=== PATIENT | female | born 1950 | race Caucasian/White ===

== ENCOUNTER → 2024-01-01 | Outpatient (CLI) | payer MEDICARE, SELFPAY ==
[2024-01-01 08:58] LABS: Hematocrit 37.4 % (37-47); Hemoglobin 10.9 g/dL (12.0-15.0); Mean Corp Hgb Conc 29.1 g/dL (32-36); Mean Corpuscular Hgb 20.5 pg (27.0-32.0); Mean Corpuscular Volume 70.3 fL (81-99); Mean Platelet Vol. 10.4 fl (6.2-12.0); Platelet Count 299 K/mm3 (150-450); RBC Distribution Width CV 16.8 % (11.6-14.6); RBC Distribution Width SD 40.3 fl (35.1-43.9); Red Blood Count 5.32 M/mm3 (4.2-5.4); White Blood Count 8.3 K/mm3 (4.4-11.0)
[2024-01-01 09:34] LABS: Hemoglobin A1c 6.8 % (3.8-5.6)
[2024-01-01 09:42] LABS: ALB/GLOB Ratio 1.2 RATIO (0.9-2.4); AST(SGOT) 36 U/L (15-37); Alanine Aminotransfer ALT/SGPT 40 U/L (13-56); Albumin, Serum 4.2 g/dL (3.2-5.0); Alkaline Phosphatase 47 U/L (45-117); Anion Gap 6 (5-15); BUN 23 mg/dL (7-18); BUN/Creat Ratio 17.7 RATIO (10-20); Calcium,Total 9.2 mg/dL (8.5-10.1); Chloride 110 mmol/L (98-107); Cholesterol 147 mg/dL (200); EST Glomerular Filtration Rate 42 mL/min (>60); Est Glom Filt Rate - Afr Amer 51 mL/min (>60); Globulin 3.4 g/dL (2.2-4.2); Glucose 168 mg/dL (74-106); High Density Lipoprotein 34 mg/dL; Potassium 4.8 mmol/L (3.5-5.1); Protein, Total 7.6 g/dL (6.4-8.2); Sodium Level 141 mmol/L (136-145); Triglycerides 280 mg/dL; Very Low Density Lipoprotein 56 mg/dL (5-40)
[2024-01-01 10:34] LABS: Microalbumin:Creatinine Ratio 2335.9 mg/g CRE (<30 mg/g CRE)
== END | disposition home or self-care (01) ==
DX: I10 Essential (primary) hypertension (principal); E11.65 Type 2 diabetes mellitus with hyperglycemia; E78.2 Mixed hyperlipidemia
CPT/HCPCS: 36415; 80053; 80061; 82043; 82570; 83036; 85027

== ENCOUNTER 2024-04-10 06:21 | Day surgery (SDC) | payer MEDICARE, SELFPAY ==
[2024-04-10] VITALS (7 sets, daily range): BP systolic 106–141; BP diastolic 62–88; PULSE 63–76; RESP 16–18; TEMP 36.6–37.1; O2SAT 16–99; BMI 30.6
--- NOTE | 2024-04-10 06:37 | PRE.ANES_ITS ---
ASA Classification* ASA Classification ASA Classification: 2 Assessment & Plan Anesthesia* Anesthesia Assessment Anesthesia Assessment: Discussed sedation and/or anesthesia options, risks, benefits, and alternatives with patient/parents/legal guardian/POA. Questions invited. The patient/parents/legal guardian/POA seems to understand and agrees to proceed with anesthesia plan. Reviewed the physical assessment, medical history, allergy history and patient home medications list prior to surgery/procedure/anesthetic and documented any changes. Performed airway and anesthesia risk assessments. Anesthesia Type Anesthesia Type: MAC Anesthesia Focused Assessment* Airway Assessment Mouth opens: >3 cm Mallampati Score: II Focused Labs Anesthesia Preop lab: CBC WBC 8.3 K/mm3 (4.4-11.0) 01/01/24 08:18 RBC 5.32 M/mm3 (4.2-5.4) 01/01/24 08:18 Hgb 10.9 g/dL (12.0-15.0) L 01/01/24 08:18 Hct 37.4 % (37-47) 01/01/24 08:18 Plt Count 299 K/mm3 (150-450) 01/01/24 08:18 CHEMISTRY Potassium 4.8 mmol/L (3.5-5.1) 01/01/24 08:18 Sodium 141 mmol/L (136-145) 01/01/24 08:18 BUN 23 mg/dL (7-18) H 01/01/24 08:18 Creatinine 1.30 mg/dL (0.55-1.02) H 01/01/24 08:18 Glucose 168 mg/dL (74-106) H 01/01/24 08:18 COAG Pre-Assessment Diagnosis/Proposed Procedure Planned Operative Procedure(s): COLONOSCOPY Anesthesia History 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 When Was Last Pacemaker Check QUESTION #4 FULL TEXT: You/Your Family Experience fever (hyperthermia) with Anesthesia Last Oral Intake Last Oral intake: Last Oral Intake NPO since Meds taken in AM with sips of water? 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 Has anyone observed you stop No 04/07/24 13:33 breathing during sleep? STOP Results Positive 04/07/24 13:33 QUESTION #5 FULL TEXT : Do you snore loudly (louder than talking or can be heard through closed doors)? 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 Specify any problems Hx of Preganancy in last 3 No 04/07/24 13:33 Months Nurse Filling Out Transfusion SUMAN 04/07/24 13:33 & Questions: Date: 04/07/24 04/07/24 13:33 Time: 13:37 04/07/24 13:33 Patient unable to answer at this time (ie. 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 Hx Now No 04/07/24 13:33 Gestational Age (in weeks): EDC: Hx Hx Para Hx Section SAB No 04/07/24 13:33 Active Medications Active Medications: Current Medications Generic Name Dose Route Start Last Admin Trade Name Freq PRN Reason Stop Dose Admin Lactated Ringer's 1,000 mls @ 15 mls/hr 04/10/24 06:30 IV .Q48H IOANA PFSH Medical History Wears glasses Loose, teeth Wears partial dentures Panic attack Discoloration of skin Ambulates with cane Arthritis Kidney stones Low iron Anemia Fatty liver Easy bruising Restless legs History of IBS Heartburn Former smoker Hoarseness Chronic cough History of edema History of stress test UTI (urinary tract infection) GERD (gastroesophageal reflux disease) History of kidney stones History of trigger finger Anxiety Type 2 diabetes mellitus Hyperlipidemia HTN (hypertension) Personal history of colonic polyps Home Medications ?Medication ?Instructions ?Recorded ?Last Taken ?Type amitriptyline 25 mg tablet 25 mg PO QHS 04/03/24 Unknown History amlodipine 10 mg tablet 10 mg PO DAILY 04/03/24 Unknown History ascorbic acid (vitamin C) 500 mg 500 mg PO DAILY 04/03/24 Unknown History tablet aspirin 81 mg tablet,delayed 81 mg PO DAILY 04/03/24 Unknown History release (Adult Low Dose Aspirin) calcium citrate 250 mg PO DAILY 04/03/24 Unknown History cranberry extract 500 mg capsule 500 mg PO DAILY 04/03/24 Unknown History cyanocobalamin (vitamin B-12) 500 500 mcg PO DAILY 04/03/24 Unknown History mcg tablet ergocalciferol (vitamin D2) 50 mcg 50 mcg PO DAILY 04/03/24 Unknown History (2,000 unit) capsule estradiol 0.01% (0.1 mg/gram) 1 g vaginal 3XW 04/03/24 Unknown History vaginal cream famotidine 20 mg tablet 20 mg PO BID 04/03/24 Unknown History fenofibrate 160 mg tablet 160 mg PO DAILY 04/03/24 Unknown History ferrous sulfate 325 mg (65 mg 325 mg PO DAILY 04/03/24 Unknown History iron) tablet (Feosol) fluoxetine 20 mg capsule 20 mg PO DAILY 04/03/24 Unknown History gabapentin 300 mg capsule 600 mg PO .QID 04/03/24 Unknown History garlic 500 mg capsule 500 mg PO DAILY 04/03/24 Unknown History hydrochlorothiazide 12.5 mg capsule 25 mg PO DAILY 04/03/24 Unknown History icosapent ethyl 1 gram capsule 2 g PO BID 04/03/24 Unknown History lactobacillus combination no.9 4 4,000 mmu cells PO DAILY 04/03/24 Unknown History billion cell capsule (Adult 50 Plus Probiotic) lorazepam 1 mg tablet 1.5 mg PO TID PRN anxiety 04/03/24 Unknown History losartan 100 mg tablet 100 mg PO DAILY 04/03/24 Unknown History magnesium gluconate 500 mg tablet 500 mg PO DAILY 04/03/24 Unknown History metformin 1,000 mg tablet 1,000 mg PO BID 04/03/24 Unknown History multivitamin 1 tab PO DAILY 04/03/24 Unknown History prednisolone acetate 1 % eye 1 drp ophthalmic (eye) TID 04/03/24 Unknown History drops,suspension rosuvastatin 40 mg tablet 40 mg PO DAILY 04/03/24 Unknown History tamsulosin 0.4 mg capsule 0.4 mg PO DAILY 04/03/24 Unknown History trimethoprim 100 mg tablet 100 mg PO DAILY 04/03/24 Unknown History Allergy/AdvReac Type Severity Reaction Status Date / Time clindamycin Allergy Rash Verified 04/07/24 13:39 codeine Allergy Other Verified 04/07/24 13:39 erythromycin base Allergy Rash Verified 04/07/24 13:39 Iodinated Contrast Media Allergy Nausea/Vom/ Verified 04/07/24 13:39 (IVP dye) Diarrhea latex Allergy Hives Verified 04/07/24 13:39 oxytetracycline (From Allergy Rash Verified 04/07/24 13:39 Terramycin) Penicillins Allergy Rash Verified 04/07/24 13:39 Sulfa (Sulfonamide Allergy Rash Verified 04/07/24 13:39 Antibiotics) Surgical History History of total bilateral knee replacement (TKR) Hx of appendectomy History of tonsillectomy and adenoidectomy Hx of colonoscopy Social History (Updated 04/03/24 @ 10:18 by Joanna Gutierrez) household members: spouse current occupational status: retired Smoking Status: Former smoker alcohol intake: never substance use type: does not use Review of Systems (Anesthesia) ROS Narrative System reviewed and no additional complaints, except as documented.
[2024-04-10] MEDS: Lactated Ringers 1,000 ML 15 ML IV (06:51)
[2024-04-10 07:11] LABS: Bedside Glucose 115 mg/dL (74-106)
--- NOTE | 2024-04-10 07:20 | HP.PCM_ITS ---
[facility] - General General Date of Admission: 04/10/24 Date of Service: 04/10/24 Chief Complaint: Screening colonoscopy HPI Talita TYLER, is a 73 F who presents today for screening colonoscopy. She had a colonoscopy approximately 10 years ago. She has not had any abdominal pain cramping, nausea, vomiting or diarrhea. She does have a past medical history of hypertriglyceridemia, mild depression, mild neuropathy, hypertension, mild anxiety and type 2 diabetes. [facility] Medical History Wears glasses Loose, teeth Wears partial dentures Panic attack Discoloration of skin Ambulates with cane Arthritis Kidney stones Low iron Anemia Fatty liver Easy bruising Restless legs History of IBS Heartburn Former smoker Hoarseness Chronic cough History of edema History of stress test UTI (urinary tract infection) GERD (gastroesophageal reflux disease) History of kidney stones History of trigger finger Anxiety Type 2 diabetes mellitus Hyperlipidemia HTN (hypertension) Personal history of colonic polyps Home Medications ?Medication ?Instructions ?Recorded ?Last Taken ?Type amitriptyline 25 mg tablet 25 mg PO QHS 04/03/24 Unknown History amlodipine 10 mg tablet 10 mg PO DAILY 04/03/24 04/10/24 History ascorbic acid (vitamin C) 500 mg 500 mg PO DAILY 04/03/24 Unknown History tablet aspirin 81 mg tablet,delayed 81 mg PO DAILY 04/03/24 04/04/24 History release (Adult Low Dose Aspirin) calcium citrate 250 mg PO DAILY 04/03/24 Unknown History cranberry extract 500 mg capsule 500 mg PO DAILY 04/03/24 Unknown History cyanocobalamin (vitamin B-12) 500 500 mcg PO DAILY 04/03/24 Unknown History mcg tablet ergocalciferol (vitamin D2) 50 mcg 50 mcg PO DAILY 04/03/24 Unknown History (2,000 unit) capsule estradiol 0.01% (0.1 mg/gram) 1 g vaginal 3XW 04/03/24 Unknown History vaginal cream famotidine 20 mg tablet 20 mg PO BID 04/03/24 04/10/24 History fenofibrate 160 mg tablet 160 mg PO DAILY 04/03/24 04/10/24 History ferrous sulfate 325 mg (65 mg 325 mg PO DAILY 04/03/24 Unknown History iron) tablet (Feosol) fluoxetine 20 mg capsule 20 mg PO DAILY 04/03/24 04/10/24 History gabapentin 300 mg capsule 600 mg PO .QID 04/03/24 04/10/24 History garlic 500 mg capsule 500 mg PO DAILY 04/03/24 Unknown History hydrochlorothiazide 12.5 mg capsule 25 mg PO DAILY 04/03/24 Unknown History icosapent ethyl 1 gram capsule 2 g PO BID 04/03/24 Unknown History lactobacillus combination no.9 4 4,000 mmu cells PO DAILY 04/03/24 Unknown History billion cell capsule (Adult 50 Plus Probiotic) lorazepam 1 mg tablet 1.5 mg PO TID PRN anxiety 04/03/24 04/10/24 History losartan 100 mg tablet 100 mg PO DAILY 04/03/24 04/10/24 History magnesium gluconate 500 mg tablet 500 mg PO DAILY 04/03/24 Unknown History metformin 1,000 mg tablet 1,000 mg PO BID 04/03/24 Unknown History multivitamin 1 tab PO DAILY 04/03/24 Unknown History prednisolone acetate 1 % eye 1 drp ophthalmic (eye) TID 04/03/24 Unknown History drops,suspension rosuvastatin 40 mg tablet 40 mg PO DAILY 04/03/24 Unknown History tamsulosin 0.4 mg capsule 0.4 mg PO DAILY 04/03/24 04/10/24 History trimethoprim 100 mg tablet 100 mg PO DAILY 04/03/24 Unknown History Allergy/AdvReac Type Severity Reaction Status Date / Time clindamycin Allergy Rash Verified 04/10/24 06:41 codeine Allergy Other Verified 04/10/24 06:41 erythromycin base Allergy Rash Verified 04/10/24 06:41 Iodinated Contrast Media Allergy Nausea/Vom/ Verified 04/10/24 06:41 (IVP dye) Diarrhea latex Allergy Hives Verified 04/10/24 06:41 oxytetracycline (From Allergy Rash Verified 04/10/24 06:41 Terramycin) Penicillins Allergy Rash Verified 04/10/24 06:41 Sulfa (Sulfonamide Allergy Rash Verified 04/10/24 06:41 Antibiotics) Surgical History History of total bilateral knee replacement (TKR) Hx of appendectomy History of tonsillectomy and adenoidectomy Hx of colonoscopy Social History (Updated 04/03/24 @ 10:18 by Joanna Gutierrez) household members: spouse current occupational status: retired Smoking Status: Former smoker alcohol intake: never substance use type: does not use ROS Review of Systems ROS Unobtainable: other Constitutional Constitutional: Denies fatigue, fever(s), poor appetite, weight gain or weight loss ENT HEENT: Denies mouth lesions Cardiovascular Cardiovascular: Denies abdominal bloating, abdominal edema or abdominal pain Respiratory/Chest Respiratory/Chest: Denies change in mental status, change in phlegm color, chest congestion or chest tightness Gastrointestinal Gastrointestinal: Denies belching, bloating, change in bowel habits, change in stool character, chewing difficulty, coffee ground emesis, constipation, cramping, diarrhea, dyspepsia, dysphagia, early satiety, excessive flatus, fecal incontinence, heartburn, hematemesis, hematochezia, hemorrhoids, loose stools, melena, nausea, odynophagia, rectal bleeding, tenesmus, vomiting or weight changes Genitourinary Genitourinary: Denies abdominal discomfort, burning urination or itching Musculoskeletal Musculoskeletal: Reports as per HPI; Denies muscle weakness or myalgias Integumentary Integumentary: Denies jaundice Neurologic Neurologic: Denies lack of coordination or weakness Psychiatric Psychiatric: Denies confusion, depression, memory loss, mood swings, paranoia or suicidal ideation Endocrine Endocrinology: Denies systems reviewed and no addt'l complaints, except as documented Hematologic/Lymphatic Hematologic/Lymphatic: Denies anemia, easy bleeding, easy bruising or lymphadenopathy Allergic/Immunologic Allergic/Immunologic: Denies systems reviewed and no addt'l complaints, except as documented Vital Signs Vital Signs Vital Signs: 04/10/24 06:44 04/10/24 06:44 Temperature 98 F Temperature Source Temporal Pulse Rate 76 Respiratory Rate 16 Respiratory Pattern Normal Blood Pressure 141/62 H Blood Pressure Mean 88 Blood Pressure Source Monitor Blood Pressure Position Semi-Fowlers Blood Pressure Location Right Arm Pulse Ox 96 Oxygen Delivery Method Room Air Weight Weight: 178 lb 5.663 oz Body Mass Index (BMI) 30.6 Physical Exam Const alert General Appearance: cooperative Orientation / Consciousness: oriented to person HEENT hearing grossly normal bilaterally Head and Scalp: normal to inspection Face and Sinus: face symmetric Nose: external nose normal Mouth: oral and palatal mucosa normal Eyes conjunctivae normal General Eye: normal appearance of both eyes Neck full ROM General: normal visual inspection Lymph Lymphatic: no lymphadenopathy noted Chest inspection of chest normal and palpation of chest normal Chest: symmetrical chest wall rise Resp normal respiratory effort Effort and Inspection: able to speak in complete sentences Cardio regular rate GI non-distended Percussion: normal to percussion Rectal Exam: deferred Neuro Speech: speech normal Gait (Neuro): normal gait Results Lab / Micro Data Labs: Laboratory Results - last 24 hr 04/10/24 06:48: POC Glucose 115 H Assessment & Plan Assessment/Plan (1) Encounter for screening for malignant neoplasm of colon: PLAN: She was explained alternatives, risk, benefits including not withstanding bleeding, infection, sepsis, perforation, need for emergent urgent . She will have an ASA of 3.
--- NOTE | 2024-04-10 07:49 | OP.COLON_ITS ---
Patient Name: Debbie Hayes Procedure Date: 04/10/2024 7:28 AM Date of : 1950 Age: 73 Procedure: Colonoscopy Indications: Screening for colorectal malignant neoplasm Providers: Isauro Davis DO Referring MD: Isauro Davis DO Medicines: Monitored Anesthesia Care Patient Profile: This is a 73 year old female. Refer to note in patient chart for documentation of history and physical. Last Colonoscopy: more than 10 years ago. Complications: No immediate complications. Procedure: Pre-Anesthesia Assessment: - Prior to the procedure, a History and Physical was performed, and patient medications and allergies were reviewed. The patient is competent. The risks and benefits of the procedure and the sedation options and risks were discussed with the patient. All questions were answered and informed consent was obtained. Patient identification and proposed procedure were verified by the physician in the pre-procedure area. Mental Status Examination: alert and oriented. Airway Examination: normal oropharyngeal airway and neck mobility. Respiratory Examination: clear to auscultation. Prophylactic Antibiotics: The patient does not require prophylactic antibiotics. Prior Anticoagulants: The patient has taken no anticoagulant or antiplatelet agents. After reviewing the risks and benefits, the patient was deemed in satisfactory condition to undergo the procedure. The anesthesia plan was to use monitored anesthesia care (MAC). Immediately prior to administration of medications, the patient was re-assessed for adequacy to receive sedatives. The heart rate, respiratory rate, oxygen saturations, blood pressure, adequacy of pulmonary ventilation, and response to care were monitored throughout the procedure. The physical status of the patient was re-assessed after the procedure. After I obtained informed consent, the scope was passed under direct vision. Throughout the procedure, the patient's blood pressure, pulse, and oxygen saturations were monitored continuously. The Colonoscope was introduced through the anus and advanced to the cecum, identified by appendiceal orifice and ileocecal valve. The colonoscopy was performed without difficulty. The patient tolerated the procedure well. The quality of the bowel preparation was adequate. The terminal ileum, ileocecal valve, appendiceal orifice, and rectum were photographed. Scope In: 7:30:53 AM Scope Withdrawal Time 0 hours 9 minutes 36 seconds Scope Out: 7:44:28 AM Total Procedure Duration Time 0 hours 13 minutes 35 seconds Findings: The perianal and digital rectal examinations were normal. Multiple small and large-mouthed diverticula were found in the entire colon. There was a large lipoma, in the ascending colon. A tattoo was seen in the ascending colon. The tattoo site appeared normal. The exam was otherwise without abnormality on direct and retroflexion views. Impression: - Diverticulosis in the entire examined colon. 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 - A tattoo was seen in the ascending colon. The tattoo site appeared normal. - The examination was otherwise normal on direct and retroflexion views. - No specimens collected. Recommendation: - Discharge patient to home. - Resume previous diet. - Continue present medications. - Repeat colonoscopy in 10 years for screening purposes. Procedure Code(s): --- Professional --- G0121, Colorectal cancer screening; colonoscopy on individual not meeting criteria for high risk CPT copyright 2021 [employer]. All rights reserved. The codes documented in this report are preliminary and upon online marketing analyst review may be revised to meet current compliance requirements. Isauro Davis DO 04/10/2024 7:49:34 AM This report has been signed electronically. Number of Addenda: 0 Note Initiated On: 04/10/2024 7:28 AM
--- NOTE | 2024-04-10 07:50 | OP.CCLET_ITS ---
04/10/2024 No Primary Care Physician Re : Colonoscopy procedure for Debbie Hayes Dear Care Physician This procedure was performed on April. My impressions and recommendations are as follows: Impressions : - Diverticulosis in the entire examined colon. 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 - A tattoo was seen in the ascending colon. The tattoo site appeared normal. - The examination was otherwise normal on direct and retroflexion views. - No specimens collected. Recommendations : - Discharge patient to home. - Resume previous diet. - Continue present medications. - Repeat colonoscopy in 10 years for screening purposes. My findings are described in the full procedure note, which is enclosed. If I can be of further assistance, please feel free to contact me at . Sincerely, Isauro Friend, 04/10/2024 7:49:34 AM This report has been signed electronically.
--- NOTE | 2024-04-10 07:53 | PCM.POST.ANE ---
Anesthesia: Postop Eval I Current Vital Signs Temperature: 98.6 F Pulse Rate: 63 Blood Pressure: 106/65 Respiratory Rate: 16 Pulse Ox: 99 Oxygen Delivery Method: Room Air Assessment Airway patent: Yes Spontaneous unlabored respirations: Yes Mental status: Awake and Calm nausea: No Vomiting: No Anesthesia Complication: No Fluid Hydration Crystalloid volume administer (ml): 600 Total IV fluid infused: 600 Progress Note Anesthesia document: Postop Eval 1 completed: Yes
--- NOTE | 2024-04-10 08:43 | PCM.POSTANE2 ---
Anesthesia Postop Eval I Sum Postop Eval Completion status Anesthesia document: Postop Eval 1 completed: Yes Anesthesia Postop Eval I Summary Anesthesia Postop Eval I Summary: Anesthesia Postop Eval I: Assessment Summary Airway patent Yes 04/10/24 07:54 [email or web address] Spontaneous unlabored Yes 04/10/24 07:54 [email or web address] respirations Mental status Awake,Calm 04/10/24 07:54 [email or web address] nausea No 04/10/24 07:54 [email or web address] Vomiting No 04/10/24 07:54 [email or web address] Anesthesia Postop Eval I: Fluid Summary Crystalloid volume administer 600 04/10/24 07:54 [email or web address] (ml) Colloids volume administered ( ml) Blood Product volume administered (ml) Total IV fluid infused 600 04/10/24 07:54 [email or web address] Anesthesia Postop Eval I: Summary Notes Anesthesia Complication No 04/10/24 07:54 [email or web address] Anesthesia Complication Comment: Post-operative progress note Anesthesia: Postop Eval II Evaluation Mental status: Awake Pain Level: 0 nausea: No Vomiting: No
== END 2024-04-10 08:26 | disposition home or self-care (01) ==
LOC: EN 06:22 → AC 06:23
PROVIDERS: Visit Provider Internal Medicine Gastroenterology
PROC: 0DJD8ZZ Inspection of Lower Intestinal Tract, Via Natural or Artificial Opening Endoscopic (ICD-10-PCS; CPT 45378; principal; 2024-04-10 07:25)
DX: Z12.11 Encounter for screening for malignant neoplasm of colon (principal); E11.9 Type 2 diabetes mellitus without complications; E78.5 Hyperlipidemia, unspecified; I10 Essential (primary) hypertension; D64.9 Anemia, unspecified; D17.79 Benign lipomatous neoplasm of other sites; K57.30 Diverticulosis of large intestine without perforation or abscess without bleeding; Z79.82 Long term (current) use of aspirin; Z79.899 Other long term (current) drug therapy; Z79.84 Long term (current) use of oral hypoglycemic drugs; Z87.891 Personal history of nicotine dependence
CPT/HCPCS: G0121; 82962; J7120; J2405

== ENCOUNTER → 2024-07-03 | Outpatient (CLI) | payer MEDICARE, SELFPAY ==
[2024-07-03 09:23] LABS: Hemoglobin 10.7 g/dL (12.0-15.0); Mean Corp Hgb Conc 29.7 g/dL (32-36); Mean Corpuscular Volume 70.7 fL (81-99); Mean Platelet Vol. 10.6 fl (6.2-12.0); Platelet Count 353 K/mm3 (150-450); RBC Distribution Width CV 16.8 % (11.6-14.6); RBC Distribution Width SD 40.1 fl (35.1-43.9); Red Blood Count 5.09 M/mm3 (4.2-5.4)
[2024-07-03 11:10] LABS: ALB/GLOB Ratio 1.4 RATIO (0.9-2.4); AST(SGOT) 52 U/L (15-37); Alanine Aminotransfer ALT/SGPT 44 U/L (13-56); Albumin, Serum 4.5 g/dL (3.2-5.0); Alkaline Phosphatase 57 U/L (45-117); Anion Gap 7 (5-15); BUN 34 mg/dL (7-18); BUN/Creat Ratio 23.3 RATIO (10-20); Calcium,Total 9.8 mg/dL (8.5-10.1); Chloride 112 mmol/L (98-107); Cholesterol 138 mg/dL (200); Creatinine, Serum 1.46 mg/dL (0.55-1.02); EST Glomerular Filtration Rate 37 mL/min (>60); Est Glom Filt Rate - Afr Amer 45 mL/min (>60); Globulin 3.2 g/dL (2.2-4.2); Glucose 156 mg/dL (74-106); High Density Lipoprotein 34 mg/dL; Potassium 4.8 mmol/L (3.5-5.1); Protein, Total 7.7 g/dL (6.4-8.2); Sodium Level 137 mmol/L (136-145); Triglycerides 246 mg/dL; Very Low Density Lipoprotein 49 mg/dL (5-40)
[2024-07-03 17:05] LABS: Protein, Urine (Random) 236.1 mg/dL (<11.9); Protein:Creat Ratio 1968 mg/g CRE (0-200)
== END | disposition home or self-care (01) ==
DX: E11.65 Type 2 diabetes mellitus with hyperglycemia (principal); E83.42 Hypomagnesemia; I10 Essential (primary) hypertension
CPT/HCPCS: 36415; 80053; 80061; 82570; 83036; 83735; 84156; 85027

== ENCOUNTER → 2024-07-28 | Outpatient (CLI) | payer MEDICARE, SELFPAY ==
--- NOTE | 2024-07-28 10:16 | RAD_ITS ---
STUDY: X-RAY - ABDOMEN/PELVIS REASON FOR EXAM: Female, 74 years old. Calculus of kidney TECHNIQUE: Single AP view of the abdomen / pelvis. COMPARISON: None. FINDINGS: Normal visualized lung bases. There is an unremarkable bowel gas pattern. The visualized liver, spleen and kidneys are grossly normal in size and morphology. Normal soft tissue structures. Normal visualized osseous structures. RAD/Abdomen Single View IMPRESSION: Normal x-ray examination of the abdomen and pelvis. Electronically Signed: Pedro Ervin MD at 10:32 EST ,
== END | disposition home or self-care (01) ==
DX: N20.0 Calculus of kidney (principal)
CPT/HCPCS: 74018

== ENCOUNTER → 2024-08-21 | Outpatient (CLI) | payer MEDICARE, SELFPAY ==
--- NOTE | 2024-08-21 12:45 | CT_ITS ---
STUDY: LOW DOSE CT LUNG CANCER SCREENING REASON FOR EXAM: Female, 74 years old. 20+ pack year history of smoking RADIATION DOSAGE (If Supplied By Facility): CTDIvol = ( 2.39 ) mGy, DLP = ( 69.38 ) mGycm TECHNIQUE: No contrast was administered. Low dose technique was utilized (average mAS-38 and kVp 120). 1.25 mm axial source images with a slice interval of 1.25-mm were reconstructed in lung windows. 2.5 mm axial source images with a slice interval of 2.5-mm were reconstructed in lung windows. 5.0 mm axial source images with a slice interval of 5.0-mm were reconstructed in soft tissue windows. COMPARISON: None. FINDINGS: Lungs are expanded with interstitial edema suggesting pulmonary vascular congestion or diffuse inflammatory change. There is no organized infiltrate or effusion. No suspicious noncalcified mass or nodule. Chronic interstitial changes noted in both lung evangelista with evidence of chronic bronchitis. Limited soft tissue windows show a normal-appearing thyroid gland. No suspicious adenopathy. There are calcified coronary vessels. Small retrocardiac hiatal hernia with evidence of GE reflux. Limited cuts of the upper abdomen show hepatic cyst or hemangioma which is incompletely visualized. Bony structures show degenerative change CT/Low Dose CT Lung Screening IMPRESSION: Lung-RADS category 2 - Continue annual screening with LDCT in 12 months. IMPORTANT NOTES FOR USE: ACR Lung-RADS Version 1.1 Assessment Categories Release Date: 2018 Category: Coded 0-4 bases on nodule(s) with highest degree of suspicion. Negative screen is defined as categories 1 and 2; a positive screen is defined as categories 3 and 4. Category 3 and 4A nodules that are unchanged on interval CT should be coded as category 2, and individuals returned to screening in 12 months. Category 4X: Category 3 or 4 nodules with additional imaging findings that increase the suspicion of lung cancer, such as spiculation, GGN that doubles in size in 1 year, enlarged lymph notes, etc. Category Modifiers: S (significant finding unrelated to lung cancer) Electronically Signed: Tye Kidd MD at 8:17 EST ,
== END | disposition home or self-care (01) ==
DX: Z12.2 Encounter for screening for malignant neoplasm of respiratory organs (principal); F17.218 Nicotine dependence, cigarettes, with other nicotine-induced disorders
CPT/HCPCS: 71271

== ENCOUNTER → 2024-11-14 | Outpatient (CLI) | payer MEDICARE, SELFPAY ==
--- NOTE | 2024-11-14 08:24 | CT_ITS ---
PROCEDURE: CT ABD/PELVIS W/WO CONTRAST REASON FOR EXAM: HEMANGIOMA TECHNIQUE: CT abdomen and pelvis was performed prior to and following the administration of IV contrast. Multiplanar reformats were generated. IV CONTRAST: 99 mL Isovue-300 COMPARISON: None FINDINGS: Mild/moderate motion limitation through the lung bases and upper abdomen. Note the exam is limited by the lack of a true late arterial phase of postcontrast imaging, with opacification of the hepatic veins on initial postcontrast images. This limits evaluation for late arterial phase enhancement. Lung bases: Atelectasis/scarring. Coronary atherosclerosis and/or stents hiatal hernia containing mostly fat. Small amount of fluid within the distal thoracic esophagus suggesting gastroesophageal reflux. Borderline mild cardiomegaly atherosclerosis. Liver: Steatosis. Hepatomegaly. 2.2 x 1.8 cm largely macroscopic fat containing subcapsular lesion in segment VII demonstrates no appreciable enhancement allowing for motion in the region. There is a central nodular component demonstrating soft tissue attenuation measuring 0.6 x 0.9 cm along the anterior aspect, again without definite enhancement allowing for small size and motion. Spleen: Unremarkable. Gallbladder: Unremarkable. Pancreas: Fatty infiltration of the pancreatic head/uncinate process.. Adrenals: Unremarkable. Kidneys: Cysts and additional tiny hypodensities too small to characterize, likely cysts. Bowel: Small periampullary duodenal and more distal duodenal diverticuli. Colonic diverticulosis.. Appendix is reportedly surgically absent. Lymph nodes: Unremarkable. Vasculature: Atherosclerosis.. Peritoneum: Unremarkable. Bladder: Underdistended and suboptimally evaluated, grossly unremarkable. Reproductive Organs: Small calcified uterine presumed fibroid.. Body Wall: Unremarkable. Bones: Demineralization. Multilevel spondylosis. Thoracolumbar dextroscoliosis. CT/CT Abd/Pelvis W/WO Contrast IMPRESSION: 1. 2.2 cm fat containing hepatic lesion remains indeterminate by CT. In the ab sence of a known history of fat producing neoplasm such as liposarcoma elsewhere to suggest metastasis, the differential for fat c ontaining hepatic lesions includes several relatively rare entities such as an angiomyolipoma, lipoma, and perhaps an unus ually prominent pseudolipoma of the Hakeem capsule although this is considered unlikely. Fat containing HCC also remains within the differential although there are no clear enhancing components identified allowing for limitations. For this reaso n, clinical follow-up is warranted, including at a minimum close imaging follow-up to ensure stability. Comparison against any av ailable outside imaging may also be helpful to evaluate stability. 2. Hepatomegaly and diffuse hepatic steatosis. Correlate for clinical and labo ratory evidence of chronic liver disease. 3. Additional description as above. Reading Location: [id number]
[2024-11-14 09:07] LABS: CREATININE FINGERSTICK < 1.0 mg/dL (0.55-1.02)
== END | disposition home or self-care (01) ==
LOC: CT 08:21
PROVIDERS: Referring Provider Urology; Visit Provider Urology
DX: D18.00 Hemangioma unspecified site (principal)
CPT/HCPCS: 74178; Q9967

== ENCOUNTER → 2024-11-24 | Outpatient (CLI) | payer MEDICARE, SELFPAY ==
[2024-11-24 10:14] LABS: Hematocrit 34.7 % (37-47); Hemoglobin 10.2 g/dL (12.0-15.0); Mean Corp Hgb Conc 29.4 g/dL (32-36); Mean Corpuscular Hgb 20.9 pg (27.0-32.0); Mean Corpuscular Volume 71.3 fL (81-99); Mean Platelet Vol. 9.9 fl (6.2-12.0); Platelet Count 295 K/mm3 (150-450); RBC Distribution Width CV 16.7 % (11.6-14.6); RBC Distribution Width SD 40.8 fl (35.1-43.9); Red Blood Count 4.87 M/mm3 (4.2-5.4); White Blood Count 8.3 K/mm3 (4.4-11.0)
[2024-11-24 14:05] LABS: ALB/GLOB Ratio 1.8 RATIO (0.9-2.4); AST(SGOT) 51 U/L (<=31); Alanine Aminotransfer ALT/SGPT 45 U/L (<=34); Albumin, Serum 4.7 g/dL (3.4-4.8); Alkaline Phosphatase 42 U/L (35-104); Anion Gap 14 (5-15); BUN 29 mg/dL (4-19); BUN/Creat Ratio 23.2 RATIO (10-20); Calcium,Total 9.8 mg/dL (7.6-11.0); Carbon Dioxide 19.3 mmol/L (21.0-32.0); Chloride 106 mmol/L (98-108); Cholesterol 181 mg/dL (<=200); Creatinine, Serum 1.26 mg/dL (0.70-1.20); EST Glomerular Filtration Rate 44 (>60); Globulin 2.6 g/dL (2.2-4.2); Glucose 137 mg/dL (70-99); High Density Lipoprotein 37 mg/dL; Low Density Lipoprotein Calc. 73 mg/dL; Potassium 4.9 mmol/L (3.3-5.1); Protein, Total 7.2 g/dL (5.9-8.4); Sodium Level 140 mmol/L (133-145); Total Bilirubin 0.39 mg/dL (0.00-1.30); Triglycerides 352 mg/dL; Very Low Density Lipoprotein 70 mg/dL (5-40); Vitamin D,25 Hydroxy 22.4 ng/mL (30-100); cholesterol:hdl ratio screen 4.87
[2024-11-24 16:32] LABS: Microalbumin:Creatinine Ratio 10501.7 mg/g CRE
== END | disposition home or self-care (01) ==
PROVIDERS: PCP Family Medicine; Referring Provider Nurse Practitioner Family; Visit Provider Nurse Practitioner Family
DX: E78.2 Mixed hyperlipidemia (principal); E11.65 Type 2 diabetes mellitus with hyperglycemia; I10 Essential (primary) hypertension; E55.9 Vitamin D deficiency, unspecified
CPT/HCPCS: 36415; 80053; 80061; 82043; 82306; 82570; 83036; 85027

== ENCOUNTER → 2024-12-08 | Outpatient (CLI) | payer MEDICARE, SELFPAY ==
--- NOTE | 2024-12-08 15:56 | US_ITS ---
PROCEDURE: THYROID (USTHY), 12/08/2024 REASON FOR EXAM: ENLARGED THYROID, NONTOXIC GOITER, UNSPECIFIED TECHNIQUE: Grayscale and color Doppler imaging of the thyroid was performed. COMPARISON: None FINDINGS: Right lobe measures 5.0 x 1.2 x 1.6cm. Essentially homogeneous background echotexture. No abnormal vascularity. Nodules as below: *Upper pole, 5 x 4 x 4 mm, solid very hypoechoic versus cystic with low-level internal echoes, best considered TI-RADS 4. *Additional tiny probable cyst. Left lobe measures 4.1 x 1.4 x 1.2 cm. Essentially homogeneous background echotexture. No abnormal vascularity. Tiny probable cyst. No solid or mostly solid nodules are identified. Isthmus measures 3 mm in thickness. Other: A lymph node lateral to the RIGHT lobe measures 11 x 9 x 5 mm with preserved fatty hilum. US/Thyroid IMPRESSION: 1. Assessment is TI-RADS 4. No nodules currently meet criteria for FNA or follo w-up. 2. Normal size gland with essentially unremarkable background echotexture. No abnormal vascularity. 3. Morphologically normal nonenlarged RIGHT cervical node, nonspecific and pote ntially reactive. Management recommendations for TI-RADS 4 findings: FNA if = 1.5 cm; Follow if = 1 cm at 1, 2, 3, and 5 years. Recommendations per ACR Thyroid Imaging, Reporting and Data System (TI-RADS): Liya galeas Paper of the ACR TI-RADS Committee, 2017 ([email or web address]) Reading Location: [id number]
== END | disposition home or self-care (01) ==
PROVIDERS: PCP Family Medicine; Referring Provider Nurse Practitioner Family; Visit Provider Nurse Practitioner Family
DX: E04.9 Nontoxic goiter, unspecified (principal)
CPT/HCPCS: 76536

== ENCOUNTER → 2024-12-17 | Outpatient (CLI) | payer MEDICARE, SELFPAY ==
[2024-12-17 11:30] LABS: Erythrocyte Sedimentation Rate 13 mm/hr (0-30)
[2024-12-17 11:37] LABS: Prothrombin Time (Protime)PT. 13.6 SECONDS (11.7-14.9)
[2024-12-17 14:42] LABS: ALB/GLOB Ratio 1.7 RATIO (0.9-2.4); AST(SGOT) 57 U/L (<=31); Alanine Aminotransfer ALT/SGPT 64 U/L (<=34); Albumin, Serum 4.8 g/dL (3.4-4.8); Alkaline Phosphatase 55 U/L (35-104); Anion Gap 14 (5-15); BUN 22 mg/dL (4-19); BUN/Creat Ratio 18.3 RATIO (10-20); Calcium,Total 10.1 mg/dL (7.6-11.0); Chloride 105 mmol/L (98-108); Creatinine, Serum 1.21 mg/dL (0.70-1.20); EST Glomerular Filtration Rate 46 (>60); Globulin 2.9 g/dL (2.2-4.2); Glucose 108 mg/dL (70-99); Potassium 5.4 mmol/L (3.3-5.1); Protein, Total 7.7 g/dL (5.9-8.4); Sodium Level 138 mmol/L (133-145); Total Bilirubin 0.46 mg/dL (0.00-1.30)
[2024-12-17 14:46] LABS: CRP < 3.00 mg/L (0.0-3.0)
[2024-12-18 13:08] LABS: Anti-Centromere B Ab <0.2 AI (0.0-0.9); Anti-Chromatin <0.2 AI (0.0-0.9); Anti-Jo <0.2 AI (0.0-0.9); Anti-Mitochondrial AB <20.0 Units (0.0-20.0); Anti-Scleroderma-70 AB <0.2 AI (0.0-0.9); Anti-dsDNA Ab <1 IU/mL (0-9); RNP Ab <0.2 AI (0.0-0.9); SJOGREN'S Anti-SS-A test < 0.2 AI (0.0-0.9); SJOGREN'S Anti-SS-B test < 0.2 AI (0.0-0.9); Smith Ab <0.2 AI (0.0-0.9)
== END | disposition home or self-care (01) ==
LOC: LAB 10:35
PROVIDERS: PCP Family Medicine; Referring Provider Internal Medicine Gastroenterology; Visit Provider Internal Medicine Gastroenterology
DX: K76.0 Fatty (change of) liver, not elsewhere classified (principal); D68.9 Coagulation defect, unspecified; K75.9 Inflammatory liver disease, unspecified
CPT/HCPCS: 36415; 80053; 80074; 82390; 82784; 82785; 83516; 85610; 85652; 86037; 86140; 86225; 86235; 86255

== ENCOUNTER → 2024-12-29 | Outpatient (CLI) | payer MEDICARE, SELFPAY ==
--- NOTE | 2024-12-29 08:00 | US_ITS ---
PROCEDURE: ABD LIMITED W/ ELASTOGRAPHY REASON FOR EXAM: FATTY LIVER COMPARISON: Comparison is made with prior CT scan of the abdomen pelvis dated November 14, 2024. TECHNIQUE: Right upper quadrant abdominal ultrasound. Animail ElastQ Imaging shear wave elastography for non-invasive assessment of liver tissue stiffness. Rodney EPIQ Elite. FINDINGS: LIVER: Size: Enlarged (hepatomegaly) Length: 22.7 cm Echotexture: Diffusely echogenic suggesting fatty infiltration Contour: Normal Lesions: Focal fatty sparing adjacent of the gallbladder lumen. There is a 2.3 cm 2.4 cm x 2.8 cm echogenic nodule in the right lobe of the liver suggestive of hemangioma. Elastography: EQI Med: 9 kPa EQI Med Felipe: 1.72 m/s IQR/Med: 18 %* GALLBLADDER: Normal COMMON BILE DUCT: Normal it measures 6.4 mm.. PANCREAS: Visualized portions are sonographically unremarkable. Visualized portions of the right kidney demonstrate several cysts. The largest cyst measures 4.6 cm 4.7 cm x 3.7 cm. This is in the midportion of the kidney.. No right upper quadrant ascites. US/ABD Limited w/ Elastography IMPRESSION: MODERATE HEPATIC FIBROSIS Findings suggestive of an hemangioma in the right lobe of the liver. Right renal cysts. Reference Values: SRU <1.37 m/s (5.7kPa): No to mild fibrosis 1.37 m/s - 2.2 m/s: Moderate to severe fibrosis >2.2 m/s (15kPa): Significant fibrosis / cirrhosis METAVIR Score F2 or higher: 1.34 m/s (5.7kPa) F3 or higher: 1.55 m/s (7.3kPa) F4: 1.80 m/s (10kPa) * If the IQR/Med is >30%, the variance in the measurements is a large and the a ccuracy of the measurement may be in question. Reading Location: [place] [id number]
--- NOTE | 2024-12-29 08:56 | US_ITS ---
EXAM: Ultrasound neck soft tissues. CLINICAL HISTORY: Lymph node lateral to the right lobe of the thyroid. COMPARISON: Prior study dated December 08, 2024. TECHNIQUE: Imaging of the right cervical region was obtained with ultrasound. FINDINGS: 2 small benign-appearing lymph nodes are seen in the right-side of the neck. These are unchanged. Both submandibular glands were imaged. No abnormality is seen. US/Head/Neck Soft Tissue IMPRESSION: There are 2, small benign-appearing right cervical lymph nodes. The larger lym ph node measures 1.2 cm x 0.9 cm x 0.5 cm. Reading Location: [facility]
== END | disposition home or self-care (01) ==
PROVIDERS: PCP Family Medicine; Referring Provider Internal Medicine Gastroenterology; Visit Provider Internal Medicine Gastroenterology
DX: K76.0 Fatty (change of) liver, not elsewhere classified (principal); R59.9 Enlarged lymph nodes, unspecified
CPT/HCPCS: 76536; 76705; 76981

== ENCOUNTER → 2025-06-08 | Outpatient (CLI) | payer MEDICARE, SELFPAY ==
--- OUTSIDE RECORDS SUMMARY | 2025-05-12 16:21 | XMS RPT_ITS ---
Author Name Auto Generated Organization OHIP Care Team Providers Care Payroll Associate Name Role Phone Kirk Reed Attending Unavailable Kuentz, Keny Primary Care Unavailable Kirk Reed Attending Unavailable Kuentz, Keny Primary Care Unavailable Kirk Reed Attending Unavailable Kuentz, Keny Primary Care Unavailable IVON BALBUENA Attending Unavailable IVON BALBUENA Attending Unavailable IVON BALBUENA Attending Unavailable IVON BALBUENA Attending Unavailable IVON BALBUENA Attending Unavailable SALIMAENTLyndon, KENY C Primary Care Unavailable KUENTLyndon KENY C Primary Care Unavailable CHRISTIANA GARCIA Attending Unavailable KUMASSIEL, KENY C Primary Care Unavailable KUENTLyndon KENY C Primary Care Unavailable EDUARDO BOWER Referring Unavailable KENY MOORE Primary Care Unavailable KENY MOORE Primary Care Unavailable PROBLEMS DATE TYPE CONDITION / CODE ATTENDING STATUS MARY BETH E 05/08/2025 Unknown Calculus of kidn ey / N20.0(ICD-10) Kirk Reed Active [facility] [place] 01/14/2025 Active Urinary frequenc y / R35.0(ICD-10) CHRISTIANA GARCIA Active [facility] 08/18/2024 Unknown Dysuria / R30.0(ICD-10) Kirk Reed Active [facility] [place] 07/17/2024 Active Acute COVID-19 / U07.1(ICD-10) NA Active [facility] 07/17/2024 Active Acute cough / R05.1(ICD-10) NA Active [facility] PROCEDURES No Procedure Records Found RESULTS URINALYSIS Collected: 05/12/2025 1:00 PM Status: F Source: [facility] [place] Order Comment: Urine,Clean Catch TYPE CODE TESTS RESULT OUT OF RANGE REFERENCE UNITS LAB 5778-6(LOINC) Color Ur [facility] 5767-9(LOINC) Appearance Ur [facility] 2756-5(LOINC) pH Ur 8.0 Normal 4.6-8.0 LAB 2965-2(LOINC) Sp Gr Ur 1.013 Normal 1.001-1.035 LAB 61240-9(LOINC) Prot Ur Ql Strip.auto >=500 Abnormal Negative mg/dL LAB 55277-9(LOINC) Glucose Ur Strip.auto-mCnc NEGATIVE Negative mg/dL LAB 31998-1(LOINC) Ketones Ur Ql NEGATIVE Negative m g/dL LAB 50357-8(LOINC) Nitrate Ur Ql NEGATIVE Negative LAB 10383-1(LOINC) Bilirub+Urobilin ogen Ur Ql NEGATIVE Negative LAB 76836-4(LOINC) Urobilinogen Ur Strip-mCnc NEGATIVE Negative mg/dL LAB 35020-0(LOINC) WBC Ur Ql Visual LARGE Abnormal Negativ e LAB 200.0975(LOINC ) Urine Occult Blood NEGATIVE Negative LAB 57006-7(LOINC) Micro UrnS YES LAB 54833-5(LOINC) UA complete W Reflex Culture pnl Ur REFLEXED TO CULTURE Result Comment: A Urine Cult ure has been added to this specimen. Performed By: #### UAS, 1223 5-8 #### [facility] [address] [place], [place] [id number] MICRO URNS Collected: 05/12/2025 1:00 PM Status: F Source: [facility] [place] TYPE CODE TESTS RESULT OUT OF RANGE REFERENCE UNITS LAB 64880-0([facility]) WBC # Ur Auto 51-100 None Seen / HPF LAB 5814-9([facility]) Tri-Phos Cry UrnS Ql Micro FEW None Seen /HPF LAB 16498-9([facility]) Bacteria UrnS Ql Micro TRACE None Seen /HPF LAB 95012-1([facility]) Mucous Threads Ur Ql Auto SMALL None Seen /HPF Performed By: #### UAS, 1223 5-8 #### [facility] [address] [place] [address] URINE CULTURE Observed: 05/12/2025 1:00 PM Status: F Source: [facility] [place] ORGANISM ID: 1.1 - Klebsiell a pneumoniae >100,000 CFU/ml ORGANISM ID: 1.1 ANTIBIOTIC INTERPRETATION BALAJI STATUS Ampicillin Islt BALAJI R* 16 F Ampicillin+Sulbac Islt BALAJI S <8/4 F Cefazolin Islt BALAJI S <2 F Cefepime Islt BALAJI S <2 F Ceftazidime+Avibactam Islt BALAJI S <8 F Ceftazidime Islt BALAJI S <1 F Ceftriaxone Islt BALAJI S <1 F Ertapenem Islt BALAJI S <0.5 F Gentamicin Islt BALAJI S <2 F Levofloxacin Islt BALAJI S <0.5 F Meropenem Islt BALAJI S <1 F Nitrofurantoin Islt BALAJI I 64 F Tobramycin Islt BALAJI S <2 F TMP SMX Islt BALAJI R >2/38 F Pip+Tazo Islt BALAJI S <8 F Performed By: #### CUU #### [facility] [address] [place] [address] XR ABDOMEN 1V Observed: 05/08/2025 2:05 PM Status: F Source: [facility] [facility] [address] [place] [address] XRay Report Signed Patient: RANDY HAYES MR#: [id number] : 1950 Acct:[id number] Age/Sex: 74 / F Admit Date: 05/08/25 Loc: [facility] Attending Dr: Kirk Reed MD Ordering Physician: Kirk Reed MD Date of Service: 05/08/25 Procedure(s): XR abdomen 1V Accession Number(s): [id number] cc: Kirk Reed MD HISTORY: Right flank pain. PHYSICIAN INDICATIONS: N20.0 TECHNIQUE: AP view of abdomen. FINDINGS: There is stool in the colon with no evidence of obstruction. No abnormal calcifications are seen. IMPRESSION: Abdomen, single view: 1. Unremarkable. No renal calculi. Please note, the patient had a mass in the liver on CT from 10/15/2023. If not previously worked up, consider follow-up CT to exclude growth. Dictated By: Rishi Ruth MD DD/ 1405 Signed By: Rishi Ruth MD 05/08/25 1405 Revenue Stamper: TOMAS 05/08/25 140 BACTERIA UR CULT Observed: 01/14/2025 2:56 PM Status: F Source: [facility] ORGANISM ID: 1 >=100,000 CFU/ml Klebsiella pneumoniae ORGANISM ID: 1 (KLEBSIELLA PNEUMONIAE) ----- ----- ANTIBIOTIC INTERPRETATION BALAJI STATUS REFERENCE RANGE ----- ----- Ampicillin R F Cefazolin S <=4 F Susceptible 0-16 , Intermediate <0 or >16 , Resistant >16 For uncomplicated urinary tract infections, cefazolin results can be used to predict susceptibility or resistance to cephalexin. Ceftriaxone S <=1 F Susceptible <=1 , Intermediate >1 , Resistant >=4 Cefepime S <=1 F Susceptible <=2 , Susceptible-Dose Dependent >2 , Resistant >=16 Ertapenem S <=0.5 F Susceptible <=0.5 , Intermediate >.5 , Resistant >1 Meropenem S <=0.25 F Susceptible <=1 , Intermediate >1 , Resistant >2 Ampicillin/Sulbact S <=2 F Susceptible <=8 , Intermediate >8 , Resistant >16 Piperacillin/Tazobac S <=4 F Susceptible <16 , Susceptible-Dose Dependent >=16 , Resistant >=32 Gentamicin S <=1 F Susceptible <=2 , Intermediate >2 , Resistant >=8 Tobramycin S <=1 F Susceptible <4 , Intermediate >=4 , Resistant >=8 Trimeth sulfameth R >=320 F Susceptible <=40 , Resistant >40 Ciprofloxacin S <=0.25 F Susceptible <0.5 , Intermediate >=.5 , Resistant >=1 Nitrofurantoin S 32 F Susceptible <=32 , Intermediate >32 , Resistant >64 Performed By: #### 630-4 ### # [facility] CLIA [id number] [address] [place] [address] OF [facility] PROGRESS Observed: 01/14/2025 2:09 PM Status: COMPLETED Source: [facility] ID: [id number] Author: CHRISTIANA GARCIA PA Service: ? Author Type: Physician Automatic Winder Operator Type: Progress Notes Filed: 01/14/2025 14:24 Note Text: SUSANNE Hayes is a 74 year old female. Patient presents with: Urinary Frequency: Frequency, urgency, low back pain x 1 day HPI 74-year-old female presents for UTI symptoms. Patient has had urinary urgency, frequency, dysuria x 2 days. She states initially her urine was very dark, now it has become more clear since she has been drinking more water. No fevers or vomiting. She has some bladder pain that radiates towards her back. She does have history of kidney stones and UTIs in the past. Her last UTI was back in November, treated with cefdinir which patient states she tolerated well. No past medical history on file. No past surgical history on file. ALLERGIES Iodinated Contrast Media, Aspirin, Cephalexin, Ciprofloxacin, Cleocin [Clindamycin], Codeine, Erythromycin, Latex, Nitrofurantoin, Oxytetracycline, Penicillins, Phenylephrine, and Sulfa (Sulfonamide Antibiotics) MEDICATIONS hydroCHLOROthiazide 25 mg tablet Take 12.5 mg by mouth once daily. metFORMIN (GLUCOPHAGE) 1,000 mg tablet Take 1,000 mg by mouth two times a day with meals. amLODIPine (NORVASC) 10 mg tablet Take 10 mg by mouth once daily. LORazepam (ATIVAN) 1 mg tablet 1 mg. icosapent ethyl (VASCEPA) 1 gram capsule 2 g. hydroCHLOROthiazide 12.5 mg capsule 12.5 mg. gabapentin (NEURONTIN) 300 mg capsule 300 mg. FLUoxetine (PROZAC) 20 mg capsule 20 mg. ferrous sulfate 325 mg (65 mg iron) tablet 325 mg. Fenofibrate (LOFIBRA) 160 mg tablet 160 mg. famotidine (PEPCID) 20 mg tablet 20 mg. estradiol (MINIVELLE, VIVELLE-DOT) 0.1 mg/24 hr patch 1 Patch. ergocalciferol, vitamin D2, 50 mcg (2,000 unit) cap 2,000 Units. Cyanocobalamin 1,000 mcg TbER 500 mcg. aspirin, enteric coated (ASPIRIN, ENTERIC COATED) 81 mg EC tablet Take by mouth. trimethoprim (PROLOPRIM) 100 mg tablet alcohol swabs (BD SINGLE USE SWABS REGULAR) PEG 6890-Fplwtqwojqt-Hqf C (MOVIPREP) 100-7.5-2.691 gram phenazopyridine (PYRIDIUM) 100 mg tablet prednisoLONE acetate (PRED FORTE) 1 % ophthalmic suspension promethazine (PHENERGAN) 25 mg tablet rosuvastatin (CRESTOR) 40 mg tablet valsartan (DIOVAN) 160 mg tablet No family history on file. Social History Tobacco Use Smoking status: Former Types: Cigarettes Passive exposure: Past Smokeless tobacco: Never Review of Systems Constitutional: Negative for chills and fever. Gastrointestinal: Negative for abdominal pain, diarrhea and vomiting. Genitourinary: Positive for dysuria, frequency and urgency. Negative for vaginal discharge. Musculoskeletal: Positive for back pain. Objective BP 118/78 Pulse 67 Temp 37.2 ?C (98.9 ?F) (Tympanic) Resp 18 Wt 83.7 kg (184 lb 8.4 oz) SpO2 97% Physical Exam Vitals reviewed. Constitutional: General: She is not in acute distress. Appearance: Normal appearance. She is not toxic-appearing. HENT: Mouth/Throat: Mouth: Mucous membranes are moist. Cardiovascular: Rate and Rhythm: Normal rate and regular rhythm. Pulmonary: Effort: Pulmonary effort is normal. Breath sounds: Normal breath sounds. Abdominal: General: Abdomen is flat. Palpations: Abdomen is soft. Tenderness: There is no abdominal tenderness. There is no right CVA tenderness, left CVA tenderness, guarding or rebound. Skin: General: Skin is warm and dry. Neurological: Mental Status: She is alert. {ASSESSMENT/PLAN: 1. Urinary frequency - ICD9: 788.41, ICD10: R35.0 acute - UA positive for quinn esterase, hematuria, and proteinuria - Send urine for culture -Creatinine clearance calculated at 37. -Patient has multiple allergies. She has tolerated cefdinir in the past with Zyrtec. She was treated for this back in November and states all symptoms resolved. Urine culture was susceptible to cephalosporins. - Begin treatment with cefdinir for 5 days - Patient education for prevention given - UA DIP, URINE (POC) - BACTERIAL CULTURE, URINE Diagnosis and treatment plan were discussed and questions were answered to the patient's satisfaction. Pt acknowledged understanding of concepts and follow up plan. Specific signs and symptoms that would indicate the need for higher level of care were discussed in detail warranting prompt ER evaluation. MARI Richardson History and Record Review External record(s) reviewed: prior outpatient record and prior labs/imaging. Findings from review of prior labs/imaging: Previous Renal Function Panel Reviewed 07/17/2024: BUN 44 (H); Creatinine 1.72 (H); Estimated Glomerular Filtration Rate 31 (L) Differential Diagnoses - UTI is more likely for the following reason(s): suggested by HANDP - Pyelonephritis is less likely for the following reason(s): HANDP not suggestive - Acute surgical abdomen is less likely for the following reason(s): HANDP not suggestive Disposition The patient was discharged. Procedures CNOV Observed: 01/14/2025 2:00 PM Status: COMPLETED Source: [facility] Office Visit ([facility]) RANDY HAYES ([id number]) 1950 F Date Time Provider Department 01/14/25 2:00 PM CHRISTIANA GARCIA WSTR During your visit today, we recorded the following information about you: Temperature Pulse Respiration Blood pressure 98.9 degrees 67/minute 18/minute 118/78 Weight 83.7 kg Christiana Garcia PA 01/14/2025 2:24 PM Signed [facility] Subjective Randy Hayes is a 74 year old female. Patient presents with: Urinary Frequency: Frequency, urgency, low back pain x 1 day HPI 74-year-old female presents for UTI symptoms. Patient has had urinary urgency, frequency, dysuria x 2 days. She states initially her urine was very dark, now it has become more clear since she has been drinking more water. No fevers or vomiting. She has some bladder pain that radiates towards her back. She does have history of kidney stones and UTIs in the past. Her last UTI was back in November, treated with cefdinir which patient states she tolerated well. No past medical history on file. No past surgical history on file. ALLERGIES Iodinated Contrast Media, Aspirin, Cephalexin, Ciprofloxacin, Cleocin [Clindamycin], Codeine, Erythromycin, Latex, Nitrofurantoin, Oxytetracycline, Penicillins, Phenylephrine, and Sulfa (Sulfonamide Antibiotics) MEDICATIONS hydroCHLOROthiazide 25 mg tablet Take 12.5 mg by mouth once daily. metFORMIN (GLUCOPHAGE) 1,000 mg tablet Take 1,000 mg by mouth two times a day with meals. amLODIPine (NORVASC) 10 mg tablet Take 10 mg by mouth once daily. LORazepam (ATIVAN) 1 mg tablet 1 mg. icosapent ethyl (VASCEPA) 1 gram capsule 2 g. hydroCHLOROthiazide 12.5 mg capsule 12.5 mg. gabapentin (NEURONTIN) 300 mg capsule 300 mg. FLUoxetine (PROZAC) 20 mg capsule 20 mg. ferrous sulfate 325 mg (65 mg iron) tablet 325 mg. Fenofibrate (LOFIBRA) 160 mg tablet 160 mg. famotidine (PEPCID) 20 mg tablet 20 mg. estradiol (MINIVELLE, VIVELLE-DOT) 0.1 mg/24 hr patch 1 Patch. ergocalciferol, vitamin D2, 50 mcg (2,000 unit) cap 2,000 Units. Cyanocobalamin 1,000 mcg TbER 500 mcg. aspirin, enteric coated (ASPIRIN, ENTERIC COATED) 81 mg EC tablet Take by mouth. trimethoprim (PROLOPRIM) 100 mg tablet alcohol swabs (BD SINGLE USE SWABS REGULAR) PEG 5855-Loxmxlbhrnn-Hzl C (MOVIPREP) 100-7.5-2.691 gram phenazopyridine (PYRIDIUM) 100 mg tablet prednisoLONE acetate (PRED FORTE) 1 % ophthalmic suspension promethazine (PHENERGAN) 25 mg tablet rosuvastatin (CRESTOR) 40 mg tablet valsartan (DIOVAN) 160 mg tablet No family history on file. Social History Tobacco Use Smoking status: Former Types: Cigarettes Passive exposure: Past Smokeless tobacco: Never Review of Systems Constitutional: Negative for chills and fever. Gastrointestinal: Negative for abdominal pain, diarrhea and vomiting. Genitourinary: Positive for dysuria, frequency and urgency. Negative for vaginal discharge. Musculoskeletal: Positive for back pain. Objective BP 118/78 Pulse 67 Temp 37.2 ?C (98.9 ?F) (Tympanic) Resp 18 Wt 83.7 kg (184 lb 8.4 oz) SpO2 97% Physical Exam Vitals reviewed. Constitutional: General: She is not in acute distress. Appearance: Normal appearance. She is not toxic-appearing. HENT: Mouth/Throat: Mouth: Mucous membranes are moist. Cardiovascular: Rate and Rhythm: Normal rate and regular rhythm. Pulmonary: Effort: Pulmonary effort is normal. Breath sounds: Normal breath sounds. Abdominal: General: Abdomen is flat. Palpations: Abdomen is soft. Tenderness: There is no abdominal tenderness. There is no right CVA tenderness, left CVA tenderness, guarding or rebound. Skin: General: Skin is warm and dry. Neurological: Mental Status: She is alert. {ASSESSMENT/PLAN: 1. Urinary frequency - ICD9: 788.41, ICD10: R35.0 acute - UA positive for quinn esterase, hematuria, and proteinuria - Send urine for culture -Creatinine clearance calculated at 37. -Patient has multiple allergies. She has tolerated cefdinir in the past with Zyrtec. She was treated for this back in November and states all symptoms resolved. Urine culture was susceptible to cephalosporins. - Begin treatment with cefdinir for 5 days - Patient education for prevention given - UA DIP, URINE (POC) - BACTERIAL CULTURE, URINE Diagnosis and treatment plan were discussed and questions were answered to the patient's satisfaction. Pt acknowledged understanding of concepts and follow up plan. Specific signs and symptoms that would indicate the need for higher level of care were discussed in detail warranting prompt ER evaluation. MARI Richardson History and Record Review External record(s) reviewed: prior outpatient record and prior labs/imaging. Findings from review of prior labs/imaging: Previous Renal Function Panel Reviewed 07/17/2024: BUN 44 (H); Creatinine 1.72 (H); Estimated Glomerular Filtration Rate 31 (L) Differential Diagnoses - UTI is more likely for the following reason(s): suggested by HANDP - Pyelonephritis is less likely for the following reason(s): HANDP not suggestive - Acute surgical abdomen is less likely for the following reason(s): HANDP not suggestive Disposition The patient was discharged. Procedures Allergies As of Date: 01/14/2025 Noted Allergy Reaction IODINATED CONTRAST MEDIA 02/14/2023 14 - Other: See Comments 16 - Unknown ASPIRIN 02/14/2023 16 - Unknown CEPHALEXIN 02/14/2023 16 - Unknown CIPROFLOXACIN 02/14/2023 16 - Unknown CLEOCIN (CLINDAMYCIN) 02/09/2024 3 - Cough CODEINE 02/09/2024 3 - Cough ERYTHROMYCIN 02/09/2024 4 - Hives LATEX 02/09/2024 9 - Itching NITROFURANTOIN 02/14/2023 16 - Unknown OXYTETRACYCLINE 07/16/2024 4 - Hives PENICILLINS 02/09/2024 9 - Itching PHENYLEPHRINE 02/14/2023 16 - Unknown SULFA (SULFONAMIDE ANTIBIOTICS) 02/09/2024 9 - Itching Date Reviewed: 01/14/2025 Reviewed by: Angelica Ray LPN - Fully Assessed Reason for Visit: Urinary Frequency [1086] Cmt: Frequency, urgency, low back pain x 1 day Primary Visit Diagnosis:Urinary frequency [R35.0] Order(s):UA DIP, URINE (POC) [2963997] Order #: [id number]. #:[id number] BACTERIAL CULTURE, URINE [SQURCUL] Order #: [id number]. #:[id number] cefdinir (OMNICEF) 300 mg capsuleTake 1 capsule by mouth once daily for 5 days.Disp: 5 capsuleRfl: 0 cetirizine (ZYRTEC) 10 mg tabletTake 1 tablet by mouth once daily.Disp: 7 tabletRfl: 0 Prescriptions as of 01/14/2025 - cefdinir (OMNICEF) 300 mg capsule Take 1 capsule by mouth once daily for 5 days. - cetirizine (ZYRTEC) 10 mg tablet Take 1 tablet by mouth once daily. - hydroCHLOROthiazide 25 mg tablet Take 12.5 mg by mouth once daily. - metFORMIN (GLUCOPHAGE) 1,000 mg tablet Take 1,000 mg by mouth two times a day with meals. - amLODIPine (NORVASC) 10 mg tablet Take 10 mg by mouth once daily. - LORazepam (ATIVAN) 1 mg tablet 1 mg. - icosapent ethyl (VASCEPA) 1 gram capsule 2 g. - hydroCHLOROthiazide 12.5 mg capsule 12.5 mg. - gabapentin (NEURONTIN) 300 mg capsule 300 mg. - FLUoxetine (PROZAC) 20 mg capsule 20 mg. - ferrous sulfate 325 mg (65 mg iron) tablet 325 mg. - Fenofibrate (LOFIBRA) 160 mg tablet 160 mg. - famotidine (PEPCID) 20 mg tablet 20 mg. - estradiol (MINIVELLE, VIVELLE-DOT) 0.1 mg/24 hr patch 1 Patch. - ergocalciferol, vitamin D2, 50 mcg (2,000 unit) cap 2,000 Units. - Cyanocobalamin 1,000 mcg TbER 500 mcg. - aspirin, enteric coated (ASPIRIN, ENTERIC COATED) 81 mg EC tablet Take by mouth. - trimethoprim (PROLOPRIM) 100 mg tablet - alcohol swabs (BD SINGLE USE SWABS REGULAR) - PEG 1335-Ryxgprfspxc-Xst C (MOVIPREP) 100-7.5-2.691 gram - phenazopyridine (PYRIDIUM) 100 mg tablet - prednisoLONE acetate (PRED FORTE) 1 % ophthalmic suspension - promethazine (PHENERGAN) 25 mg tablet - rosuvastatin (CRESTOR) 40 mg tablet - valsartan (DIOVAN) 160 mg tablet Problem List As Of Date: 01/14/2025 (None) Prescriptions ordered this encounter Disp Refills Start End CEFDINIR 300 MG CAPSULE 5 ca* 0 01/14/2025 01/19/2025 Route: ORAL Sig: Take 1 capsule by mouth once daily for 5 days. CETIRIZINE 10 MG TABLET 7 ta* 0 01/14/2025 Route: ORAL Sig: Take 1 tablet by mouth once daily. Encounter Status:Closed by CHRISTIANA GARCIA on 01/14/25 BACTERIA UR CULT Observed: 11/08/2024 2:01 PM Status: F Source: [facility] ORGANISM ID: 1 >=100,000 CFU/ml Klebsiella pneumoniae ORGANISM ID: 1 (KLEBSIELLA PNEUMONIAE) ----- ----- ANTIBIOTIC INTERPRETATION BALAJI STATUS REFERENCE RANGE ----- ----- Ampicillin R F Cefazolin S <=4 F Susceptible 0-16 , Intermediate <0 or >16 , Resistant >16 For uncomplicated urinary tract infections, cefazolin results can be used to predict susceptibility or resistance to cephalexin. Ceftriaxone S <=1 F Susceptible <=1 , Intermediate >1 , Resistant >=4 Cefepime S <=1 F Susceptible <=2 , Susceptible-Dose Dependent >2 , Resistant >=16 Ertapenem S <=0.5 F Susceptible <=0.5 , Intermediate >.5 , Resistant >1 Meropenem S <=0.25 F Susceptible <=1 , Intermediate >1 , Resistant >2 Ampicillin/Sulbact S <=2 F Susceptible <=8 , Intermediate >8 , Resistant >16 Piperacillin/Tazobac S <=4 F Susceptible <16 , Susceptible-Dose Dependent >=16 , Resistant >=32 Gentamicin S <=1 F Susceptible <=2 , Intermediate >2 , Resistant >=8 Tobramycin S <=1 F Susceptible <4 , Intermediate >=4 , Resistant >=8 Trimeth sulfameth R >=320 F Susceptible <=40 , Resistant >40 Ciprofloxacin S <=0.25 F Susceptible <0.5 , Intermediate >=.5 , Resistant >=1 Nitrofurantoin I 64 F Susceptible <=32 , Intermediate >32 , Resistant >64 Performed By: #### [id number] ### # [facility] CLIA [id number] [address] [place] [address] [place] PROGRESS Observed: 11/08/2024 1:57 PM Status: COMPLETED Source: [facility] HNO ID: [id number] Author: ILDEFONSO WADSWORTH APRN.SILK WEAVER Service: ? Author Type: Nurse Practitioner Type: Progress Notes Filed: 11/08/2024 14:08 Note Text: Subjective HPI Nontoxic-appearing female presents urgent care accompanied by . Chief complaint burning frequency urgency. Duration of symptoms 1 day. Presents today to ensure he does not have a UTI. History of UTIs. History of kidney stones. Currently is asymptomatic. Denies any OTC medication use. Denies any fever body aches chills productive cough chest pain shortness of breath pleuritic pain hemoptysis nausea vomiting abdominal pain or rashes.. Past medical history prescription medication use and allergies reviewe .Patient presents with: UTI: No past medical history on file. No past surgical history on file. ALLERGIES Iodinated Contrast Media, Aspirin, Cephalexin, Ciprofloxacin, Cleocin [Clindamycin], Codeine, Erythromycin, Latex, Nitrofurantoin, Oxytetracycline, Penicillins, Phenylephrine, and Sulfa (Sulfonamide Antibiotics) MEDICATIONS amLODIPine (NORVASC) 10 mg tablet Take 10 mg by mouth once daily. LORazepam (ATIVAN) 1 mg tablet 1 mg. icosapent ethyl (VASCEPA) 1 gram capsule 2 g. gabapentin (NEURONTIN) 300 mg capsule 300 mg. FLUoxetine (PROZAC) 20 mg capsule 20 mg. ferrous sulfate 325 mg (65 mg iron) tablet 325 mg. Fenofibrate (LOFIBRA) 160 mg tablet 160 mg. famotidine (PEPCID) 20 mg tablet 20 mg. estradiol (MINIVELLE, VIVELLE-DOT) 0.1 mg/24 hr patch 1 Patch. ergocalciferol, vitamin D2, 50 mcg (2,000 unit) cap 2,000 Units. Cyanocobalamin 1,000 mcg TbER 500 mcg. aspirin, enteric coated (ASPIRIN, ENTERIC COATED) 81 mg EC tablet Take by mouth. trimethoprim (PROLOPRIM) 100 mg tablet PEG 2507-Ilncpzeodpf-Qto C (MOVIPREP) 100-7.5-2.691 gram promethazine (PHENERGAN) 25 mg tablet rosuvastatin (CRESTOR) 40 mg tablet hydroCHLOROthiazide 25 mg tablet Take 12.5 mg by mouth once daily. metFORMIN (GLUCOPHAGE) 1,000 mg tablet Take 1,000 mg by mouth two times a day with meals. hydroCHLOROthiazide 12.5 mg capsule 12.5 mg. alcohol swabs (BD SINGLE USE SWABS REGULAR) phenazopyridine (PYRIDIUM) 100 mg tablet prednisoLONE acetate (PRED FORTE) 1 % ophthalmic suspension valsartan (DIOVAN) 160 mg tablet No family history on file. Social History Tobacco Use Smoking status: Former Types: Cigarettes Passive exposure: Past Smokeless tobacco: Never BP 145/78 Pulse 89 Temp 37.3 ?C (99.1 ?F) Resp 16 Wt 82.8 kg (182 lb 8.7 oz) SpO2 92% Review of Systems Constitutional: Negative for chills, fever and malaise/fatigue. Cardiovascular: Negative for chest pain. Gastrointestinal: Negative for abdominal pain, constipation, diarrhea, nausea and vomiting. Genitourinary: Positive for dysuria and frequency. Negative for flank pain, hematuria and urgency. Musculoskeletal: Negative for myalgias. Objective Physical Exam Vitals and nursing note reviewed. Constitutional: General: She is not in acute distress. Appearance: She is not diaphoretic. HENT: Head: Jaw: No trismus. Right Ear: Hearing normal. No decreased hearing noted. No drainage, swelling or tenderness. Tympanic membrane is not perforated, erythematous or bulging. Left Ear: Hearing normal. No decreased hearing noted. No drainage, swelling or tenderness. Tympanic membrane is not perforated, erythematous or bulging. Mouth/Throat: Pharynx: Uvula midline. No uvula swelling. Tonsils: No tonsillar abscesses. Cardiovascular: Rate and Rhythm: Normal rate and regular rhythm. Pulses: Normal pulses. Pulmonary: Effort: Pulmonary effort is normal. No respiratory distress. Breath sounds: Normal breath sounds. Chest: Chest wall: No tenderness. Abdominal: General: Bowel sounds are normal. There is no distension. Palpations: Abdomen is soft. Abdomen is not rigid. Tenderness: There is no abdominal tenderness. There is no right CVA tenderness, left CVA tenderness, guarding or rebound. Negative signs include Thurston's sign and McBurney's sign. Musculoskeletal: General: No tenderness. Lymphadenopathy: Head: Right side of head: No submental, submandibular, tonsillar, preauricular, posterior auricular or occipital adenopathy. Left side of head: No submental, submandibular, tonsillar, preauricular, posterior auricular or occipital adenopathy. Cervical: Right cervical: No superficial or posterior cervical adenopathy. Left cervical: No superficial or posterior cervical adenopathy. Skin: General: Skin is warm and dry. Findings: No rash. Neurological: Mental Status: She is alert and oriented to person, place, and time. ASSESSMENT/PLAN: 1. Screening for genitourinary condition - ICD9: V81.6, ICD10: Z13.89 - UA DIP, URINE (POC) - BACTERIAL CULTURE, URINE Protein leukocytes noted on urine dip. Renal calculi versus acute cystitis. Treat with cefdinir at today's visit. Has tolerated this in the past with the use of second-generation antihistamine. Patient was educated on supportive therapies. Patient will follow up with primary care provider as needed. Patient was instructed to immediately proceed to emergency room for any new, worsening, or symptoms lasting longer than anticipated. The patient's clinical presentation is otherwise unremarkable at this time. Based on exam and clinical finding, the patient is stable for discharge. Plan of care was discussed with patient. Patient verbalizes understanding and agrees to plan of care. This note was generated using Flinto software. It may contain errors in wording, punctuation, or spelling. Ildefonso Wadsworth APRN.CNP CNOV Observed: 11/08/2024 1:30 PM Status: COMPLETED Source: [facility] Office Visit (WSTR) RANDY HAYES ([id number]) 1950 F Date Time Provider Department 11/08/24 1:30 PM ILDEFONSO WADSWORTH [facility] During your visit today, we recorded the following information about you: Temperature Pulse Respiration Blood pressure 99.1 degrees 89/minute 16/minute 145/78 Weight 82.8 kg Ildefonso Wadsworth APRN.CNP 11/08/2024 2:08 PM Signed Subjective HPI Nontoxic-appearing female presents urgent care accompanied by . Chief complaint burning frequency urgency. Duration of symptoms 1 day. Presents today to ensure he does not have a UTI. History of UTIs. History of kidney stones. Currently is asymptomatic. Denies any OTC medication use. Denies any fever body aches chills productive cough chest pain shortness of breath pleuritic pain hemoptysis nausea vomiting abdominal pain or rashes.. Past medical history prescription medication use and allergies reviewe .Patient presents with: UTI: No past medical history on file. No past surgical history on file. ALLERGIES Iodinated Contrast Media, Aspirin, Cephalexin, Ciprofloxacin, Cleocin [Clindamycin], Codeine, Erythromycin, Latex, Nitrofurantoin, Oxytetracycline, Penicillins, Phenylephrine, and Sulfa (Sulfonamide Antibiotics) MEDICATIONS amLODIPine (NORVASC) 10 mg tablet Take 10 mg by mouth once daily. LORazepam (ATIVAN) 1 mg tablet 1 mg. icosapent ethyl (VASCEPA) 1 gram capsule 2 g. gabapentin (NEURONTIN) 300 mg capsule 300 mg. FLUoxetine (PROZAC) 20 mg capsule 20 mg. ferrous sulfate 325 mg (65 mg iron) tablet 325 mg. Fenofibrate (LOFIBRA) 160 mg tablet 160 mg. famotidine (PEPCID) 20 mg tablet 20 mg. estradiol (MINIVELLE, VIVELLE-DOT) 0.1 mg/24 hr patch 1 Patch. ergocalciferol, vitamin D2, 50 mcg (2,000 unit) cap 2,000 Units. Cyanocobalamin 1,000 mcg TbER 500 mcg. aspirin, enteric coated (ASPIRIN, ENTERIC COATED) 81 mg EC tablet Take by mouth. trimethoprim (PROLOPRIM) 100 mg tablet PEG 4938-Wyeeqkejeak-Lju C (MOVIPREP) 100-7.5-2.691 gram promethazine (PHENERGAN) 25 mg tablet rosuvastatin (CRESTOR) 40 mg tablet hydroCHLOROthiazide 25 mg tablet Take 12.5 mg by mouth once daily. metFORMIN (GLUCOPHAGE) 1,000 mg tablet Take 1,000 mg by mouth two times a day with meals. hydroCHLOROthiazide 12.5 mg capsule 12.5 mg. alcohol swabs (BD SINGLE USE SWABS REGULAR) phenazopyridine (PYRIDIUM) 100 mg tablet prednisoLONE acetate (PRED FORTE) 1 % ophthalmic suspension valsartan (DIOVAN) 160 mg tablet No family history on file. Social History Tobacco Use Smoking status: Former Types: Cigarettes Passive exposure: Past Smokeless tobacco: Never BP 145/78 Pulse 89 Temp 37.3 ?C (99.1 ?F) Resp 16 Wt 82.8 kg (182 lb 8.7 oz) SpO2 92% Review of Systems Constitutional: Negative for chills, fever and malaise/fatigue. Cardiovascular: Negative for chest pain. Gastrointestinal: Negative for abdominal pain, constipation, diarrhea, nausea and vomiting. Genitourinary: Positive for dysuria and frequency. Negative for flank pain, hematuria and urgency. Musculoskeletal: Negative for myalgias. Objective Physical Exam Vitals and nursing note reviewed. Constitutional: General: She is not in acute distress. Appearance: She is not diaphoretic. HENT: Head: Jaw: No trismus. Right Ear: Hearing normal. No decreased hearing noted. No drainage, swelling or tenderness. Tympanic membrane is not perforated, erythematous or bulging. Left Ear: Hearing normal. No decreased hearing noted. No drainage, swelling or tenderness. Tympanic membrane is not perforated, erythematous or bulging. Mouth/Throat: Pharynx: Uvula midline. No uvula swelling. Tonsils: No tonsillar abscesses. Cardiovascular: Rate and Rhythm: Normal rate and regular rhythm. Pulses: Normal pulses. Pulmonary: Effort: Pulmonary effort is normal. No respiratory distress. Breath sounds: Normal breath sounds. Chest: Chest wall: No tenderness. Abdominal: General: Bowel sounds are normal. There is no distension. Palpations: Abdomen is soft. Abdomen is not rigid. Tenderness: There is no abdominal tenderness. There is no right CVA tenderness, left CVA tenderness, guarding or rebound. Negative signs include Thurston's sign and McBurney's sign. Musculoskeletal: General: No tenderness. Lymphadenopathy: Head: Right side of head: No submental, submandibular, tonsillar, preauricular, posterior auricular or occipital adenopathy. Left side of head: No submental, submandibular, tonsillar, preauricular, posterior auricular or occipital adenopathy. Cervical: Right cervical: No superficial or posterior cervical adenopathy. Left cervical: No superficial or posterior cervical adenopathy. Skin: General: Skin is warm and dry. Findings: No rash. Neurological: Mental Status: She is alert and oriented to person, place, and time. ASSESSMENT/PLAN: 1. Screening for genitourinary condition - ICD9: V81.6, ICD10: Z13.89 - UA DIP, URINE (POC) - BACTERIAL CULTURE, URINE Protein leukocytes noted on urine dip. Renal calculi versus acute cystitis. Treat with cefdinir at today's visit. Has tolerated this in the past with the use of second-generation antihistamine. Patient was educated on supportive therapies. Patient will follow up with primary care provider as needed. Patient was instructed to immediately proceed to emergency room for any new, worsening, or symptoms lasting longer than anticipated. The patient's clinical presentation is otherwise unremarkable at this time. Based on exam and clinical finding, the patient is stable for discharge. Plan of care was discussed with patient. Patient verbalizes understanding and agrees to plan of care. This note was generated using Flinto software. It may contain errors in wording, punctuation, or spelling. Ildefonso Wadsworth APRN.SILK WEAVER Allergies As of Date: 11/08/2024 Noted Allergy Reaction IODINATED CONTRAST MEDIA 02/14/2023 14 - Other: See Comments 16 - Unknown ASPIRIN 02/14/2023 16 - Unknown CEPHALEXIN 02/14/2023 16 - Unknown CIPROFLOXACIN 02/14/2023 16 - Unknown CLEOCIN (CLINDAMYCIN) 02/09/2024 3 - Cough CODEINE 02/09/2024 3 - Cough ERYTHROMYCIN 02/09/2024 4 - Hives LATEX 02/09/2024 9 - Itching NITROFURANTOIN 02/14/2023 16 - Unknown OXYTETRACYCLINE 07/16/2024 4 - Hives PENICILLINS 02/09/2024 9 - Itching PHENYLEPHRINE 02/14/2023 16 - Unknown SULFA (SULFONAMIDE ANTIBIOTICS) 02/09/2024 9 - Itching Date Reviewed: 11/08/2024 Reviewed by: Ildefonso Wadsworth APRN.SILK WEAVER - Fully Assessed Reason for Visit: UTI [116] Cmt: Primary Visit Diagnosis:Screening for genitourinary condition [Z13.89] Order(s):UA DIP, URINE (POC) [5583688] Order #: [id number]. #:[id number] BACTERIAL CULTURE, URINE [SQURCUL] Order #: [id number]. #:[id number] cetirizine (ZYRTEC) 10 mg tabletTake 1 tablet by mouth once daily for 5 days.Disp: 5 tabletRfl: 0 cefdinir (OMNICEF) 300 mg capsuleTake 1 capsule by mouth once daily for 5 days.Disp: 5 capsuleRfl: 0 Prescriptions as of 11/08/2024 - hydroCHLOROthiazide 25 mg tablet Take 12.5 mg by mouth once daily. - cetirizine (ZYRTEC) 10 mg tablet Take 1 tablet by mouth once daily for 5 days. - cefdinir (OMNICEF) 300 mg capsule Take 1 capsule by mouth once daily for 5 days. - metFORMIN (GLUCOPHAGE) 1,000 mg tablet Take 1,000 mg by mouth two times a day with meals. - amLODIPine (NORVASC) 10 mg tablet Take 10 mg by mouth once daily. - LORazepam (ATIVAN) 1 mg tablet 1 mg. - icosapent ethyl (VASCEPA) 1 gram capsule 2 g. - hydroCHLOROthiazide 12.5 mg capsule 12.5 mg. - gabapentin (NEURONTIN) 300 mg capsule 300 mg. - FLUoxetine (PROZAC) 20 mg capsule 20 mg. - ferrous sulfate 325 mg (65 mg iron) tablet 325 mg. - Fenofibrate (LOFIBRA) 160 mg tablet 160 mg. - famotidine (PEPCID) 20 mg tablet 20 mg. - estradiol (MINIVELLE, VIVELLE-DOT) 0.1 mg/24 hr patch 1 Patch. - ergocalciferol, vitamin D2, 50 mcg (2,000 unit) cap 2,000 Units. - Cyanocobalamin 1,000 mcg TbER 500 mcg. - aspirin, enteric coated (ASPIRIN, ENTERIC COATED) 81 mg EC tablet Take by mouth. - trimethoprim (PROLOPRIM) 100 mg tablet - alcohol swabs (BD SINGLE USE SWABS REGULAR) - PEG 7842-Puwbqrexuhq-Bvw C (MOVIPREP) 100-7.5-2.691 gram - phenazopyridine (PYRIDIUM) 100 mg tablet - prednisoLONE acetate (PRED FORTE) 1 % ophthalmic suspension - promethazine (PHENERGAN) 25 mg tablet - rosuvastatin (CRESTOR) 40 mg tablet - valsartan (DIOVAN) 160 mg tablet Problem List As Of Date: 11/08/2024 (None) Prescriptions ordered this encounter Disp Refills Start End CEFDINIR 300 MG CAPSULE 10 c* 0 11/08/2024 11/08/2024 Route: ORAL Sig: Take 1 capsule by mouth two times a day for 5 days. CETIRIZINE 10 MG TABLET 5 ta* 0 11/08/2024 11/13/2024 Route: ORAL Sig: Take 1 tablet by mouth once daily for 5 days. CEFDINIR 300 MG CAPSULE 5 ca* 0 11/08/2024 11/13/2024 Route: ORAL Sig: Take 1 capsule by mouth once daily for 5 days. Medications Discontinued During This Encounter Prescriptions - cefdinir (OMNICEF) 300 mg capsule (Discontinued) Take 1 capsule by mouth two times a day for 5 days. Level of Service: OFFICE/OUTPATIENT ESTABLISHED MOD MDM 30 MIN [69198] Encounter Status:Closed by ILDEFONSO WADSWORTH on 11/08/24 URINALYSIS Collected: 08/18/2024 1:00 PM Status: F Source: [facility] Order Comment: Urine,Clean Catch TYPE CODE TESTS RESULT OUT OF RANGE REFERENCE UNITS LAB 5778-6(LOINC) Color Ur YELLOW LAB 5767-9(LOINC) Appearance Ur HAZY LAB 2756-5(LOINC) pH Ur 6.0 Normal 4.6-8.0 LAB 2965-2(LOINC) Sp Gr Ur 1.014 Normal 1.001-1.035 LAB 59070-0(LOINC) Prot Ur Ql Strip.auto >=500 Abnormal Negative mg/dL LAB 98341-2(LOINC) Glucose Ur Strip.auto-mCnc NEGATIVE Negative mg/dL LAB 09558-6(LOINC) Ketones Ur Ql NEGATIVE Negative m g/dL LAB 36343-1(LOINC) Nitrate Ur Ql NEGATIVE Negative LAB 99404-4(LOINC) Bilirub+Urobilin ogen Ur Ql NEGATIVE Negative LAB 27987-1(LOINC) Urobilinogen Ur Strip-mCnc NEGATIVE Negative mg/dL LAB 45386-4(LOINC) WBC Ur Ql Visual MODERATE Abnormal Negati ve LAB 33083-9(LOINC) RBC Ur Ql NEGATIVE Negative LAB 68820-6(LOINC) Micro UrnS YES LAB 13818-2(LOINC) UA complete W Reflex Culture pnl Ur REFLEXED TO CULTURE Result Comment: A Urine Cult ure has been added to this specimen. Performed By: #### UAS, 1223 5-8 #### [facility] [address] [place], [place] [id number] MICRO URNS Collected: 08/18/2024 1:00 PM Status: F Source: [facility] Order Comment: Urine,Clean Catch TYPE CODE TESTS RESULT OUT OF RANGE REFERENCE UNITS LAB 97647-8([facility]) RBC UrnS Ql Micro 0-5 None Seen [facility] WBC # Ur Auto 51-100 None Seen / HPF LAB 46610-2([facility]) WBC clumps #/area UrnS Auto FEW None Seen /HPF LAB 8249-5([facility]) Trans Cells UrnS Ql Micro MODERATE None Seen /HPF LAB 18023-0([facility]) Bacteria UrnS Ql Micro 4+ None Seen /HPF Performed By: #### UAS, 1223 5-8 #### [facility] [address] [place] [address] URINE CULTURE Observed: 08/18/2024 1:00 PM Status: F Source: [facility] ORGANISM ID: 1.1 - Enterobac ter cloacae [place] Count >100,000 CFU/ml ORGANISM ID: 1.2 - Klebsiella pneumoniae [place] Count 50,000-100,000 CFU/ml ORGANISM ID: 1.1 ANTIBIOTIC INTERPRETATION BALAJI STATUS Ampicillin Islt BALAJI R >16 F Ampicillin+Sulbac Islt BALAJI R* 16/8 F Cefazolin Islt BALAJI R* 16 F Cefepime Islt BALAJI S <2 F Ceftazidime+Avibactam Islt BALAJI S <8 F Ceftazidime Islt BALAJI S <1 F Ceftriaxone Islt BALAJI S <1 F Ertapenem Islt BALAJI S <0.5 F Gentamicin Islt BALAJI S <2 F Levofloxacin Islt BALAJI S <0.5 F Meropenem Islt BALAJI S <1 F Nitrofurantoin Islt BALAJI I 64 F Tobramycin Islt BALAJI S <2 F TMP SMX Islt BALAJI S <2/38 F Pip+Tazo Islt BALAJI S <8 FORGANISM ID: 1.2 ANTIBIOTIC INTERPRETATION BALAJI STATUS Ampicillin Islt BALAJI R >16 F Ampicillin+Sulbac Islt BALAJI S <8/4 F Cefazolin Islt BALAJI S <2 F Cefepime Islt BALAJI S <2 F Ceftazidime+Avibactam Islt BALAJI S <8 F Ceftazidime Islt BALAJI S <1 F Ceftriaxone Islt BALAJI S <1 F Ertapenem Islt BALAJI S <0.5 F Gentamicin Islt BALAJI S <2 F Levofloxacin Islt BALAJI I 1 F Meropenem Islt BALAJI S <1 F Nitrofurantoin Islt BALAJI R >64 F Tobramycin Islt BALAJI S <2 F TMP SMX Islt BALAJI S <2/38 F Pip+Tazo Islt BALAJI S <8 F Performed By: #### 630-4 ### # [facility] [address] [place], [place] [id number] BAS METAB 2000 PNL SERPL Collected: 03/2024 11:27 AM Status: F Source: [facility] Comment: Specimen Type : BLOOD SPECIMEN Ordering Facility: [facility] Address: [address] [place], [place] [address] TYPE CODE TESTS RESULT OUT OF RANGE REFERENCE UNITS LAB 2345-7(LOINC) Glucose SerPl-mCnc 151 High 74-99 mg/dL Result Comment: The [place] [employer] (ADA) provides guidance for cutoff values for fasting glucose and random glucose. The ADA defines fasting as no caloric intake for at least 8 hours. Fasting plasma glucose results between 100 to 125 mg/dL indicate increased risk for diabetes (prediabetes). Fasting plasma glucose results greater than or equal to 126 mg/dL meet the criteria for diagnosis of diabetes. In the absence of unequivocal hyperglycemia, results should be confirmed by repeat testing. In a patient with classic symptoms of hyperglycemia or hyperglycemic crisis, random plasma glucose results greater than or equal to 200 mg/dL meet the criteria for diagnosis of diabetes. Reference: Standards of Medical Care in Diabetes 2016, [place] [employer] Association. Diabetes Care. 2016.39(Suppl 1). LAB 3094-0(LOINC) BUN SerPl-mCnc 44 High 7-21 mg/ dL LAB 2160-0(LOINC) Creat SerPl-mCnc 1.72 High 0.58-0.96 mg/dL LAB 2951-2(LOINC) Sodium SerPl-sCnc 132 Low 136-144 mmol/L LAB 2823-3(LOINC) Potassium SerPl-sCnc 4.9 3.7-5.1 mmol/L LAB 2075-0(LOINC) Chloride SerPl-sCnc 101 98-107 mmol/L LAB 2028-9(LOINC) CO2 SerPl-sCnc 18 Low 22-30 mmo l/L LAB 50588-4(LOINC) Anion Gap SerPl-sCnc 13 8-15 mmol/L LAB 80570-0(LOINC) Calcium SerPl-mCnc 9.6 8.5-10.2 mg/dL LAB 76825-2(LOINC) Creatinine + eGFR Pnl SerPlBld 31 Low >=60 mL/min/1 .73m??? Result Comment: Estimated Gl omerular Filtration Rate (eGFR) is calculated using the 2020 CKD-EPI creatinine equation. This equation utilizes serum creatinine, sex, and age as parameters. The creatinine assay has traceable calibration to isotope dilution-mass spectrometry. Refer to KDIGO guidelines for clinical interpretation. In patients with unstable renal function, e.g. those with acute kidney injury, the eGFR may not accurately reflect actual GFR. Performed By: #### 99109-8 # ### [facility] CLIA [id number] [address] [id number] [place] XR CHEST 2V FRONTAL/LAT Observed: 2023 11:27 AM Status: F Source: [facility] * * *Final Report* * * DATE OF EXAM: Jul 17 2024 11:27AM WOX [id number] - XR CHEST 2V FRONTAL/LAT / PROCEDURE REASON: multiple diagnoses * * * * Physician Interpretation * * * * EXAMINATION: CHEST RADIOGRAPH (2 VIEW FRONTAL and LATERAL) CLINICAL HISTORY: Acute COVID-19 Acute cough MQ: [id number]_6 EXAM DATE/TIME: 07/17/2024 11:27 AM COMPARISON: No relevant prior studies available. RESULT: Lines, tubes, and devices: None. Lungs and pleura: No consolidation. No lung mass. No pleural effusion. No pneumothorax. Cardiomediastinal silhouette: Normal cardiomediastinal silhouette. Bones and soft tissues: Degenerative disease of the thoracic spine. IMPRESSION: No acute radiographic abnormality. Revenue Stamper: PSCB Transcribe Date/Time: Jul 17 2024 11:38A Dictated by : ANDREW MAYS MD This examination was interpreted and the report reviewed and electronically signed by: ANDREW MAYS MD on Jul 17 2024 11:40AM EST [id number] Observed: 07/17/2024 11:20 AM Status: COMPLETED Source: [facility] HNO ID: [id number] Author: KAILEE DELVALLE RT(R) Service: Radiology Author Type: Technologist Type: Progress Notes Filed: 07/17/2024 11:28 Note Text: Radiology Service Progress Note PATIENT NAME: Randy Hayes DATE OF SERVICE: July 17, 2024 TIME: 11:20 AM PATIENT IDENTITY VERIFICATION COMPLETED USING TWO (2) IDENTIFIERS: Name and Date of confirmed by patient verbally. FALL SCREENING: Has the patient had 2 falls in the last year or 1 fall with injury or currently using an Ambulatory Assistive Device (Walker, Cane, Wheelchair, Crutches, etc.)? Yes, Patient High Risk for Falls What interventions were put in place to prevent falls during this visit? Offered Assistance with Transfers/Clothing and Instructed Patient to Remain Seated (Not on Exam Table) Until Exam PATIENT GENDER DATA: Female. status: : No status: NO. PATIENT RELEVANT IMPLANT DATA REVIEWED: Not Applicable PATIENT PRESENTS WITH AN IMPLANTABLE OR ATTACHED TREASURY AGENT: No RADIOLOGY DEPARTMENT: General X-ray: Exam(s) Completed: Chest X-Ray PERIPHERAL IV DATA: Not applicable SIGNED BY: Kailee Delvalle RT(R) July 17, 2024 11:20 AM PROGRESS Observed: 07/17/2024 11:00 AM Status: COMPLETED Source: [facility] HNO ID: [id number] Author: EDUARDO BOWER MD Service: ? Author Type: Physician Type: Progress Notes Filed: 07/17/2024 12:24 Note Text: Patient presents with: Cough: Positive, wanting medicine HPI: Feeling sick starting 2 days ago. She was seen yesterday and tested positive for COVID. She returns today for antiviral consult. Positive symptoms: Cough, some Sore throat, Fever, Body Aches, Malaise, Fatigue, Headache, Negative symptoms: Shortness of breath, Chest pain, Nausea, Vomiting, Diarrhea, Nasal Congestion, Rhinorrhea, OTC: Tylenol Admitted to the hospital for 4 days with COVID at the beginning of the pandemic. She did have a COVID booster this year. MEDICATIONS: Current Outpatient Medications Medication Sig metFORMIN (GLUCOPHAGE) 1,000 mg tablet Take 1,000 mg by mouth two times a day with meals. amLODIPine (NORVASC) 10 mg tablet Take 10 mg by mouth once daily. LORazepam (ATIVAN) 1 mg tablet 1 mg. icosapent ethyl (VASCEPA) 1 gram capsule 2 g. hydroCHLOROthiazide 12.5 mg capsule 12.5 mg. gabapentin (NEURONTIN) 300 mg capsule 300 mg. FLUoxetine (PROZAC) 20 mg capsule 20 mg. ferrous sulfate 325 mg (65 mg iron) tablet 325 mg. Fenofibrate (LOFIBRA) 160 mg tablet 160 mg. famotidine (PEPCID) 20 mg tablet 20 mg. estradiol (MINIVELLE, VIVELLE-DOT) 0.1 mg/24 hr patch 1 Patch. ergocalciferol, vitamin D2, 50 mcg (2,000 unit) cap 2,000 Units. Cyanocobalamin 1,000 mcg TbER 500 mcg. aspirin, enteric coated (ASPIRIN, ENTERIC COATED) 81 mg EC tablet Take by mouth. trimethoprim (PROLOPRIM) 100 mg tablet alcohol swabs (BD SINGLE USE SWABS REGULAR) PEG 7208-Wybcylrcmda-Lge C (MOVIPREP) 100-7.5-2.691 gram phenazopyridine (PYRIDIUM) 100 mg tablet prednisoLONE acetate (PRED FORTE) 1 % ophthalmic suspension promethazine (PHENERGAN) 25 mg tablet rosuvastatin (CRESTOR) 40 mg tablet valsartan (DIOVAN) 160 mg tablet No current facility-administered medications for this visit. ALLERGIES: ALLERGIES Allergen Reactions Iodinated Contrast * Other: See Comments, Unknown Aspirin Unknown Cephalexin Unknown Ciprofloxacin Unknown Cleocin [Clindamyci* Cough Codeine Cough Erythromycin Hives Latex Itching Nitrofurantoin Unknown Oxytetracycline Hives Penicillins Itching Phenylephrine Unknown Sulfa (Sulfonamide * Itching VITALS: BP 116/56 Pulse 90 Temp 37.9 ?C (100.2 ?F) Resp 19 Wt 81 kg (178 lb 9.2 oz) SpO2 92% PHYSICAL EXAM: GEN: mildly ill appearing HEENT: PERRL, EOMI, conjunctiva clear Sinuses: non-tender frontal sinus, non-tender maxillary sinuses Neck: supple, no thyromegaly, no lymphadenopathy HEART: regular rate and rhythm, no murmurs LUNGS: bilateral crackles, no increased WOB Latest Ref Rng 07/17/2024 eGFR >=60 mL/min/1.73m? 31 (L) ASSESSMENT/PLAN: 1. Acute COVID-19 - ICD9: 079.89, ICD10: U07.1 (primary diagnosis) 2. Acute cough - ICD9: 786.2, ICD10: R05.1 Medication list updated for interaction check. She will hold Crestor while taking Paxlovid and 2 days after. - XR CHEST 2V FRONTAL/LAT - negative - BASIC METABOLIC PANEL - GFR at the lower limit for low dose paxlovid - NIRMATRELVIR 150 MG-RITONAVIR 100 MG TABLETS IN A DOSE PACK - BENZONATATE 100 MG CAPSULE Follow up in the ER with worsening shortness of breath, increasing chest pain, or worsening lethargy. Eduardo Bower MD CNOV Observed: 07/17/2024 10:45 AM Status: COMPLETED Source: [facility] Office Visit (WSTR) RANDY HAYES ([id number]) 1950 F Date Time Provider Department 07/17/24 10:45 AM EDUARDO BOWER [facility] During your visit today, we recorded the following information about you: Temperature Pulse Respiration Blood pressure 100.2 degrees 90/minute 19/minute 116/56 Weight 81 kg Eduardo Bower MD 07/17/2024 12:24 PM Signed Patient presents with: Cough: Positive, wanting medicine HPI: Feeling sick starting 2 days ago. She was seen yesterday and tested positive for COVID. She returns today for antiviral consult. Positive symptoms: Cough, some Sore throat, Fever, Body Aches, Malaise, Fatigue, Headache, Negative symptoms: Shortness of breath, Chest pain, Nausea, Vomiting, Diarrhea, Nasal Congestion, Rhinorrhea, OTC: Tylenol Admitted to the hospital for 4 days with COVID at the beginning of the pandemic. She did have a COVID booster this year. MEDICATIONS: Current Outpatient Medications Medication Sig metFORMIN (GLUCOPHAGE) 1,000 mg tablet Take 1,000 mg by mouth two times a day with meals. amLODIPine (NORVASC) 10 mg tablet Take 10 mg by mouth once daily. LORazepam (ATIVAN) 1 mg tablet 1 mg. icosapent ethyl (VASCEPA) 1 gram capsule 2 g. hydroCHLOROthiazide 12.5 mg capsule 12.5 mg. gabapentin (NEURONTIN) 300 mg capsule 300 mg. FLUoxetine (PROZAC) 20 mg capsule 20 mg. ferrous sulfate 325 mg (65 mg iron) tablet 325 mg. Fenofibrate (LOFIBRA) 160 mg tablet 160 mg. famotidine (PEPCID) 20 mg tablet 20 mg. estradiol (MINIVELLE, VIVELLE-DOT) 0.1 mg/24 hr patch 1 Patch. ergocalciferol, vitamin D2, 50 mcg (2,000 unit) cap 2,000 Units. Cyanocobalamin 1,000 mcg TbER 500 mcg. aspirin, enteric coated (ASPIRIN, ENTERIC COATED) 81 mg EC tablet Take by mouth. trimethoprim (PROLOPRIM) 100 mg tablet alcohol swabs (BD SINGLE USE SWABS REGULAR) PEG 1338-Hgczjnvdmnl-Sgb C (MOVIPREP) 100-7.5-2.691 gram phenazopyridine (PYRIDIUM) 100 mg tablet prednisoLONE acetate (PRED FORTE) 1 % ophthalmic suspension promethazine (PHENERGAN) 25 mg tablet rosuvastatin (CRESTOR) 40 mg tablet valsartan (DIOVAN) 160 mg tablet No current facility-administered medications for this visit. ALLERGIES: ALLERGIES Allergen Reactions Iodinated Contrast * Other: See Comments, Unknown Aspirin Unknown Cephalexin Unknown Ciprofloxacin Unknown Cleocin [Clindamyci* Cough Codeine Cough Erythromycin Hives Latex Itching Nitrofurantoin Unknown Oxytetracycline Hives Penicillins Itching Phenylephrine Unknown Sulfa (Sulfonamide * Itching VITALS: BP 116/56 Pulse 90 Temp 37.9 ?C (100.2 ?F) Resp 19 Wt 81 kg (178 lb 9.2 oz) SpO2 92% PHYSICAL EXAM: GEN: mildly ill appearing HEENT: PERRL, EOMI, conjunctiva clear Sinuses: non-tender frontal sinus, non-tender maxillary sinuses Neck: supple, no thyromegaly, no lymphadenopathy HEART: regular rate and rhythm, no murmurs LUNGS: bilateral crackles, no increased WOB Latest Ref Rn 07/17/2024 eGFR >=60 mL/min/1.73m? 31 (L) ASSESSMENT/PLAN: 1. Acute COVID-19 - ICD9: 079.89, ICD10: U07.1 (primary diagnosis) 2. Acute cough - ICD9: 786.2, ICD10: R05.1 Medication list updated for interaction check. She will hold Crestor while taking Paxlovid and 2 days after. - XR CHEST 2V FRONTAL/LAT - negative - BASIC METABOLIC PANEL - GFR at the lower limit for low dose paxlovid - NIRMATRELVIR 150 MG-RITONAVIR 100 MG TABLETS IN A DOSE PACK - BENZONATATE 100 MG CAPSULE Follow up in the ER with worsening shortness of breath, increasing chest pain, or worsening lethargy. Eduardo Bower MD Allergies As of Date: 07/17/2024 Noted Allergy Reaction IODINATED CONTRAST MEDIA 02/14/2023 14 - Other: See Comments 16 - Unknown ASPIRIN 02/14/2023 16 - Unknown CEPHALEXIN 02/14/2023 16 - Unknown CIPROFLOXACIN 02/14/2023 16 - Unknown CLEOCIN (CLINDAMYCIN) 02/09/2024 3 - Cough CODEINE 02/09/2024 3 - Cough ERYTHROMYCIN 02/09/2024 4 - Hives LATEX 02/09/2024 9 - Itching NITROFURANTOIN 02/14/2023 16 - Unknown OXYTETRACYCLINE 07/16/2024 4 - Hives PENICILLINS 02/09/2024 9 - Itching PHENYLEPHRINE 02/14/2023 16 - Unknown SULFA (SULFONAMIDE ANTIBIOTICS) 02/09/2024 9 - Itching Date Reviewed: 07/17/2024 Reviewed by: Hayley Griffin MA - Fully Assessed Reason for Visit: Cough [28] Cmt: Positive, wanting medicine Primary Visit Diagnosis:Acute COVID-19 [U07.1] Other Visit Diagnosis:Acute cough [R05.1] Order(s):BASIC METABOLIC PANEL [SQBMP] Order #: [id number] FUTURE XR CHEST 2V FRONTAL/LAT [[id number]] Order #: [id number] FUTURE nirmatrelvir tablet 150 mg and ritonavir tablet 100 mg in a dose pack (PAXLOVID)Administer ONE pink nirmatrelvir 150 mg tablet and ONE white ritonavir 100 mg tablet for a total of two tablets twice daily.Disp: 20 tabletRfl: 0 benzonatate (TESSALON PERLE) 100 mg capsuleTake 1 capsule by mouth every 8 hours as needed for cough for up to 15 days.Disp: 30 capsuleRfl: 0 Prescriptions as of 07/17/2024 - metFORMIN (GLUCOPHAGE) 1,000 mg tablet Take 1,000 mg by mouth two times a day with meals. - amLODIPine (NORVASC) 10 mg tablet Take 10 mg by mouth once daily. - nirmatrelvir tablet 150 mg and ritonavir tablet 100 mg in a dose pack (PAXLOVID) Administer ONE pink nirmatrelvir 150 mg tablet and ONE white ritonavir 100 mg tablet for a total of two tablets twice daily. - benzonatate (TESSALON PERLE) 100 mg capsule Take 1 capsule by mouth every 8 hours as needed for cough for up to 15 days. - LORazepam (ATIVAN) 1 mg tablet 1 mg. - icosapent ethyl (VASCEPA) 1 gram capsule 2 g. - hydroCHLOROthiazide 12.5 mg capsule 12.5 mg. - gabapentin (NEURONTIN) 300 mg capsule 300 mg. - FLUoxetine (PROZAC) 20 mg capsule 20 mg. - ferrous sulfate 325 mg (65 mg iron) tablet 325 mg. - Fenofibrate (LOFIBRA) 160 mg tablet 160 mg. - famotidine (PEPCID) 20 mg tablet 20 mg. - estradiol (MINIVELLE, VIVELLE-DOT) 0.1 mg/24 hr patch 1 Patch. - ergocalciferol, vitamin D2, 50 mcg (2,000 unit) cap 2,000 Units. - Cyanocobalamin 1,000 mcg TbER 500 mcg. - aspirin, enteric coated (ASPIRIN, ENTERIC COATED) 81 mg EC tablet Take by mouth. - trimethoprim (PROLOPRIM) 100 mg tablet - alcohol swabs (BD SINGLE USE SWABS REGULAR) - PEG 2412-Ankboyswtqx-Oao C (MOVIPREP) 100-7.5-2.691 gram - phenazopyridine (PYRIDIUM) 100 mg tablet - prednisoLONE acetate (PRED FORTE) 1 % ophthalmic suspension - promethazine (PHENERGAN) 25 mg tablet - rosuvastatin (CRESTOR) 40 mg tablet - valsartan (DIOVAN) 160 mg tablet Problem List As Of Date: 07/17/2024 (None) Prescriptions ordered this encounter Disp Refills Start End NIRMATRELVIR 150 MG-RITONAVIR 100 MG* 20 t* 0 07/17/2024 07/22/2024 Sig: Administer ONE pink nirmatrelvir 150 mg tablet and ONE white ritonavir 100 mg tablet for a total of two tablets twice daily. BENZONATATE 100 MG CAPSULE 30 c* 0 07/17/2024 08/01/2024 Route: ORAL Sig: Take 1 capsule by mouth every 8 hours as needed for cough for up to 15 days. Medications Discontinued During This Encounter Prescriptions - predniSONE (DELTASONE) 20 mg tablet (Discontinued) - predniSONE (DELTASONE) 50 mg (Discontinued) - rOPINIRole (REQUIP) 1 mg tablet (Discontinued) - simvastatin (ZOCOR) 40 mg tablet (Discontinued) - tamsulosin (FLOMAX) 0.4 mg (Discontinued) Take 0.4 mg by mouth once daily. - zolpidem (AMBIEN) 10 mg (Discontinued) - metFORMIN (GLUCOPHAGE) 500 mg tablet (Discontinued) 500 mg. Level of Service: OFFICE/OUTPATIENT ESTABLISHED MOD [facility] 30 MIN [50482] Encounter Status:Closed by EDUARDO BOWER on 07/17/24 CELIA Observed: 07/17/2024 12:00 AM Status: COMPLETED Source: [facility] RANDY [facility]AY[facility] ([id number]) 1950 F Date Time Provider Department 07/17/24 EDUARDO BOWER [facility] During your visit today, we recorded the following information about you: Eduardo Bower MD 07/17/2024 7:19 AM Signed COVID test was positive. Stay home until symptoms are improving and fever free for 24 hours without taking fever reducing medication. You can reduce spread of COVID by wearing a mask around others for 5 additional days. Treat with supportive care such as cough medicine, cold medicine, and pain relievers. Follow up with worsening symptoms; in the ER if severe. If she would like to take the Paxlovid antiviral COVID treatment she may contact her PCP, schedule a virtual appointment, or return to an express care. An accurate medication list and recent kidney function test are needed to determine the dose and if medication interactions exist. Angel Puentes MA 07/17/2024 7:47 AM Signed Patient notified of information and instructions as listed below. Patient states she will represent to Express Care for further Covid-19 management at some point today. Angel Puentes MA Allergies As of Date: 07/17/2024 Noted Allergy Reaction CLEOCIN (CLINDAMYCIN) 02/09/2024 3 - Cough CODEINE 02/09/2024 3 - Cough ERYTHROMYCIN 02/09/2024 4 - Hives LATEX 02/09/2024 9 - Itching OXYTETRACYCLINE 07/16/2024 4 - Hives PENICILLINS 02/09/2024 9 - Itching SULFA (SULFONAMIDE ANTIBIOTICS) 02/09/2024 9 - Itching Date Reviewed: 07/16/2024 Reviewed by: Norman Chester APRN.SILK WEAVER - Fully Assessed Reason for Visit: Results [95] Cmt: COVID+ Prescriptions as of 07/17/2024 - metFORMIN (GLUCOPHAGE) 500 mg tablet 500 mg. - LORazepam (ATIVAN) 1 mg tablet 1 mg. - icosapent ethyl (VASCEPA) 1 gram capsule 2 g. - hydroCHLOROthiazide 12.5 mg capsule 12.5 mg. - gabapentin (NEURONTIN) 300 mg capsule 300 mg. - FLUoxetine (PROZAC) 20 mg capsule 20 mg. - ferrous sulfate 325 mg (65 mg iron) tablet 325 mg. - Fenofibrate (LOFIBRA) 160 mg tablet 160 mg. - famotidine (PEPCID) 20 mg tablet 20 mg. - estradiol (MINIVELLE, VIVELLE-DOT) 0.1 mg/24 hr patch 1 Patch. - ergocalciferol, vitamin D2, 50 mcg (2,000 unit) cap 2,000 Units. - Cyanocobalamin 1,000 mcg TbER 500 mcg. - aspirin, enteric coated (ASPIRIN, ENTERIC COATED) 81 mg EC tablet Take by mouth. - tamsulosin (FLOMAX) 0.4 mg Take 0.4 mg by mouth once daily. - trimethoprim (PROLOPRIM) 100 mg tablet - alcohol swabs (BD SINGLE USE SWABS REGULAR) - PEG 3352-Earhzecvbcc-Ffi C (MOVIPREP) 100-7.5-2.691 gram - phenazopyridine (PYRIDIUM) 100 mg tablet - prednisoLONE acetate (PRED FORTE) 1 % ophthalmic suspension - predniSONE (DELTASONE) 20 mg tablet - predniSONE (DELTASONE) 50 mg - promethazine (PHENERGAN) 25 mg tablet TK 1/2 T PO Q 4 H PRN N - rOPINIRole (REQUIP) 1 mg tablet - rosuvastatin (CRESTOR) 40 mg tablet - simvastatin (ZOCOR) 40 mg tablet - valsartan (DIOVAN) 160 mg tablet - zolpidem (AMBIEN) 10 mg Problem List As Of Date: 07/17/2024 (None) Encounter Status:Closed by ANGEL PUENTES on 07/17/24 COVID AND INFLUENZA A/B AND RSV PCR, ROUTINE Observed: 07/16/2024 12:50 PM Status: F Source: [facility] SARS-COV-2 (AGENT OF COVID-1 9) RNA: Detected INFLUENZA A RNA: Not detectedINFLUENZA B RNA: Not detectedRESPIRATORY SYNCYTIAL VIRUS (RSV) RNA: Not detected Performed By: #### CVFLRS ## ## [facility] CLIA [id number] [address] [place] [address] PROGRESS Observed: 07/16/2024 12:05 PM Status: COMPLETED Source: [facility] HNO ID: [id number] Author: NORMAN CHESTER APRN.SILK WEAVER Service: ? Author Type: Nurse Practitioner Type: Progress Notes Filed: 07/16/2024 13:10 Note Text: This note was created using [employer]. Subjective Randy Hayes is a 74 year old female. HPI Pt awoke yesterday with a sore throat, right ear pain, and a low grade fever. Pt took Tylenol about 0800 today. Review of Systems Constitutional: Positive for fever. Respiratory: Positive for cough. Gastrointestinal: Negative for nausea and vomiting. Objective BP 134/80 Pulse 96 Temp (!) 38.1 ?C (100.6 ?F) Resp 16 Wt 81.5 kg (179 lb 10.8 oz) SpO2 94% Physical Exam Vitals and nursing note reviewed. Constitutional: General: She is not in acute distress. Appearance: Normal appearance. She is not ill-appearing. HENT: Head: Normocephalic. Mouth/Throat: Mouth: Mucous membranes are moist. Eyes: Conjunctiva/sclera: Conjunctivae normal. Neck: Comments: Mild left proximal cervical lymphadenopathy Cardiovascular: Rate and Rhythm: Normal rate and regular rhythm. Pulmonary: Effort: Pulmonary effort is normal. Breath sounds: Normal breath sounds. Musculoskeletal: General: Normal range of motion. Cervical back: Normal range of motion. Lymphadenopathy: Cervical: Cervical adenopathy present. Skin: General: Skin is warm and dry. Neurological: General: No focal deficit present. Mental Status: She is alert. Psychiatric: Mood and Affect: Mood normal. Behavior: Behavior normal. Assessment and Plan ASSESSMENT/PLAN: 1. Sore throat - ICD9: 462, ICD10: J02.9 - suspect viral - Rapid Strep negative in the office today - Discussed supportive care treatment with fluids, rest and analgesia. - The patient may also use OTC cough and cold meds as needed and warm salt water gargles, throat lozenges and/or OTC throat spray as needed. - Contagious dz precautions discussed- including considered contagious until on antibiotics for 24 hours -Patient was tested for influenza and COVID and would prefer to take Paxlovid if she test positive as symptoms are only 1 day old at this point -Discussed with her the importance of monitoring closely for any worsening shortness of breath, fever, any other new or worsening concerns and report to the ER at that time for further evaluation. - The patient should follow up in one week if symptoms persist or worsen - STREP A MOLECULAR (POC) - COVID AND INFLUENZA A/B AND RSV PCR, ROUTINE DARLENE Baldwin Observed: 07/16/2024 11:45 AM Status: COMPLETED Source: [facility] Office Visit ([facility]) RANDY HAYES ([id number]) 1950 F Date Time Provider Department 07/16/24 11:45 AM NORMAN CHESTER During your visit today, we recorded the following information about you: Temperature Pulse Respiration Blood pressure 100.6 degrees 96/minute 16/minute 134/80 Weight 81.5 kg Norman Chester APRN.CNP 07/16/2024 1:10 PM Signed This note was created using Note[employer]. Subjective Randy Hayes is a 74 year old female. HPI Pt awoke yesterday with a sore throat, right ear pain, and a low grade fever. Pt took Tylenol about 0800 today. Review of Systems Constitutional: Positive for fever. Respiratory: Positive for cough. Gastrointestinal: Negative for nausea and vomiting. Objective BP 134/80 Pulse 96 Temp (!) 38.1 ?C (100.6 ?F) Resp 16 Wt 81.5 kg (179 lb 10.8 oz) SpO2 94% Physical Exam Vitals and nursing note reviewed. Constitutional: General: She is not in acute distress. Appearance: Normal appearance. She is not ill-appearing. HENT: Head: Normocephalic. Mouth/Throat: Mouth: Mucous membranes are moist. Eyes: Conjunctiva/sclera: Conjunctivae normal. Neck: Comments: Mild left proximal cervical lymphadenopathy Cardiovascular: Rate and Rhythm: Normal rate and regular rhythm. Pulmonary: Effort: Pulmonary effort is normal. Breath sounds: Normal breath sounds. Musculoskeletal: General: Normal range of motion. Cervical back: Normal range of motion. Lymphadenopathy: Cervical: Cervical adenopathy present. Skin: General: Skin is warm and dry. Neurological: General: No focal deficit present. Mental Status: She is alert. Psychiatric: Mood and Affect: Mood normal. Behavior: Behavior normal. Assessment and Plan ASSESSMENT/PLAN: 1. Sore throat - ICD9: 462, ICD10: J02.9 - suspect viral - Rapid Strep negative in the office today - Discussed supportive care treatment with fluids, rest and analgesia. - The patient may also use OTC cough and cold meds as needed and warm salt water gargles, throat lozenges and/or OTC throat spray as needed. - Contagious dz precautions discussed- including considered contagious until on antibiotics for 24 hours -Patient was tested for influenza and COVID and would prefer to take Paxlovid if she test positive as symptoms are only 1 day old at this point -Discussed with her the importance of monitoring closely for any worsening shortness of breath, fever, any other new or worsening concerns and report to the ER at that time for further evaluation. - The patient should follow up in one week if symptoms persist or worsen - STREP A MOLECULAR (POC) - COVID AND INFLUENZA A/B AND RSV PCR, ROUTINE Norman Moomaw, PRINCIPAL GIFTS OFFICER.SILK WEAVER Moomaw, Norman, PRINCIPAL GIFTS OFFICER.SILK WEAVER 07/16/2024 12:15 PM Signed Your strep test was negative today. You have been tested for COVID and that will be resulted tomorrow, July 17, and you will be notified of results. I otherwise recommend that you continue to get plenty of rest and fluids and use ibuprofen or Tylenol as needed for pain and fever. If your symptoms worsen with worsening fever, cough, shortness of breath I would recommend going to the ER for further evaluation. Allergies As of Date: 07/16/2024 Noted Allergy Reaction CLEOCIN (CLINDAMYCIN) 02/09/2024 3 - Cough CODEINE 02/09/2024 3 - Cough ERYTHROMYCIN 02/09/2024 4 - Hives LATEX 02/09/2024 9 - Itching OXYTETRACYCLINE 07/16/2024 4 - Hives PENICILLINS 02/09/2024 9 - Itching SULFA (SULFONAMIDE ANTIBIOTICS) 02/09/2024 9 - Itching Date Reviewed: 07/16/2024 Reviewed by: Norman Chester APRN.SILK WEAVER - Fully Assessed Reason for Visit: Sore Throat [200] Cmt: left ear pain and fever x 1 day Primary Visit Diagnosis:Sore throat [J02.9] Order(s):STREP A MOLECULAR (POC) [[id number]] Order #: [id number]. #:[id number] COVID AND INFLUENZA A/B AND RSV PCR, ROUTINE [SQCVFLRS] Order #: [id number]. #:[id number] Prescriptions as of 07/16/2024 - metFORMIN (GLUCOPHAGE) 500 mg tablet 500 mg. - LORazepam (ATIVAN) 1 mg tablet 1 mg. - icosapent ethyl (VASCEPA) 1 gram capsule 2 g. - hydroCHLOROthiazide 12.5 mg capsule 12.5 mg. - gabapentin (NEURONTIN) 300 mg capsule 300 mg. - FLUoxetine (PROZAC) 20 mg capsule 20 mg. - ferrous sulfate 325 mg (65 mg iron) tablet 325 mg. - Fenofibrate (LOFIBRA) 160 mg tablet 160 mg. - famotidine (PEPCID) 20 mg tablet 20 mg. - estradiol (MINIVELLE, VIVELLE-DOT) 0.1 mg/24 hr patch 1 Patch. - ergocalciferol, vitamin D2, 50 mcg (2,000 unit) cap 2,000 Units. - Cyanocobalamin 1,000 mcg TbER 500 mcg. - aspirin, enteric coated (ASPIRIN, ENTERIC COATED) 81 mg EC tablet Take by mouth. - tamsulosin (FLOMAX) 0.4 mg Take 0.4 mg by mouth once daily. - trimethoprim (PROLOPRIM) 100 mg tablet - alcohol swabs (BD SINGLE USE SWABS REGULAR) - PEG 9958-Wgxflgfglyr-Ivy C (MOVIPREP) 100-7.5-2.691 gram - phenazopyridine (PYRIDIUM) 100 mg tablet - prednisoLONE acetate (PRED FORTE) 1 % ophthalmic suspension - predniSONE (DELTASONE) 20 mg tablet - predniSONE (DELTASONE) 50 mg - promethazine (PHENERGAN) 25 mg tablet TK 1/2 T PO Q 4 H PRN N - rOPINIRole (REQUIP) 1 mg tablet - rosuvastatin (CRESTOR) 40 mg tablet - simvastatin (ZOCOR) 40 mg tablet - valsartan (DIOVAN) 160 mg tablet - zolpidem (AMBIEN) 10 mg Problem List As Of Date: 07/16/2024 (None) Other instructions from your clinician: Your strep test was negative today. You have been tested for COVID and that will be resulted tomorrow, July 17, and you will be notified of results. I otherwise recommend that you continue to get plenty of rest and fluids and use ibuprofen or Tylenol as needed for pain and fever. If your symptoms worsen with worsening fever, cough, shortness of breath I would recommend going to the ER for further evaluation. Medications Discontinued During This Encounter Prescriptions - sulfamethoxazole-trimethoprim (BACTRIM DS) 800-160 mg per tablet (Discontinued) Reported on 07/16/2024 - traMADol (ULTRAM) 50 mg tablet (Discontinued) Reported on 07/16/2024 Encounter Status:Closed by NORMAN CHESTER on 07/16/24 ALLERGIES DATE TYPE / CODE NAME / CODE REACTION SEVERITY SOURCE 07/16/2024 DRUG INGREDI/4195 08615(SNOMED CT) OXYTETRACYCLINE HIVES [facility] 02/09/2024 DRUG INGREDI/4195 18649(SNOMED CT) CLINDAMYCIN COUGH [facility] 02/09/2024 DRUG INGREDI/4195 41500(SNOMED CT) CODEINE COUGH [facility] 02/09/2024 DRUG/0626625 03(SNOMED CT) ERYTHROMYCIN HIVES [facility] 02/09/2024 DRUG INGREDI/4195 65505(SNOMED CT) LATEX ITCHING [facility] 02/09/2024 Drug Class/831432 003(SNOMED CT) PENICILLINS ITCHING [facility] 02/09/2024 Drug Class/718474 003(SNOMED CT) SULFA (SULFONAMIDE ANTIBIOTICS) ITCHING [facility] 08/30/2023 Drug Allergy/4160 12740(SNOMED CT) Unable to Assess/G690051024(RXNOR M) Unknown [facility] [place] 02/14/2023 Drug Class/771493 003(SNOMED CT) IODINATED CONTRAST MEDIA OTHER: SEE C Med [facility] 02/14/2023 DRUG INGREDI/4195 06708(SNOMED CT) ASPIRIN UNKNOWN [facility] 02/14/2023 DRUG INGREDI/4195 06411(SNOMED CT) CEPHALEXIN UNKNOWN [facility] 02/14/2023 DRUG INGREDI/4195 08870(SNOMED CT) CIPROFLOXACIN UNKNOWN [facility] 02/14/2023 DRUG INGREDI/4195 41088(SNOMED CT) NITROFURANTOIN UNKNOWN [facility] 02/14/2023 DRUG INGREDI/4195 67817(SNOMED CT) PHENYLEPHRINE UNKNOWN [facility] ENCOUNTERS ADMIT/DISCHARGE ACCOUNT NUMBER ADMITTING ENCOUNTER CLASS LOCATION SOURCE 05/12/2025/ 5 [id number] [facility] [place] 05/08/2025/ 5 [id number] [facility] [place] 04/27/2025/ 5 [id number] Ambulatory Building:[facility] 02/16/2025/ 5 [id number] Ambulatory Building:[facility] 01/14/2025/ 5 [id number] Ambulatory [facility] ing:[facility] 12/10/2024/ 5 [id number] Ambulatory Building:[facility] EPIC 11/08/2024/ 5 [id number] Ambulatory [facility] 10/08/2024/ 5 [id number] Ambulatory Building:[facility] EPIC 08/18/2024/ 4 [id number] [facility] [place] 08/06/2024/ 4 [id number] Ambulatory Building:[facility] 07/17/2024/ 4 [id number] Ambulatory [facility] HospitalBuild ing:W[facility] 07/17/2024/ 4 [id number] Ambulatory [facility] ing:WORG [facility] 07/17/2024/ 4 [id number] [facility]/ 4 [id number] [facility] PAYERS ENCOUNTER GUARANTOR PAYER SUBSCRIBER SOURCE 05/12/2025 [facility] [place] [address]Wkg: (HP) Primary Insurance:1-4 All MEDICARE HMO/ATLANTAPolicy Number: [id number] Date:[id number] Name:PARVEEN JONES [id number], [place] [address]PI: RANDY HAYESB: [id number] [place], [place] [address]Evx: (HP) [facility] [place] 05/12/2025 Secondary Insurance:Self PayPolicy Number: Effective Date:2025-05-12 NOT GIVENUNK [facility] [place] 05/08/2025 RANDY HAYES[address] [place], [place] [address]Ecx: (HP) Primary Insurance:ANTHEM MEDICARE HMO/ATLANTAPolicy Number: [id number] Date:9980-27-81Grtq Name:PARVEEN JONES [id number], [place] [address]ND: RANDY SANDERSB: [id number] [place], [place] [address]Ykk: (HP) [facility] [place] 05/08/2025 Secondary Insurance:Self PayPolicy Number: Effective Date:2025-05-08 NOT GIVENUNK [facility] [place] 04/27/2025 RANDY SANDERSB: [address] [place], [place] [address]Kri: (HP) Primary Insurance:ANTHEM MEDICARE ADVANTAGEPolicy Number: [id number] Date:2023-10-11 RANDY SANDERSB: [id number] [place] [address] [facility] EPIC 02/16/2025 RANDY SANDERSB: [address] [place], [place] [address]Cqg: (HP) Primary Insurance:ANTHEM MEDICARE ADVANTAGEPolicy Number: [id number] Date:2023-10-11 RANDY SANDERSB: [id number] [place] [address] [facility] EPIC 01/14/2025 Primary Insurance:ANTHEM MEDICARE ADVANTAGE HMOPolicy Number: [id number] Date:3404-31-12Gdwp Name:Jero SANDERSB: [id number] [place] [address] [place] [address]/02/2025 RANDY SANDERSB: [address] [place], [place] [address]Bbp: (HP) Primary Insurance:ANTHEM MEDICARE ADVANTAGEPolicy Number: [id number] Date:2023-10-11 RANDY SANDERSB: [id number] [place] [address] [facility] PS[facility] 11/08/2024 Primary Insurance:ANTHEM MEDICARE ADVANTAGE HMOPolicy Number: [id number] Date:1757-67-01Lkhz Name:Jero ALCANTARA: [id number] [place] [address] [facility] 10/08/2024 RANDY SANDERSB: [address] [place], [place] [address]Hnh: (HP) Primary Insurance:ANTHEM MEDICARE ADVANTAGEPolicy Number: [id number] Date:2023-10-11 RANDY SANDERSB: [id number] [place] [address] [facility] 08/18/2024 RANDY HAYES[address] [place], [place] [address]Spr: (HP) Primary Insurance:ANTHEM MEDICARE HMO/[place]Policy Number: [id number] Date:2024-08-18P [facility] [place], [place] [address]KP: RANDY HAYESDOB: [id number] [address] [place], [place] [address]Cle: (HP) [facility] [place] 08/18/2024 Secondary Insurance:Self PayPolicy Number: Effective Date:2024-08-18 NOT GIVENUNK [facility] [place] 08/06/2024 RANDY SANDERSB: [address] [place], [place] [address]Kru: () Primary Insurance:ANTHEM MEDICARE ADVANTAGEPolicy Number: [id number] Date:2023-10-11 RANDY SANDERSB: [id number] [address] [place], [place] [id number] [place] [address] 07/17/2024 Primary Insurance:ANTHEM [facility] [id number] Date:[id number] Name:Jero SANDERSB: [id number] [place], [place] [id number] [place] [address] 07/17/2024 Primary Insurance:[facility] [id number] Date:[id number] Name:Jero SANDERSB: [id number] [place], [place] [id number] [place] [address] 07/17/2024 Primary Insurance:[facility]: [id number] Date:[id number] Name:Jero ALCANTARA: [id number] [place] [address] [facility] 07/16/2024 Primary Insurance:[employer] MEDICARE [facility]: [id number] Date:[id number] Name:Jero ALCANTARA: [id number] [place] [address] [facility]
[2025-06-08 12:01] LABS: AST(SGOT) 51 U/L (<=31); Alanine Aminotransfer ALT/SGPT 90 U/L (<=34); Albumin, Serum 4.6 g/dL (3.4-4.8); Alkaline Phosphatase 64 U/L (35-104); Bilirubin, Direct 0.30 mg/dL (0.00-0.30); Cholesterol 180 mg/dL (<=200); Globulin 2.9 g/dL (2.2-4.2); Low Density Lipoprotein Calc. 87 mg/dL; Triglycerides 266 mg/dL; Very Low Density Lipoprotein 53 mg/dL (5-40); cholesterol:hdl ratio screen 4.49
== END | disposition home or self-care (01) ==
LOC: LAB 09:47
PROVIDERS: PCP Family Medicine
DX: K76.0 Fatty (change of) liver, not elsewhere classified (principal); E78.5 Hyperlipidemia, unspecified
CPT/HCPCS: 36415; 80061; 80076

== ENCOUNTER → 2025-06-15 | Outpatient (CLI) | payer MEDICARE, SELFPAY ==
--- NOTE | 2025-06-15 07:33 | US_ITS ---
PROCEDURE: ABD LIMITED W/ ELASTOGRAPHY REASON FOR EXAM: REPEAT EVAL OF FATTY LIVER COMPARISON: Prior study dated December 29, 2024. TECHNIQUE: Procedure Code: [id number] Modality: US Procedure: ABD LIMITED W/ ELASTOGRAPHY Right upper quadrant abdominal ultrasound. [facility]ney ElastQ Imaging shear wave elastography for non-invasive assessment of liver tissue stiffness. Rodney EPIQ Elite. FINDINGS: LIVER: Size: Enlarged (hepatomegaly) Length: 21.5 cm Echotexture: Diffusely echogenic suggesting fatty infiltration Contour: Normal Lesions: Stable 2.1 cm x 2 cm 2.6 cm echogenic nodule in the right lobe of the liver suggestive of a small hemangioma. Elastography: EQI Med: 5.9 kPa EQI Med Felipe: 1.4 m/s IQR/Med: 5.9 %* GALLBLADDER: No stones sludge wall thickening or tenderness. COMMON BILE DUCT: Normal measuring 5 mm . PANCREAS: Visualized portions are sonographically unremarkable. Visualized portions of the right kidney are unremarkable. No right upper quadrant ascites. US/ABD Limited w/ Elastography IMPRESSION: NO TO MILD HEPATIC FIBROSIS Fatty infiltration of the liver. Stable echogenic nodule in the right lobe of the liver suggestive of hemangioma . Reference Values: SRU <1.37 m/s (5.7kPa): No to mild fibrosis 1.37 m/s - 2.2 m/s: Moderate to severe fibrosis >2.2 m/s (15kPa): Significant fibrosis / cirrhosis METAVIR Score F2 or higher: 1.34 m/s (5.7kPa) F3 or higher: 1.55 m/s (7.3kPa) F4: 1.80 m/s (10kPa) * If the IQR/Med is >30%, the variance in the measurements is a large and the a ccuracy of the measurement may be in question. Reading Location: [facility]
== END | disposition home or self-care (01) ==
PROVIDERS: PCP Family Medicine
DX: K76.0 Fatty (change of) liver, not elsewhere classified (principal); E78.5 Hyperlipidemia, unspecified
CPT/HCPCS: 76705; 76981

== ENCOUNTER → 2025-08-27 | Outpatient (CLI) | payer MEDICARE, SELFPAY ==
--- OUTSIDE RECORDS SUMMARY | 2025-08-27 07:36 | XMS RPT_ITS | CCD ---
Author Organization [facility] Care Team Providers Care Administration Intern Name Role Phone Keny Fernandes Primary Care Provider Keny Fernandes Primary Care Provider Troy Khan Admitting Provider Troy Khan Attending Provider HOSPITALIST PROGRAM, [facility] Emergency Provider Unav ailable DOM SO, DR KENY Nance Attending Unavailkatina FERNANDES MD, DR KENY Nance Primary Care UnavailKeny Jordan Primary Care Provider MD Alexis Virgen Attending Provider Keny Fernandes Attending Unavailable Keny Fenrandes Primary Care Unavailable Keny Fernandes Attending Unavailable Keny Fernandes Primary Care Unavailable Guzman Kellogg Consulting Unavailable Alexis Virgen Attending Unavailable Keny Fernandes Primary Care Unavailable Keny Fernandes Attending Unavailable Keny Fernandes Primary Care Unavailable Alexis Virgen Consulting Unavailable Juliet Juarez Attending Unavailable Keny Fernandes Primary Care Unavailable Alexis Virgen Consulting Unavailable Juliet Juarez Attending Unavailable Angie Salomon Attending Unavailable Keny Fernandes Primary Care Unavailable Troy Estrada V. Consulting Unavailable Juliet Juarez Attending Unavailable Keny Fernandes Primary Care Unavailable Alexis Virgen Consulting Unavailable Guzman Kellogg Attending Unavailable Keny Fernandes Primary Care Unavailable Jason Armendariz Attending Unavailable Keny Fernandes Primary Care Unavailable Troy Estrada V. Attending Unavailable Keny Fernandes Primary Care Unavailable Keny Fernandes Attending Unavailable Keny Fernandes Primary Care Unavailable Angie aSlomon Attending Unavailable Keny Fernandes CStefanie Primary Care Unavailable Troy Estrada V. Attending Unavailable Keny Fernandes Primary Care Unavailable Guzman Kellogg Attending Unavailable Keny Fernandes CStefanie Primary Care Unavailable Troy Estrada V. Attending Unavailable Keny Fernandes C. Primary Care Unavailable Troy Estrada V. Admitting Unavailable HOSPITALIST PROGRAM, [facility] Consulting Unavail able Keny Fernandes MD Primary Care Provider Keny Fernandes MD Primary Care Provider [phone] Keny Fernandes Primary Care Provider Alexis Virgen MD Attending Provider JULIET JUAREZ Attending Provider JULIET JUAREZ Referring Provider KENY WISE Primary Care Provider Unavailabl e Care Physician, No Primary Referring Provider Un available Doreen Jones Attending Provider Dr. Alexis Virgen MD Attending Provider [phone] Dr. Alexis Virgen MD Referring Provider KENY FERNANDES Primary Care Provider KENY FERNANDES Primary Care Provider Unavailabl e KENY FERNANDES Referring Provider Unavailable Dr. Keny Fernandes MD Primary Care Provider [phone] Doreen Jones Referring Provider Dr. Keny Fernandes MD Referring Provider KENY WISE Primary Care Provider Unavailabl e Dr. Isauro Davis DO Attending Provider Dr. Isauro Davis DO Referring Provider Doreen Jones Attending Provider Dixie Gomez Attending Provider Kuentz, Keny Primary Care Physician Derek SO, Alexis Attending Physician Dom Keny Primary Care Unavailable Alexis Virgen Attending Unavailable Alexis Virgen Attending Unavailable Kuentlyndon, Keny Primary Care Unavailable Alexis Virgen Attending Unavailable Kuentz, Keny Primary Care Unavailable Morro HEALTHCARE MARKETER-C, Doreen Attending Provider KENY FERNANDES Referring Provider Unavailable Dom SO, Dr. Keny Nance Primary Care Provider [phone] Dom SO, Dr. Keny Nance Referring Provider Morro HEALTHCARE MARKETER-C, Doreen Attending Physician Dom SO, Dr. Keny Nance Primary Care Physician Chance HEALTHCARE MARKETER-C, Dixie Attending Physician Chance HEALTHCARE MARKETER-C, Dixie Referring Provider [phone] Dom SO, Keny Primary Care Provider [phone] IVON JOHNSON Attending Unavailable IVON JOHNSON Attending Unavailable IVON JOHNSON Attending Unavailable IVON JOHNSON Attending Unavailable IVON JOHNSON Attending Unavailable IVON JOHNSON Attending Unavailable Dom SO, Dr. Keny Nance Primary Care Physician [phone] Morro GARCIA-CDoreen Attending Physician Elisa Worthington Attending Physician Doreen Hooker Referring Unavailable Doreen Hooker Attending Unavailable Eloyentz, Keny C Primary Care Unavailable Doreen Hooker Referring Unavailable Kuentz, Keny C Primary Care Unavailable Doreen Hooker Attending Unavailable Care Physician, No Primary Primary Care Unava ilable PELEG, RADHA Attending Unavailable PELALCON, RADHA Referring Unavailable Doreen Hooker Attending Unavailable Kuentz, Keny C Primary Care Unavailable PELEG, RADHA Referring Unavailable Isauro Davis Attending Unavailable Kuentz, Keny C Primary Care Unavailable Kuentz, Keny C Referring Unavailable Kuentz, Keny C Primary Care Unavailable Kuentz, Keny C Referring Unavailable Elisa Walsh Attending Unavailable Doreen Hooker Attending Unavailable Kuentz, Keny C Primary Care Unavailable Kuentz, Keny C Referring Unavailable Kuentz, Keny C Primary Care Unavailable Dixie Fletcher Attending Unavailable Kuentz, Keny C Referring Unavailable Friend, Isauro Referring Unavailable Friend, Isauro Attending Unavailable Kuentz, Keny C Primary Care Unavailable Doreen Hooker Referring Unavailable Kuentz, Keny C Primary Care Unavailable Doreen Hooker Attending Unavailable Kuentz, Keny C Primary Care Unavailable Fletcher, Dixie Referring Unavailable FletcherDixie Attending Unavailable Kuentz, Keny C Primary Care Unavailable Fletcher, Dixie Referring Unavailable Fletcher, Dixie Attending Unavailable Friend, Isauro Referring Unavailable Friend, Isauro Attending Unavailable Kuentz, Keny C Primary Care Unavailable Doreen Hooker Attending Unavailable Care Physician, No Primary Referring Unava ilable PELEG, RADHA Primary Care Unavailable Doreen Hooker Attending Unavailable Kuentz, Keny C Primary Care Unavailable Kuentz, Keny C Referring Unavailable Doreen Hooker Attending Unavailable PELEG, RADHA Referring Unavailable PELEG, RADHA Primary Care Unavailable Alexis Virgen Referring Unavailable Alexis Virgen Attending Unavailable PELEG, RADHA Primary Care Unavailable PELEG, RADHA Attending Unavailable PELEG, RADHA Primary Care Unavailable PELEG, RADHA Referring Unavailable KUENTZ, KENY C Primary Care Unavailable DELFINO MORAN Attending Unavailable KUENTZ, KENY C Primary Care Unavailable ZORAIDA CRANE Attending Unavailable KUENTZ, KENY C Primary Care Unavailable EDUARDO GRIMES Referring Unavailable KUENTZ, KENY C Primary Care Unavailable KUENTZ, KENY C Primary Care Unavailable KUENTZ, KENY C Primary Care Unavailable Allergies Allergy Classification Reported Allergen(s) Allergy Type Date of Onset Reaction(s) Facility (8 sources) Aspirin; Translations: [ASPIRIN] Drug Allergy 09-29-19 Unknown [facility] (20 sources) Ciprofloxacin; Translations: [CIPROFLOXACIN] Drug Allergy 09-29-19 Unknown [facility] (20 sources) Clindamycin; Translations: [CLINDAMYCIN] Drug Allergy 09-29-19 Cough, Unknown [facility] (20 sources) Codeine; Translations: [CODEINE] Drug Allergy 09-29-19 Cough, Unknown [facility] Comment on above: Makes heart race (20 sources) Erythromycin; Translations: [ERYTHROMYCIN] Drug Allergy 09-29-19 [facility], [facility] [place] (20 sources) Latex; Translations: [LATEX] Allergy to Substance 09-29-19 Itching [facility] Comment on above: Blisters (1 source) Lisinopril Drug Allergy 09-29-19 Other [facility] (19 sources) Oxytetracycline; Translations: [OXYTETRACYCLINE] Drug Allergy 09-29-19 [facility] (12 sources) Penicillins; Translations: [PENICILLINS] Allergy to Substance [facility]-29-[facility] Polymyxin B Drug Allergy 09-29-19 [facility] (1 source) Povidone-Iodine Drug Allergy 09-29-19 [facility] (20 sources) Sulfonamides (Antibiotic); Translations: [Sulfa Antibiotics] Allergy to Substance 09-29-19 Unknown [facility] Repository (2 sources) Iodinated Diagnostic Agents; Translations: [Iodinated Diagnostic Agents] Propensity to adverse reactions 09-29-19 Nausea [facility] (1 source) Aspirin Drug Allergy 09-29-19 [facility] (1 source) Ciprofloxacin Drug Allergy 09-29-19 [facility] (1 source) Clindamycin Drug Allergy 09-29-19 [facility] (1 source) Codeine Drug Allergy 09-29-19 [facility] (1 source) Erythromycin Drug Allergy 09-29-19 [facility] (1 source) Latex Drug allergy (disorder) 09-29-19 [facility] (1 source) Lisinopril Drug Allergy 09-29-19 [facility] (1 source) Oxytetracycline Drug Allergy 09-29-19 [facility] (1 source) Penicillins Drug allergy (disorder) 09-29-19 [facility] (1 source) Povidone-Iodine Drug Allergy 09-29-19 [facility] (1 source) Polymyxin B Drug allergy (disorder) 09-29-19 [facility] Repository (7 sources) Penicillins Drug Allergy 02-09-20 Itching [facility] (12 sources) Sulfonamides (Antibiotic); Translations: [SULFA (SULFONAMIDE ANTIBIOTICS)] Drug Allergy 02-09-20 Itching [facility] (20 sources) Cephalexin; Translations: [CEPHALEXIN] Drug Allergy 02-15-20 Unknown [facility] (20 sources) Nitrofurantoin; Translations: [NITROFURANTOIN] Drug Allergy 02-15-20 Unknown [facility] (20 sources) Phenylephrine; Translations: [PHENYLEPHRINE] Drug Allergy 02-15-20 Unknown [facility] (20 sources) Iodinated Contrast Media; Translations: [IODINATED CONTRAST MEDIA] Drug Allergy 02-15-20 Other: See Comments, Unknown [facility] (20 sources) Aluminum aspirin Drug Allergy 02-15-20 [facility] (20 sources) Latex Allergy to substance 02-15-20 Rash, Unknown [facility] (20 sources) Nitrofurantoin Drug Allergy 02-15-20 Unknown [facility] (20 sources) Penicillins Drug Allergy 02-15-20 Unknown [facility] (20 sources) Tetracycline Drug Allergy 02-15-20 [facility] (20 sources) Erythromycin Base; Translations: [erythromycin base] Drug Allergy 02-15-20 [facility] Healthcare (9 sources) Sulfonamides (Antibiotic) Allergy to substance 11-20-19 Rash [facility] (9 sources) Triiodobenzoic Acids Allergy to substance 11-20-19 Nausea/Vom/Yissel rrhea [facility] Comment on above: Feel like I'm on fi re (3 sources) Penicillins Drug Allergy 02-09-20 Itching [facility] (1 source) Unable to Assess Drug allergy (disorder) 08-30-20 [facility] Rep[facility] (1 source) Clindamycin Drug Allergy 06-19-20 [facility] Repository (1 source) Codeine Drug Allergy 06-19-20 [facility] (1 source) Latex Drug allergy (disorder) 06-19-20 [facility] (1 source) Oxytetracycline Drug Allergy 06-19-20 [facility] (1 source) Penicillins Drug allergy (disorder) 06-19-20 [facility] (1 source) Sulfonamides (Antibiotic) Drug allergy (disorder) 06-19-20 [facility] (1 source) Iodinated Contrast Media Drug allergy (disorder) 06-19-20 [facility] Repository Medications Current Medications Medication Drug Class(es) Dates Sig (Normalized) Sig (Original) acetaminophen 325 mg / HYDROcodone bitartrate 5 mg oral tablet (20 sources) Opioid Agonist Start: 01-23-2023 HYDROcodone-acetam inophen ([place]) 5-325 MG tablet 01/23/2023 Active Start: 01-23-2023 take 1 tablet by edison th every four to six hours as needed for pain Hydrocodone/Apap 5mg/325mg [Hydrocodone/Apap 5 Mg/325 Mg] 1 - 2 TAB PO EVERY 4 TO 6 HOURS NEEDED PRN For pain 40 January 23, 2023 Active Start: 01-15-2018 End: 09-04-2018 take 1 tablet by mouth every four to six hours as needed for pain Hydrocodone/Apap 5mg/325mg [Hydrocodone/Apap 5 Mg/325 Mg] 1 - 2 TAB PO EVERY 4 TO 6 HOURS NEEDED PRN For pain 60 January 15, 2018 September 04, 2018 Discontinued acyclovir 400 mg oral tablet (20 sources) Herpesvirus Nucleoside Analog DNA Polymerase Inhibitor, Herpes Simplex Virus Nucleoside Analog DNA Polymerase Inhibitor, Herpes Zoster Virus Nucleoside Analog DNA Polymerase Inhibitor acyclovir (Zovirax) 400 MG tablet Active amitriptyline hydrochloride 25 mg oral tablet (20 sources) Tricyclic Antidepressant Start: 04-03-20 take 1 tablet by mouth at bedtime Amitriptyline 25 mg tablet Active 25 mg PO AT BEDTIME April 03, 2024 12:00am Complies with drug therapy Start: 12-29-2016 End: 09-29-2022 take 25 mg by mouth at bedtime Amitriptyline Hcl 25 MG PO AT BEDTIME December 11, 2017 Discontinued amLODIPine 10 mg oral tablet (20 sources) Dihydropyridine Calcium Channel Ben Start: 12-02-2020 take 1 tablet by mouth once daily Amlodipine 10 mg tablet Active 10 mg PO DAILY April 03, 2024 12:00am Complies with drug therapy Start: 12-29-2016 take 10 mg by mouth once daily Amlodipine Besylate [Norvasc] 10 MG PO DAILY@2000 December 29, 2016 Active ascorbic acid 500 mg oral tablet (11 sources) Vitamin C Start: 04-03-2024 take 1 tablet by mouth once daily Ascorbic Acid (Vitamin C) 500 mg tablet Active 500 mg PO DAILY April 03, 2024 12:00am Complies with drug therapy Start: 09-29-2022 take 500 mg by mouth twice mary ly Ascorbic Acid [Vitamin C *] 500 MG PO TWICE A DAY September 29, 2022 Active ascorbic acid 4700 mg / polyethylene glycol 3350 827479 mg / potassium chloride 1015 mg / sodium ascorbate 5900 mg / sodium chloride 2690 mg / sodium sulfate 7500 mg powder for oral solution (11 sources) Osmotic Laxative, Vitamin C PEG 3350-Electrolyte -Vit C (MOVIPREP) 100-7.5-2.691 gram Active aspirin 81 mg delayed release oral tablet (20 sources) Platelet Aggregation Inhibitor, Nonsteroidal Anti-inflammatory Drug Start: 04-03-2024 Start: 01-23-2023 take 325 mg by mouth twice mary ly Aspirin 325 MG PO TWICE A DAY January 23, 2023 Active Start: 09-29-2022 take 81 mg by mouth once daily Aspirin [Aspirin 81] 81 MG PO DAILY September 29, 2022 Active benzonatate 100 mg oral capsule (12 sources) Non-narcotic Antitussive Start: 07-17-2024 End: 08-01-2024 take 1 capsule by mouth every eight hours as needed for cough benzonatate (TESSALON PERLE) 100 mg capsule Indications: Acute COVID-19 , Acute cough Take 1 capsule by mouth every 8 hours as needed for cough for up to 15 days. 30 capsule 07/17/2024 08/01/2024 Active calcium citrate 1040 mg oral tablet (11 sources) Start: 04-03-2024 take 1 tablet by mouth once daily Calcium Citrate 250 mg calcium tablet Active 250 mg PO DAILY April 03, 2024 12:00am Complies with drug therapy Start: 12-11-2017 End: 06-11-2019 take 2 capsules by mouth twice daily .Calcium Citrate 2 CAP PO TWICE A DAY December 11, 2017 June 11, 2019 Discontinued Start: 12-11-2017 End: 06-11-2019 take 2 capsules by mouth twice daily .Calcium Citrate 2 CAP PO TWICE A DAY December 11, 2017 Discontinued carbidopa 25 mg / levodopa 100 mg oral tablet (11 sources) Aromatic Amino Acid Decarboxylation Inhibitor, Aromatic Amino Acid carbidopa-levodopa (Sinemet) 25-100 MG tablet Active cefdinir 300 mg oral capsule (15 sources) Cephalosporin Antibacterial Start: End: take 1 capsule by mouth once daily cefdinir (OMNICEF) 300 mg capsule Take 1 capsule by mouth once daily for 5 days. 5 capsule 01/14/2025 01/19/2025 Active Start: 11-08-2024 End: 11-13-2024 take 1 capsule by mouth once daily cefdinir (OMNICEF) 300 mg capsule Take 1 capsule by mouth once daily for 5 days. 5 capsule 11/08/2024 11/13/2024 Active Start: 11-08-2024 End: 11-08-2024 take 1 capsule by mouth twice daily cefdinir (OMNICEF) 300 mg capsule Take 1 capsule by mouth two times a day for 5 days. 10 capsule 11/08/2024 11/08/2024 Discontinued cetirizine hydrochloride 10 mg oral tablet (3 sources) Histamine-1 Receptor Antagonist Start: 01-14-2025 take 1 tablet by mouth once daily cetirizine (ZYRTEC) 10 mg tablet Take 1 tablet by mouth once daily. 7 tablet 01/14/2025 Active Start: 11-08-2024 End: 11-13-2024 take 1 tablet by mouth once daily cetirizine (ZYRTEC) 10 mg tablet Take 1 tablet by mouth once daily for 5 days. 5 tablet 11/08/2024 11/13/2024 Active cholecalciferol 0.025 mg oral capsule (9 sources) Vitamin D Start: 02-18-2025 take 1 capsule by mouth once daily Cholecalciferol (Vitamin D3) 25 mcg (1,000 unit) capsule Active 50 ug PO daily February 18, 2025 12:00am Complies with drug therapy Start: 09-29-2022 take 1000 [IU] by mo [facility] once daily Cholecalciferol [Vitamin D3] 1000 UNIT PO DAILY September 29, 2022 Active Start: 12-29-2016 End: 12-11-2017 take 2000 [IU] by mouth once daily Cholecalciferol [Vitamin D3] 2000 UNIT PO DAILY December 29, 2016 December 11, 2017 Discontinued cranberry preparation 500 mg oral capsule (9 sources) Non-Standardized Food Allergenic Extract, Non-Standardized Plant Allergenic Extract Start: 04-03-2024 take 1 capsule by mouth once daily at mealtime Cranberry Extract 500 mg capsule Active 500 mg PO DAILY April 03, 2024 12:00am administer with meals Complies with drug therapy Start: 04-03-2024 take 1 capsule by mo ut once daily at mealtime Start: 04-03-2024 take 1 capsule by mo uth once daily at mealtime Cranberry Extract 500 mg capsule Active 500 mg PO DAILY April 03, 2024 12:00am administer with meals diclofenac sodium 75 mg delayed release oral tablet (20 sources) Nonsteroidal Anti-inflammatory Drug diclofenac (Laura maximo) 75 MG EC tablet Active dicyclomine hydrochloride 10 mg oral capsule (20 sources) Anticholinergic dicyclomine (Broderick tyl) 10 MG capsule Active estradiol 0.1 mg/ml vaginal cream (20 sources) Estrogen Start: 05-22-2024 estradiol (Estrace) 0.1 MG/GM vaginal cream 05/22/2024 Active Start: 04-03-2024 Estradiol 0.01 % (0.1 mg/gram) cream Active 1 g VAGINAL 3 TIMES A WEEK April 03, 2024 12:00am Complies with drug therapy Start: 09-29-2022 Estradiol Vagi nal [Estradiol] 0.1 MG VA Sunday/Sunday/Thursday September 29, 2022 Active estradiol (Vivel le-DOT) 0.1 MG/24HR Active estradiol (Vivel le-DOT) 0.1 MG/24HR 1 patch to skin Transdermal Two times a Week Active estradiol (MINIV CHANTEL, VIVELLE-DOT) 0.1 mg/24 hr patch 1 Patch. Active ezetimibe 10 mg oral tablet (20 sources) Dietary Cholesterol Absorption Inhibitor ezetimibe (Zetia) 1 0 MG tablet Active famotidine 20 mg oral tablet (20 sources) Histamine-2 Receptor Antagonist Start: 3 take 1 tablet by mouth twice daily Famotidine 20 mg tablet Active 20 mg PO TWICE A DAY April 03, 2024 12:00am Complies with drug therapy fenofibrate 160 mg oral tablet (20 sources) Peroxisome Proliferator Receptor alpha Agonist Start: take 1 tablet by mouth once daily Fenofibrate 160 mg tablet Active 160 mg PO DAILY April 03, 2024 12:00am Complies with drug therapy Start: 12-11-2017 End: 09-29-2022 Fenofibrate (LOFIBRA) 160 mg tablet 160 mg. 12/02/2020 Active Start: 12-29-2016 End: 12-11-2017 take 150 mg by mouth once daily Fenofibrate [Lipofen] 150 MG PO DAILY December 29, 2016 December 11, 2017 Discontinued ferrous sulfate 325 mg oral tablet (20 sources) Start: 09-29-2022 take 1 tablet by mouth once daily Ferrous Sulfate (Feosol) 325 mg (65 mg iron) tablet Active 325 mg PO DAILY April 03, 2024 12:00am Complies with drug therapy FLUoxetine 20 mg oral capsule (20 sources) Serotonin Reuptake Inhibitor Start: 03-19-2025 take 2 capsules by mouth once daily, then take 1 capsule by mouth once daily Fluoxetine 20 mg capsule Active 20 mg PO DAILY March 19, 2025 10:40am even days she takes 2, odd days she takes 1 Complies with drug therapy Start: 04-03-2024 End: 03-19-2025 take 1 capsule by mouth once daily Fluoxetine 20 mg capsule Discontinued 20 mg PO DAILY April 03, 2024 12:00am March 19, 2025 10:42am Start: 01-24-2016 End: 09-29-2022 FLUoxetine (PROZAC) 20 mg ca psule 20 mg. 12/02/2020 Active gabapentin 300 mg oral capsule (20 sources) Anti-epileptic Agent Start: 04-03-2024 take 2 capsules by mouth four times daily Gabapentin 300 mg capsule Active 600 mg PO .QID April 03, 2024 12:00am Complies with drug therapy Start: 09-29-2022 take 600 mg by mouth four times daily Gabapentin 600 MG PO FOUR TIMES A DAY September 29, 2022 Active Start: 12-02-2020 gabapentin (NE URONTIN) 300 mg capsule 300 mg. 12/02/2020 Active Start: 12-11-2017 End: 09-29-2022 take 2 capsules by mouth three times daily Gabapentin 2 CAP PO THREE TIMES A DAY December 11, 2017 September 29, 2022 Discontinued Start: 01-24-2016 End: 12-11-2017 take 1 capsule by mouth four times daily Gabapentin 1 CAP PO FOUR TIMES A DAY January 24, 2016 December 11, 2017 Discontinued Garlic (9 sources) Non-Standardized Food Allergenic Extract Start: 04-03-2024 take 1 capsule by mouth once daily Garlic 500 mg capsule Active 500 mg PO DAILY April 03, 2024 12:00am Complies with drug therapy Start: 04-03-2024 take 1 capsule by mouth once d aily Start: 04-03-2024 take 1 capsule by mouth once d aily Garlic 500 mg capsule Active 500 mg PO DAILY April 03, 2024 12:00am glimepiride 4 mg oral tablet (20 sources) Sulfonylurea glimepiride ([place] ryl) 4 MG tablet Active hydroCHLOROthiazide 12.5 mg oral capsule (20 sources) Thiazide Diuretic Start : 04-03 take 2 capsules by mouth once daily Hydrochlorothiazide 12.5 mg capsule Active 25 mg PO DAILY April 03, 2024 12:00am Complies with drug therapy Start: 09-29-2022 take 12.5 mg by mout h every other day, then take 25 mg by mouth every other day Hydrochlorothiazide 25 MG PO EVERY OTHER DAY September 29, 2022 Active Switches between 12.5mg and 25mg every other day Start: 09-29-2022 take 12.5 mg by mout h every other day, then take 25 mg by mouth every other day Hydrochlorothiazide 12.5 MG PO EVERY OTHER DAY September 29, 2022 Active Switches between 12.5mg and 25mg every other day Start: 12-02-2020 hydroCHLOROthi azide 12.5 mg capsule 12.5 mg. 12/02/2020 Active Start: 12-29-2016 End: 09-29-2022 Hydrochlorothiazide 12.5 MG PO DAILY December 29, 2016 September 29, 2022 Discontinued takes one on even days and 2 on odd days hydroCHLOROthiaz emmanuel 25 mg tablet Take 12.5 mg by mouth once daily. Active icosapent ethyl 1000 mg oral capsule (20 sources) Start: 04-03-2024 take 2 capsules by mouth twice daily Icosapent Ethyl 1 gram capsule Active 2 g PO TWICE A DAY April 03, 2024 12:00am Complies with drug therapy Start: 06-11-2019 take 2 g by mouth twice daily Icosapent Ethyl [Vascepa] 2 GM PO TWICE A DAY June 11, 2019 Active Icosapent Ethyl (Vascepa) 1 g capsule Active isopropyl alcohol 0.7 ml/ml medicated pad (11 sources) alcohol swabs (B D SINGLE USE SWABS REGULAR) Active Lactobacillus Combination No.9 (Adult 50 Plus Probiotic) 4 billion cell capsule (9 sources) Start: 04-03-2024 take 4 capsules by mouth once daily Lactobacillus Combination No.9 (Adult 50 Plus Probiotic) 4 billion cell capsule Active 4000 NMA PO DAILY April 03, 2024 12:00am administer with a meal Complies with drug therapy Start: 04-03-2024 take 4 capsules by m outh once daily Start: 04-03-2024 take 4 capsules by m outh once daily Lactobacillus Combination No.9 (Adult 50 Plus Probiotic) 4 billion cell capsule Active 4000 NMA PO DAILY April 03, 2024 12:00am administer with a meal levoFLOXacin 500 mg oral tablet (20 sources) Quinolone Antimicrobial levoFLOXacin (Levaquin) 500 MG tablet Active loratadine 10 mg oral tablet (20 sources) loratadine (Claritin) 10 MG tablet Active LORazepam 1 mg oral tablet (20 sources) Benzodiazepine Start: 04-03-20 take 1.5 mg by mouth three times daily as needed for anxiety Lorazepam 1 mg tablet Active 1.5 mg PO THREE TIMES A DAY as needed for anxiety April 03, 2024 12:00am Complies with drug therapy Start: 01-23-2023 take 2.5 mg by mouth three times daily as needed for anxiety Lorazepam [Ativan] 2.5 MG PO THREE TIMES A DAY PRN For Anxiety January 23, 2023 Active Start: 09-29-2022 End: 01-23-2023 take 1.5 mg by mouth three times daily Lorazepam [Ativan] 1.5 MG PO THREE TIMES A DAY September 29, 2022 January 23, 2023 Discontinued Start: 12-02-2020 LORazepam (ATI VAN) 1 mg tablet 1 mg. 12/02/2020 Active Start: 07-12-2019 End: 09-29-2022 take 0.5 mg by mouth at bedtime Lorazepam [Ativan] 0.5 MG PO AT BEDTIME July 12, 2019 September 29, 2022 Discontinued Start: 12-29-2016 End: 07-12-2019 take 1 mg by mouth once daily as needed Lorazepam [Ativan] 1 MG PO DAILY PRN December 29, 2016 July 12, 2019 Discontinued losartan potassium 100 mg oral tablet (20 sources) Angiotensin 2 Receptor Ben Start: 04-03-2024 take 1 tablet by mouth once daily Losartan 100 mg tablet Active 100 mg PO DAILY April 03, 2024 12:00am Complies with drug therapy Start: 12-29-2016 End: 09-29-2022 take 100 mg by mouth once daily Losartan Potassium 100 MG PO DAILY@2000 September 29, 2022 Active Start: 01-24-2016 End: 12-29-2016 take 1 tablet by mouth once daily Losartan Potassium [Cozaar] 1 TAB PO DAILY January 24, 2016 December 29, 2016 Discontinued magnesium gluconate 500 mg oral tablet (9 sources) Start: 04-03-2024 take 1 tablet by mouth once daily Magnesium Gluconate 500 mg tablet Active 500 mg PO DAILY April 03, 2024 12:00am Complies with drug therapy meloxicam 7.5 mg oral tablet (20 sources) Nonsteroidal Anti-inflammatory Drug Start: 01-23-2023 meloxicam (Mobic) 7.5 MG tablet 01/23/2023 Active Start: 01-15-2018 End: 09-04-2018 take 7.5 mg by mouth once daily Meloxicam 7.5 MG PO DAILY January 15, 2018 September 04, 2018 Discontinued Multiple Vitamin (Multi Kaylin min) tablet (20 sources) Multiple Vitamin (Multi Vitamin) tablet 1 (one) time each day at the same time Active Multiple Vitamin (Multi Vitamin) tablet 1 (one) time each day at the same time. Active Multivitamin tablet (9 sources) Start: 04-03-2024 Multivitamin t ablet Active 1 {tbl} PO DAILY April 03, 2024 12:00am Complies with drug therapy Start: 04-03-2024 Start: 04-03-2024 Multivitamin t ablet Active 1 {tbl} PO DAILY April 03, 2024 12:00am nirmatrelvir tablet 150 mg and ritonavir tablet 100 mg in a dose pack (PAXLOVID) (1 source) Start: 07-17-2024 End: 07-22-2024 nirmatrelvir tablet 150 mg and ritonavir tablet 100 mg in a dose pack (PAXLOVID) Indications: Acute COVID-19 Administer ONE pink nirmatrelvir 150 mg tablet and ONE white ritonavir 100 mg tablet for a total of two tablets twice daily. 20 tablet 07/17/2024 07/22/2024 Active nitrofurantoin, macrocrystals 25 mg / nitrofurantoin, monohydrate 75 mg oral capsule (20 sources) Nitrofuran Antibacterial nitrofurantoin, macrocrystal-monohydr ate, (Macrobid) 100 MG capsule Active pantoprazole 40 mg delayed release oral tablet (3 sources) Proton Pump Inhibitor Start: 06-19-2025 pantopra zole (ProtoNix) 40 MG EC tablet 06/19/2025 Active Paxlovid, 150/100, 10 x 150 MG & 10 x 100MG tablet therapy pack (11 sources) Start: 07-17-2024 Paxlovid, 150/ 100, 10 x 150 MG & 10 x 100MG tablet therapy pack 07/17/2024 Active Start: 07-17-2024 take 1 tablet by edison th twice daily Paxlovid, 150/100, 10 x 150 MG & 10 x 100MG tablet therapy pack take 1 NIRMATRELVIR tablet with 1 RITONAVIR tablet by mouth twice a day for 5 days 07/17/2024 Active phenazopyridine hydrochloride 100 mg oral tablet (11 sources) phenazopyridine (PYRIDIUM) 100 mg tablet Active prednisoLONE acetate 10 mg/ml ophthalmic suspension (20 sources) Corticosteroid Start: 04-03-2024 Prednisolone Acetate 1 % drops,suspension Active 1 NMA OPHTHALMIC THREE TIMES A DAY April 03, 2024 12:00am Complies with drug therapy Start: 01-22-2024 prednisoLONE a cetate (PRED FORTE) 1 % ophthalmic suspension 01/22/2024 Active promethazine hydrochloride 2 5 mg oral tablet (11 sources) Phenothiazine promethazine (PH ENERGAN) 25 mg tablet Active take 0.5 tablet by m outh every four hours as needed promethazine (PHENERGAN) 25 mg tablet TK 1/2 T PO Q 4 H PRN N Active Resmetirom (4 sources) Start: 06-09-2025 take 1 tablet by edison th once daily Resmetirom (Rezdiffra) 80 mg tablet Active 80 mg PO daily 90 3 June 09, 2025 9:20am Complies with drug therapy Start: 06-09-2025 take 1 tablet by edison th once daily Start: 03-27-2025 End: 06-09-2025 take 1 tablet by mouth once daily Resmetirom (Rezdiffra) 80 mg tablet Discontinued 80 mg PO daily 30 March 27, 2025 12:00am June 09, 2025 9:22am Resmetirom (Rezdiffra) 80 mg tablet (1 source) Start: 03-27-2025 take 1 tablet by mouth once daily Resmetirom (Rezdiffra) 80 mg tablet Active 80 mg PO daily 30 March 27, 2025 12:00am Rezdiffra 80 MG tablet (5 sources) Start: 04-21-2025 Rezdiffra 80 M G tablet 04/21/2025 Active rOPINIRole 1 mg oral tablet (20 sources) Nonergot Dopamine Agonist End: 07-17-2024 rOPINIRole (Requip) 1 MG tablet Active rosuvastatin calcium 20 mg oral tablet (20 sources) HMG-CoA Reductase Inhibitor Start: 05-25-2025 take 2 tablets by mouth at bedtime Rosuvastatin 20 mg tablet Active 40 mg PO AT BEDTIME May 25, 2025 1:16pm Complies with drug therapy Start: 04-20-2025 End: 05-25-2025 take 1 tablet by mouth at bedtime Rosuvastatin 20 mg tablet Discontinued 20 mg PO AT BEDTIME 30 April 20, 2025 12:00am May 25, 2025 1:18pm Start: 04-03-2024 End: 04-20-2025 take 1 tablet by mouth once daily Rosuvastatin 40 mg tablet Discontinued 40 mg PO DAILY April 03, 2024 12:00am April 20, 2025 2:15pm Start: 09-29-2022 take 40 mg by mouth once daily Rosuvastatin Calcium [Crestor] 40 MG PO DAILY September 29, 2022 Active 0.25 mg, 0.5 mg dose 1.5 ml semaglutide 1.34 mg/ml pen injector (4 sources) Start: 03-19-2025 Semaglutide (Ozempic) 0.25 mg or 0.5 mg(2 mg/1.5 mL) pen injector Active 0.25 mg SC EVERY WEEK March 19, 2025 12:00am for 4 weeks Complies with drug therapy sucralfate 1000 mg oral tablet (20 sources) Aluminum Complex sucralfate (Carafate) 1 g tablet Active tamsulosin hydrochloride 0.4 mg oral capsule (12 sources) alpha-Adrenergic Ben Start: 04-03-2024 End: 07-17-2024 take 1 capsule by mouth once daily Tamsulosin 0.4 mg capsule Active 0.4 mg PO DAILY April 03, 2024 12:00am Complies with drug therapy traMADol hydrochloride 50 mg oral tablet (20 sources) Opioid Agonist End: 07-16-2024 traMADol (Ultram) 50 MG tablet Active triamcinolone acetonide 1 mg/ml topical cream (11 sources) Corticosteroid Start: 10-02-2024 triamcinolone (Kenalog) 0.1 % cream 10/02/2024 Active Start: 10-02-2024 triamcinolone (Kenalog) 0.1 % cream APPLY A THIN LAYER TO THE AFFECTED AREA(S) BY TOPICAL ROUTE 1-2 TIMES PER DAY 10/02/2024 Active trimethoprim 100 mg oral tablet (20 sources) Dihydrofolate Reductase Inhibitor Antibacterial Start: 07-12-2019 take 1 tablet by mouth once daily Trimethoprim 100 mg tablet Active 100 mg PO DAILY April 03, 2024 12:00am Complies with drug therapy valsartan 80 mg oral tablet (20 sources) Angiotensin 2 Receptor Ben valsartan (Diovan) 80 MG tablet Active valsartan (DIOVA N) 160 mg tablet Active vitamin b12 0.5 mg oral tablet (20 sources) Vitamin B12 Start: 04-03-2024 take 1 tablet by mouth once daily Cyanocobalamin (Vitamin B-12) 500 mcg tablet Active 500 ug PO DAILY April 03, 2024 12:00am Complies with drug therapy Start: 04-03-2024 take 1 tablet by edison th once daily Cyanocobalamin (Vitamin B-12) 500 mcg tablet Active 500 ug PO DAILY April 03, 2024 12:00am Start: 09-29-2022 take 1000 ug by mout h once daily Cyanocobalamin [Energy B12] 1000 MCG PO DAILY September 29, 2022 Active Start: 09-29-2022 take 1000 ug by mout h once daily Cyanocobalamin 1000 MCG PO DAILY September 29, 2022 Active Cyanocobalamin ( Vitamin B12) 1000 MCG tablet controlled-release 1 (one) time each day at the same time Active Cyanocobalamin 1 ,000 mcg TbER 500 mcg. Active Completed/Discontinued Medications Medication Drug Class(es) Dates Sig (Normalized) Sig (Original) 8 hr acetaminophen 650 mg extended release oral tablet (6 sources) Start: 09-29-2022 End: 01-24-2023 Acetaminophen [Tylenol 8 Hour Arthritis] 650 MG PO NEEDED PRN January 24, 2023 Active Do Not take while on Hydrocodone Start: 06-11-2019 End: 07-03-2019 take 2 tablets by mouth once daily as needed Acetaminophen [Tylenol] 2 TAB PO DAILY PRN June 11, 2019 July 03, 2019 Discontinued [id number] actuat albuterol 0.09 mg/actuat metered dose inhaler (20 sources) beta2-Adrenergic Agonist Start: 12-29-2016 End: 09-04-2018 take 1 puff(s) by inhalation every four hours as needed Albuterol Sulfate [Ventolin Hfa] 2 PUFFS INH EVERY 4 HOURS PRN December 29, 2016 September 04, 2018 Discontinued albuterol HFA 90 mcg/act inhaler Active apixaban 2.5 mg oral tablet (2 sources) Factor Xa Inhibitor Start: 01-15-2018 End: 06-11-2019 take 2.5 mg by mouth twice daily Apixaban [Eliquis] 2.5 MG PO TWICE A DAY January 15, 2018 June 11, 2019 Discontinued Calcium-Magnesium W/ Vitamin D (1 source) Start: 01-02-2023 take 2 tablets by mouth twice daily Calcium-Magnesium W/ Vitamin D 2 TAB PO TWICE A DAY January 02, 2023 Active Calcium-Magnesium W/ Vitamin D [Citracal Calcium+D S... 600-40-500 Mg-Mg-Unit] (1 source) Start: 01-02-2023 take 2 tablets by mouth twice daily Calcium-Magnesium W/ Vitamin D [Citracal Calcium+D S... 600-40-500 Mg-Mg-Unit] 2 TAB PO TWICE A DAY January 02, 2023 Active Cranberry (Vaccinium Macrocarp (1 source) Start: 09-29-2022 take 2 capsules by mouth twice daily Cranberry (Vaccinium Macrocarp 2 CAP PO TWICE A DAY September 29, 2022 Active Cranberry (Vaccinium Macrocarp [Cranberry] (1 source) Start: 09-29-2022 take 2 capsules by mouth twice daily Cranberry (Vaccinium Macrocarp [Cranberry] 2 CAP PO TWICE A DAY September 29, 2022 Active 24 hr cyclobenzaprine hydrochloride 15 mg extended release oral capsule (2 sources) Muscle Relaxant Start: 01-11-2017 End: 12-11-2017 take 15 mg by mouth once daily as needed Cyclobenzaprine Hcl [Amrix] 15 MG PO DAILY PRN January 11, 2017 December 11, 2017 Discontinued dexamethasone 6 mg oral tablet (2 sources) Corticosteroid Start: 01-23-2023 take 6 mg by mouth once daily Dexamethasone 6 MG PO DAILY January 23, 2023 Active 0.5 ml dulaglutide 1.5 mg/ml auto-injector (20 sources) GLP-1 Receptor Agonist Start: 12-02-2024 Trulicity 0.75 MG/0.5ML solution auto-injector 12/02/2024 Active Start: 09-11-2024 End: 03-19-2025 Dulaglutide (Trulicity) 0.75 mg/0.5 mL pen injector Discontinued 0.75 mg SC EVERY WEEK 6 February 19, 2025 2:13pm March 19, 2025 10:41am Type 2 diabetes mellitus Type 2 diabetes mellitus without complications ergocalciferol 0.05 mg oral capsule (20 sources) Provitamin D2 Compound Start: 12-02-2020 End: 02-18-2025 Ergocalciferol (Vitamin D2) 50 mcg (2,000 unit) capsule Discontinued 50 ug PO DAILY April 03, 2024 12:00am February 18, 2025 11:41am Start: 12-11-2017 End: 10-02-2022 take 1 capsule by mouth every week Ergocalciferol [Vitamin D 50,000 Units *] 1 CAP PO MO December 11, 2017 October 02, 2022 Discontinued once a week on Sunday Start: 12-11-2017 End: 10-02-2022 take 1 capsule by mouth every week Ergocalciferol 1 CAP PO MO December 11, 2017 Discontinued once a week on Sunday ergocalciferol ( Vitamin D-2) 1.25 MG (39724 UT) capsule Active ergocalciferol ( Vitamin D-2) 1.25 MG (73889 UT) capsule ergocalciferol (vitamin D2) 1,250 mcg (50,000 unit) capsule Active 14 actuat fluticasone furoate 0.2 mg/actuat dry powder inhaler (2 sources) Corticosteroid Start: 01-11-2017 End: 09-04-2018 take 200 ug by inhalation once daily as needed Fluticasone Furoate (Inhalatio [Arnuity Ellipta] 200 MCG IN DAILY PRN January 11, 2017 September 04, 2018 Discontinued hyoscyamine sulfate 0.125 mg sublingual tablet (20 sources) Start: 06-11-2019 End: 07-11-2019 take 1 tablet by mouth every four hours Hyoscyamine [Levsin] 1 TAB PO EVERY 4 HOURS June 11, 2019 July 11, 2019 Discontinued hyoscyamine (Lev sin) 0.125 MG SL tablet Active ibuprofen 200 mg oral tablet (20 sources) Nonsteroidal Anti-inflammatory Drug Start: 09-29-2022 End: 01-02-2023 take 2 tablets by mouth three times daily Ibuprofen [Ibuprofen 200] 2 TAB PO THREE TIMES A DAY September 29, 2022 January 02, 2023 Discontinued Start: 07-03-2019 End: 10-02-2022 Ibuprofen [Advil] 1 CAP N EEDED PRN July 03, 2019 October 02, 2022 Discontinued Start: 09-04-2018 End: 06-11-2019 Ibuprofen September 04, 2018 June 11, 2019 Discontinued krill oil 1000 mg oral capsule (2 sources) Start: 12-11-2017 End: 06-11-2019 take 2 capsules by mouth twice daily Krill Oil [Krill Oil 1000 Mg] 2 CAP PO TWICE A DAY December 11, 2017 June 11, 2019 Discontinued lactobacillus acidophilus [id number] unt oral capsule (2 sources) Start: 09-29-2022 take 2 capsules by mouth once daily Lactobacillus [Probiotic] 2 CAP PO DAILY September 29, 2022 Active Magnesium (2 sources) Start: 12-11-2017 End: 09-29-2022 take 500 mg by mouth once daily Magnesium 500 MG PO DAILY December 11, 2017 September 29, 2022 Discontinued Start: 12-11-2017 End: 09-29-2022 take 500 mg by mouth once daily Magnesium 500 MG PO DAILY December 11, 2017 Discontinued magnesium oxide 400 mg oral tablet (2 sources) Start: 09-29-2022 take 400 mg by mouth once daily Magnesium Oxide [Mag-0x *] 400 MG PO DAILY September 29, 2022 Active metFORMIN hydrochloride 1000 mg oral tablet (20 sources) Biguanide Start: 09-11-2024 End: 03-19-2025 Metformin 1,000 mg tablet Discontinued 500 mg PO TWICE A DAY September 11, 2024 1:50pm March 19, 2025 10:41am Start: 04-03-2024 End: 09-11-2024 take 1 tablet by mouth twice daily Metformin 1,000 mg tablet Discontinued 1000 mg PO TWICE A DAY April 03, 2024 12:00am September 11, 2024 1:52pm Start: 06-11-2019 End: 12-10-2024 take 500 mg by mouth twice daily at mealtime Metformin [Glucophage] 500 MG PO TWICE A DAY WITH MEALS June 11, 2019 Active Start: 01-24-2016 End: 06-11-2019 take 1 tablet by mouth twice daily at mealtime Metformin [Glucophage] 1 TAB PO TWICE A DAY WITH MEALS January 24, 2016 June 11, 2019 Discontinued Multiple Vitamin (1 source) Start: 12-29-2016 End: 09-29-2022 take 1 tablet by mouth once daily Multiple Vitamin 1 TAB PO DAILY December 29, 2016 Discontinued Multiple Vitamin [Multi Vitamin] (1 source) Start: 12-29-2016 End: 09-29-2022 take 1 tablet by mouth once daily Multiple Vitamin [Multi Vitamin] 1 TAB PO DAILY December 29, 2016 September 29, 2022 Discontinued Multivitamin preparation (2 sources) Start: 09-29-2022 take 1 capsule by mouth once daily Multivitamin [Multivitamin *] 1 CAP PO DAILY September 29, 2022 Active Start: 09-29-2022 take 1 capsule by mo [facility] once daily Multivitamin 1 CAP PO DAILY September 29, 2022 Active omeprazole 40 mg delayed release oral capsule (20 sources) Proton Pump Inhibitor Start: 12-29-2016 End: 06-11-2019 Omeprazole [Prilosec] 40 MG OR DAILY December 29, 2016 June 11, 2019 Discontinued omeprazole (PriL OSEC) [address] capsule Active ondansetron 4 mg disintegrating oral tablet (2 sources) Serotonin-3 Receptor Antagonist Start: 09-04-2018 End: 06-11-2019 Ondansetron [Zofran Odt] 4 MG PO EVERY SIX [id number] September 04, 2018 June 11, 2019 Discontinued predniSONE 20 mg oral tablet (12 sources) End: 07-17-2024 predniSONE (DELTASONE) 50 mg 07/17/2024 Discontinued End: 07-17-2024 predniSONE (DELTASONE) 20 mg tablet 07/17/2024 Discontinued simvastatin 40 mg oral tablet (20 sources) HMG-CoA Reductase Inhibitor Start: 12-29-2016 End: 07-17-2024 take 40 mg by mouth at bedtime Simvastatin 40 MG PO AT BEDTIME December 29, 2016 September 29, 2022 Discontinued sulfamethoxazole 800 mg / trimethoprim 160 mg oral tablet (4 sources) Dihydrofolate Reductase Inhibitor Antibacterial, Sulfonamide Antimicrobial End: 07-16-2024 sulfamethoxazole- trimethoprim (BACTRIM DS) 800-160 mg per tablet 07/16/2024 Discontinued (Discontinued by Patient) zolpidem tartrate 10 mg oral tablet (6 sources) gamma-Aminobutyric Acid-ergic Agonist End: 07-17-2024 zolpidem (AMBIEN) 10 mg 07/17/2024 Discontinued Problems Active Problems Problem Classification Problem Date Documented Da te Episodic/Chronic Abdominal pain (3 sources) Abdominal pain; Translations: [Flank pain] Episodic Chronic kidney disease (20 sources) Chronic kidney disease stage 3; Translations: [Stage 3 chronic kidney disease] 09-11-2024 Chronic Chronic kidney disease (1 source) Chronic kidney disease; Translations: [Chronic kidney disease, stage 3b] Onset: 05-25-2025 Chronic ulcer of skin (20 sources) Non-pressure chronic ulcer of other part of right foot limited to breakdown of skin; Translations: [Ulcer of other part of foot] Onset: 05-11-2023 05-11-2023 Chronic Complications of surgical procedures or medical care (1 source) Drug therapy finding; Translations: [Unspecified adverse effect of drug or medicament, initial encounter] Episodic Diabetes mellitus with complications (20 sources) Type 2 diabetes mellitus with hyperglycemia; Translations: [Polyneuropathy due to type 2 diabetes mellitus] Onset: 05-11-2023 Resolved: 05-11-2023 06-04-2024 Chronic Diabetes mellitus without complication (20 sources) Type 2 diabetes mellitus; Translations: [Type 2 diabetes mellitus without complications] Onset: 09-11-2024 09-11-2024 Chronic Disorders of lipid metabolism (20 sources) Mixed hyperlipidemia; Translations: [Hyperlipidemia] Onset: 11-21-2022 09-11-2024 Chronic Essential hypertension (20 sources) Hypertensive disorder; Translations: [Essential (primary) hypertension] Onset: 02-18-2025 09-11-2024 Chronic Mycoses (20 sources) Onychomycosis; Translations: [Tinea unguium] Onset: 02-14-2023 02-14-2023 Episodic Nausea and vomiting (1 source) Nausea; Translations: [Nausea] Episodic Nonspecific chest pain (1 source) Chest pain; Translations: [Chest pain, unspecified] Episodic Nutritional deficiencies (1 source) Vitamin D deficiency, unspecified; Translations: [Vitamin D deficiency, unspecified] Onset: 11-21-2022 Chronic Osteoarthritis (2 sources) Osteoarthritis of right knee joint; Translations: [Unilateral primary osteoarthritis, right knee] Onset: 04-13-2023 Chronic Other connective tissue disease (1 source) Pain in upper limb Episodic Other connective tissue disease (20 sources) Pain of toe of left foot; Translations: [Pain in left toe(s)] Onset: 02-14-2023 02-14-2023 Episodic Other connective tissue disease (20 sources) Pain of toe of right foot; Translations: [Pain in right toe(s)] Onset: 02-14-2023 02-14-2023 Episodic Other gastrointestinal disorders (2 sources) History of irritable bowel syndrome; Translations: [Personal history of other diseases of the digestive system] 06-19-2025 Episodic Other gastrointestinal disorders (2 sources) Heartburn; Translations: [Heartburn] 06-19-2025 Episodic Other liver diseases (20 sources) Fatty (change of) liver, not elsewhere classified; Translations: [Nonalcoholic fatty liver disease] Onset: 07-06-2025 12-17-2024 Chronic Other lower respiratory disease (2 sources) Cough; Translations: [Acute cough] 07-17-2024 Episodic Other nutritional; endocrine; and metabolic disorders (20 sources) Obesity; Translations: [Obesity, unspecified] 09-11-2024 Chronic Other nutritional; endocrine; and metabolic disorders (1 source) Other obesity due to excess calories; Translations: [Other obesity due to excess calories] Onset: 02-18-2025 Chronic Other nutritional; endocrine; and metabolic disorders (1 source) Body mass index (BMI) 30.0-30.9, adult; Translations: [Body mass index [BMI] 30.0-30.9, adult] Onset: 02-18-2025 Chronic Other upper respiratory infections (1 source) Sore throat symptom; Translations: [Acute pharyngitis, unspecified] 07-16-2024 Episodic Superficial injury; contusion (1 source) Contusion of rib; Translations: [Contusion of unspecified front wall of thorax, initial encounter] Episodic Thyroid disorders (12 sources) Goiter; Translations: [Nontoxic goiter, unspecified] Onset: 12-10-2024 12-04-2024 Chronic Unclassified (1 source) Obesity, class 1; Translations: [Obesity, class 1] Onset: 02-18-2025 Unclassified (1 source) Acute cough; Translations: [Acute cough] Onset: 07-17-2024 Urinary tract infections (8 sources) Urinary tract infections Viral infection (2 sources) COVID-19; Translations: [Other specified viral infection] 07-17-2024 Episodic Viral infection (1 source) COVID-19; Translations: [Acute COVID-19] Onset: 07-17-2024 Past or Other Problems Problem Classification Problem Date Documented Da te Episodic/Chronic Calculus of urinary tract (4 sources) Calculus of kidney; Translations: [Personal history of urinary calculi] Onset: 3 Episodic Deficiency and other anemia (1 source) Anemia, unspecified; Translations: [Anemia, unspecified] Onset: 3 Episodic Genitourinary symptoms and ill-defined conditions (20 sources) Frequency of micturition; Translations: [Urgency of urination] Onset: 3 Resolved: 3 02-09-2024 Episodic Lymphadenitis (18 sources) Lymphadenopathy; Translations: [Generalized enlarged lymph nodes] Onset: 5 12-04-2024 Episodic Other and unspecified benign neoplasm (20 sources) Hemangioma of skin and subcutaneous tissue; Translations: [Hemangioma of skin and subcutaneous tissue] Onset: 3 Resolved: 3 05-11-2023 Episodic Other and unspecified benign neoplasm (1 source) Hemangioma unspecified site; Translations: [Hemangioma unspecified site] Onset: 5 Episodic Other connective tissue disease (1 source) Other specified soft tissue disorders; Translations: [Other specified soft tissue disorders] Onset: 3 Episodic Other inflammatory condition of skin (20 sources) Pruritus of skin; Translations: [Pruritus, unspecified] Onset: 3 Resolved: 3 05-11-2023 Episodic Other screening for suspected conditions (not mental disorders or infectious disease) (11 sources) Patient encounter status; Translations: [Encounter for screening for other disorder] Onset: 5 11-08-2024 Episodic Phlebitis; thrombophlebitis and thromboembolism (1 source) Phlebitis and thrombophlebitis of lower extremities, unspecified; Translations: [Phlebitis and thrombophlebitis of lower extremities, unspecified] Onset: 3 Episodic Residual codes; unclassified (1 source) Localized edema; Translations: [Localized edema] Onset: 3 Episodic Urinary tract infections (20 sources) Recurrent urinary tract infection; Translations: [Urinary tract infection, site not specified] Onset: 5 09-11-2024 Episodic Results Test Name Value Interpretation Reference Range Facility Bacteria Ur Culton 5 Bacteria identified Cx Nom (U) ORGANISM ID: [id number] 50,000-<100,000 CFU/ml Normal urogenital rey Normal [facility] Comment on above: Performed By: #### 2 [id number] #### [facility] [id number] [address] [place] [address] [place] CNOVon 07-13-2025 CNOV Office Visit ([facility]) DEBBIE HAYES ([id number]) 1950 F Date Time Provider Department 07/13/25 11:15 AM ZORAIDA CRANE PAUL During your visit today, we recorded the following information about you: Temperature Pulse Respiration Blood pressure 98.1 degrees 83/minute 20/minute 142/76 Weight 82.4 kg Zoraida Crane APRN.CNP 07/13/2025 1:07 PM Signed [facility] Hayes is a 75 year old female presenting with urinary frequency and urgency. Patient reports history of frequent UTI's and a history of kidney stones. Patient reports her symptoms feel more like a UTI. Pertinent negatives include no fever, chills, fatigue, no abdominal pain or distention, no dysuria, enuresis, difficulty urinating or flank pain. Patient reports she has a upcoming appointment with a Kidney specialist. Review of Systems Constitutional: Negative for chills and fever. Gastrointestinal: Negative for abdominal distention, abdominal pain, constipation and diarrhea. Genitourinary: Positive for frequency and urgency. Negative for decreased urine volume, difficulty urinating, dysuria, enuresis, flank pain (x1 episode resolved), hematuria, pelvic pain, vaginal bleeding and vaginal discharge. Neurological: Negative for dizziness, light-headedness and headaches. Objective BP 142/76 Pulse 83 Temp 36.7 ?C (98.1 ?F) Resp 20 Wt 82.4 kg (181 lb 10.5 oz) SpO2 94% Physical Exam Constitutional: General: She is awake. Cardiovascular: Rate and Rhythm: Normal rate and regular rhythm. Heart sounds: Normal heart sounds, S1 normal and S2 normal. Pulmonary: Breath sounds: Normal breath sounds. No decreased breath sounds or wheezing. Abdominal: General: Abdomen is flat. Bowel sounds are normal. Palpations: Abdomen is soft. Tenderness: There is no abdominal tenderness. There is no right CVA tenderness, left CVA tenderness, guarding or rebound. Skin: General: Skin is warm. Capillary Refill: Capillary refill takes less than 2 seconds. Neurological: Mental Status: She is alert and oriented to person, place, and time. Psychiatric: Mood and Affect: Mood normal. Speech: Speech normal. {ASSESSMENT/PLAN: 1. Urinary frequency - ICD9: 788.41, ICD10: R35.0 recurrent - UA positive - Send urine for culture - Begin treatment with Cefdinir for 7 days - Patient education for prevention given - Supportive care with plenty of fluids, rest, and analgesia prn. - Follow up in 3-5 days if symptoms persist or worsen. - Educated to complete full course of antibiotics - Educated to follow up with PCP for further management of care Patient usually takes cefdinir prescribed by urology for her UTI as this works well for her she tolerates well. - UA DIP, URINE (POC) URINE POC GLUCOSE UA (POCT) Negative 07/13/2025 BILIRUBIN UA (POCT) Negative 07/13/2025 KETONE UA (POCT) Negative 07/13/2025 SPECIFIC GRAVITY UA (POCT) 1.015 07/13/2025 HEMOGLOBIN/BLOOD UA (POCT) Negative 07/13/2025 PH UA (POCT) 6.5 07/13/2025 PROTEIN UA (POCT) >=300 07/13/2025 UROBILINOGEN UA (POCT) 0.2 07/13/2025 NITRITE UA (POCT) Negative 07/13/2025 LEUKOCYTES UA (POCT) Trace 07/13/2025 COLOR UA (POCT) Yellow 07/13/2025 CLARITY UA (POCT) Clear 07/13/2025 - BACTERIAL CULTURE, URINE - CEFDINIR 300 MG CAPSULE Disposition The patient was discharged. OTC Medications were advised: Ibuprofen or Acetaminophen Discussed medication dosage, usage, goals of therapy, and side effects. Return to [facility], call primary care provider, or go to the emergency department for problems, worsening, increased or new symptoms, etc. Red flag symptoms discussed with the patient and when to go to ER. Patient verbalized understanding to plan of care. Berry Gupta HEALTHCARE MARKETER student TEACHING PROVIDER (Physician/PA/BOAT JOINER HELPER) NOTE OF PERSONAL INVOLVEMENT IN CARE: I have personally seen and examined the patient and performed the medical decision-making components. I have reviewed the Advanced Practice Registered Nurse (BOAT JOINER HELPER) Student's documentation and verified the findings in the note as written. Any additions or changes are noted in bold/italics. Signature: Zoraida Crane Date: 07/13/2025 Time: 1:07 PM Allergies As of Date: 07/13/2025 Noted Allergy Reaction IODINATED CONTRAST MEDIA 02/14/2023 [...] ANTIBIOTICS) 02/09/2024 9 - Itching Date Reviewed: 07/13/2025 Reviewed by: Hayley Griffin MA (more content not included)... Normal [facility] Gastroenterology Visit Repor ton 06-19-2025 Gastroenterology Visit Report [facility] [address] 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 Accompanied by: Is patient in pain?: No Allergies clindamycin Allergy (Verified 06/19/25 10:04) Rash codeine Allergy (Verified 06/19/25 10:04) Other erythromycin base Allergy (Verified 06/19/25 10:04) Rash Iodinated Contrast Media (IVP dye) Allergy (Verified 06/19/25 10:04) Nausea/Vom/Diarrhea latex Allergy (Verified 06/19/25 10:04) Hives oxytetracycline (From Terramycin) Allergy (Verified 06/19/25 10:04) Rash Penicillins Allergy (Verified 06/19/25 10:04) Rash Sulfa (Sulfonamide Antibiotics) Allergy (Verified 06/19/25 10:04) Rash Medications ???Medication ???Instructions ???Recorded ???Confirmed ???Type amitriptyline 25 mg tablet 25 mg PO QHS 04/03/24 06/19/25 His tory amlodipine 10 mg tablet 10 mg PO DAILY 04/03/24 06/19/25 H istory ascorbic acid (vitamin C) 500 mg 500 mg PO DAILY 04/03/24 06/19/25 History tablet aspirin 81 mg tablet,delayed 81 mg PO DAILY 04/03/24 06/19/25 H istory release (Adult Low Dose Aspirin) calcium citrate 250 mg PO DAILY 04/03/24 06/19/25 History cranberry extract 500 mg capsule 500 mg PO DAILY 04/03/24 06/19/25 History cyanocobalamin (vitamin B-12) 500 500 mcg PO DAILY 04/03/24 5 History mcg tablet estradiol 0.01% (0.1 mg/gram) 1 g vaginal 3XW 04/03/24 06/19/25 History vaginal cream famotidine 20 mg tablet 20 mg PO BID 04/03/24 06/19/25 His tory fenofibrate 160 mg tablet 160 mg PO DAILY 04/03/24 06/19/25 History ferrous sulfate 325 mg (65 mg 325 mg PO DAILY 04/03/24 06/19/25 History iron) tablet (Feosol) gabapentin 300 mg capsule 600 mg PO .QID 04/03/24 06/19/25 H istory garlic 500 mg capsule 500 mg PO DAILY 04/03/24 06/19/25 History hydrochlorothiazide 12.5 mg capsule 25 mg PO DAILY 04/03/24 5 History icosapent ethyl 1 gram capsule 2 g PO BID 04/03/24 06/19/25 Histo ry lactobacillus combination no.9 4 4,000 mmu cells PO DAILY 04/03/24 06/19/25 History billion cell capsule (Adult 50 Plus Probiotic) lorazepam 1 mg tablet 1.5 mg PO TID PRN anxiety 04/03/24 06/19/25 History losartan 100 mg tablet 100 mg PO DAILY 04/03/24 06/19/25 History magnesium gluconate 500 mg tablet 500 mg PO DAILY 04/03/24 06/19/25 History multivitamin 1 tab PO DAILY 04/03/24 06/19/25 H istory prednisolone acetate 1 % eye 1 drp ophthalmic (eye) TID 4 06/19/25 History drops,suspension tamsulosin 0.4 mg capsule 0.4 mg PO DAILY 04/03/24 06/19/25 History trimethoprim 100 mg tablet 100 mg PO DAILY 04/03/24 06/19/25 History blood sugar diagnostic (Accu-Chek #100 ea 09/15/24 06/19/25 Rx Lucrecia Plus test strips) lancets 09/15/24 06/19/25 History lancets (Accu-Chek Softclix #100 ea 09/17/24 06/19/25 Rx Lancets) cholecalciferol (vitamin D3) 25 50 mcg PO QDAY 02/18/25 06/19/25 H istory mcg (1,000 unit) capsule fluoxetine 20 mg capsule 20 mg PO DAILY 03/19/25 06/19/25 H istory semaglutide 0.25 mg or 0.5 mg (2 0.25 mg subcut QWEEK 03/19/2506/10 History mg/1.5 mL) subcutaneous pen injector (Ozempic) rosuvastatin 20 mg tablet 40 mg PO QHS 05/25/25 06/19/25 His tory resmetirom 80 mg tablet (Rezdiffra) 80 mg PO QDAY #90 tabs 06/09/25 06/19/25 Rx pantoprazole 40 mg tablet,delayed 40 mg PO QDAY #30 tabs 06/19/25 1 Rx release Have you fallen in the past year?: No Nurse's Note: Elastography results faxed to Dr. Fernandes's office. [facility] Medical History (Updated 06/19/25 @ 10:28 by MARI Menendez) Wears glasses Loose, teeth Wears partial dentures Panic attack Discoloration of skin Ambulates with cane Arthritis Kidney stones Low iron Anemia Fatty liver Easy bruising Restless legs History of IBS Heartburn Former smoker Hoarseness Chronic cough History of edema History of stress test UTI (urinary tract infection) GERD (gastroesophageal reflux disease) History of kidney stones History of trigger finger Anxiety Type 2 diabetes mellitus Hyperlipidemia HTN (hypertension) Personal history of colonic polyps Surgical History History of total bilateral knee replacement (TKR) Hx of appendectomy History of tonsillectomy and adenoidectomy Hx of colonoscopy Social History (more content not included)... Normal [facility] ABD Limited w/ Elastographyo n 06-15-2025 ABD Limited w/ Elastography [facility] Imaging Services [address] [place] [address] ABD Limited w/ Elastography MR#: [id number] Acct: [id number] Name: DEBBIE HAYES Rep #: [id number] : 1950 F 75 From: Delvis hdez MD PCP: Keny Fernandes MD Status: REG CLI Study: ABD Limited w/ Elastography Date of Exam: 03/04 Exam# [id number] Ordering Dr: Dixie Fletcher PROCEDURE: ABD LIMITED W/ ELASTOGRAPHY REASON FOR EXAM: REPEAT EVAL OF FATTY LIVER COMPARISON: Prior study dated December 29, 2024. TECHNIQUE: Procedure Code: USABDLELPARO Modality: US Procedure: ABD LIMITED W/ ELASTOGRAPHY Right upper quadrant abdominal ultrasound. [facility]ney ElastQ Imaging shear wave elastography for non- invasive assessment of liver tissue stiffness. Maps [employer] EPIQ Elite. FINDINGS: LIVER: Size: Enlarged (hepatomegaly) Length: 21.5 cm Echotexture: Diffusely echogenic suggesting fatty infiltration Contour: Normal Lesions: Stable 2.1 cm x 2 cm 2.6 cm echogenic nodule in the right lobe of the liver suggestive of a small hemangioma. Elastography: EQI Med: 5.9 kPa EQI Med Felipe: 1.4 m/s IQR/Med: 5.9 %* GALLBLADDER: No stones sludge wall thickening or tenderness. COMMON BILE DUCT: Normal measuring 5 mm . PANCREAS: Visualized portions are sonographically unremarkable. Visualized portions of the right kidney are unremarkable. No right upper quadrant ascites. US/ABD Limited w/ Elastography IMPRESSION: NO TO MILD HEPATIC FIBROSIS Fatty infiltration of the liver. Stable echogenic nodule in the right lobe of the liver suggestive of hemangioma. Reference Values: SRU <1.37 m/s (5.7kPa): No to mild fibrosis 1.37 m/s - 2.2 m/s: Moderate to severe fibrosis >2.2 m/s (15kPa): Significant fibrosis / cirrhosis METAVIR Score F2 or higher: 1.34 m/s (5.7kPa) F3 or higher: 1.55 m/s (7.3kPa) F4: 1.80 m/s (10kPa) * If the IQR/Med is >30%, the variance in the measurements is a large and the accuracy of the measurement may be in question. Reading Location: [id number] CC: KELLEE Fletcher; Keny Fernandes MD Managing Consultant Clinical Professor: Signed Normal [facility] Bilirubin directOrdered By: Dixie Fletcher on 06-08-2025 Bilirubin.direct [Mass/Vol] 0.30 mg/dL 0.00-0.3 0 [facility] Bilirubin, totalOrdered By: Dixie Fletcher on 06-08-2025 Bilirubin [Mass/Vol] 0.51 mg/dL 0.00-1.30 [facility] Calculated very low density lipoprotein (VLDL) cholesterol measurementOrdered By: Dixie Fletcher on 06-08-2025 Calculated very low density lipoprotein (VLDL) cholesterol measurement 53 mg/dL High 5-40 [facility] LDL calc ser/plasOrdered By: Dixie Fletcher on 06-08-2025 Cholesterol in LDL [Mass/Vol] 87 mg/dL [facility] Comment on above: Pvkuzwhkdz=098-982 m g/dL & Higher Hjmf=215 mg/dL or greaterFriedwald Equation for LDL-C Laboratory - Chemistry and C hemistry - challengeOrdered By: Dixie Fletcher on 06-08-2025 AST [Catalytic activity/Vol] 51 U/L High <32 [facility] Lipid Profileon 06-08-2025 CHOL:HDL 4.49 Normal [facility] Comment on above: Performed By: #### L 500.6988, L500.2260 ####[facility] [address] [place], [place], [address] Cholesterol [Mass/Vol] 180 mg/dL Normal <=200 [facility] Comment on above: Result Comment: Chol esterol level, Desirable <200 mg/dL Borderline high cholesterol 200-239 mg/dL High cholesterol >=240 mg/dL Recommendations of the NCEP Adult Treatment Panel for the following risk-cutoff thresholds for the [place] population. Performed By: #### L 500.3400, L500.4100 ####[facility] [address] [place], [address] Cholesterol in HDL [Mass/Vol] 40 mg/dL Normal [facility] Comment on above: Result Comment: Karin onal Cholesterol Education Program (NCEP) guidelines: <40 mg/dL: Low HDL-cholesterol (major risk factor for CHD) >= 60 mg/dL: High HDL-cholesterol (negative risk factor for CHD) HDL-cholesterol is affected by a number of factors, e.g. smoking, exercise, hormones, sex and age. Performed By: #### L 500.3400, L500.4100 ####[facility] [address] [place], [address] Cholesterol in LDL [Mass/Vol] 87 mg/dL Normal [facility] Comment on above: Result Comment: Bord josasc=857-220 mg/dL Higher Mtxy=264 mg/dL or greater Friedwald Equation for LDL-C Performed By: #### L 500.3400, L500.4100 ####[facility] [address] [place], [address] Cholesterol in VLDL [Mass/Vol] 53 mg/dL High 5-40 [facility] Comment on above: Performed By: #### L 500.3400, L500.4100 ####[facility] [address] [place], [address] Triglyceride [Mass/Vol] 266 mg/dL High [facility] Comment on above: Result Comment: The drugs N-Acetylcysteine and Metamizole may falsely depress this assay. Normal range: <150 mg/dL Borderline High: 150-199 mg/dL High: 200-499 mg/dL Very High: >500 mg/dL Performed By: #### L 500.3400, L500.4100 ####[facility] [address] [place], [address] Liver Profileon 06-08-2025 Albumin [Mass/Vol] 4.6 g/dL Normal 3.4-4.8 [facility] Comment on above: Performed By: #### L 500.3400, L500.4100 ####[facility] [address] [place], [address] ALK PHOS 64 U/L Normal 35-104 [facility] Comment on above: Performed By: #### L 500.3400, L500.4100 ####[facility] [address] [place], [address] ALT [Catalytic activity/Vol] 90 U/L High <=34 [facility] Comment on above: Performed By: #### L 500.3400, L500.4100 ####[facility] [address] [place], [address] AST [Catalytic activity/Vol] 51 U/L High <=31 [facility] Comment on above: Performed By: #### L 500.3400, L500.4100 ####[facility] [address] [place], [address] Bilirubin [Mass/Vol] 0.51 mg/dL Normal 0.00-1.30 [facility] Comment on above: Performed By: #### L 500.3400, L500.4100 ####[facility] [address] [place], [address] Bilirubin.direct [Mass/Vol] 0.30 mg/dL Normal 0.00-0.3 0 [facility] Comment on above: Performed By: #### L 500.3400, L500.4100 ####[facility] [address] [place], [address] Globulin (S) [Mass/Vol] 2.9 g/dL Normal 2.2-4.2 [facility] Comment on above: Performed By: #### L 500.3400, L500.4100 ####[facility] [address] [place], [place], [id number] T PROT 7.5 g/dL Normal 5.9-8.4 [facility] Comment on above: Performed By: #### L 500.3400, L500.4100 ####[facility] [address] [place], [address] Screening total cholesterol/ high density lipoprotein (HDL) cholesterol ratioOrdered By: Dixie Fletcher on 06-08-2025 Cholesterol.total/Cholester ol in HDL [Mass ratio] 4.49 {ratio} [facility] Serum globulin measurementOr dered By: Dixie Fletcher on 06-08-2025 Globulin (S) [Mass/Vol] 2.9 g/dL 2.2-4.2 [facility] Serum or plasma alanine cottrell otransferase (ALT) measurementOrdered By: Dixie Fletcher on 06-08-2025 ALT [Catalytic activity/Vol] 90 U/L High <35 [facility] Serum or plasma albumin radha urement (mass/volume)Ordered By: Dixie Fletcher on 06-08-2025 Albumin [Mass/Vol] 4.6 g/dL 3.4-4.8 [facility] Serum or plasma alkaline bessy sphatase measurementOrdered By: Dixie Fletcher on 06-08-2025 ALP [Catalytic activity/Vol] 64 U/L 35-104 [facility] Serum or plasma cholesterol in HDL measurement (mass/volume)Ordered By: Dixie Fletcher on 06-08-2025 Cholesterol in HDL [Mass/Vol] 40 mg/dL >40 [facility] Comment on above: National Cholesterol Education Program (NCEP) guidelines:<40 mg/dL: Low HDL-cholesterol (major risk factor for CHD)>= 60 mg/dL: High HDL-cholesterol (negative risk factor for CHD)HDL-cholesterol is affected by a number of factors, e.g. smoking, exercise, hormones, sex and age. Serum or plasma cholesterol measurement (mass/volume)Ordered By: Dixie Flecther on 06-08-2025 Cholesterol [Mass/Vol] 180 mg/dL <201 [facility] Comment on above: Cholesterol level, D esirable <200 mg/dLBorderline high cholesterol 200-239 mg/dLHigh cholesterol >=240 mg/dLRecommendations of the NCEP Adult Treatment Panel for the following risk-cutoff thresholds for the [place] population. Total proteinOrdered By: Monse Fletcher on 06-08-2025 Protein [Mass/Vol] 7.5 g/dL 5.9-8.4 [facility] Triglycerides measurementOrd ered By: Dixie Fletcher on 06-08-2025 Triglyceride [Mass/Vol] 266 mg/dL High <199 [facility] Comment on above: The drugs N-Acetylcy steine and Metamizole may falsely depress this assay. Normal range: <150 mg/dLBorderline High: 150-199 mg/dLHigh: 200-499 mg/dLVery High: >500 mg/dL Endocrinology Visit Reporton 05-25-2025 Endocrinology Visit Report [facility] [address] [place] [address] OFFICE VISIT Date of Service: 05/25/25 MR#: [id number] Acct: [id number] Name: DEBBIE HAYES Rep #: [id number] : 1950 Provider: KELLEE mccann Age/Sex: 74/F Location: [facility] [place] Status: Signed Intake Vital Signs 02/18/25 11:32 05/25/25 13:12 Height 5 ft 4 in 5 ft 4 in Weight: 186 lb 184 lb 2 oz BMI 31.9 31.6 BP 125/71 H 144/75 H Blood Pressure Location Lt brachial Rt brachial Position Sitting Sitting Pulse 83 76 Pulse Source Monitor Monitor Pulse Oximetry (%) 93 90 Oxygen Delivery Method room air room air Intake Visit Reasons: 3 M FU Chief Complaint: f/u diabetes Is patient in pain?: No Allergies clindamycin Allergy (Verified 05/25/25 13:16) Rash codeine Allergy (Verified 05/25/25 13:16) Other erythromycin base Allergy (Verified 05/25/25 13:16) Rash Iodinated Contrast Media (IVP dye) Allergy (Verified 05/25/25 13:16) Nausea/Vom/Diarrhea latex Allergy (Verified 05/25/25 13:16) Hives oxytetracycline (From Terramycin) Allergy (Verified 05/25/25 13:16) Rash Penicillins Allergy (Verified 05/25/25 13:16) Rash Sulfa (Sulfonamide Antibiotics) Allergy (Verified 05/25/25 13:16) Rash Medications ???Medication ???Instructions ???Recorded ???Confirmed ???Type amitriptyline 25 mg tablet 25 mg PO QHS 04/03/24 05/25/25 His tory amlodipine 10 mg tablet 10 mg PO DAILY 04/03/24 05/25/25 H istory ascorbic acid (vitamin C) 500 mg 500 mg PO DAILY 04/03/24 05/25/25 History tablet aspirin 81 mg tablet,delayed 81 mg PO DAILY 04/03/24 05/25/25 H istory release (Adult Low Dose Aspirin) calcium citrate 250 mg PO DAILY 04/03/24 05/25/25 History cranberry extract 500 mg capsule 500 mg PO DAILY 04/03/24 05/25/25 History cyanocobalamin (vitamin B-12) 500 500 mcg PO DAILY 04/03/24 5 History mcg tablet estradiol 0.01% (0.1 mg/gram) 1 g vaginal 3XW 04/03/24 05/25/25 History vaginal cream famotidine 20 mg tablet 20 mg PO BID 04/03/24 05/25/25 His tory fenofibrate 160 mg tablet 160 mg PO DAILY 04/03/24 05/25/25 History ferrous sulfate 325 mg (65 mg 325 mg PO DAILY 04/03/24 05/25/25 History iron) tablet (Feosol) gabapentin 300 mg capsule 600 mg PO .QID 04/03/24 05/25/25 H istory garlic 500 mg capsule 500 mg PO DAILY 04/03/24 05/25/25 History hydrochlorothiazide 12.5 mg capsule 25 mg PO DAILY 04/03/24 5 History icosapent ethyl 1 gram capsule 2 g PO BID 04/03/24 05/25/25 Histo ry lactobacillus combination no.9 4 4,000 mmu cells PO DAILY 04/03/24 05/25/25 History billion cell capsule (Adult 50 Plus Probiotic) lorazepam 1 mg tablet 1.5 mg PO TID PRN anxiety 04/03/24 05/25/25 History losartan 100 mg tablet 100 mg PO DAILY 04/03/24 05/25/25 History magnesium gluconate 500 mg tablet 500 mg PO DAILY 04/03/24 05/25/25 History multivitamin 1 tab PO DAILY 04/03/24 05/25/25 H istory prednisolone acetate 1 % eye 1 drp ophthalmic (eye) TID 04/03/2 4 05/25/25 History drops,suspension tamsulosin 0.4 mg capsule 0.4 mg PO DAILY 04/03/24 05/25/25 History trimethoprim 100 mg tablet 100 mg PO DAILY 04/03/24 05/25/25 History blood sugar diagnostic (Accu-Chek #100 ea 09/15/24 05/25/25 Rx Lucrecia Plus test strips) lancets 09/15/24 05/25/25 History lancets (Accu-Chek Softclix #100 ea 09/17/24 05/25/25 Rx Lancets) cholecalciferol (vitamin D3) 25 50 mcg PO QDAY 02/18/25 05/25/25 H istory mcg (1,000 unit) capsule fluoxetine 20 mg capsule 20 mg PO DAILY 03/19/25 05/25/25 H istory semaglutide 0.25 mg or 0.5 mg (2 0.25 mg subcut QWEEK 03/19/2505/11 History mg/1.5 mL) subcutaneous pen injector (Ozempic) resmetirom 80 mg tablet (Rezdiffra) 80 mg PO QDAY #30 tabs 03/27/25 05/25/25 Rx rosuvastatin 20 mg tablet 40 mg PO QHS 05/25/25 05/25/25 His tory Have you fallen in the past year?: No [facility] Medical History Wears glasses Loose, teeth Wears partial dentures Panic attack Discoloration of skin Ambulates with cane Arthritis Kidney stones Low iron Anemia Fatty liver Easy bruising Restless legs History of IBS Heartburn Former smoker Hoarseness Chronic cough History of edema History of stress test UTI (urinary tract infection) GERD (gastroesophageal reflux disease) History of kidney stones History of trigger finger Anxiety Type 2 diabetes mellitus Hyperlipidemia HTN (hypertension) Personal history of colonic polyps Surgical History History of total bilateral knee replacement (TKR) Hx of appendectomy History of tonsillectomy and adenoidectomy Hx of (more content not included)... Normal [facility] Laboratory - Hematology and Cell countsOrdered By: Doreen Hooker on 05-25-2025 HbA1c (Bld) [Mass fraction] 7.1 % High 4.2-6.3 [facility] Urine Cultureon 05-14-2025 Bacteria identified Cx Nom (U) ORGANISM ID: [id number] - Klebsiella pneumoniae >100,000 CFU/ml ORGANISM ID: [id number] ANTIBIOTIC [...] F Pip+Tazo Islt BALAJI S <8 F Normal [facility] ([place]) Comment on above: Performed By: #### C UU #### [facility] [address] [place] [address] Appearance urOrdered By: Balaji Virgen on 05-12-2025 Appearance (U) Cloudy Normal [facility] Comment on above: Order Comment: Urine,Clean Catch Performed By: #### U , 96579-8 #### [facility] [address] [place] [address] Automated urine white blood cell countOrdered By: Alexis Virgen on 05-12-2025 WBC Auto (U) [#/Vol] 51-100 /HPF None Seen [facility] Bacteria detection in urine sediment by light microscopyOrdered By: Alexis Virgen on 05-12-2025 Bacteria LM Ql (Urine sed) Trace /HPF None Seen [facility] Complete urinalysis with ref lita to cultureOrdered By: Alexis Virgen on 05-12-2025 Urinalysis complete W Reflex Culture panel (U) Reflexed to culture Normal [facility] Comment on above: A Urine Culture has been added to this specimen. Order Comment: Urine,Clean Catch Result Comment: A Ur ine Culture has been added to this specimen. Performed By: #### U , 07902-3 #### [facility] [address] [place] [address] Detection in urine of either or both bilirubin and urobilinogenOrdered By: Alexis Virgen on 05-12-2025 Bilirubin+Urobilinogen Ql (U) Negative Normal Negative [facility] Comment on above: Order Comment: Urine,Clean Catch Performed By: #### U , 85529-1 #### [facility] [address] [place] [address] Microscopic examination of u rineOrdered By: Alexis Virgen on 05-12-2025 Microscopic observation LM Nom (Urine sed) Yes Normal [facility] Comment on above: Order Comment: Urine,Clean Catch Performed By: #### U , 34599-6 #### [address] [address] Microscopic observation LM N om (Urine sed)on 05-12-2025 Bacteria LM Ql (Urine sed) TRACE Normal None Seen [facility] ([place]) Comment on above: Performed By: #### U , 96680-3 #### [address] [address] Mucus Auto Ql (U) SMALL Normal None Seen [facility] ([place]) Comment on above: Performed By: #### U , 83742-0 #### [address] [address] Triple phosphate crystals LM Ql (Urine sed) FEW Normal None Seen [facility] [place] Comment on above: Performed By: #### U , 71694-6 #### [address] [address] WBC Auto (U) [#/Vol] 51-100 Normal None Seen [facility] ([place]) Comment on above: Performed By: #### U , 05201-9 #### [address] [address] Mucus [Presence] in Urine by AutomatedOrdered By: Alexis Virgen on 05-12-2025 Mucus Auto Ql (U) Small /HPF None Seen [facility] Transitional cells detection in urine sediment by light microscopyOrdered By: Alexis Virgen on 05-12-2025 Transitional cells LM Ql (Urine sed) Not Reportable [facility] Triple phosphate crystals de tection in urine sediment by light microscopyOrdered By: Alexis Virgen on 05-12-2025 Triple phosphate crystals LM Ql (Urine sed) Few /HPF None Seen [facility] Urinalysison 05-12-2025 Protein Auto test strip Ql (U) >=500 Abnormal Negative [facility] ([place] Comment on above: Order Comment: Urine,Clean Catch Performed By: #### U , 77924-2 #### [address] [place] [address] Urine Occult Blood Negative Normal Negative [facility] ([place]) Comment on above: Order Comment: Urine,Clean Catch Performed By: #### U , 07049-8 #### [facility] [address] [place] [address] Urine colorOrdered By: Tobin Virgen on 05-12-2025 Color (U) Mena Normal [facility] Comment on above: Order Comment: Urine,Clean Catch Performed By: #### U , 59111-6 #### [facility] [address] [place] [address] Urine cultureOrdered By: Balaji Virgen on 05-12-2025 Bacteria identified Cx Nom (U) Klebsiella pneumoniae Abnormal [facility] Urine glucose measurement by automated test strip (mass/volume)Ordered By: Alexis Virgen on 05-12-2025 Glucose Auto test strip (U) [Mass/Vol] Negative Normal Negative [facility] Comment on above: Order Comment: Urine,Clean Catch Performed By: #### U , 25257-2 #### [facility] [address] [place] [address] Urine ketones detectionOrder ed By: Alexis Virgen on 05-12-2025 Ketones Ql (U) Negative Normal Negative [facility] Comment on above: Order Comment: Urine,Clean Catch Performed By: #### U , 39769-6 #### [facility] [address] [place] [address] Urine leukocytes detection b y microscopyOrdered By: Alexis Virgen on 05-12-2025 WBC Visual Ql (U) Large Abnormal Negative [facility] Comment on above: Order Comment: Urine,Clean Catch Performed By: #### U , 49389-0 #### [facility] [address] [place] [address] Urine nitrate detectionOrder ed By: Alexis Virgen on 05-12-2025 Nitrate Ql (U) Negative Normal Negative [facility] Comment on above: Order Comment: Urine,Clean Catch Performed By: #### U , 44299-6 #### [facility] [address] [place], [place] [address] Urine pHOrdered By: Alexis Virgen on 05-12-2025 pH (U) 8.0 [pH] Normal 4.6-8.0 [facility] Comment on above: Order Comment: Urine,Clean Catch Performed By: #### U , 19171-0 #### [facility] [address] [place], [place] [address] Urine protein detection by a utomated test stripOrdered By: Alexis Virgen on 05-12-2025 Protein Auto test strip Ql (U) >=500 mg/dL Abnormal Negative [facility] Urine specific gravity measu rementOrdered By: Alexis Virgen on 05-12-2025 Specific gravity (U) [Rel density] 1.013 Normal 1.001-1.03 5 [facility] Comment on above: Order Comment: Urine,Clean Catch Performed By: #### U , 79954-1 #### [facility] [address] [place], [place] [address] Urobilinogen [Mass/volume] i n Urine by Test stripOrdered By: Alexis Virgen on 05-12-2025 Urobilinogen (U) [Mass/Vol] Negative Normal Negative [facility] Comment on above: Order Comment: Urine,Clean Catch Performed By: #### U , 65387-6 #### [facility] [address] [place], [place] [address] X-ray reportOrdered By: Devaughn Ruth on 05-08-2025 Study report [facility] [address] [place] [address] XRay Report Signed Patient: DEBBIE HAYES MR#: [id number] : 1950 Acct:[id number] Age/Sex: 74 / F Admit Date: 05/08 Loc: [facility] Attending Dr: Alexis Virgen MD Ordering Physician: Alexis Virgen MD Date of Service: 05/08/25 Procedure(s): XR abdomen 1V Accession Number(s): [id number] cc: Alexis Virgen MD HISTORY: Right flank pain. PHYSICIAN INDICATIONS: [...] to exclude growth. Dictated By: Rishi Ruth MDDD/ 04 Signed By: Rishi Ruth MD 05/08/251404 Managing Consultant Clinical Professor: TOMAS 05/08/[address] [place] [address] Work Phone: XR abdomen 1Von 05-08-2025 XR abdomen 1V [address] [address] XRay Report Signed Patient: DEBBIE HAYES MR#: [id number] : 1950 Acct:[id number] Age/Sex: 74 / F Admit Date: 05/08/25 Loc: [facility] Attending Dr: Alexis Virgen MD Ordering Physician: Alexis Virgen MD Date of Service: 05/08/25 Procedure(s): XR abdomen 1V Accession Number(s): [id number] cc: Alexis Virgen MD HISTORY: Right flank pain. PHYSICIAN INDICATIONS: [...] growth. Dictated By: Rishi Ruth MD DD/ 04 Signed By: Rishi Ruth MD 05/08/251404 Managing Consultant Clinical Professor: TOMAS 05/08/25 140 Normal [facility] ([place]) Microalb:Creat Ratio,Random URon 04-06-2025 MALB:CREAT 1050.2 mg/g CRE High <30 mg/g CRE [facility] Comment on above: Result Comment: AMENDED REPORT 04/06/252139 MALB:CREAT previously reported as: 24277.7 mg/g CRE Performed By: #### L 502.0250 #### [facility] [address] [place], [address] Gastroenterology Visit Repor ton 03-19-2025 Gastroenterology Visit Report [facility] [address] [place] [address] OFFICE VISIT Date of Service: 03/19/25 MR#: [id number] Acct: [id number] Name: DEBBIE HAYES Rep #: [id number] : 1950 Provider: KELLEE milligan Age/Sex: 74/F Location: [facility] Status: Signed Intake Vital Signs 12/04/24 10:27 02/18/25 11:32 Height 5 ft 4 in 5 ft 4 in Weight: 186 lb BMI 31.9 BP 125/71 H Blood Pressure Location Lt brachial Position Sitting Pulse 83 Pulse Source Monitor Pulse Oximetry (%) 93 Oxygen Delivery Method room air Intake Visit Reasons: 3 M FU Chief Complaint: f/u diabetes Allergies clindamycin Allergy (Verified 02/18/25 11:39) Rash codeine Allergy (Verified 02/18/25 11:39) Other erythromycin base Allergy (Verified 02/18/25 11:39) Rash Iodinated Contrast Media (IVP dye) Allergy (Verified 02/18/25 11:39) Nausea/Vom/Diarrhea latex Allergy (Verified 02/18/25 11:39) Hives oxytetracycline (From Terramycin) Allergy (Verified 02/18/25 11:39) Rash Penicillins Allergy (Verified 02/18/25 11:39) Rash Sulfa (Sulfonamide Antibiotics) Allergy (Verified 02/18/25 11:39) Rash Medications ???Medication ???Instructions ???Recorded ???Confirmed ???Type amitriptyline 25 mg tablet 25 mg PO QHS 04/03/24 03/19/25 His tory amlodipine 10 mg tablet 10 mg PO DAILY 04/03/24 03/19/25 H istory ascorbic acid (vitamin C) 500 mg 500 mg PO DAILY 04/03/24 03/19/25 History tablet aspirin 81 mg tablet,delayed 81 mg PO DAILY 04/03/24 03/19/25 H istory release (Adult Low Dose Aspirin) calcium citrate 250 mg PO DAILY 04/03/24 03/19/25 History cranberry extract 500 mg capsule 500 mg PO DAILY 04/03/24 03/19/25 History cyanocobalamin (vitamin B-12) 500 500 mcg PO DAILY 04/03/24 5 History mcg tablet estradiol 0.01% (0.1 mg/gram) 1 g vaginal 3XW 04/03/24 03/19/25 History vaginal cream famotidine 20 mg tablet 20 mg PO BID 04/03/24 03/19/25 His tory fenofibrate 160 mg tablet 160 mg PO DAILY 04/03/24 03/19/25 History ferrous sulfate 325 mg (65 mg 325 mg PO DAILY 04/03/24 03/19/25 History iron) tablet (Feosol) gabapentin 300 mg capsule 600 mg PO .QID 04/03/24 03/19/25 H istory garlic 500 mg capsule 500 mg PO DAILY 04/03/24 03/19/25 History hydrochlorothiazide 12.5 mg capsule 25 mg PO DAILY 04/03/24 5 History icosapent ethyl 1 gram capsule 2 g PO BID 04/03/24 03/19/25 Histo ry lactobacillus combination no.9 4 4,000 mmu cells PO DAILY 04/03/24 03/19/25 History billion cell capsule (Adult 50 Plus Probiotic) lorazepam 1 mg tablet 1.5 mg PO TID PRN anxiety 04/03/24 03/19/25 History losartan 100 mg tablet 100 mg PO DAILY 04/03/24 03/19/25 History magnesium gluconate 500 mg tablet 500 mg PO DAILY 04/03/24 03/19/25 History multivitamin 1 tab PO DAILY 04/03/24 03/19/25 H istory prednisolone acetate 1 % eye 1 drp ophthalmic (eye) TID 4 03/19/25 History drops,suspension rosuvastatin 40 mg tablet 40 mg PO DAILY 04/03/24 03/19/25 H istory tamsulosin 0.4 mg capsule 0.4 mg PO DAILY 04/03/24 03/19/25 History trimethoprim 100 mg tablet 100 mg PO DAILY 04/03/24 03/19/25 History blood sugar diagnostic (Accu-Chek #100 ea 09/15/24 03/19/25 Rx Lucrecia Plus test strips) lancets 09/15/24 03/19/25 History lancets (Accu-Chek Softclix #100 ea 09/17/24 03/19/25 Rx Lancets) cholecalciferol (vitamin D3) 25 50 mcg PO QDAY 02/18/25 03/19/25 H istory mcg (1,000 unit) capsule fluoxetine 20 mg capsule 20 mg PO DAILY 03/19/25 03/19/25 H istory semaglutide 0.25 mg or 0.5 mg (2 0.25 mg subcut QWEEK 03/19/2503/10 History mg/1.5 mL) subcutaneous pen injector (O-CODES) Have you fallen in the past year?: Yes [facility] Medical History Wears glasses Loose, teeth Wears partial dentures Panic attack Discoloration of skin Ambulates with cane Arthritis Kidney stones Low iron Anemia Fatty liver Easy bruising Restless legs History of IBS Heartburn Former smoker Hoarseness Chronic cough History of edema History of stress test UTI (urinary tract infection) GERD (gastroesophageal reflux disease) History of kidney stones History of trigger finger Anxiety Type 2 diabetes mellitus Hyperlipidemia HTN (hypertension) Personal history of colonic polyps Surgical History History of total bilateral knee replacement (TKR) Hx of appendectomy History of tonsillectomy and adenoidectomy Hx of colonoscopy Social History household members: spouse current occupational status: retired Smoking Status: Former smoker alcohol intake: never s (more content not included)... Normal [facility] Endocrinology Visit Reporton 02-18-2025 Endocrinology Visit Report [facility] [address] [place] [address] OFFICE VISIT Date of Service: 02/18/25 MR#: [id number] Acct: [id number] Name: DEBBIE HAYES Rep #: [id number] : 1950 Provider: KELLEE mccann Age/Sex: 74/F Location: [facility] Status: Signed Intake Vital Signs 11/19/24 11:36 12/04/24 10:27 02/18/25 11:32 Height 5 ft 4 in 5 ft 4 in 5 ft 4 in Weight: 186 lb BMI 31.9 BP 125/71 H Blood Pressure Location Lt brachial Position Sitting Pulse 83 Pulse Source Monitor Pulse Oximetry (%) 93 Oxygen Delivery Method room air Intake Visit Reasons: 3 M FU Chief Complaint: f/u diabetes [employer] Required: No Accompanied by: Is patient in pain?: Yes (Low Back/Flank) Pain scale (1-10): 3 Allergies clindamycin Allergy (Verified 02/18/25 11:39) Rash codeine Allergy (Verified 02/18/25 11:39) Other erythromycin base Allergy (Verified 02/18/25 11:39) Rash Iodinated Contrast Media (IVP dye) Allergy (Verified 02/18/25 11:39) Nausea/Vom/Diarrhea latex Allergy (Verified 02/18/25 11:39) Hives oxytetracycline (From Terramycin) Allergy (Verified 02/18/25 11:39) Rash Penicillins Allergy (Verified 02/18/25 11:39) Rash Sulfa (Sulfonamide Antibiotics) Allergy (Verified 02/18/25 11:39) Rash Medications ???Medication ???Instructions ???Recorded ???Confirmed ???Type amitriptyline 25 mg tablet 25 mg PO QHS 04/03/24 02/18/25 His tory amlodipine 10 mg tablet 10 mg PO DAILY 04/03/24 02/18/25 H istory ascorbic acid (vitamin C) 500 mg 500 mg PO DAILY 04/03/24 02/18/25 History tablet aspirin 81 mg tablet,delayed 81 mg PO DAILY 04/03/24 02/18/25 H istory release (Adult Low Dose Aspirin) calcium citrate 250 mg PO DAILY 04/03/24 02/18/25 History cranberry extract 500 mg capsule 500 mg PO DAILY 04/03/24 02/18/25 History cyanocobalamin (vitamin B-12) 500 500 mcg PO DAILY 04/03/24 5 History mcg tablet estradiol 0.01% (0.1 mg/gram) 1 g vaginal 3XW 04/03/24 02/18/25 History vaginal cream famotidine 20 mg tablet 20 mg PO BID 04/03/24 02/18/25 His tory fenofibrate 160 mg tablet 160 mg PO DAILY 04/03/24 02/18/25 History ferrous sulfate 325 mg (65 mg 325 mg PO DAILY 04/03/24 02/18/25 History iron) tablet (Feosol) fluoxetine 20 mg capsule 20 mg PO DAILY 04/03/24 02/18/25 H istory gabapentin 300 mg capsule 600 mg PO .QID 04/03/24 02/18/25 H istory garlic 500 mg capsule 500 mg PO DAILY 04/03/24 02/18/25 History hydrochlorothiazide 12.5 mg capsule 25 mg PO DAILY 04/03/24 5 History icosapent ethyl 1 gram capsule 2 g PO BID 04/03/24 02/18/25 Histo ry lactobacillus combination no.9 4 4,000 mmu cells PO DAILY 04/03/24 02/18/25 History billion cell capsule (Adult 50 Plus Probiotic) lorazepam 1 mg tablet 1.5 mg PO TID PRN anxiety 04/03/24 02/18/25 History losartan 100 mg tablet 100 mg PO DAILY 04/03/24 02/18/25 History magnesium gluconate 500 mg tablet 500 mg PO DAILY 04/03/24 02/18/25 History multivitamin 1 tab PO DAILY 04/03/24 02/18/25 H istory prednisolone acetate 1 % eye 1 drp ophthalmic (eye) TID 4 02/18/25 History drops,suspension rosuvastatin 40 mg tablet 40 mg PO DAILY 04/03/24 02/18/25 H istory tamsulosin 0.4 mg capsule 0.4 mg PO DAILY 04/03/24 02/18/25 History trimethoprim 100 mg tablet 100 mg PO DAILY 04/03/24 02/18/25 History metformin 1,000 mg tablet 500 mg PO BID 09/11/24 02/18/25 Hi story blood sugar diagnostic (Accu-Chek #100 ea 09/15/24 02/18/25 Rx Lucrecia Plus test strips) lancets 09/15/24 02/18/25 History lancets (Accu-Chek Softclix #100 ea 09/17/24 02/18/25 Rx Lancets) dulaglutide 0.75 mg/0.5 mL 0.75 mg (0.5 mL) subcut QWEEK #2 m L 01/02/25 02/18/25 Rx subcutaneous pen injector (Trulicity) cholecalciferol (vitamin D3) 25 50 mcg PO QDAY 02/18/25 02/18/25 H istory mcg (1,000 unit) capsule Have you fallen in the past year?: No [facility] Medical History Wears glasses Loose, teeth Wears partial dentures Panic attack Discoloration of skin Ambulates with cane Arthritis Kidney stones Low iron Anemia Fatty liver Easy bruising Restless legs History of IBS Heartburn Former smoker Hoarseness Chronic cough History of edema History of stress test UTI (urinary tract infection) GERD (gastroesophageal reflux disease) History of kidney stones History of trigger finger Anxiety Type 2 diabetes mellitus Hyperlipidemia HTN (hypertension) Personal history of colonic polyps Surgical History History of total bilateral knee replacement (TKR) Hx of appendectomy History of tonsil (more content not included)... Normal [facility] - Hematology and Cell countsOrdered By: Doreen Hooker on 02-18-2025 HbA1c (Bld) [Mass fraction] 6.8 % High 4.2-6.3 [facility] Bacteria Ur Culton Bacteria identified Cx Nom (U) ORGANISM ID: 1 >=100,000 CFU/ml Klebsiella pneumoniae ORGANISM ID: 1 (KLEBSIELLA PNEUMONIAE) -- ANTIBIOTIC INTERPRETATION BALAJI STATUS REFERENCE RANGE -- Ampicillin R F Cefazolin S <=4 F [...] <=32 , Intermediate >32 , Resistant >64 Abnormal [facility] Comment on above: Performed By: #### 2 4321-2 #### [facility] NIGEL [id number] [address] [place], [place] [id number] [place] [address] [place] CNOVon 01-14-2025 CNOV Office Visit (UCWSTR ) DEBBIE HAYES ([id number]) 1950 F Date Time Provider Department 01/14/25 2:00 PM DELFINO MORAN [facility] During your visit today, we recorded the following information about you: Temperature Pulse Respiration Blood pressure 98.9 degrees 67/minute 18/minute 118/78 Weight 83.7 kg Delfino Moran PA 01/14/2025 2:24 PM Signed [facility] Subjective Debbie Hayes is a 74 year old female. [...] swabs (BD SINGLE USE SWABS REGULAR) PEG 9433-Fzzqhejvxxe-Uio C (MOVIPREP) 100-7.5-2.691 gram phenazopyridine (PYRIDIUM) 100 [...] 07/17/2024: BUN 44 (H); Creatinine 1.72 (H); Estimate (more content not included)... Normal [facility] UA DIP, URINE (POC)on 2024 BILIRUBIN UA (POCT) Negative Negative [facility] CLARITY UA (POCT) Clear [facility] COLOR UA (POCT) Yellow [facility] GLUCOSE UA (POCT) Negative Negative mg/dL [facility] Hemoglobin Ql (U) Trace-intact Abnormal Negative [facility] Interpretation and review of laboratory results Abnormal [facility] KETONE UA (POCT) Negative Negative mg/dL [facility] LEUKOCYTES UA (POCT) Small Abnormal Negative [facility] NITRITE UA (POCT) Negative Negative [facility] PH UA (POCT) 6 4.5 - 8.0 [facility] Protein Ql (U) >=300 Abnormal Negative mg/dL [facility] SPECIFIC GRAVITY UA (POCT) 1.02 1 .005 - 1.030 [facility] UROBILINOGEN UA (POCT) 0.2 Maya l E.U./dL [facility] Location:[facility], [address] [place] [address], [place], [address] [facility] POINT OF CARE [facility] ABD Limited w/ Elastographyo n 12-29-2024 ABD Limited w/ Elastography [facility] Imaging Services [address] [place] [address] ABD Limited w/ Elastography MR#: [id number] Acct: [id number] Name: DEBBIE HAYES Rep #: [id number] : 1950 F 74 From: Delvis hdez MD PCP: Keny Fernandes MD Status: REG CLI Study: ABD Limited w/ Elastography Date of Exam: 12/10 10/04 Exam# [id number] Ordering Dr: Isauro Davis DO PROCEDURE: ABD LIMITED W/ ELASTOGRAPHY REASON FOR EXAM: FATTY LIVER COMPARISON: Comparison is made with prior CT scan of the abdomen pelvis dated November 14, 2024. TECHNIQUE: Right upper quadrant abdominal ultrasound. [employer] ElastQ Imaging shear wave elastography for non- invasive assessment of liver tissue stiffness. [employer] EPIQ Elite. FINDINGS: LIVER: Size: Enlarged (hepatomegaly) Length: 22.7 cm Echotexture: Diffusely echogenic suggesting fatty infiltration Contour: Normal Lesions: Focal fatty sparing adjacent of the gallbladder lumen. There is a 2.3 cm 2.4 cm x 2.8 cm echogenic nodule in the right lobe of the liver suggestive of hemangioma. Elastography: EQI Med: 9 kPa EQI Med Felipe: 1.72 m/s IQR/Med: 18 %* GALLBLADDER: Normal COMMON BILE DUCT: Normal it measures 6.4 mm.. PANCREAS: Visualized portions are sonographically unremarkable. Visualized portions of the right kidney demonstrate several cysts. The largest cyst measures 4.6 cm 4.7 cm x 3.7 cm. This is in the midportion of the kidney.. No right upper quadrant ascites. US/ABD Limited w/ Elastography IMPRESSION: MODERATE HEPATIC FIBROSIS Findings suggestive of an hemangioma in the right lobe of the liver. Right renal cysts. Reference Values: SRU <1.37 m/s (5.7kPa): No to mild fibrosis 1.37 m/s - 2.2 m/s: Moderate to severe fibrosis >2.2 m/s (15kPa): Significant fibrosis / cirrhosis METAVIR Score F2 or higher: 1.34 m/s (5.7kPa) F3 or higher: 1.55 m/s (7.3kPa) F4: 1.80 m/s (10kPa) * If the IQR/Med is >30%, the variance in the measurements is a large and the accuracy of the measurement may be in question. Reading Location: [facility] CC: Keny Fernandes MD; Isauro Davis DO Managing Consultant Clinical Professor: Signed Normal [facility] Head/Neck Soft Tissueon 12-10 Head/Neck Soft Tissue [facility] Imaging Services [address] [place], [place] [address] Head/Neck Soft Tissue MR#: [id number] Acct: [id number] Name: DEBBIE HAYES Rep #: [id number] : 1950 F 74 From: Delvis hdez MD PCP: Keny Fernandes MD Status: REG CLI Study: Head/Neck Soft Tissue Date of Exam: 12/29/24 Exam# [id number] Ordering Dr: Doreen Hooker EXAM: Ultrasound neck soft tissues. CLINICAL HISTORY: Lymph node lateral to the right lobe of the thyroid. COMPARISON: Prior study dated December 08, 2024. TECHNIQUE: Imaging of the right cervical region was obtained with ultrasound. FINDINGS: 2 small benign-appearing lymph nodes are seen in the right-side of the neck. These are unchanged. Both submandibular glands were imaged. No abnormality is seen. US/Head/Neck Soft Tissue IMPRESSION: There are 2, small benign-appearing right cervical lymph nodes. The larger lymph node measures 1.2 cm x 0.9 cm x 0.5 cm. Reading Location: [facility] CC: KELLEE Hooker; Keny Fernandes MD Managing Consultant Clinical Professor: Signed Normal [facility] ANCAon 12-27-2024 Atypical pANCA <1:20 Normal Neg:<1:20 [facility] Comment on above: Result Comment: The atypical pANCA pattern has been observed in a significant percentage of patients with ulcerative colitis, primary sclerosing cholangitis and autoimmune hepatitis. Performed By: #### L 500.4050, L300.3900, L3200.1100, L3100.5440, L3410.2350, L101.9900, L3400.0700, L800.1280, L3300.1200, L501.6710, L3000.0375, L803.2200 ####[facility] [address] [place], [address] Cytoplasmic Ab <1:20 Normal Neg:<1:20 [facility] Comment on above: Performed By: #### L 500.4050, L300.3900, L3200.1100, L3100.5440, L3410.2350, L101.9900, L3400.0700, L800.1280, L3300.1200, L501.6710, L3000.0375, L803.2200 ####[facility] [address] [place], [address] Perinuclear Ab. <1:20 Normal Neg:<1:20 [facility] Comment on above: Result Comment: The presence of positive fluorescence exhibiting P-ANCA or C-ANCA patterns alone is not specific for the diagnosis of Noemi's Granulomatosis (WG) or microscopic polyangiitis. Decisions about treatment should not be based solely on ANCA IFA results. The International ANCA Group Consensus recommends follow up testing of positive sera with both UT- 3 and MPO-ANCA enzyme immunoassays. As many as 5% serum samples are positive only by EIA. Ref. AM J Clin Pathol 1999;111:507-513. Performed By: #### L 500.4050, L300.3900, L3200.1100, L3100.5440, L3410.2350, L101.9900, L3400.0700, L800.1280, L3300.1200, L501.6710, L3000.0375, L803.2200 ####[facility] [address] [place], [address] Anti-Smooth Muscle ABSon ANTISMOOTH MUSC 5 Units Normal 0-19 [facility] Comment on above: Result Comment: Nega tive 0 - 19 Weak positive 20 - 30 Moderate to strong positive >30 Actin Antibodies are found in 52-85% of patients with autoimmune hepatitis or chronic active hepatitis and in 22% of patients with primary biliary cirrhosis. Performed By: #### L 500.4050, L300.3900, L3200.1100, L3100.5440, L3410.2350, L101.9900, L3400.0700, L800.1280, L3300.1200, L501.6710, L3000.0375, L803.2200 ####[facility] [address] [place], [address] Celiac AB,[facility] ANTIGLIADIN IGA 4 units Normal 0-19 [facility] Comment on above: Result Comment: Nega tive 0 - 19 Weak Positive 20 - 30 Moderate to Strong Positive >30 Performed By: #### L 500.4050, L300.3900, L3200.1100, L3100.5440, L3410.2350, L101.9900, L3400.0700, L800.1280, L3300.1200, L501.6710, L3000.0375, L803.2200 ####[facility] [address] [place], [address] ANTIGLIADIN IGG 1 units Normal 0-19 [facility] Comment on above: Result Comment: Nega tive 0 - 19 Weak Positive 20 - 30 Moderate to Strong Positive >30 Performed By: #### L 500.4050, L300.3900, L3200.1100, L3100.5440, L3410.2350, L101.9900, L3400.0700, L800.1280, L3300.1200, L501.6710, L3000.0375, L803.2200 ####[facility] [address] [place], [address] ENDOMYSIAL IGA Negative Normal Negative [facility] Comment on above: Performed By: #### L 500.4050, L300.3900, L3200.1100, L3100.5440, L3410.2350, L101.9900, L3400.0700, L800.1280, L3300.1200, L501.6710, L3000.0375, L803.2200 ####[facility] [address] [place], [address] tTG IGA <2 Normal 0-3 [facility] Comment on above: Result Comment: Nega tive 0 - 3 Weak Positive 4 - 10 Positive >10 Tissue Transglutaminase (tTG) has been identified as the endomysial antigen. Studies have demonstr- ated that endomysial IgA antibodies have over 99% specificity for gluten sensitive enteropathy. Performed By: #### L 500.4050, L300.3900, L3200.1100, L3100.5440, L3410.2350, L101.9900, L3400.0700, L800.1280, L3300.1200, L501.6710, L3000.0375, L803.2200 ####[facility] [address] [place], [address] tTG IGG <2 Normal 0-5 [facility] Comment on above: Result Comment: Nega tive 0 - 5 Weak Positive 6 - 9 Positive >9 Performed By: #### L 500.4050, L300.3900, L3200.1100, L3100.5440, L3410.2350, L101.9900, L3400.0700, L800.1280, L3300.1200, L501.6710, L3000.0375, L803.2200 ####[facility] [address] [place], [address] Ceruloplasminon 12-27-2024 CERULOPLASMIN 23.7 mg/dL Normal 19.0-39.0 [facility] Comment on above: Result Comment: Perf ormed at: [address] [id number] Cloth Printing Inspector: Davide Damon PhD, Phone: [phone] Performed at: [facility] [address] [id number] Cloth Printing Inspector: Annelise Segura MD, Phone: [phone] Performed By: #### L 500.4050, L300.3900, L3200.1100, L3100.5440, L3410.2350, L101.9900, L3400.0700, L800.1280, L3300.1200, L501.6710, L3000.0375, L803.2200 ####[facility] [address] [place], [place], [address] Hepatitis Panel Acuteon - COMMENT Comment Normal . [facility] Comment on above: Result Comment: Not infected with HCV unless early or acute infection is suspected (which may be delayed in an immunocompromised individual), or other evidence exists to indicate HCV infection. Performed By: #### L 500.4050, L300.3900, L3200.1100, L3100.5440, L3410.2350, L101.9900, L3400.0700, L800.1280, L3300.1200, L501.6710, L3000.0375, L803.2200 ####[facility] [address] [place], [place], [phone] HEP B CORE,IgM Negative Normal Negative [facility] Comment on above: Performed By: #### L 500.4050, L300.3900, L3200.1100, L3100.5440, L3410.2350, L101.9900, L3400.0700, L800.1280, L3300.1200, L501.6710, L3000.0375, L803.2200 ####[facility] [address] [place], [place], [phone] HEP B SURF AG Negative Normal Negative [facility] Comment on above: Performed By: #### L 500.4050, L300.3900, L3200.1100, L3100.5440, L3410.2350, L101.9900, L3400.0700, L800.1280, L3300.1200, L501.6710, L3000.0375, L803.2200 ####[facility] [address] [place], [address] HEP C VIRUS AB Non-Reactive Normal Non Reactive [facility] Comment on above: Performed By: #### L 500.4050, L300.3900, L3200.1100, L3100.5440, L3410.2350, L101.9900, L3400.0700, L800.1280, L3300.1200, L501.6710, L3000.0375, L803.2200 ####[facility] [address] [place], [place], [phone] HEPATITIS A-IgM Negative Normal Negative [facility] Comment on above: Result Comment: A ne gative anti-HAV IgM result suggests no recent or current HAV infection. Performed By: #### L 500.4050, L300.3900, L3200.1100, L3100.5440, L3410.2350, L101.9900, L3400.0700, L800.1280, L3300.1200, L501.6710, L3000.0375, L803.2200 ####[facility] [address] [place], [place], [phone] Immunoglobulins G/A/M/Miquel IMMUNOGLOB A QN 151 mg/dL Normal 64-422 [facility] Comment on above: Order Comment: N Performed By: #### L 500.4050, L300.3900, L3200.1100, L3100.5440, L3410.2350, L101.9900, L3400.0700, L800.1280, L3300.1200, L501.6710, L3000.0375, L803.2200 ####[facility] [address] [place], [place], [phone] IMMUNOGLOB E QN 58 IU/mL Normal 6-495 [facility] Comment on above: Order Comment: N Performed By: #### L 500.4050, L300.3900, L3200.1100, L3100.5440, L3410.2350, L101.9900, L3400.0700, L800.1280, L3300.1200, L501.6710, L3000.0375, L803.2200 ####[facility] [address] [place], [address] IMMUNOGLOB G QN 818 mg/dL Normal 586-1602 [facility] Comment on above: Order Comment: N Performed By: #### L 500.4050, L300.3900, L3200.1100, L3100.5440, L3410.2350, L101.9900, L3400.0700, L800.1280, L3300.1200, L501.6710, L3000.0375, L803.2200 ####[facility] [address] [place], [place], [address] IMMUNOGLOB M QN 52 mg/dL Normal 26-217 [facility] Comment on above: Order Comment: N Performed By: #### L 500.4050, L300.3900, L3200.1100, L3100.5440, L3410.2350, L101.9900, L3400.0700, L800.1280, L3300.1200, L501.6710, L3000.0375, L803.2200 ####[facility] [address] [place], [place], [phone] DEMETRIA Comprehensive Panelon DEMETRIA TABLE Comment Normal . [facility] Comment on above: Result Comment: Auto antibody Disease Association -- Condition Frequency --------- Antinuclear Antibody, SLE, mixed connective Direct (DEMETRIA-D) tissue diseases --------- dsDNA SLE 40 - 60% --------- Chromatin Drug induced SLE 90% SLE 48 - 97% --------- SSA (Ro) SLE 25 - 35% Sjogren's Syndrome 40 - 70% Lupus 100% --------- SSB (La) SLE 10% Sjogren's Syndrome 30% --------- Sm (anti-Lopez) SLE 15 - 30% --------- SOFTWARE DESIGN ANALYST Mixed Connective Tissue Disease 95% (U1 nRNP, SLE 30 - 50% anti-ribonucleoprotein) Polymyositis and/or Dermatomyositis 20% --------- Scl-70 (antiDNA Scleroderma (diffuse) 20 - 35% topoisomerase) Crest 13% --------- Klaudia-1 Polymyositis and/or Dermatomyositis 20 - 40% --------- Centromere B Scleroderma - Crest variant 80% AMENDED REPORT 12/18/241307 COMMENT previously reported as: Test not performed Performed By: #### L 500.4050, L300.3900, L3200.1100, L3100.5440, L3410.2350, L101.9900, L3400.0700, L800.1280, L3300.1200, L501.6710, L3000.0375, L803.2200 ####[facility] [address] [facility] [place], [place], [phone] ANTI-CENT B AB <0.2 Normal 0.0-0.9 [facility] Comment on above: Result Comment: AMENDED REPORT 12/18/241307 ANTI-CENT B previously reported as: Test not performed Performed By: #### L 500.4050, L300.3900, L3200.1100, L3100.5440, L3410.2350, L101.9900, L3400.0700, L800.1280, L3300.1200, L501.6710, L3000.0375, L803.2200 ####[facility] [address] [facility] [place], [place], [phone] ANTI-DNA (DS)AB <1 Normal 0-9 [facility] Comment on above: Result Comment: Nega tive <5 Equivocal 5 - 9 Positive >9 AMENDED REPORT 12/18/241307 dsDNA AB previously reported as: Test not performed Performed By: #### L 500.4050, L300.3900, L3200.1100, L3100.5440, L3410.2350, L101.9900, L3400.0700, L800.1280, L3300.1200, L501.6710, L3000.0375, L803.2200 ####[facility] [address] [place], [place], [phone] ANTI-KLAUDIA-1 <0.2 Normal 0.0-0.9 [facility] Comment on above: Result Comment: AMENDED REPORT 12/18/241307 ANTI-KLAUDIA previously reported as: Test not performed Performed By: #### L 500.4050, L300.3900, L3200.1100, L3100.5440, L3410.2350, L101.9900, L3400.0700, L800.1280, L3300.1200, L501.6710, L3000.0375, L803.2200 ####[facility] [address] [place], [place], [phone] ANTI-SS-A < 0.2 Normal 0.0-0.9 [facility] Comment on above: Result Comment: AMENDED REPORT 12/18/241307 Anti-SS-A previously reported as: Test not performed Performed By: #### L 500.4050, L300.3900, L3200.1100, L3100.5440, L3410.2350, L101.9900, L3400.0700, L800.1280, L3300.1200, L501.6710, L3000.0375, L803.2200 ####[facility] [address] [place], [address] ANTI-SS-B < 0.2 Normal 0.0-0.9 [facility] Comment on above: Result Comment: AMENDED REPORT 12/18/241307 Anti-SS-B previously reported as: Test not performed Performed By: #### L 500.4050, L300.3900, L3200.1100, L3100.5440, L3410.2350, L101.9900, L3400.0700, L800.1280, L3300.1200, L501.6710, L3000.0375, L803.2200 ####[facility] [address] [place], [place], [phone] ANTICHROMATIN <0.2 Normal 0.0-0.9 [facility] Comment on above: Result Comment: AMENDED REPORT 12/18/241307 ANTICHROMATIN previously reported as: Test not performed Performed By: #### L 500.4050, L300.3900, L3200.1100, L3100.5440, L3410.2350, L101.9900, L3400.0700, L800.1280, L3300.1200, L501.6710, L3000.0375, L803.2200 ####[facility] [address] [place], [place], [phone] ANTISCLERODERM <0.2 Normal 0.0-0.9 [facility] Comment on above: Result Comment: AMENDED REPORT 12/18/241307 ANTISCLER previously reported as: Test not performed Performed By: #### L 500.4050, L300.3900, L3200.1100, L3100.5440, L3410.2350, L101.9900, L3400.0700, L800.1280, L3300.1200, L501.6710, L3000.0375, L803.2200 ####[facility] [address] [place], [place], [phone] SOFTWARE DESIGN ANALYST Ab <0.2 Normal 0.0-0.9 [facility] Comment on above: Result Comment: AMENDED REPORT 12/18/241307 SOFTWARE DESIGN ANALYST Ab previously reported as: Test not performed Performed By: #### L 500.4050, L300.3900, L3200.1100, L3100.5440, L3410.2350, L101.9900, L3400.0700, L800.1280, L3300.1200, L501.6710, L3000.0375, L803.2200 ####[facility] [address] [place], [place], [phone] LOPEZ Ab <0.2 Normal 0.0-0.9 [facility] Comment on above: Result Comment: AMENDED REPORT 12/18/24 1308 LOPEZ Ab previously reported as: Test not performed Performed By: #### L 500.4050, L300.3900, L3200.1100, L3100.5440, L3410.2350, L101.9900, L3400.0700, L800.1280, L3300.1200, L501.6710, L3000.0375, L803.2200 ####[facility] [address] [facility] [place], [address] Anti-Mitochondrial ABon - ANTIMITOCHON AB <20.0 Normal 0.0-20.0 [facility] Comment on above: Result Comment: Nega tive 0.0 - 20.0 Equivocal 20.1 - 24.9 Positive >24.9 Mitochondrial (M2) Antibodies are found in 90-96% of patients with primary biliary cirrhosis. Performed at: [address] [id number] Cloth Printing Inspector: Davide Damon PhD, Phone: [phone] Performed By: #### L 500.4050, L300.3900, L3200.1100, L3100.5440, L3410.2350, L101.9900, L3400.0700, L800.1280, L3300.1200, L501.6710, L3000.0375, L803.2200 ####[facility] [address] [facility] [place], [place], [phone] Anion gap in Serum or Plasma Ordered By: Isauro Davis on 12-17-2024 Anion gap [Moles/Vol] 14 mmol/L 5-15 [facility] BUN/creatinine ratioOrdered By: Isauro Davis on 12-17-2024 Urea nitrogen/Creatinine [Mass ratio] 18.3 mg/mg 10-20 [facility] Bilirubin, totalOrdered By: Isauro Davis on 12-17-2024 Bilirubin [Mass/Vol] 0.46 mg/dL 0.00-1.30 [facility] CRPon 12-17-2024 C-REACTIVE PROT < 3.00 Normal 0.0-3.0 [facility] Comment on above: Performed By: #### L 500.4050, L300.3900, L3200.1100, L3100.5440, L3410.2350, L101.9900, L3400.0700, L800.1280, L3300.1200, L501.6710, L3000.0375, L803.2200 ####[facility] [address] [place], [place], [phone] CRP [Mass/Vol]Ordered By: Ra alonzo Davis on 12-17-2024 C-Reactive Protein Extended Range < 3.00 mg/L 0.0-3.0 [facility] Carbon dioxide, total [Moles /volume] in Central venous bloodOrdered By: Isauro Davis on 12-17-2024 CO2 [Moles/Vol] 19.0 mmol/L Low 21.0-32.0 [facility] Centromere B antibody assayO rdered By: Isauro Davis on 12-17-2024 Centromere B Antibody <0.2 AI 0.0-0.9 [facility] Comment on above: Previous reported re sult: TNP AIEdited by: MADI on 12/18/24:1308 AMENDED REPORT 12/18/24 1308 ANTI-CENT B previously reported as: Test not performed Chloride assayOrdered By: Ra alonzo Davis on 12-17-2024 Chloride [Moles/Vol] 105 mmol/L 98-108 [facility] Chromatin antibody assayOrde red By: Isauro Davis on 12-17-2024 Antichromatin Antibodies <0.2 AI 0.0-0.9 [facility] Comment on above: Previous reported re sult: TNP AIEdited by: MADI on 12/18/24:1308 AMENDED REPORT 12/18/24 1308 ANTICHROMATIN previously reported as: Test not performed Comprehensive Metabolic Prof ilon 12-17-2024 Albumin [Mass/Vol] 4.8 g/dL Normal 3.4-4.8 [facility] Comment on above: Performed By: #### L 500.4050, L300.3900, L3200.1100, L3100.5440, L3410.2350, L101.9900, L3400.0700, L800.1280, L3300.1200, L501.6710, L3000.0375, L803.2200 ####[facility] [address] [place], [address] Albumin/Globulin [Mass ratio] 1.7 {ratio} Normal 0.9-2.4 [facility] Comment on above: Performed By: #### L 500.4050, L300.3900, L3200.1100, L3100.5440, L3410.2350, L101.9900, L3400.0700, L800.1280, L3300.1200, L501.6710, L3000.0375, L803.2200 ####[facility] [address] [place], [address] ALK PHOS 55 U/L Normal 35-104 [facility] Comment on above: Performed By: #### L 500.4050, L300.3900, L3200.1100, L3100.5440, L3410.2350, L101.9900, L3400.0700, L800.1280, L3300.1200, L501.6710, L3000.0375, L803.2200 ####[facility] [address] [place], [address] ALT [Catalytic activity/Vol] 64 U/L High <=34 [facility] Comment on above: Performed By: #### L 500.4050, L300.3900, L3200.1100, L3100.5440, L3410.2350, L101.9900, L3400.0700, L800.1280, L3300.1200, L501.6710, L3000.0375, L803.2200 ####[facility] [address] [place], [address] AST [Catalytic activity/Vol] 57 U/L High <=31 [facility] Comment on above: Performed By: #### L 500.4050, L300.3900, L3200.1100, L3100.5440, L3410.2350, L101.9900, L3400.0700, L800.1280, L3300.1200, L501.6710, L3000.0375, L803.2200 ####[facility] [address] [place], [address] Bilirubin [Mass/Vol] 0.46 mg/dL Normal 0.00-1.30 [facility] Comment on above: Performed By: #### L 500.4050, L300.3900, L3200.1100, L3100.5440, L3410.2350, L101.9900, L3400.0700, L800.1280, L3300.1200, L501.6710, L3000.0375, L803.2200 ####[facility] [address] [place], [address] BUN/CRE 18.3 RATIO Normal 10-20 [facility] Comment on above: Performed By: #### L 500.4050, L300.3900, L3200.1100, L3100.5440, L3410.2350, L101.9900, L3400.0700, L800.1280, L3300.1200, L501.6710, L3000.0375, L803.2200 ####[facility] [address] [place], [address] Calcium [Mass/Vol] 10.1 mg/dL Normal 7.6-11.0 [facility] Comment on above: Performed By: #### L 500.4050, L300.3900, L3200.1100, L3100.5440, L3410.2350, L101.9900, L3400.0700, L800.1280, L3300.1200, L501.6710, L3000.0375, L803.2200 ####[facility] [address] [place], [address] Chloride [Moles/Vol] 105 mmol/L Normal 98-108 [facility] Comment on above: Performed By: #### L 500.4050, L300.3900, L3200.1100, L3100.5440, L3410.2350, L101.9900, L3400.0700, L800.1280, L3300.1200, L501.6710, L3000.0375, L803.2200 ####[facility] [address] [place], [place], [phone]([phone] CO2 [Moles/Vol] 19.0 mmol/L Low 21.0-32.0 [facility] Comment on above: Performed By: #### L 500.4050, L300.3900, L3200.1100, L3100.5440, L3410.2350, L101.9900, L3400.0700, L800.1280, L3300.1200, L501.6710, L3000.0375, L803.2200 ####[facility] [address] [place], [address] Creatinine [Mass/Vol] 1.21 mg/dL High 0.70-1.20 [facility] Comment on above: Performed By: #### L 500.4050, L300.3900, L3200.1100, L3100.5440, L3410.2350, L101.9900, L3400.0700, L800.1280, L3300.1200, L501.6710, L3000.0375, L803.2200 ####[facility] [address] [place], [place], [phone] GAP 14 Normal 5-15 [facility] Comment on above: Performed By: #### L 500.4050, L300.3900, L3200.1100, L3100.5440, L3410.2350, L101.9900, L3400.0700, L800.1280, L3300.1200, L501.6710, L3000.0375, L803.2200 ####[facility] [address] [place], [place], [phone] GFR/1.73 sq M.predicted among non-blacks MDRD (S/P/Bld) [Vol rate/Area] 46 mL/min/{1.73_m2} Low >60 [facility] Comment on above: Result Comment: mL/m in/1.73m2 CKD-EPI Creatinine Equation (2020) Performed By: #### L 500.4050, L300.3900, L3200.1100, L3100.5440, L3410.2350, L101.9900, L3400.0700, L800.1280, L3300.1200, L501.6710, L3000.0375, L803.2200 ####[facility] [address] [place], [place], [phone] Globulin (S) [Mass/Vol] 2.9 g/dL Normal 2.2-4.2 [facility] Comment on above: Performed By: #### L 500.4050, L300.3900, L3200.1100, L3100.5440, L3410.2350, L101.9900, L3400.0700, L800.1280, L3300.1200, L501.6710, L3000.0375, L803.2200 ####[facility] [address] [place], [address] Glucose [Mass/Vol] 108 mg/dL High 70-99 [facility] Comment on above: Performed By: #### L 500.4050, L300.3900, L3200.1100, L3100.5440, L3410.2350, L101.9900, L3400.0700, L800.1280, L3300.1200, L501.6710, L3000.0375, L803.2200 ####[facility] [address] [place], [address] Potassium [Moles/Vol] 5.4 mmol/L High 3.3-5.1 [facility] Comment on above: Performed By: #### L 500.4050, L300.3900, L3200.1100, L3100.5440, L3410.2350, L101.9900, L3400.0700, L800.1280, L3300.1200, L501.6710, L3000.0375, L803.2200 ####[facility] [address] [place], [address] Sodium [Moles/Vol] 138 mmol/L Normal 133-145 [facility] Comment on above: Performed By: #### L 500.4050, L300.3900, L3200.1100, L3100.5440, L3410.2350, L101.9900, L3400.0700, L800.1280, L3300.1200, L501.6710, L3000.0375, L803.2200 ####[facility] [address] [place], [address] T PROT 7.7 g/dL Normal 5.9-8.4 [facility] Comment on above: Performed By: #### L 500.4050, L300.3900, L3200.1100, L3100.5440, L3410.2350, L101.9900, L3400.0700, L800.1280, L3300.1200, L501.6710, L3000.0375, L803.2200 ####[facility] [address] [place], [address] Urea nitrogen [Mass/Vol] 22 mg/dL High 4-19 [facility] Comment on above: Performed By: #### L 500.4050, L300.3900, L3200.1100, L3100.5440, L3410.2350, L101.9900, L3400.0700, L800.1280, L3300.1200, L501.6710, L3000.0375, L803.2200 ####[facility] [address] [place], [address] DNA double strand Ab Qn (S)O rdered By: Isauro Davis on 12-17-2024 Anti-Double Strand DNA Antibody <1 IU/mL 0-9 [facility] Comment on above: Negative <5 Equivoca l 5 - 9 Positive >9Previous reported result: TNP IU/mLEdited by: MADI on 12/18/24:1308 AMENDED REPORT 12/18/24 1308 dsDNA AB previously reported as: Test not performed Erythrocyte Sed Rateon 12-17 SED RATE 13 mm/hr Normal 0-30 [facility] Comment on above: Performed By: #### L 500.4050, L300.3900, L3200.1100, L3100.5440, L3410.2350, L101.9900, L3400.0700, L800.1280, L3300.1200, L501.6710, L3000.0375, L803.2200 ####[facility] [address] [place], [address] Erythrocyte sedimentation ra teOrdered By: Isauro Davis on 12-17-2024 ESR (Bld) [Velocity] 13 mm/h 0-30 [facility] GFR/1.73 sq M.predicted chinedu g non-blacks MDRD (S/P/Bld) [Vol rate/Area]Ordered By: Isauro Davis on 12-17-2024 Estimated GFR (MDRD) Non-Af Amer 46 Low >60 [facility] Comment on above: mL/min/1.73m2 CKD-EP I Creatinine Equation (2020) Gastroenterology Visit Repor ton 12-17-2024 Gastroenterology Visit Report [facility] [address] [place] [address] OFFICE VISIT Date of Service: 12/17/24 MR#: [id number] Acct: [id number] Name: DEBBIE HAYES Rep #: [id number] : 1950 Provider: Isauro Davis DO Age/Sex: 74/F Location: [facility] Status: Signed Intake Vital Signs 11/19/24 11:36 12/04/24 10:27 Height 5 ft 4 in 5 ft 4 in Intake Visit Reasons: New patient Allergies clindamycin Allergy (Verified 11/19/24 11:36) Rash codeine Allergy (Verified 11/19/24 11:36) Other erythromycin base Allergy (Verified 11/19/24 11:36) Rash Iodinated Contrast Media (IVP dye) Allergy (Verified 11/19/24 11:36) Nausea/Vom/Diarrhea latex Allergy (Verified 11/19/24 11:36) Hives oxytetracycline (From Terramycin) Allergy (Verified 11/19/24 11:36) Rash Penicillins Allergy (Verified 11/19/24 11:36) Rash Sulfa (Sulfonamide Antibiotics) Allergy (Verified 11/19/24 11:36) Rash Medications ???Medication ???Instructions ???Recorded ???Confirmed ???Type amitriptyline 25 mg tablet 25 mg PO QHS 04/03/24 12/17/24 His tory amlodipine 10 mg tablet 10 mg PO DAILY 04/03/24 12/17/24 H istory ascorbic acid (vitamin C) 500 mg 500 mg PO DAILY 04/03/24 12/17/24 History tablet aspirin 81 mg tablet,delayed 81 mg PO DAILY 04/03/24 12/17/24 H istory release (Adult Low Dose Aspirin) calcium citrate 250 mg PO DAILY 04/03/24 12/17/24 History cranberry extract 500 mg capsule 500 mg PO DAILY 04/03/24 12/17/24 History cyanocobalamin (vitamin B-12) 500 500 mcg PO DAILY 04/03/24 5 History mcg tablet ergocalciferol (vitamin D2) 50 mcg 50 mcg PO DAILY 04/03/24 5 History (2,000 unit) capsule estradiol 0.01% (0.1 mg/gram) 1 g vaginal 3XW 04/03/24 12/17/24 History vaginal cream famotidine 20 mg tablet 20 mg PO BID 04/03/24 12/17/24 His tory fenofibrate 160 mg tablet 160 mg PO DAILY 04/03/24 12/17/24 History ferrous sulfate 325 mg (65 mg 325 mg PO DAILY 04/03/24 12/17/24 History iron) tablet (Feosol) fluoxetine 20 mg capsule 20 mg PO DAILY 04/03/24 12/17/24 H istory gabapentin 300 mg capsule 600 mg PO .QID 04/03/24 12/17/24 H istory garlic 500 mg capsule 500 mg PO DAILY 04/03/24 12/17/24 History hydrochlorothiazide 12.5 mg capsule 25 mg PO DAILY 04/03/24 5 History icosapent ethyl 1 gram capsule 2 g PO BID 04/03/24 12/17/24 Histo ry lactobacillus combination no.9 4 4,000 mmu cells PO DAILY 04/03/24 12/17/24 History billion cell capsule (Adult 50 Plus Probiotic) lorazepam 1 mg tablet 1.5 mg PO TID PRN anxiety 04/03/24 12/17/24 History losartan 100 mg tablet 100 mg PO DAILY 04/03/24 12/17/24 History magnesium gluconate 500 mg tablet 500 mg PO DAILY 04/03/24 12/17/24 History multivitamin 1 tab PO DAILY 04/03/24 12/17/24 H istory prednisolone acetate 1 % eye 1 drp ophthalmic (eye) TID 4 12/17/24 History drops,suspension rosuvastatin 40 mg tablet 40 mg PO DAILY 04/03/24 12/17/24 H istory tamsulosin 0.4 mg capsule 0.4 mg PO DAILY 04/03/24 12/17/24 History trimethoprim 100 mg tablet 100 mg PO DAILY 04/03/24 12/17/24 History dulaglutide 0.75 mg/0.5 mL 0.75 mg (0.5 mL) subcut QWEEK #2 m L 09/11/24 12/17/24 Rx subcutaneous pen injector (Trulicity) metformin 1,000 mg tablet 500 mg PO BID 09/11/24 12/17/24 Hi story blood sugar diagnostic (Accu-Chek #100 ea 09/15/24 12/17/24 Rx Lucrecia Plus test strips) lancets 09/15/24 12/17/24 History lancets (Accu-Chek Softclix #100 ea 09/17/24 12/17/24 Rx Lancets) Have you fallen in the past year?: No PFSH Medical History Wears glasses Loose, teeth Wears partial dentures Panic attack Discoloration of skin Ambulates with cane Arthritis Kidney stones Low iron Anemia Fatty liver Easy bruising Restless legs History of IBS Heartburn Former smoker Hoarseness Chronic cough History of edema History of stress test UTI (urinary tract infection) GERD (gastroesophageal reflux disease) History of kidney stones History of trigger finger Anxiety Type 2 diabetes mellitus Hyperlipidemia HTN (hypertension) Personal history of colonic polyps Surgical History History of total bilateral knee replacement (TKR) Hx of appendectomy History of tonsillectomy and adenoidectomy Hx of colonoscopy Social History household members: spouse current occupational status: retired Smoking Status: Former smoker alcohol intake: never substance use type: does not use HPI HPI Details: DEBBIE HAYES, is a 74 F who presents to the office today for initial consult. Colonoscopy 8.1.24 Div (more content not included)... Normal [facility] Glomerular filtration rate ( GFR) estimation/1.73 sq m using serum, plasma, or whole bOrdered By: Isauro Davis on 12-17-2024 GFR/1.73 sq M.predicted among non-blacks MDRD (S/P/Bld) [Vol rate/Area] 46 mL/min/{1.73_m2} Low >60 [facility] Comment on above: mL/min/1.73m2 CKD-EP I Creatinine Equation (2020) IgEOrdered By: Isauro robbins on 12-17-2024 IgE 58 IU/mL 6-495 [facility] [employer] normalized rat io (INR) calculationOrdered By: Isauro Davis on 12-17-2024 INR Coag (Bld) [Relative time] 1.0 {INR} [facility] Klaudia-1 antibody assayOrdered B y: Isauro Davis on 12-17-2024 KLAUDIA-1 Antibody <0.2 AI 0.0-0.9 [facility] Comment on above: Previous reported re sult: TNP AIEdited by: MADI on 12/18/24:1308 AMENDED REPORT 12/18/24 1308 ANTI-KLAUDIA previously reported as: Test not performed Laboratory - Chemistry and C hemistry - challengeOrdered By: Isauro Davis on 12-17-2024 AST [Catalytic activity/Vol] 57 U/L High <32 [facility] Mitochondria Ab Ql (S)Ordere d By: Isauro Davis on 12-17-2024 Anti-Mitochondrial Antibody <20.0 Units 0.0-20. 0 [facility] Comment on above: Negative 0.0 - 20.0 Equivocal 20.1 - 24.9 Positive >24.9Mitochondrial (M2) Antibodies are found in 90-96% ofpatients with primary biliary cirrhosis.Performed at: [place] [id number] Director: Davide Damon PhD, Phone: [phone] No Panel InformationOrdered By: Isauro Davis on 12-17-2024 Hepatitis C Antibody Comment Comment . [facility] Comment on above: Not infected with HC V unless early or acute infection issuspected (which may be delayed in an immunocompromisedindividual), or other evidence exists to indicate HCVinfection. Tissue Transglutaminase IgG Ab <2 U/mL 0-5 [facility] Comment on above: Negative 0 - 5 Weak Positive 6 - 9 Positive >9 Potassium (Unsp spec) [Mass/ Vol]Ordered By: Isauro Davis on 12-17-2024 Potassium [Moles/Vol] 5.4 mmol/L High 3.3-5.1 [facility] Potassium measurement (mass/ volume)Ordered By: Isauro Davis on 12-17-2024 Potassium (Unsp spec) [Mass/Vol] 5.4 mmol/L High 3.3-5.1 [facility] Prothrombin Time w/INRon INR Coag (PPP) [Relative time] 1.0 {INR} Normal [facility] Comment on above: Performed By: #### L 500.4050, L300.3900, L3200.1100, L3100.5440, L3410.2350, L101.9900, L3400.0700, L800.1280, L3300.1200, L501.6710, L3000.0375, L803.2200 ####[facility] [address] [place], [address] PT Coag (PPP) [Time] 13.6 s Normal 11.7-14.9 [facility] Comment on above: Performed By: #### L 500.4050, L300.3900, L3200.1100, L3100.5440, L3410.2350, L101.9900, L3400.0700, L800.1280, L3300.1200, L501.6710, L3000.0375, L803.2200 ####[facility] [address] [place], [place], [id number] Prothrombin timeOrdered By: Isauro Davis on 12-17-2024 PT Coag (PPP) [Time] 13.6 s 11.7-14.9 [facility] SOFTWARE DESIGN ANALYST abOrdered By: Isauro Licea iend on 12-17-2024 SOFTWARE DESIGN ANALYST Antibody <0.2 AI 0.0-0.9 [facility] Comment on above: Previous reported re sult: TNP AIEdited by: MADI on 12/18/24:1308 AMENDED REPORT 12/18/24 1308 SOFTWARE DESIGN ANALYST Ab previously reported as: Test not performed SCL-70 extractable nuclear A b Qn (S)Ordered By: Isauro Davis on 12-17-2024 Scl-70 (Scleroderma) Antibody <0.2 AI 0.0-0.9 [facility] Comment on above: Previous reported re sult: TNP AIEdited by: MADI on 12/18/24:1308 AMENDED REPORT 12/18/24 130 ANTISCLER previously reported as: Test not performed SS-A IgG antibody assayOrder ed By: Isauro Davis on 12-17-2024 SS-A/Ro IgG Antibody < 0.2 AI 0.0-0.9 [facility] Comment on above: Previous reported re sult: TNP AIEdited by: MADI on 12/18/24:1308 AMENDED REPORT 12/18/24 130 Anti-SS-A previously reported as: Test not performed SS-B IgG antibody assayOrder ed By: Isauro Davis on 12-17-2024 SS-B/La IgG Antibody < 0.2 AI 0.0-0.9 [facility] Comment on above: Previous reported re sult: TNP AIEdited by: MADI on 12/18/24:1308 AMENDED REPORT 12/18/24 130 Anti-SS-B previously reported as: Test not performed Serum DNA double strand anti body assay (units/volume)Ordered By: Isauro Davis on 12-17-2024 DNA double strand Ab Qn (S) [IU]/mL 0-9 [facility] Comment on above: Negative <5 Equivoca l 5 - 9 Positive >9Previous reported result: TNP IU/mLEdited by: MADI on 12/18/24:1308 AMENDED REPORT 12/18/24 130 dsDNA AB previously reported as: Test not performed Serum Scl-70 antibody assay (units/volume)Ordered By: Isauro Davis on 12-17-2024 SCL-70 extractable nuclear Ab Qn (S) <0.2 AI 0.0-0.9 [facility] Comment on above: Previous reported re sult: TNP AIEdited by: MADI on 12/18/24:1308 AMENDED REPORT 12/18/24 1308 ANTISCLER previously reported as: Test not performed Serum classic neutrophil cyt oplasmic antibody assay (units/volume)Ordered By: Isauro Davis on 12-17-2024 Neutrophil cytoplasmic Ab.classic Qn (S) <1:20 titer Neg:<1:20 [facility] Serum creatinine measurement (mass/volume)Ordered By: Isauro Davis on 12-17-2024 Creatinine [Mass/Vol] 1.21 mg/dL High 0.70-1.20 [facility] Serum globulin measurementOr dered By: Isauro Davis on 12-17-2024 Globulin (S) [Mass/Vol] 2.9 g/dL 2.2-4.2 [facility] Serum glucose measurement (m ass/volume)Ordered By: Isauro Davis on 12-17-2024 Glucose [Mass/Vol] 108 mg/dL High 70-99 [facility] Serum mitochondria antibody detectionOrdered By: Isauro Davis on 12-17-2024 Mitochondria Ab Ql (S) <20.0 Units 0.0-20.0 [facility] Comment on above: Negative 0.0 - 20.0 Equivocal 20.1 - 24.9 Positive >24.9Mitochondrial (M2) Antibodies are found in 90-96% ofpatients with primary biliary cirrhosis.Performed at: [facility] [address] [id number] Director: Davide Damon PhD, Phone: [phone] Serum or plasma C reactive p rotein measurement (mass/volume)Ordered By: Isauro Davis on 12-17-2024 CRP [Mass/Vol] mg/L 0.0-3.0 [facility] Serum or plasma IgA measurem ent (mass/volume)Ordered By: Isauro Davis on 12-17-2024 IgA [Mass/Vol] 151 mg/dL 64-422 [facility] Serum or plasma IgG measurem ent (mass/volume)Ordered By: Isauro Davis on 12-17-2024 IgG [Mass/Vol] 818 mg/dL 586-1602 [facility] Serum or plasma actin IgG an tibody assay (units/volume)Ordered By: Isauro Davis on 12-17-2024 Actin IgG Qn 5 Units 0-19 [facility] Comment on above: Negative 0 - 19 Weak positive 20 - 30 Moderate to strong positive >30 Actin Antibodies are found in 52-85% of patients with autoimmune hepatitis or chronic active hepatitis and in 22% of patients with primary biliary cirrhosis. Serum or plasma alanine cottrell otransferase (ALT) measurementOrdered By: Isauro Davis on 12-17-2024 ALT [Catalytic activity/Vol] 64 U/L High <35 [facility] Serum or plasma albumin radha urement (mass/volume)Ordered By: Isauro Davis on 12-17-2024 Albumin [Mass/Vol] 4.8 g/dL 3.4-4.8 [facility] Serum or plasma albumin/glob ulin mass ratioOrdered By: Isaurogeorge Davis on 12-17-2024 Albumin/Globulin [Mass ratio] 1.7 {ratio} 0.9-2.4 [facility] Serum or plasma alkaline bessy sphatase measurementOrdered By: Isauro Davis on 12-17-2024 ALP [Catalytic activity/Vol] 55 U/L 35-104 [facility] Serum or plasma calcium radha urement (mass/volume)Ordered By: Isauro Davis on 12-17-2024 Calcium [Mass/Vol] 10.1 mg/dL 7.6-11.0 [facility] Serum or plasma hepatitis B virus surface antigen detection by immunoassayOrdered By: Isauro Davis on 12-17-2024 HBV surface Ag IA Ql Negative Negative [facility] Serum or plasma urea nitroge n measurement (mass/volume)Ordered By: Isauro Davis on 12-17-2024 Urea nitrogen [Mass/Vol] 22 mg/dL High 4-19 [facility] Serum perinuclear neutrophil cytoplasmic antibody titer by immunofluorescenceOrdered By: Isauro Davis on 12-17-2024 Neutrophil cytoplasmic Ab.perinuclear IF (S) [Titer] <1:20 titer Neg:<1:20 [facility] Comment on above: The presence of posi tive fluorescence exhibiting P-ANCA orC-ANCA patterns alone is not specific for the diagnosis ofWegener's Granulomatosis (WG) or microscopic polyangiitis.Decisions about treatment should not be based solely onANCA IFA results. The International ANCA Group Consensusrecommends follow up testing of positive sera with both UT-3 and MPO-ANCA enzyme immunoassays. As many as 5% serumsamples are positive only by EIA. Ref. AM J Clin Pfxxxk9993;111:507-513. Serum tissue transglutaminas e (tTG) IgA antibody assay (units/volume)Ordered By: Isauro Davis on 12-17-2024 tTG IgA Qn (S) <2 U/mL 0-3 [facility] Comment on above: Negative 0 - 3 Weak Positive 4 - 10 Positive >10 Tissue Transglutaminase (tTG) has been identified as the endomysial antigen. Studies have demonstr- ated that endomysial IgA antibodies have over 99% specificity for gluten sensitive enteropathy. Lopez antibody assayOrdered By: Isauro Davis on 12-17-2024 SM Antibody <0.2 AI 0.0-0.9 [facility] Comment on above: Previous reported re sult: TNP AIEdited by: INFCE on 12/18/24:1308 AMENDED REPORT 12/18/24 1308 BLANCA Ab previously reported as: Test not performed Sodium levelOrdered By: Geoffrey Solis on 12-17-2024 Sodium [Moles/Vol] 138 mmol/L 133-145 [facility] Total proteinOrdered By: Kieran Davis on 12-17-2024 Protein [Mass/Vol] 7.7 g/dL 5.9-8.4 [facility] Thyroidon 12-08-2024 Thyroid [facility] [address] [place], [place] [address] Thyroid MR#: [id number] Acct: [id number] Name: DEBBIE HAYES Rep #: [id number] : 1950 F 74 From: Saeed Byrnes MD PCP: Keny Fernandes MD Status: REG CLI Study: Thyroid Date of Exam: 12/08/24 Exam# [id number] Ordering Dr: Doreen Hooker [employer]ETER-C PROCEDURE: THYROID (USTHY), 12/08/2024 REASON FOR EXAM: ENLARGED THYROID, NONTOXIC GOITER, UNSPECIFIED TECHNIQUE: Grayscale and color Doppler imaging of the thyroid was performed. COMPARISON: None FINDINGS: Right lobe measures 5.0 x 1.2 x 1.6cm. Essentially homogeneous background echotexture. No abnormal vascularity. Nodules as below: *Upper pole, 5 x 4 x 4 mm, solid very hypoechoic versus cystic with low-level internal echoes, best considered TI-RADS 4. *Additional tiny probable cyst. Left lobe measures 4.1 x 1.4 x 1.2 cm. Essentially homogeneous background echotexture. No abnormal vascularity. Tiny probable cyst. No solid or mostly solid nodules are identified. Isthmus measures 3 mm in thickness. Other: A lymph node lateral to the RIGHT lobe measures 11 x 9 x 5 mm with preserved fatty hilum. US/Thyroid IMPRESSION: 1. Assessment is TI-RADS 4. No nodules currently meet criteria for FNA or follow-up. 2. Normal size gland with essentially unremarkable background echotexture. No abnormal vascularity. 3. Morphologically normal nonenlarged RIGHT cervical node, nonspecific and potentially reactive. Management recommendations for TI-RADS 4 findings: FNA if = 1.5 cm; Follow if = 1 cm at 1, 2, 3, and 5 years. Recommendations per ACR Thyroid Imaging, Reporting and Data System (TI-RADS): White Paper of the ACR TI-RADS Committee, 2017 (https://linkinghub.Grows Up/retrieve/pi i/W4143713337889214) Reading Location: [facility] CC: KELLEE Hooker; Keny Fernandes MD Managing Consultant Clinical Professor: Signed Normal [facility] Endocrinology Visit Reporton 12-04-2024 Endocrinology Visit Report [facility] [address] [place] [address] OFFICE VISIT Date of Service: 12/04/24 MR#: [id number] Acct: [id number] Name: DEBBIE HAYES Rep #: [id number] : 1950 Provider: KELLEE mccann Age/Sex: 74/F Location: [facility] Status: Signed Intake Vital Signs 11/19/24 11:36 12/04/24 10:27 Height 5 ft 4 in 5 ft 4 in Weight: 180 lb 183 lb 8 oz BMI 30.9 31.4 BP 116/66 Blood Pressure Location Lt brachial Position Sitting Pulse 82 Pulse Source Monitor Pulse Oximetry (%) 92 Oxygen Delivery Method room air Intake Visit Reasons: Neck Assessment Chief Complaint: lump to neck Allergies clindamycin Allergy (Verified 11/19/24 11:36) Rash codeine Allergy (Verified 11/19/24 11:36) Other erythromycin base Allergy (Verified 11/19/24 11:36) Rash Iodinated Contrast Media (IVP dye) Allergy (Verified 11/19/24 11:36) Nausea/Vom/Diarrhea latex Allergy (Verified 11/19/24 11:36) Hives oxytetracycline (From Terramycin) Allergy (Verified 11/19/24 11:36) Rash Penicillins Allergy (Verified 11/19/24 11:36) Rash Sulfa (Sulfonamide Antibiotics) Allergy (Verified 11/19/24 11:36) Rash Have you fallen in the past year?: No PFSH Medical History Wears glasses Loose, teeth Wears partial dentures Panic attack Discoloration of skin Ambulates with cane Arthritis Kidney stones Low iron Anemia Fatty liver Easy bruising Restless legs History of IBS Heartburn Former smoker Hoarseness Chronic cough History of edema History of stress test UTI (urinary tract infection) GERD (gastroesophageal reflux disease) History of kidney stones History of trigger finger Anxiety Type 2 diabetes mellitus Hyperlipidemia HTN (hypertension) Personal history of colonic polyps Surgical History History of total bilateral knee replacement (TKR) Hx of appendectomy History of tonsillectomy and adenoidectomy Hx of colonoscopy Social History household members: spouse current occupational status: retired Smoking Status: Former smoker alcohol intake: never substance use type: does not use HPI HPI Chief Complaint: lump to neck Details: DEBBIE HAYES, is a 74 F who presents to the office today for evaluation of lumps to her neck. Patient recently started on GLP1 at this office for treatment of her diabetes. She reports that two days ago she felt lumps to bilateral neck. She read medication insert on GLP1 and states concern for thyroid CA. She denies any personal or family hx of medullary thyroid cancer, this was reviewed at the appt that GLP1 was initiated. She denies any recent illness, fevers, increased fatigue, or unexpected weight loss. She denies any pain/tenderness/warmth to area. ROS Const Constitutional: No fatigue Eyes Eyes: Positive for other (lumps to neck) Endo Endocrine: No fatigue Exam Neck Neck: full ROM, trachea midline and lymphadenopathy bilateral anterior cervical rubbery, mobile and other (deep and superficial anterior cervical chain); not warm and nontender Thyroid: thyroid normal Clinical Quality Measures Falls Risk Screening/Assistive Devices Have you fallen in the past year?: No Assessment and Plan Assessment and Plan (1) Lymphadenopathy: Status: Acute (2) Enlarged thyroid: Status: Acute Orders: Orders Thyroid Today E04.9 - Nontoxic goiter, unspecified Head/Neck Soft Tissue Today E04.9 - Nontoxic goiter, unspecified Plan Acute per her reports. I discussed with Dr. Gutierrez and discussed with patient in detail that the risk of thyroid cancer associated with GLP1 use is extremely unlikely as there have been no publications of incidents. She will continue use at this time. Obtain thyroid and soft tissue neck ultrasound. If lymphadenopathy- defer to PCP for further evaluation and management. If thyroid enlarged or concerning nodules, will check TSH, T3, T4, and TPO. FNA nodules if indicated by TRAD scoring. I have spent [25] minutes today reviewing labs, records and history. Time includes coordinating care, interpretation of tests, discussion with patient's other health care providers via telephone. This also includes time I spent with the patient for exam, treatment plan and education as well as documenting clinical information. Coding Level of Care Code Off vis,est,level 3 Extra Time Spent Extra Time Spent Extra Time Spent: G2211 Diagnoses Lymphadenopathy R59.1 Enlarged thyroid E04.9 Additional Codes Extra Time Spent - Extra Time Spent: G2211 (G2211) 12/04/24 1840 Date (more content not included)... Normal [facility] Albumin DL <= 20 mg/L (U) [M ass/Vol]Ordered By: Doreen Hooker on 11-24-2024 Urine Random Microalbumin 607.0 mg/L NO RANGE EST. [facility] Anion gap in Serum or Plasma Ordered By: Doreen Hooker on 11-24-2024 Anion gap [Moles/Vol] 14 mmol/L 5-15 [facility] BUN/creatinine ratioOrdered By: Doreen Hooker on 11-24-2024 Urea nitrogen/Creatinine [Mass ratio] 23.2 mg/mg High 10-20 [facility] Bilirubin, totalOrdered By: Doreen Hooker on 11-24-2024 Bilirubin [Mass/Vol] 0.39 mg/dL 0.00-1.30 [facility] CBC-Complete Blood Cnt No Di ffon 11-24-2024 Erythrocyte distribution width (RBC) [Ratio] 16.7 % High 11.6-14.6 [facility] Comment on above: Performed By: #### L 502.0250, L100.0500, L501.9985, L500.4050, L500.4100, L506.1001 #### [facility] [address] [place], [address] Hematocrit (Bld) [Volume fraction] 34.7 % Low 37-47 [facility] Comment on above: Performed By: #### L 502.0250, L100.0500, L501.9985, L500.4050, L500.4100, L506.1001 #### [facility] [address] [place], [address] Hemoglobin (Bld) [Mass/Vol] 10.2 g/dL Low 12.0-15. 0 [facility] Comment on above: Performed By: #### L 502.0250, L100.0500, L501.9985, L500.4050, L500.4100, L506.1001 #### [facility] [address] [place], [address] MCH (RBC) [Entitic mass] 20.9 pg Low 27.0-32.0 [facility] Comment on above: Performed By: #### L 502.0250, L100.0500, L501.9985, L500.4050, L500.4100, L506.1001 #### [facility] [address] [place], [address] MCHC (RBC) [Mass/Vol] 29.4 g/dL Low 32-36 [facility] Comment on above: Performed By: #### L 502.0250, L100.0500, L501.9985, L500.4050, L500.4100, L506.1001 #### [facility] [address] [place], [address] MCV (RBC) [Entitic vol] 71.3 fL Low 81-99 [facility] Comment on above: Performed By: #### L 502.0250, L100.0500, L501.9985, L500.4050, L500.4100, L506.1001 #### [facility] [address] [place], [address] Platelet mean volume (Bld) [Entitic vol] 9.9 fL Normal 6.2-12.0 [facility] Comment on above: Performed By: #### L 502.0250, L100.0500, L501.9985, L500.4050, L500.4100, L506.1001 #### [facility] [address] [place], [address] Platelets (Bld) [#/Vol] 295 10*3/uL Normal 150-450 [facility] Comment on above: Performed By: #### L 502.0250, L100.0500, L501.9985, L500.4050, L500.4100, L506.1001 #### [facility] [address] [place], [address] RBC (Bld) [#/Vol] 4.87 10*6/uL Normal 4.2-5.[address] [facility] Comment on above: Performed By: #### L 502.0250, L100.0500, L501.9985, L500.4050, L500.4100, L506.1001 #### [facility] [address] [place], [place], [address] RDW SD 40.8 fl Normal 35.1-43.9 [facility] Comment on above: Performed By: #### L 502.0250, L100.0500, L501.9985, L500.4050, L500.4100, L506.1001 #### [facility] [address] [place], [place], [address] WBC (Bld) [#/Vol] 8.3 10*3/uL Normal 4.4-11.0 [facility] Comment on above: Performed By: #### L 502.0250, L100.0500, L501.9985, L500.4050, L500.4100, L506.1001 #### [facility] [address] [place], [place], [address] Calculated very low density lipoprotein (VLDL) cholesterol measurementOrdered By: Doreen Hooker on 11-24-2024 Calculated very low density lipoprotein (VLDL) cholesterol measurement 70 mg/dL High 5-40 [facility] VLDL Cholesterol 70 mg/dL High 5-40 [facility] Carbon dioxide, total [Moles /volume] in Central venous bloodOrdered By: Doreen Hooker on 11-24-2024 CO2 [Moles/Vol] 19.3 mmol/L Low 21.0-32.0 [facility] Chloride assayOrdered By: Me kevin Hooker on 11-24-2024 Chloride [Moles/Vol] 106 mmol/L 98-108 [facility] Comprehensive Metabolic Prof ilon 11-24-2024 Albumin [Mass/Vol] 4.7 g/dL Normal 3.4-4.8 [facility] Comment on above: Performed By: #### L 502.0250, L100.0500, L501.9985, L500.4050, L500.4100, L506.1001 ####[facility] [address] [place], [address] Albumin/Globulin [Mass ratio] 1.8 {ratio} Normal 0.9-2.4 [facility] Comment on above: Performed By: #### L 502.0250, L100.0500, L501.9985, L500.4050, L500.4100, L506.1001 ####[facility] [address] [place], [address] ALK PHOS 42 U/L Normal 35-104 [facility] Comment on above: Performed By: #### L 502.0250, L100.0500, L501.9985, L500.4050, L500.4100, L506.1001 ####[facility] [address] [place], [address] ALT [Catalytic activity/Vol] 45 U/L High <=34 [facility] Comment on above: Performed By: #### L 502.0250, L100.0500, L501.9985, L500.4050, L500.4100, L506.1001 ####[facility] [address] [place], [address] AST [Catalytic activity/Vol] 51 U/L High <=31 [facility] Comment on above: Performed By: #### L 502.0250, L100.0500, L501.9985, L500.4050, L500.4100, L506.1001 ####[facility] [address] [place], [address] Bilirubin [Mass/Vol] 0.39 mg/dL Normal 0.00-1.30 [facility] Comment on above: Performed By: #### L 502.0250, L100.0500, L501.9985, L500.4050, L500.4100, L506.1001 ####[facility] [address] [place], [address] BUN/CRE 23.2 RATIO High 10-20 [facility] Comment on above: Performed By: #### L 502.0250, L100.0500, L501.9985, L500.4050, L500.4100, L506.1001 ####[facility] [address] [place], [address] Calcium [Mass/Vol] 9.8 mg/dL Normal 7.6-11.0 [facility] Comment on above: Performed By: #### L 502.0250, L100.0500, L501.9985, L500.4050, L500.4100, L506.1001 ####[facility] [address] [place], [address] Chloride [Moles/Vol] 106 mmol/L Normal 98-108 [facility] Comment on above: Performed By: #### L 502.0250, L100.0500, L501.9985, L500.4050, L500.4100, L506.1001 ####[facility] [address] [place], [address] CO2 [Moles/Vol] 19.3 mmol/L Low 21.0-32.0 [facility] Comment on above: Performed By: #### L 502.0250, L100.0500, L501.9985, L500.4050, L500.4100, L506.1001 ####[facility] [address] [place], [address] Creatinine [Mass/Vol] 1.26 mg/dL High 0.70-1.20 [facility] Comment on above: Performed By: #### L 502.0250, L100.0500, L501.9985, L500.4050, L500.4100, L506.1001 ####[facility] [address] [place], [address] GAP 14 Normal 5-15 [facility] Comment on above: Performed By: #### L 502.0250, L100.0500, L501.9985, L500.4050, L500.4100, L506.1001 ####[facility] [address] [place], [address] GFR/1.73 sq M.predicted among non-blacks MDRD (S/P/Bld) [Vol rate/Area] 44 mL/min/{1.73_m2} Low >60 [facility] Comment on above: Result Comment: mL/m in/1.73m2 CKD-EPI Creatinine Equation (2020) Performed By: #### L 502.0250, L100.0500, L501.9985, L500.4050, L500.4100, L506.1001 ####[facility] [address] [place], [address] Globulin (S) [Mass/Vol] 2.6 g/dL Normal 2.2-4.2 [facility] Comment on above: Performed By: #### L 502.0250, L100.0500, L501.9985, L500.4050, L500.4100, L506.1001 ####[facility] [address] [place], [address] Glucose [Mass/Vol] 137 mg/dL High 70-99 [facility] Comment on above: Performed By: #### L 502.0250, L100.0500, L501.9985, L500.4050, L500.4100, L506.1001 ####[facility] [address] [place], [address] Potassium [Moles/Vol] 4.9 mmol/L Normal 3.3-5.1 [facility] Comment on above: Performed By: #### L 502.0250, L100.0500, L501.9985, L500.4050, L500.4100, L506.1001 ####[facility] [address] [place], [address] Sodium [Moles/Vol] 140 mmol/L Normal 133-145 [facility] Comment on above: Performed By: #### L 502.0250, L100.0500, L501.9985, L500.4050, L500.4100, L506.1001 ####[facility] [address] [place], [address] T PROT 7.2 g/dL Normal 5.9-8.4 [facility] Comment on above: Performed By: #### L 502.0250, L100.0500, L501.9985, L500.4050, L500.4100, L506.1001 ####[facility] [address] [place], [address] Urea nitrogen [Mass/Vol] 29 mg/dL High 4-19 [facility] Comment on above: Performed By: #### L 502.0250, L100.0500, L501.9985, L500.4050, L500.4100, L506.1001 ####[facility] [address] [place], [address] Creatinine Unsp time (U) [Ma ss/Vol]Ordered By: Doreen Hooker on 11-24-2024 Creatinine (U) [Mass/Vol] 57.80 mg/dL 28-217 [facility] Erythrocyte distribution wid th ratioOrdered By: Doreen Hooker on 11-24-2024 Erythrocyte distribution width (RBC) [Ratio] 16.7 % High 11.6-14.6 [facility] Erythrocyte distribution wid th standard deviationOrdered By: Doreen Hooker on 11-24-2024 Erythrocyte distribution width (RBC) [Entitic vol] 40.8 fL 35.1-43.9 [facility] Erythrocyte distribution width (RBC) [Ratio] 40.8 fl 35.1-43.9 [facility] GFR/1.73 sq M.predicted chinedu g non-blacks MDRD (S/P/Bld) [Vol rate/Area]Ordered By: Doreen Hooker on 11-24-2024 Estimated GFR (MDRD) Non-Af Amer 44 Low >60 [facility] Comment on above: mL/min/1.73m2 CKD-EP I Creatinine Equation (2020) Glomerular filtration rate ( GFR) estimation/1.73 sq m using serum, plasma, or whole bOrdered By: Doreen Hooker on 11-24-2024 GFR/1.73 sq M.predicted among non-blacks MDRD (S/P/Bld) [Vol rate/Area] 44 mL/min/{1.73_m2} Low >60 [facility] Comment on above: mL/min/1.73m2 CKD-EP I Creatinine Equation (2020) Hematocrit Auto (Bld) [Volum e fraction]Ordered By: Doreen Hooker on 11-24-2024 Hematocrit (Bld) [Volume fraction] 34.7 % Low 37-47 [facility] Hemoglobin A1con 11-24-2024 HbA1c (Bld) [Mass fraction] 7.0 % Normal <=5.6 [facility] Comment on above: Performed By: #### L 502.0250, L100.0500, L501.9985, L500.4050, L500.4100, L506.1001 #### [facility] [address] [place], [place] [address], [address] Hemoglobin A1c percentageOrd ered By: Doreen Hooker on 11-24-2024 HbA1c (Bld) [Mass fraction] 7.0 % >5.7 [facility] Hemoglobin measurementOrdere d By: Doreen Hooker on 11-24-2024 Hemoglobin (Bld) [Mass/Vol] 10.2 g/dL Low 12.0-15. 0 [facility] L506.1001on 11-24-2024 Vitamin D 25-OH 22.4 ng/mL Low 30-100 [facility] [facility] Comment on above: Result Comment: Kaylin min D Status Deficiency: <20 ng/mL (50nmol/L) Insufficiency: 20-30 ng/mL (50-75 nmol/L) Sufficiency: 30-100 ng/mL (75-250 nmol/L) Toxicity: >100 ng/mL (>250 nmol/L) Performed By: #### L 502.0250, L100.0500, L501.9985, L500.4050, L500.4100, L506.1001 ####[facility] [address] [place], [address] LDL calc ser/plasOrdered By: Doreen Hooker on 11-24-2024 Cholesterol in LDL [Mass/Vol] 73 mg/dL [facility] Comment on above: Hrrfhibznf=137-990 m g/dL & Higher Piiy=040 mg/dL or greater LDL Cholesterol, Calculated 73 mg/dL [facility] Comment on above: Rrkuobuqif=245-525 m g/dL & Higher Stfq=336 mg/dL or greater Laboratory - Chemistry and C hemistry - challengeOrdered By: Doreen Hooker on 11-24-2024 AST [Catalytic activity/Vol] 51 U/L High <32 [facility] Lipid Profileon 11-24-2024 CHOL:HDL 4.87 Normal [facility] Comment on above: Performed By: #### L 502.0250, L100.0500, L501.9985, L500.4050, L500.4100, L506.1001 ####[facility] [address] [place], [address] Cholesterol [Mass/Vol] 181 mg/dL Normal <=200 [facility] Comment on above: Result Comment: Chol esterol level, Desirable <200 mg/dL Borderline high cholesterol 200-239 mg/dL High cholesterol >=240 mg/dL Recommendations of the NCEP Adult Treatment Panel for the following risk-cutoff thresholds for the [place] population. Performed By: #### L 502.0250, L100.0500, L501.9985, L500.4050, L500.4100, L506.1001 ####[facility] [address] [place], [address] Cholesterol in HDL [Mass/Vol] 37 mg/dL Low [facility] Comment on above: Result Comment: Karin onal Cholesterol Education Program (NCEP) guidelines: <40 mg/dL: Low HDL-cholesterol (major risk factor for CHD) >= 60 mg/dL: High HDL-cholesterol (negative risk factor for CHD) HDL-cholesterol is affected by a number of factors, e.g. smoking, exercise, hormones, sex and age. Performed By: #### L 502.0250, L100.0500, L501.9985, L500.4050, L500.4100, L506.1001 ####[facility] [address] [place], [address] Cholesterol in LDL [Mass/Vol] 73 mg/dL Normal [facility] Comment on above: Result Comment: Bord mdmwgz=663-765 mg/dL Higher Auvc=413 mg/dL or greater Performed By: #### L 502.0250, L100.0500, L501.9985, L500.4050, L500.4100, L506.1001 ####[facility] [address] [place], [address] Cholesterol in VLDL [Mass/Vol] 70 mg/dL High 5-40 [facility] Comment on above: Performed By: #### L 502.0250, L100.0500, L501.9985, L500.4050, L500.4100, L506.1001 ####[facility] [address] [place], [address] Triglyceride [Mass/Vol] 352 mg/dL High [facility] Comment on above: Result Comment: The drugs N-Acetylcysteine and Metamizole may falsely depress this assay. Normal range: <150 mg/dL Borderline High: 150-199 mg/dL High: 200-499 mg/dL Very High: >500 mg/dL Performed By: #### L 502.0250, L100.0500, L501.9985, L500.4050, L500.4100, L506.1001 ####[facility] [address] [place], [address] MCV (mean corpuscular volume ) determinationOrdered By: Doreen Hooker on 11-24-2024 MCV (RBC) [Entitic vol] 71.3 fL Low 81-99 [facility] Mean corpuscular hemoglobin (MCH) determinationOrdered By: Doreen Hooker on 11-24-2024 MCH (RBC) [Entitic mass] 20.9 pg Low 27.0-32.0 [facility] Mean corpuscular hemoglobin concentration (MCHC) determinationOrdered By: Doreen Hooker on 11-24-2024 MCHC (RBC) [Mass/Vol] 29.4 g/dL Low 32-36 [facility] Mean platelet volume determi nationOrdered By: Doreen Hooker on 11-24-2024 Platelet mean volume (Bld) [Entitic vol] 9.9 fL 6.2-12.0 [facility] Microalb:Creat Ratio,Random URon 11-24-2024 MALB:CREAT Normal [facility] Comment on above: Result Comment: JOEY ENT DIDNT RETURN URINE Performed By: #### L 502.0250, L100.0500, L501.9985, L500.4050, L500.4100, L506.1001 ####[facility] [address] [place], [address] MICROALBUMIN,UR Normal NO RANGE EST. [facility] Comment on above: Result Comment: JOEY ENT DIDNT RETURN URINE Performed By: #### L 502.0250, L100.0500, L501.9985, L500.4050, L500.4100, L506.1001 ####[facility] [address] [place], [address] UR CREAT Normal 28-217 [facility] Comment on above: Result Comment: JOEY ENT DIDNT RETURN URINE Performed By: #### L 502.0250, L100.0500, L501.9985, L500.4050, L500.4100, L506.1001 ####[facility] [address] [place], [address] Microalbumin/creat ratio urO rdered By: Doreen Hooker on 11-24-2024 Urine Microalbumin/Creatinine Ratio 49258.7 mg/g CRE [facility] Platelet countOrdered By: Me kevin Hooker on 11-24-2024 Platelets (Bld) [#/Vol] 295 10*3/uL 150-450 [facility] Potassium (Unsp spec) [Mass/ Vol]Ordered By: Doreen Hooker on 11-24-2024 Potassium [Moles/Vol] 4.9 mmol/L 3.3-5.1 [facility] Potassium measurement (mass/ volume)Ordered By: Doreen Hooker on 11-24-2024 Potassium (Unsp spec) [Mass/Vol] 4.9 mmol/L 3.3-5.1 [facility] RBC Auto (Bld) [#/Vol]Ordere d By: Doreen Hooker on 11-24-2024 RBC (Bld) [#/Vol] 4.87 10*6/uL 4.2-5.[address] [facility] Random urine creatinine radha urement (mass/volume)Ordered By: Doreen Hooker on 11-24-2024 Creatinine Unsp time (U) [Mass/Vol] 57.80 mg/dL 28-217 [facility] Screening total cholesterol/ high density lipoprotein (HDL) cholesterol ratioOrdered By: Doreen Hooker on 11-24-2024 Cholesterol.total/Cholester ol in HDL [Mass ratio] 4.87 {ratio} [facility] Serum creatinine measurement (mass/volume)Ordered By: Doreen Hooker on 11-24-2024 Creatinine [Mass/Vol] 1.26 mg/dL High 0.70-1.20 [facility] Serum globulin measurementOr dered By: Doreen Hooker on 11-24-2024 Globulin (S) [Mass/Vol] 2.6 g/dL 2.2-4.2 [facility] Serum glucose measurement (m ass/volume)Ordered By: Doreen Hooker on 11-24-2024 Glucose [Mass/Vol] 137 mg/dL High 70-99 [facility] Serum or plasma alanine cottrell otransferase (ALT) measurementOrdered By: Doreen Hooker on 11-24-2024 ALT [Catalytic activity/Vol] 45 U/L High <35 [facility] Serum or plasma albumin radha urement (mass/volume)Ordered By: Doreen Hooker on 11-24-2024 Albumin [Mass/Vol] 4.7 g/dL 3.4-4.8 [facility] Serum or plasma albumin/glob ulin mass ratioOrdered By: Doreen Hooker on 11-24-2024 Albumin/Globulin [Mass ratio] 1.8 {ratio} 0.9-2.4 [facility] Serum or plasma alkaline bessy sphatase measurementOrdered By: Doreen Hooker on 11-24-2024 ALP [Catalytic activity/Vol] 42 U/L 35-104 [facility] Serum or plasma calcium radha urement (mass/volume)Ordered By: Doreen Hooker on 11-24-2024 Calcium [Mass/Vol] 9.8 mg/dL 7.6-11.0 [facility] Serum or plasma cholesterol in HDL measurement (mass/volume)Ordered By: Doreen Hooker on 11-24-2024 Cholesterol in HDL [Mass/Vol] 37 mg/dL Low >40 [facility] Comment on above: National Cholesterol Education Program (NCEP) guidelines:<40 mg/dL: Low HDL-cholesterol (major risk factor for CHD)>= 60 mg/dL: High HDL-cholesterol (negative risk factor for CHD)HDL-cholesterol is affected by a number of factors, e.g. smoking, exercise, hormones, sex and age. Serum or plasma cholesterol measurement (mass/volume)Ordered By: Doreen Hooker on 11-24-2024 Cholesterol [Mass/Vol] 181 mg/dL <201 [facility] Comment on above: Cholesterol level, D esirable <200 mg/dLBorderline high cholesterol 200-239 mg/dLHigh cholesterol >=240 mg/dLRecommendations of the NCEP Adult Treatment Panel for the following risk-cutoff thresholds for the [place] population. Serum or plasma urea nitroge n measurement (mass/volume)Ordered By: Doreen Hooker on 11-24-2024 Urea nitrogen [Mass/Vol] 29 mg/dL High 4-19 [facility] Sodium levelOrdered By: Kirill Hooker on 11-24-2024 Sodium [Moles/Vol] 140 mmol/L 133-145 [facility] Total proteinOrdered By: Vickie ronny Morro on 11-24-2024 Protein [Mass/Vol] 7.2 g/dL 5.9-8.4 [facility] Triglycerides measurementOrd ered By: Doreen Hooker on 11-24-2024 Triglyceride [Mass/Vol] 352 mg/dL High <199 [facility] Comment on above: The drugs N-Acetylcy steine and Metamizole may falsely depress this assay. Normal range: <150 mg/dLBorderline High: 150-199 mg/dLHigh: 200-499 mg/dLVery High: >500 mg/dL Urine albumin measurement [facility] detection limit of 20 mg/L or less (mass/volume)Ordered By: Doreen Hooker on 11-24-2024 Albumin DL <= 20 mg/L (U) [Mass/Vol] 607.0 mg/L NO RANGE EST. [facility] Vitamin D, 25-hydroxyOrdered By: Doreen Hooker on 11-24-2024 Vitamin D 25-Hydroxy 22.4 ng/mL Low 30-100 [facility] Comment on above: Vitamin D StatusDefi ciency: <20 ng/mL (50nmol/L)Insufficiency: 20-30 ng/mL (50-75 nmol/L)Sufficiency: 30-100 ng/mL (75-250 nmol/L)Toxicity: >100 ng/mL (>250 nmol/L) White blood cell (WBC) count Ordered By: Doreen Hooker on 11-24-2024 WBC (Bld) [#/Vol] 8.3 10*3/uL 4.4-11.0 [facility] Endocrinology Visit Reporton 11-19-2024 Endocrinology Visit Report 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 Accompanied by: Allergies clindamycin Allergy (Verified 11/19/24 11:36) Rash codeine Allergy (Verified 11/19/24 11:36) Other erythromycin base Allergy (Verified 11/19/24 11:36) Rash Iodinated Contrast Media (IVP dye) Allergy (Verified 11/19/24 11:36) Nausea/Vom/Diarrhea latex Allergy (Verified 11/19/24 11:36) Hives oxytetracycline (From Terramycin) Allergy (Verified 11/19/24 11:36) Rash Penicillins Allergy (Verified 11/19/24 11:36) Rash Sulfa (Sulfonamide Antibiotics) Allergy (Verified 11/19/24 11:36) Rash Have you fallen in the past year?: No PFSH Medical History Wears glasses Loose, teeth Wears partial dentures Panic attack Discoloration of skin Ambulates with cane Arthritis Kidney stones Low iron Anemia Fatty liver Easy bruising Restless legs History of IBS Heartburn Former smoker Hoarseness Chronic cough History of edema History of stress test UTI (urinary tract infection) GERD (gastroesophageal reflux disease) History of kidney stones History of trigger finger Anxiety Type 2 diabetes mellitus Hyperlipidemia HTN (hypertension) Personal history of colonic polyps Surgical History History of total bilateral knee replacement (TKR) Hx of appendectomy History of tonsillectomy and adenoidectomy Hx of colonoscopy Social History household members: spouse current occupational status: retired Smoking Status: Former smoker alcohol intake: never substance use type: does not use HPI HPI Chief Complaint: f/u diabetes Details: DEBBIE HAYES, is a 74 F who presents to the office today for evaluation and management of diabetes. A1C today is 6.3%, improved from 07/03/24 with PCP at 7.0%. She has gained 2 lbs. At initial appt metformin was discontinued d/t CKD. She was started on Trulicity 0.75 mg qweek at that time. Reports tolerating well. She has made dietary changes and is increasing vegetable and lean meats. She states that Trulicity is costly for her and inquiring about financial assistance. BP is controlled. Currently taking amlodipine 10 mg once daily, HCTZ 25 mg once daily, and losartan 100 mg once daily. She has microalbuminuria and CKD. She takes a daily statin, fenofibrate, and icosapent ethyl 2 gm BID. Hx of recurrent UTIs, she had another one a couple weeks ago, she was on cefdinir with resolution of symptoms. She was referred to UROGYN at her initial appt here, she did not schedule an appt. She has upcoming labs with PCP. Denies any acute concerns. ROS Const Constitutional: No fatigue, weakness or weight change Cardio Cardiology: No chest pain at rest, chest pain with exertion or shortness of breath Musc Musculoskeletal: No numbness Neuro Neurology: No weakness or numbness Skin Skin: No wounds Endo Endocrine: No fatigue or weight change Exam Const General: cooperative, healthy appearing, comfortable and no acute distress Nutritional Appearance: obese Orientation: alert, awake and oriented x3 HENMT Head: normal to inspection Ears: hearing grossly normal bilaterally Nose: external nose normal Face and sinus: normal facial exam Eyes General: appearance normal, both eyes and all related structures Alignment and Position: alignment normal Sclera: sclerae normal Neck Neck: normal visual inspection Chest Chest palpation inspection: normal inspection of the chest Resp Effort Inspection: normal respiratory effort, able to speak in complete sentences, symmetric chest movement, normal respiratory pattern, no audible wheezes and no cough Auscultation: Bilateral: Clear to Auscultation Cardio Rate: regular rate Rhythm: regular rhythm Heart Sounds: S1 normal and S2 normal GI Inspection: obesity Skin General: no rashes or lesions noted Lesions: no lesions Rashes: no rashes Trauma: no lacerations or abrasions Wounds: no wounds Neuro Ge (more content not included)... Normal [facility] Laboratory - Hematology and Cell countsOrdered By: Doreen Hooker on 11-19-2024 HbA1c (Bld) [Mass fraction] 6.3 % 4.2-6.3 [facility] CREATININE FINGERSTICKon CREATININE WB < 1.0 Normal 0.55-1.02 [facility] Comment on above: Performed By: #### L 9100.0200 ####[facility] [address] [facility] [place], [place], [address] GFR/1.73 sq M.predicted among non-blacks MDRD (S/P/Bld) [Vol rate/Area] 60.0000 mL/min/{1.73_m2} Normal >60 [facility] Comment on above: Performed By: #### L 9100.0200 ####[facility] [address] [place], [place], [address] CT Abd/Pelvis W/WO Contrasto n 11-14-2024 CT Abd/Pelvis W/WO Contrast [facility] Imaging Services [address] [place], [place] [address] CT Abd/Pelvis W/WO Contrast MR#: [id number] Acct: [id number] Name: DEBBIE HAYES Rep #: [id number] : 1950 F 74 From: Saeed Byrnes MD PCP: KENY FERNANDES Status: REG CLI Study: CT Abd/Pelvis W/WO Contrast Date of Exam: 04/03 Exam# [id number] Ordering Dr: Alexis Virgen PROCEDURE: CT ABD/PELVIS W/WO CONTRAST REASON FOR EXAM: HEMANGIOMA TECHNIQUE: CT abdomen and pelvis was performed prior to and following the administration of IV contrast. Multiplanar reformats were generated. IV CONTRAST: 99 mL Isovue-300 COMPARISON: None FINDINGS: Mild/moderate motion limitation through the lung bases and upper abdomen. Note the exam is limited by the lack of a true late arterial phase of postcontrast imaging, with opacification of the hepatic veins on initial postcontrast images. This limits evaluation for late arterial phase enhancement. Lung bases: Atelectasis/scarring. Coronary atherosclerosis and/or stents hiatal hernia containing mostly fat. Small amount of fluid within the distal thoracic esophagus suggesting gastroesophageal reflux. Borderline mild cardiomegaly atherosclerosis. Liver: Steatosis. Hepatomegaly. 2.2 x 1.8 cm largely macroscopic fat containing subcapsular lesion in segment VII demonstrates no appreciable enhancement allowing for motion in the region. There is a central nodular component demonstrating soft tissue attenuation measuring 0.6 x 0.9 cm along the anterior aspect, again without definite enhancement allowing for small size and motion. Spleen: Unremarkable. Gallbladder: Unremarkable. Pancreas: Fatty infiltration of the pancreatic head/uncinate process.. Adrenals: Unremarkable. Kidneys: Cysts and additional tiny hypodensities too small to characterize, likely cysts. Bowel: Small periampullary duodenal and more distal duodenal diverticuli. Colonic diverticulosis.. Appendix is reportedly surgically absent. Lymph nodes: Unremarkable. Vasculature: Atherosclerosis.. Peritoneum: Unremarkable. Bladder: Underdistended and suboptimally evaluated, grossly unremarkable. Reproductive Organs: Small calcified uterine presumed fibroid.. Body Wall: Unremarkable. Bones: Demineralization. Multilevel spondylosis. Thoracolumbar dextroscoliosis. CT/CT Abd/Pelvis W/WO Contrast IMPRESSION: 1. 2.2 cm fat containing hepatic lesion remains indeterminate by CT. In the absence of a known history of fat producing neoplasm such as liposarcoma elsewhere to suggest metastasis, the differential for fat containing hepatic lesions includes several relatively rare entities such as an angiomyolipoma, lipoma, and perhaps an unusually prominent pseudolipoma of the Hakeem capsule although this is considered unlikely. Fat containing HCC also remains within the differential although there are no clear enhancing components identified allowing for limitations. For this reason, clinical follow-up is warranted, including at a minimum close imaging follow-up to ensure stability. Comparison against any available outside imaging may also be helpful to evaluate stability. 2. Hepatomegaly and diffuse hepatic steatosis. Correlate for clinical and laboratory evidence of chronic liver disease. 3. Additional description as above. Reading Location: [facility] CC: KENY FERNANDES; Dr. Alexis Virgen MD Managing Consultant Clinical Professor: Signed Normal [facility] Creatinine measurement at dsideOrdered By: Alexis Virgen on 11-14-2024 Bedside Creatinine < 1.0 mg/dL 0.55-1.[address] [facility] EGFROrdered By: Alexis valente on 11-14-2024 GFR/1.73 sq M.predicted among non-blacks MDRD (S/P/Bld) [Vol rate/Area] 60.0000 mL/min/{1.73_m2} >60 [facility] Bacteria Ur Culton 5 Bacteria identified Cx Nom (U) ORGANISM ID: 1 >=100,000 CFU/ml Klebsiella pneumoniae ORGANISM ID: 1 (KLEBSIELLA PNEUMONIAE) -- ANTIBIOTIC INTERPRETATION BALAJI STATUS REFERENCE RANGE -- Ampicillin R F Cefazolin S <=4 F [...] <=32 , Intermediate >32 , Resistant >64 Abnormal [facility] Comment on above: Performed By: #### 6 30-4 #### [facility] CLIA [id number] [address] [place] [address] OF [facility] CNOVon 11-08-2024 CNOV Office Visit (UCWSTR ) DEBBIE HAYES ([id number]) 1950 F Date Time Provider Department 11/08/24 1:30 PM [facility] During your visit today, we recorded the following information about you: Temperature Pulse Respiration Blood pressure 99.1 degrees 89/minute 16/minute 145/78 Weight 82.8 kg Henrry Wadsworth APRN.[employer] BUILDING ARCHITECT 11/08/2024 2:08 PM Signed Subjective HPI Nontoxic-appearing [...] mouth. trimethoprim (PROLOPRIM) 100 mg tablet PEG 7450-Tvrcjukvkvm-Iow C (MOVIPREP) 100-7.5-2.691 gram promethazine (PHENERGAN) 25 [...] oriented to person, place, and time. ASSESSMENT/PLAN: (more content not included)... Normal [facility] UA DIP, URINE (POC)on 2024 BILIRUBIN UA (POCT) Negative Negative [facility] CLARITY UA (POCT) Clear [facility] COLOR UA (POCT) Yellow [facility] GLUCOSE UA (POCT) Negative Negative mg/dL [facility] Hemoglobin Ql (U) [facility] Interpretation and review of laboratory results Abnormal [facility] KETONE UA (POCT) Negative Negative mg/dL [facility] LEUKOCYTES UA (POCT) Small Abnormal Negative [facility] NITRITE UA (POCT) Negative Negative [facility] PH UA (POCT) 5.5 4.5 - 8.0 [facility] Protein Ql (U) >=300 Abnormal Negative mg/dL [facility] SPECIFIC GRAVITY UA (POCT) 1.025 1 .005 - 1.030 [facility] UROBILINOGEN UA (POCT) 0.2 Maya l E.U./dL [facility] Location:[facility], [address], [place], [place], [address] [place] [address] POINT OF CARE [facility] Endocrinology Visit Reporton 09-11-2024 Endocrinology Visit Report [facility] [address] [place] [address] OFFICE VISIT Date of Service: 09/11/24 MR#: [id number] Acct: [id number] Name: DEBBIE HAYES Rep #: [id number] : 1950 Provider: KELLEE mccann Age/Sex: 74/F [place] [facility] Status: Signed Intake Vital Signs 04/10/24 06:44 09/11/24 13:42 Height 5 ft 4 in 5 ft 4 in Weight: 178 lb 4 oz BMI 30.6 BP 147/72 H Blood Pressure Location Lt brachial Pulse 102 H Pulse Source Monitor Pulse Oximetry (%) 95 Oxygen Delivery Method room air Intake Visit Reasons: Diabetes Chief Complaint: establish care- diabetes Is patient in pain?: No Allergies clindamycin Allergy (Verified 04/10/24 06:41) Rash codeine Allergy (Verified 04/10/24 06:41) Other erythromycin base Allergy (Verified 04/10/24 06:41) Rash Iodinated Contrast Media (IVP dye) Allergy (Verified 04/10/24 06:41) Nausea/Vom/Diarrhea latex Allergy (Verified 04/10/24 06:41) Hives oxytetracycline (From Terramycin) Allergy (Verified 04/10/24 06:41) Rash Penicillins Allergy (Verified 04/10/24 06:41) Rash Sulfa (Sulfonamide Antibiotics) Allergy (Verified 04/10/24 06:41) Rash Medications ???Medication ???Instructions ???Recorded ???Confirmed ???Type amitriptyline 25 mg tablet 25 mg PO QHS 04/03/24 09/11/24 History amlodipine 10 mg tablet 10 mg PO DAILY 04/03/24 09/11/24 History ascorbic acid (vitamin C) 500 mg 500 mg PO DAILY 04/03/24 09/11/24 History tablet aspirin 81 mg tablet,delayed 81 mg PO DAILY 04/03/24 09/11/24 History release (Adult Low Dose Aspirin) calcium citrate 250 mg PO DAILY 04/03/24 09/11/24 History cranberry extract 500 mg capsule 500 mg PO DAILY 04/03/24 09/11/24 History cyanocobalamin (vitamin B-12) 500 500 mcg PO DAILY 04/03/24 09/11/24 History mcg tablet ergocalciferol (vitamin D2) 50 mcg 50 mcg PO DAILY 04/03/24 09/11/24 History (2,000 unit) capsule estradiol 0.01% (0.1 mg/gram) 1 g vaginal 3XW 04/03/24 09/11/24 History vaginal cream famotidine 20 mg tablet 20 mg PO BID 04/03/24 09/11/24 History fenofibrate 160 mg tablet 160 mg PO DAILY 04/03/24 09/11/24 History ferrous sulfate 325 mg (65 mg 325 mg PO DAILY 04/03/24 09/11/24 History iron) tablet (Feosol) fluoxetine 20 mg capsule 20 mg PO DAILY 04/03/24 09/11/24 History gabapentin 300 mg capsule 600 mg PO .QID 04/03/24 09/11/24 History garlic 500 mg capsule 500 mg PO DAILY 04/03/24 09/11/24 History hydrochlorothiazide 12.5 mg capsule 25 mg PO DAILY 04/03/24 09/11/24 History icosapent ethyl 1 gram capsule 2 g PO BID 04/03/24 09/11/24 History lactobacillus combination no.9 4 4,000 mmu cells PO DAILY 04/03/24 09/11/24 History billion cell capsule (Adult 50 Plus Probiotic) lorazepam 1 mg tablet 1.5 mg PO TID PRN anxiety 04/03/24 09/11/24 History losartan 100 mg tablet 100 mg PO DAILY 04/03/24 09/11/24 History magnesium gluconate 500 mg tablet 500 mg PO DAILY 04/03/24 09/11/24 History multivitamin 1 tab PO DAILY 04/03/24 09/11/24 History prednisolone acetate 1 % eye 1 drp ophthalmic (eye) TID 04/03/24 09/11/24 History drops,suspension rosuvastatin 40 mg tablet 40 mg PO DAILY 04/03/24 09/11/24 History tamsulosin 0.4 mg capsule 0.4 mg PO DAILY 04/03/24 09/11/24 History trimethoprim 100 mg tablet 100 mg PO DAILY 04/03/24 09/11/24 History dulaglutide 0.75 mg/0.5 mL 0.75 mg (0.5 mL) subcut QWEEK #2 mL 09/11/24 09/11/24 Rx [facility] metformin 1,000 mg tablet 500 mg PO BID 09/11/24 09/11/24 History Have you fallen in the past year?: No [facility] Medical History (Updated 09/11/24 @ 17:18 by KELLEE Cornejo) Wears glasses Loose, teeth Wears partial dentures Panic attack Discoloration of skin Ambulates with cane Arthritis Kidney stones Low iron Anemia Fatty liver Easy bruising Restless legs History of IBS Heartburn Former smoker Hoarseness Chronic cough History of edema History of stress test UTI (urinary tract infection) GERD (gastroesophageal reflux disease) History of kidney stones History of trigger finger Anxiety Type 2 diabetes mellitus Hyperlipidemia HTN (hypertension) Personal history of colonic polyps Surgical History History of total bilateral knee replacement (TKR) Hx of appendectomy History of tonsillectomy and adenoidectomy Hx of colonoscopy Social History household members: spouse current occupational status: retired Smoking Status: Former smoker alcohol intake: never substance use type: does not use HPI HPI Chief Complaint: establish care- diabetes Details: DEBBIE HAYES, is a 74 F who presents to (more content not included)... Normal [facility] Urine Cultureon 08-22-2024 Bacteria identified Cx Nom (U) ORGANISM ID: 1.1 - Enterobacter cloacae Kerens Count >100,000 CFU/ml ORGANISM ID: 1.2 - Klebsiella pneumoniae Kerens Count 50,000-100,000 CFU/ml ORGANISM ID: 1.1 ANTIBIOTIC [...] F Pip+Tazo Islt BALAJI S <8 F ORGANISM ID: 1.2 ANTIBIOTIC INTERPRETATION BALAJI STATUS Ampicillin Islt BALAJI R >16 F Ampicillin+Sulbac Islt BALAJI S <8/4 F Cefazolin Islt BALAJI S <2 F Cefepime Islt BALAJI S <2 F Ceftazidime+Avibactam Islt BALAJI S <8 F Ceftazidime Islt BALAJI S <1 F Ceftriaxone Islt BALAJI S <1 F Ertapenem Islt BALAJI S <0.5 F Gentamicin Islt BLAAJI S <2 F Levofloxacin Islt BALAJI I 1 F Meropenem Islt BALAJI S <1 F Nitrofurantoin Islt BALAJI R >64 F Tobramycin Islt BALAJI S <2 F TMP SMX Islt BALAJI S <2/38 F Pip+Tazo Islt BALAJI S <8 F Normal [facility] ([place]) Comment on above: Performed By: #### 6 30-4 #### [facility] [address] [place], [place] [address] Low Dose CT Lung Screeningon 08-21-[address] Lung Screening [facility] Imaging Services [address] [place] [id number] Lung Screening MR#: [id number] Acct: [id number] Name: DEBBIE HAYES Rep #: [id number] : 1950 F 74 From: Huang Kidd MD PCP: KENY WISE Status: REG CL Study: Low Dose CT Lung Screening Date of Exam: 08/21 Exam# [id number] Ordering Dr: JULIET JUAREZ ADDENDUM by Dr. Delvis Gallardo MD on 09/17/24 at 0951 ====== ADDENDUM ====== [id number] This is an addendum report for measurement of the abnormality seen in the superior aspect of the right lobe of the liver. The cystic nodule measures 1.3 cm x 1.7 cm. Electronically Signed: Delvis Gallardo MD at 9:51 EST , 09/17/24 0951 Date cc: JULIET JUAREZ; KENY WISE * Signed ADDENDUM by Dr. Rasheed Alvarez MD on 09/16/24 at 2128 ====== ADDENDUM ====== [id number] Referring service request measurement of the liver: The liver is mildly to moderately enlarged maximally measuring 19.40 cm in diameter. Electronically Signed: Rasheed Alvarez MD at 21:28 EST , 09/16/242127 Date cc: JULIET NATALIELEX; KENY WISE * Signed ADDENDUM by Dr. Delvis Gallardo MD on 09/17/[address]/Low Dose CT Lung Screening IMPRESSION: undefined 09/17/24 0958 Date cc: JULIETTOMASZ ESTRADALEX; KENY WISE * Signed ADDENDUM by Dr. Rasheed Alvarez MD on 09/16/[address]/Low Dose CT Lung Screening IMPRESSION: undefined 09/16/242134 Date cc: JULIET JUAREZ; KENY WISE * Signed [id number] STUDY: LOW DOSE CT LUNG CANCER SCREENING REASON FOR EXAM: Female, 74 years old. 20+ pack year history of smoking RADIATION DOSAGE (If Supplied By Facility): CTDIvol = ( 2.39 ) mGy, DLP = ( 69.38 ) mGycm TECHNIQUE: No contrast was administered. Low dose technique was utilized (average mAS-38 and kVp 120). 1.25 mm axial source images with a slice interval of 1.25-mm were reconstructed in lung windows. 2.5 mm axial source images with a slice interval of 2.5-mm were reconstructed in lung windows. 5.0 mm axial source images with a slice interval of 5.0-mm were reconstructed in soft tissue windows. COMPARISON: None. FINDINGS: Lungs are expanded with interstitial edema suggesting pulmonary vascular congestion or diffuse inflammatory change. There is no organized infiltrate or effusion. No suspicious noncalcified mass or nodule. Chronic interstitial changes noted in both lung evangelista with evidence of chronic bronchitis. Limited soft tissue windows show a normal-appearing thyroid gland. No suspicious adenopathy. There are calcified coronary vessels. Small retrocardiac hiatal hernia with evidence of GE reflux. Limited cuts of the upper abdomen show hepatic cyst or hemangioma which is incompletely visualized. Bony structures show degenerative change CT/Low Dose CT Lung Screening IMPRESSION: Lung-RADS category 2 - Continue annual screening with LDCT in 12 months. IMPORTANT NOTES FOR USE: ACR Lung-RADS Version 1.1 Assessment Categories Release Date: 2018 Category: Coded 0-4 bases on nodule(s) with highest degree of suspicion. Negative screen is defined as categories 1 and 2; a positive screen is defined as categories 3 and 4. Category 3 and 4A nodules that are unchanged on interval CT should be coded as category 2, and individuals returned to screening in 12 months. Category 4X: Category 3 or 4 nodules with additional imaging findings that increase the suspicion of lung cancer, such as spiculation, GGN that doubles in size in 1 year, enlarged lymph notes, etc. Category Modifiers: S (significant finding unrelated to lung cancer) Electronically Signed: Tye Kidd MD at 8:17 EST , CC: JULIET JUAREZ; KENY WISE Managing Consultant Clinical Professor: Signed Normal [facility] Appearance urOrdered By: Balaji Virgen on 08-18-2024 Appearance (U) Appearance ur [facility] Automated leukocyte clumps c ount in urine sediment (number/area)Ordered By: Alexis Virgen on 08-18-2024 Leukocyte clumps Auto (Urine sed) [#/Area] Automated leukocyte clumps count in urine sediment (number/area) None Seen [facility] Automated urine white blood cell countOrdered By: Alexis Virgen on 08-18-2024 WBC Auto (U) [#/Vol] Automated urine whi te blood cell count None Seen [facility] Bacteria detection in urine sediment by light microscopyOrdered By: Alexis Virgen on 08-18-2024 Bacteria LM Ql (Urine sed) Bacteria [Pre sence] in Urine sediment by Light microscopy None Seen [facility] Complete urinalysis with ref lita to cultureOrdered By: Alexis Virgen on 08-18-2024 Urinalysis complete W Reflex Culture panel (U) Complete urinalysis with reflex to culture [facility] Comment on above: A Urine Culture has been added to this specimen. Detection in urine of either or both bilirubin and urobilinogenOrdered By: Alexis Virgen on 08-18-2024 Bilirubin+Urobilinogen Ql (U) Detection in urine of either or both bilirubin and urobilinogen Negative [facility] Microscopic examination of u rineOrdered By: Alexis Virgen on 08-18-2024 Microscopic observation LM Nom (Urine sed) Microscopic examination of urine [facility] Microscopic observation LM N om (Urine sed)on 08-18-2024 Bacteria LM Ql (Urine sed) 4+ /HPF Normal None Seen [facility] ([place]) Comment on above: Order Comment: Urine,Clean Catch Performed By: #### U , 69691-1 #### [address] [address] Leukocyte clumps Auto (Urine sed) [#/Area] FEW Normal None Seen [facility] ([place] Comment on above: Order Comment: Urine,Clean Catch Performed By: #### U , 64710-3 #### [address] [address] RBC Ql (U) 0-5 Normal None Seen [facility] ([place]) Comment on above: Order Comment: Urine,Clean Catch Performed By: #### U , 89238-5 #### [address] [address] Transitional cells LM Ql (Urine sed) MODERATE Normal None Seen [facility] ([place] Comment on above: Order Comment: Urine,Clean Catch Performed By: #### U , 98873-5 #### [address] [address] WBC Auto (U) [#/Vol] 51-100 Normal None Seen [facility] ([place]) Comment on above: Order Comment: Urine,Clean Catch Performed By: #### U , 71850-0 #### [address] [address] RBC LM Ql (Urine sed)Ordered By: Alexis Virgen on 08-18-2024 RBC Ql (U) Erythrocytes detecti on in urine sediment by light microscopy None Seen [facility] Transitional cells detection in urine sediment by light microscopyOrdered By: Alexis Virgen on 08-18-2024 Transitional cells LM Ql (Urine sed) Transitional cells detection in urine sediment by light microscopy None Seen [facility] Urinalysison 08-18-2024 Urinalysis complete W Reflex Culture panel (U) REFLEXED TO CULTURE Normal [facility] ([place]) Comment on above: Order Comment: Urine,Clean Catch Result Comment: A Ur ine Culture has been added to this specimen. Performed By: #### U , 85917-5 #### [address] [place] [address] Appearance (U) HAZY Normal [facility] ([place]) Comment on above: Order Comment: Urine,Clean Catch Performed By: #### U , 16699-0 #### [facility] [address] [place] [address] Bilirubin+Urobilinogen Ql (U) Negative Normal Negative [facility] ([place]) Comment on above: Order Comment: Urine,Clean Catch Performed By: #### U , 48912-9 #### [facility] [address] [place] [address] Color (U) YELLOW Normal [facility] ([place]) Comment on above: Order Comment: Urine,Clean Catch Performed By: #### U , 61901-1 #### [address] [address] Glucose Auto test strip (U) [Mass/Vol] Negative Normal Negative [facility] ([place]) Comment on above: Order Comment: Urine,Clean Catch Performed By: #### U , 72230-6 #### [address] [address] Ketones Ql (U) Negative Normal Negative [facility] ([place]) Comment on above: Order Comment: Urine,Clean Catch Performed By: #### U , 91578-0 #### [facility] [address] [place] [address] Microscopic observation LM Nom (Urine sed) YES Normal [facility] ([place]) Comment on above: Order Comment: Urine,Clean Catch Performed By: #### U , 09051-4 #### [address] [address] Nitrate Ql (U) Negative Normal Negative [facility] ([place]) Comment on above: Order Comment: Urine,Clean Catch Performed By: #### U , 13374-2 #### [address] [address] pH (U) 6.0 [pH] Normal 4.6-8.0 [facility] ([place] Comment on above: Order Comment: Urine,Clean Catch Performed By: #### U , 94150-7 #### [facility] [address] [place] [address] Protein Auto test strip Ql (U) >=500 Abnormal Negative [facility] ([place] Comment on above: Order Comment: Urine,Clean Catch Performed By: #### U , 40944-6 #### [facility] [address] [place] [address] RBC Ql (U) Negative Normal Negative [facility] ([place] Comment on above: Order Comment: Urine,Clean Catch Performed By: #### U , 97842-9 #### [facility] [address] [place] [address] Specific gravity (U) [Rel density] 1.014 Normal 1.001-1.03 5 [facility] ([place] Comment on above: Order Comment: Urine,Clean Catch Performed By: #### U , 84736-0 #### [facility] [address] [place] [address] Urobilinogen (U) [Mass/Vol] Negative Normal Negative [facility] ([place] Comment on above: Order Comment: Urine,Clean Catch Performed By: #### U , 32964-4 #### [facility] [address] [place] [address] WBC Visual Ql (U) MODERATE Abnormal Negative [facility] ([place] Comment on above: Order Comment: Urine,Clean Catch Performed By: #### U , 67377-7 #### [facility] [address] [place] [address] Urine blood detectionOrdered By: Alexis Virgen on 08-18-2024 RBC Ql (U) Urine blood detection Negative [facility] Urine colorOrdered By: Tobin Virgen on 08-18-2024 Color (U) Color ur [facility] Urine glucose measurement by automated test strip (mass/volume)Ordered By: Alexis Virgen on 08-18-2024 Glucose Auto test strip (U) [Mass/Vol] Glucose [Mass/volume] in Urine by Automated test strip Negative [facility] Urine ketones detectionOrder ed By: Alexis Virgen on 08-18-2024 Ketones Ql (U) Urine ketones detection Negative [facility] Urine leukocytes detection b y microscopyOrdered By: Alexis Virgen on 08-18-2024 WBC Visual Ql (U) Urine leukocytes detection by microscopy Negative [facility] Urine nitrate detectionOrder ed By: Alexis Virgen on 08-18-2024 Nitrate Ql (U) Urine nitrate detection Negative [facility] Urine pHOrdered By: Alexis Virgen on 08-18-2024 pH (U) Urine pH 4.6-8.0 [facility] Urine protein detection by a utomated test stripOrdered By: Alexis Virgen on 08-18-2024 Protein Auto test strip Ql (U) Urine protein detection by automated test strip Negative [facility] Urine specific gravity measu rementOrdered By: Alexis Virgen on 08-18-2024 Specific gravity (U) [Rel density] Specific gravity of Urine 1.001-1.03 5 [facility] Urobilinogen Test strip (U) [Mass/Vol]Ordered By: Alexis Virgen on 08-18-2024 Urobilinogen (U) [Mass/Vol] Urobilinogen [Mass/volume] in Urine by Test strip Negative [facility] Abdomen Single Viewon 2023 Abdomen Single View [facility] Services [address] [place], [place] [id number] Abdomen Single View MR#: [id number] Acct: [id number] Name: DEBBIE HAYES Rep #: [id number] : 1950 F 74 From: Pedro Ervin MD PCP: Care Physician,No Primary Status: REG CLI Study: Abdomen Single View Date of Exam: 07/28/24 Exam# [id number] Ordering Dr: ALEXIS VIRGEN [id number] STUDY: X-RAY - ABDOMEN/PELVIS REASON FOR EXAM: Female, 74 years old. Calculus of kidney TECHNIQUE: Single AP view of the abdomen / pelvis. COMPARISON: None. FINDINGS: Normal visualized lung bases. There is an unremarkable bowel gas pattern. The visualized liver, spleen and kidneys are grossly normal in size and morphology. Normal soft tissue structures. Normal visualized osseous structures. RAD/Abdomen Single View IMPRESSION: Normal x-ray examination of the abdomen and pelvis. Electronically Signed: Pedro Ervin MD at 10:32 EST , CC: ALEXIS VIRGEN; No Primary Care Physician Managing Consultant Clinical Professor: Signed Normal [facility] Basic metabolic 2000 panelOr dered By: Jackeline Hart on 07-17-2024 Anion gap [Moles/Vol] 13 mmol/L 8 - 15 mmol/L [facility] Calcium [Mass/Vol] 9.6 mg/dL 8.5 - 10. 2 mg/dL [facility] Chloride [Moles/Vol] 101 mmol/L 98 - 10 7 mmol/L [facility] CO2 [Moles/Vol] 18 mmol/L Low 22 - 30 mmol/L [facility] Creatinine [Mass/Vol] 1.72 mg/dL High 0.58 - 0.96 mg/dL [facility] GFR/1.73 sq M.predicted among non-blacks MDRD (S/P/Bld) [Vol rate/Area] 31 mL/min/{1.73_m2} Low - PINF [facility] Comment on above: Estimated Glomerular Filtration Rate (eGFR) is calculated using the 2020 CKD-EPI creatinine equation. This equation utilizes serum creatinine, sex, and age as parameters. The creatinine assay has traceable calibration to isotope dilution-mass spectrometry. Refer to KDIGO guidelines for clinical interpretation. In patients with unstable renal function, e.g. those with acute kidney injury, the eGFR may not accurately reflect actual GFR. Glucose [Mass/Vol] 151 mg/dL High 74 - 99 mg/dL [facility] Comment on above: The [place] Diabete s Association (ADA) provides guidance for cutoff values [...] Standards of Medical Care in Diabetes 2016, [place] [employer]. Diabetes Care. 2016.39(Suppl 1). Interpretation and review of laboratory results Abnormal [facility] Potassium [Moles/Vol] 4.9 mmol/L 3.7 - 5.1 mmol/L [facility] Sodium [Moles/Vol] 132 mmol/L Low 136 - 144 mmol/L [facility] Urea nitrogen [Mass/Vol] 44 mg/dL High 7 - 21 mg/dL [facility] Basic metabolic 2000 panelon 07-17-2024 Anion gap [Moles/Vol] 13 mmol/L Normal 8-15 [facility] Comment on above: Order Comment: Saran box Type: BLOOD SPECIMEN Ordering Facility: [facility] Address: [address] [place] [address] Performed By: #### 2 4321-2 #### [facility] CLIA [id number] [address] [place] [address] [place] Calcium [Mass/Vol] 9.6 mg/dL Normal 8.5-10.2 [facility] Comment on above: Order Comment: Saran box Type: BLOOD SPECIMEN Ordering Facility: [facility] Address: [address] [place] [address] Performed By: #### 2 4321-2 #### [facility] CLIA [id number] [address] [place] [address] [place] Chloride [Moles/Vol] 101 mmol/L Normal 98-107 [facility] Comment on above: Order Comment: Speci men Type: BLOOD SPECIMEN Ordering Facility: [facility] Address: [address] [place] [address] Performed By: #### 2 4321-2 #### [facility] CLIA [id number] [address] [place] [address] [place] CO2 [Moles/Vol] 18 mmol/L Low 22-30 [facility] Comment on above: Order Comment: Speci men Type: BLOOD SPECIMEN Ordering Facility: [facility] Address: [address] [place] [address] Performed By: #### 2 4321-2 #### [facility] CLIA [id number] [address] [place] [address] [place] Creatinine [Mass/Vol] 1.72 mg/dL High 0.58-0.96 [facility] Comment on above: Order Comment: Speci men Type: BLOOD SPECIMEN Ordering Facility: [facility] Address: [address] [place] [address] Performed By: #### 2 4321-2 #### [facility] CLIA [id number] [address] [place] [address] [place] Creatinine and Glomerular filtration rate.predicted panel (S/P/Bld) 31 mL/min/1.73m??? Low >=60 [facility] Comment on above: Order Comment: Speci men Type: BLOOD SPECIMEN Ordering Facility: [facility] Address: [address] [place] [address] Result Comment: Audrey mated Glomerular Filtration Rate (eGFR) is calculated using the 2020 CKD-EPI creatinine equation. This equation utilizes serum creatinine, sex, and age as parameters. The creatinine assay has traceable calibration to isotope dilution-mass spectrometry. Refer to KDIGO guidelines for clinical interpretation. In patients with unstable renal function, e.g. those with acute kidney injury, the eGFR may not accurately reflect actual GFR. Performed By: #### 2 4321-2 #### [facility] [id number] [address] [place] [address] [place] Glucose [Mass/Vol] 151 mg/dL High 74-99 [facility] Comment on above: Order Comment: Saran box Type: BLOOD SPECIMEN Ordering Facility: [facility] Address: [address] [place] [address] Result Comment: The [place] Diabetes Association (ADA) provides guidance for cutoff [...] Standards of Medical Care in Diabetes 2016, [place] Diabetes Association. Diabetes Care. 2016.39(Suppl 1). Performed By: #### 2 4321-2 #### [facility] [id number] [address] [place] [address] [place] Potassium [Moles/Vol] 4.9 mmol/L Normal 3.7-5.1 [facility] Comment on above: Order Comment: Saran box Type: BLOOD SPECIMEN Ordering Facility: [facility] Address: [address] [place], [place] [address] Performed By: #### 2 4321-2 #### [facility] [id number] [address] [place] [address] [place] Sodium [Moles/Vol] 132 mmol/L Low 136-144 [facility] Comment on above: Order Comment: Saran bxo Type: BLOOD SPECIMEN Ordering Facility: [facility] Address: [address] [place] [address] [place] [address] Performed By: #### 2 4321-2 #### [facility] [id number] [address] [place] [address] [facility] Urea nitrogen [Mass/Vol] 44 mg/dL High 7-21 [facility] Comment on above: Order Comment: Speci men Type: BLOOD SPECIMEN Ordering Facility: [facility] Address: [address] [place] [address] Performed By: #### 2 4321-2 #### [facility] CLIA [id number] [address] [facility] CNOVon 07-17-2024 CNOV Office Visit ([facility]WSTR ) DEBBIE HAYES ([id number]) 1950 F Date Time Provider Department 07/17/24 10:45 AM [facility] During your visit today, we recorded the following information about you: Temperature Pulse Respiration Blood pressure 100.2 degrees 90/minute 19/minute 116/56 Weight 81 kg Eduardo Grimes MD 07/17/2024 12:24 PM Signed Patient presents [...] swabs (BD SINGLE USE SWABS REGULAR) PEG 7014-Pfiexvdkqhq-Zzf C (MOVIPREP) 100-7.5-2.691 gram phenazopyridine (PYRIDIUM) 100 [...] increasing chest pain, or worsening lethargy. Eduardo Grimes MD Allergies As of Date: 07/17/2024 Noted [...] [R05.1] Order(s):BASIC METABOLIC PANEL [SQBMP] Order #: [id number] FUTURE XR CHEST 2V FRONTAL/LAT [[id number]] Order #: [id number] FUTURE nirmatrelvir tablet 150 mg and ritonavir tablet 100 mg in a dose pack (PAXLOVID)Administer ONE pink nirmatrelvir 150 mg tablet and ONE white ritonavir 100 mg tablet for a total of two tablets twice daily.Disp: 20 tabletRfl: 0 benzonatate (TESSALON PERLE) 100 mg capsuleTake 1 capsule by mouth every 8 hours as needed f (more content not included)... Normal [facility] DBE[facility] ([id number]) 1950 F Date Time Provider Department 07/17/24 [facility] During your visit today, we recorded the following information about you: Eduardo Grimes MD 07/17/2024 7:19 AM Signed COVID test [...] - Itching Date Reviewed: 07/16/2024 Reviewed by: Jordan Chester APRN.[employer] - Fully Assessed Reason for Visit: Results [...] (BD SINGLE USE SWABS REGULAR) - PEG 2153-Ajcvpysnwlb-Lhp C (MOVIPREP) 100-7.5-2.691 gram - phenazopyridine (PYRIDIUM) [...] Encounter Status:Closed by ANGEL PUENTES on 07/17/24 Normal [facility] XR CHEST 2V FRONTAL/LATon XR CHEST 2V FRONTAL/LAT * * *Final Repor t* * * DATE OF EXAM: Jul 17 [...] thoracic spine. IMPRESSION: No acute radiographic abnormality. Managing Consultant Clinical Professor: O[facility]EL Transcribe Date/Time: Jul 17 2024 11:38A Dictated by : DIXIE MAYS MD This examination was interpreted and the report reviewed and electronically signed by: DIXIE MAYS MD on Jul 17 2024 11:40AM EST [id number] Normal [facility] XR Chest PA and Lateralon IMPRESSION: No acute radiographic abnormality. Managing Consultant Clinical Professor: [facility] Transcribe Date/Time: Jul 17 2024 11:38A Dictated by : DIXIE MAYS MD This examination was interpreted and the report reviewed and electronically signed by: DIXIE MAYS MD on Jul 17 2024 11:40AM EST DIVISION OF RADIOLOGY * * *Final Report* * * DATE OF EXAM: Jul 17 2024 11:27AM WOX 5291 - XR CHEST 2V FRONTAL/LAT / PROCEDURE REASON: multiple diagnoses * * * * Physician Interpretation * * * * EXAMINATION: CHEST RADIOGRAPH (2 VIEW FRONTAL & LATERAL) CLINICAL HISTORY: Acute COVID-19 Acute cough MQ: XC2_6 EXAM DATE/TIME: 07/17/2024 11:27 AM COMPARISON: No relevant prior studies available. RESULT: Lines, tubes, and devices: None. Lungs and pleura: No consolidation. No lung mass. No pleural effusion. No pneumothorax. Cardiomediastinal silhouette: Normal cardiomediastinal silhouette. Bones and soft tissues: Degenerative disease of the thoracic spine. DIVISION OF RADIOLOGY Provider, Debbie Matthewbelkys [facility] - 07/17/2024 * * *Final Report* * * DATE OF EXAM: Jul 17 2024 11:27AM WOX 5291 - XR CHEST 2V FRONTAL/LAT / PROCEDURE REASON: multiple diagnoses * * * * Physician Interpretation * * * * EXAMINATION: CHEST RADIOGRAPH (2 VIEW FRONTAL & LATERAL) CLINICAL HISTORY: Acute COVID-19 Acute cough MQ: XC2_6 EXAM DATE/TIME: 07/17/2024 11:27 AM COMPARISON: No relevant prior studies available. RESULT: Lines, tubes, and devices: None. Lungs and pleura: No consolidation. No lung mass. No pleural effusion. No pneumothorax. Cardiomediastinal silhouette: Normal cardiomediastinal silhouette. Bones and soft tissues: Degenerative disease of the thoracic spine. IMPRESSION IMPRESSION: No acute radiographic abnormality. Managing Consultant Clinical Professor: PSCB Transcribe Date/Time: Jul 17 2024 11:38A Dictated by : DIXIE MAYS MD This examination was interpreted and the report reviewed and electronically signed by: DIXIE MAYS MD on Jul 17 2024 11:40AM EST [facility] Radiology Study observation (narrative) [facility] XR Chest PA and LateralOrder ed By: Ccf Provider on 07-17-2024 [facility] STREP A MOLECULAR (POC)on Procedural Control Valid [facility] Strep A (POCT) Negative Negative [facility] UA DIP, URINE (POC)on 2023 BILIRUBIN UA (POCT) Negative Negative [facility] CLARITY UA (POCT) Clear [facility] COLOR UA (POCT) Yellow [facility] GLUCOSE UA (POCT) Negative Negative mg/dL [facility] Hemoglobin Ql (U) Trace-intact Abnormal Negative [facility] Interpretation and review of laboratory results Abnormal [facility] KETONE UA (POCT) Negative Negative mg/dL [facility] LEUKOCYTES UA (POCT) Negative [facility] NITRITE UA (POCT) Negative Negative [facility] PH UA (POCT) 6.5 4.5 - 8.0 [facility] Protein Ql (U) >=300 Abnormal Negative mg/dL [facility] SPECIFIC GRAVITY UA (POCT) 1.025 1 .005 - 1.030 [facility] UROBILINOGEN UA (POCT) 0.2 Maya l E.U./dL [facility] Location:[facility], [address], [place], [address] [facility] POINT OF CARE [facility] Basophil percentageon 2023 Bilirubin [Mass/Vol] 0.60 mg/dL 0.20-1.00 [facility] Comment on above: For patients on eltr ombopag therapy, use of Dimension [place] TBIL is not recommended. Chloride [Moles/Vol] 110 mmol/L 98-107 [facility] Cholesterol [Mass/Vol] 147 mg/dL <200 [facility] Comment on above: <200 mg/dL Desirable 200-240 mg/dL Borderline >240 mg/dL High Risk Glucose [Mass/Vol] 168 mg/dL 74-106 [facility] Comment on above: Fasting Glucose resu lt greater than or equal to 126 mg/dL suggests DIABETES MELLITUS per A.D.A. criteria. Hemoglobin (Bld) [Mass/Vol] 10.9 g/dL 12.0-15. 0 [facility] Potassium [Moles/Vol] 4.8 mmol/L 3.5-5.1 [facility] Protein [Mass/Vol] 7.6 g/dL 6.4-8.2 [facility] Sodium [Moles/Vol] 141 mmol/L 136-145 [facility] Triglyceride [Mass/Vol] 280 mg/dL <199 [facility] Comment on above: The drugs N-Acetylcy steine and Metamizole may falsely depress this assay.Serum Triglycerides Reference Interval Normal <150 mg/dL Borderline high 150 - 199 mg/dL High 200 - 499 mg/dL Very High > or = 500 mg/dL WBC (Bld) [#/Vol] 8.3 10*3/uL 4.4-11.0 [facility] Determination of erythrocyte mean corpuscular volume (MCV)on 01-01-2024 MCV (RBC) [Entitic vol] 70.3 fL 81-99 [facility] Erythrocyte distribution wid th ratioon 01-01-2024 Erythrocyte distribution width (RBC) [Ratio] 16.8 % 11.6-14.6 [facility] Erythrocyte distribution wid th standard deviationon 01-01-2024 Erythrocyte distribution width (RBC) [Entitic vol] 40.3 fL 35.1-43.9 [facility] Hematocrit Auto (Bld) [Volum e fraction]on 01-01-2024 Hematocrit (Bld) [Volume fraction] 37.4 % 37-47 [facility] Laboratory - Chemistry and C hemistry - challengeon 01-01-2024 Albumin/Globulin [Mass ratio] 1.2 {ratio} 0.9-2.4 [facility] ALP [Catalytic activity/Vol] 47 U/L 45-117 [facility] ALT [Catalytic activity/Vol] 40 U/L 13-56 [facility] Cholesterol in HDL [Mass/Vol] 34 mg/dL >40 [facility] Comment on above: The drugs N-Acetylcy steine and Metamizole may falsely depress this assay. Reference Range HDL <40 mg/dL Low HDL Cholesterol HDL >or= 60 mg/dL High HDL Cholesterol Cholesterol in LDL [Mass/Vol] 57 mg/dL 0-130 [facility] CO2 [Moles/Vol] 25.0 mmol/L 21.0-32.0 [facility] Globulin (S) [Mass/Vol] 3.4 g/dL 2.2-4.2 [facility] Urea nitrogen/Creatinine [Mass ratio] 17.7 mg/mg 10-20 [facility] - Hematology and Cell countson 01-01-2024 MCH (RBC) [Entitic mass] 20.5 pg 27.0-32.0 [facility] MCHC (RBC) [Mass/Vol] 29.1 g/dL 32-36 [facility] Platelet mean volume (Bld) [Entitic vol] 10.4 fL 6.2-12.0 [facility] Platelets (Bld) [#/Vol] 299 10*3/uL 150-450 [facility] No Panel Informationon 12-31 Estimated GFR (MDRD) Amer 51 mL/min >60 [facility] Comment on above: GFR Calc Estimated GFR (MDRD) Non-Af Amer 42 mL/min >60 [facility] Comment on above: Non- GFR Calc Urine Microalbumin/Creatinine Ratio 2335.9 mg/g CRE <30 [facility] VLDL Cholesterol 56 mg/dL 5-40 [facility] RBC Auto (Bld) [#/Vol]on RBC (Bld) [#/Vol] 5.32 10*6/uL 4.2-5.[address] [facility] Serum or plasma calcium radha urement (mass/volume)on 01-01-2024 Calcium [Mass/Vol] 9.2 mg/dL 8.5-10.1 [facility] Serum or plasma creatinine m easurement (mass/volume)on 01-01-2024 Creatinine [Mass/Vol] 1.30 mg/dL 0.55-1.02 [facility] Comment on above: The validity of the calculated GFR & GFRAA in patients over 70 years has not been determined. Clinical correlation is essential. Serum or plasma urea nitroge n measurement (mass/volume)on 01-01-2024 Urea nitrogen [Mass/Vol] 23 mg/dL 7-18 [facility] Thin prep Papanicolaou smear with manual screeningon 01-01-2024 Thin prep Papanicolaou smear with manual screening 4.2 g/dL 3.2-5.0 [facility] Thin prep Papanicolaou smear with manual screening 36 U/L 15-37 [facility] Thin prep Papanicolaou smear with manual screening 6 5-15 [facility] Thin prep Papanicolaou smear with manual screening 1530.0 mg/L NO RANGE EST. [facility] Urine creatinine measurement (mass/volume)on 01-01-2024 Creatinine (U) [Mass/Vol] 65.50 mg/dL NO RANGE EST. [facility] Whole blood hemoglobin A1c/t otal hemoglobin ratio (mass fraction)on 01-01-2024 HbA1c (Bld) [Mass fraction] 6.8 % 3.8-5.6 [facility] Comment on above: Normal < 5.7 % Predi abetic 5.7 - 6.4 % Diabetic >or= 6.5 % Please note range changes. LDL Cholesterol (Direct)on 0 10-16-2023 LDL Chol Direct 81 mg/dL Normal 0-99 [facility] Comment on above: Result Comment: Perf ormed at: 01 - [facility] [address] [id number] Cloth Printing Inspector: Davide Damon PhD, Phone: [phone] Lipid Comment TNP Normal . [facility] CBC with AUTO DIFFon 024 BAS0 % 0.80 % Normal 0-2 [facility] Comment on above: Performed By: #### C BC, DIFF (MANUAL) #### [address] [place] [address] Basophils (Bld) [#/Vol] 0.1 10*3/uL Normal 0-0.1 [facility] Comment on above: Performed By: #### C BC, DIFF (MANUAL) #### [address] [address] Eosinophils (Bld) [#/Vol] 0.2 10*3/uL Normal 0.0-1.80 [facility] Comment on above: Performed By: #### C BC, DIFF (MANUAL) #### [address] [address] Eosinophils/100 WBC (Bld) 2.1 % Normal 0-8 [facility] Comment on above: Performed By: #### C BC, DIFF (MANUAL) #### [address] [address] GRAN # 5.3 K/uL Normal 2.2-9.1 [facility] Comment on above: Performed By: #### C BC, DIFF (MANUAL) #### [address] [address] GRAN % 67.4 % Normal 42-80 [facility] Comment on above: Performed By: #### C BC, DIFF (MANUAL) #### [address] [address] Hematocrit (Bld) [Volume fraction] 38.7 % Normal 37.0-47.0 [facility] Comment on above: Performed By: #### C BC, DIFF (MANUAL) #### [address] [address] Hemoglobin (Bld) [Mass/Vol] 11.9 g/dL Low 12.0-16. 0 [facility] Comment on above: Performed By: #### C BC, DIFF (MANUAL) #### [address] [address] Lymphocytes (Bld) [#/Vol] 1.8 10*3/uL Normal 1.0-4.0 [facility] Comment on above: Performed By: #### C BC, DIFF (MANUAL) #### [address] [address] Lymphocytes/100 WBC (Bld) 22.3 % Normal 16-48 [facility] Comment on above: Performed By: #### C BC, DIFF (MANUAL) #### [address] [place] [address] MCV (RBC) [Entitic vol] 67.5 fL Low 80-97 [facility] Comment on above: Performed By: #### C BC, DIFF (MANUAL) #### [address] [address] MEAN CORPUSCULAR HGB 20.8 pg Low 26.0-32.0 [facility] Comment on above: Performed By: #### C BC, DIFF (MANUAL) #### [address] [address] MEAN CORPUSCULAR HGB CONC 30.8 g/dL Low 31.0-36.0 [facility] Comment on above: Performed By: #### C BC, DIFF (MANUAL) #### [address] [address] MONO DISTRIB WIDTH Not performed Normal 0-20 [facility] Comment on above: Performed By: #### C BC, DIFF (MANUAL) #### [address] [address] Monocytes (Bld) [#/Vol] 0.6 10*3/uL Normal 0.1-1.7 [facility] Comment on above: Performed By: #### C BC, DIFF (MANUAL) #### [address] [address] Monocytes/100 WBC (Bld) 7.4 % Normal 3-9 [facility] Comment on above: Performed By: #### C BC, DIFF (MANUAL) #### [address] [address] Platelet mean volume (Bld) [Entitic vol] 8.5 fL Normal 6.6-10.5 [facility] Comment on above: Performed By: #### C BC, DIFF (MANUAL) #### [facility] [address] [facility] [place] [address] Platelets (Bld) [#/Vol] 317 10*3/uL Normal 140-450 [facility] Comment on above: Performed By: #### C BC, DIFF (MANUAL) #### [facility] [address] [facility] [place] [address] RBC (Bld) [#/Vol] 5.74 10*6/uL High 4.20-5.50 [facility] Comment on above: Performed By: #### C BC, DIFF (MANUAL) #### [facility] [address] [facility] [place] [address] RED CELL DISTRI WIDTH 16.3 % High 11.0-15.5 [facility] Comment on above: Performed By: #### C BC, DIFF (MANUAL) #### [facility] [address] [facility] [place] [address] WBC (Bld) [#/Vol] 7.9 10*3/uL Normal 4.0-11.0 [facility] Comment on above: Performed By: #### C BC, DIFF (MANUAL) #### [facility] [address] [facility] [place] [address] COMPREHENSIVE METABOLIC PANE Jl 10-15-2023 Albumin [Mass/Vol] 4.8 g/dL Normal 3.4-5.0 [facility] Comment on above: Performed By: #### D IFF (MANUAL), CBC #### [facility] [address] [facility] [place] [address] Albumin/Globulin [Mass ratio] 1.3 {ratio} Normal 1.1-1.8 [facility] Comment on above: Performed By: #### D IFF (MANUAL), CBC #### [facility] [address] [facility] [place] [address] ALP [Catalytic activity/Vol] 67 U/L Normal 45-117 [facility] Comment on above: Performed By: #### D IFF (MANUAL), CBC #### [facility] [address] [facility] [place] [address] ALT [Catalytic activity/Vol] 42 U/L Normal 12-78 [facility] Comment on above: Performed By: #### D IFF (MANUAL), CBC #### [address] [place] [address] Anion gap [Moles/Vol] 9.9 mmol/L Low 11-23 [facility] Comment on above: Performed By: #### D IFF (MANUAL), CBC #### [facility] [address] [place] [address] AST [Catalytic activity/Vol] 46 U/L High 15-37 [facility] Comment on above: Performed By: #### D IFF (MANUAL), CBC #### [facility] [address] [facility] [place] [address] Bilirubin [Mass/Vol] 0.6 mg/dL Normal 0.2-1.0 [facility] Comment on above: Performed By: #### D IFF (MANUAL), CBC #### [facility] [address] [place] [address] Calcium [Mass/Vol] 10.3 mg/dL High 8.5-10.1 [facility] Comment on above: Performed By: #### D IFF (MANUAL), CBC #### [facility] [address] [facility] [place] [address] Chloride [Moles/Vol] 107 mmol/L Normal 98-107 [facility] Comment on above: Performed By: #### D IFF (MANUAL), CBC #### [facility] [address] [facility] [place] [address] CO2 [Moles/Vol] 25.0 mmol/L Normal 21-32 [facility] Comment on above: Performed By: #### D IFF (MANUAL), CBC #### [facility] [address] [facility] [place] [address] Creatinine [Mass/Vol] 1.20 mg/dL High 0.55-1.02 [facility] Comment on above: Performed By: #### D IFF (MANUAL), CBC #### [facility] [address] [facility] [place] [address] GFR AM 54.2 mL/min [facility] Comment on above: Result Comment: THE NORMAL LEVEL OF GFR VARIES ACCORDING TO AGE, SEX, AND BODY SIZE. A GFR LEVEL OF LESS THAN 60 ML/MIN REPRESENTS LOSS OF THE ADULT LEVEL OF NORMAL KIDNEY FUNCTION. Performed By: #### D IFF (MANUAL), CBC #### [facility] [address] [place] [address] GFR/1.73 sq M.predicted MDRD (S/P/Bld) [Vol rate/Area] 44.8 mL/min/{1.73_m2} Normal [facility] Comment on above: Performed By: #### D IFF (MANUAL), CBC #### [facility] [address] [facility] [place] [address] Globulin (S) [Mass/Vol] 3.6 g/dL Normal 2.5-4.6 [facility] Comment on above: Performed By: #### D IFF (MANUAL), CBC #### [address] [place] [address] Glucose [Mass/Vol] 139 mg/dL High 70-100 [facility] Comment on above: Performed By: #### D IFF (MANUAL), CBC #### [address] [place] [address] Potassium [Moles/Vol] 4.4 mmol/L Normal 3.5-5.1 [facility] Comment on above: Performed By: #### D IFF (MANUAL), CBC #### [address] [place] [address] Protein [Mass/Vol] 8.4 g/dL High 6.0-8.3 [facility] Comment on above: Performed By: #### D IFF (MANUAL), CBC #### [address] [place] [address] Sodium [Moles/Vol] 137 mmol/L Normal 136-145 [facility] Comment on above: Performed By: #### D IFF (MANUAL), CBC #### [address] [place] [address] Urea nitrogen [Mass/Vol] 28.0 mg/dL High 7-18 [facility] Comment on above: Performed By: #### D IFF (MANUAL), CBC #### [address] [place] [address] DIFFERENTIALon 10-15-2023 IMMATURE GRANS NONE SEEN [facility] Comment on above: Performed By: #### C BC, DIFF (MANUAL) #### [address] [place] [address] PLATELET ESTIMATE NORMAL Normal [facility] Comment on above: Performed By: #### C BC, DIFF (MANUAL) #### [address] [place] [address] POLYCHROMASIA MOD Normal [facility] Comment on above: Performed By: #### C BC, DIFF (MANUAL) #### [facility] [address] [facility] [place] [address] TEAR DROP CELLS FEW Normal [facility] Comment on above: Performed By: #### C BC, DIFF (MANUAL) #### [address] [place] [address] HYPOCHROMIA MOD Normal [facility] Comment on above: Performed By: #### C BC, DIFF (MANUAL) #### [address] [place] [address] MICROCYTOSIS MOD [facility] Comment on above: Performed By: #### C BC, DIFF (MANUAL) #### [address] [place] [address] OVALO/ELLIPTOCYTES MOD Normal [facility] Comment on above: Performed By: #### C BC, DIFF (MANUAL) #### [address] [place] [address] Anisocytosis Ql (Bld) MOD Normal [facility] Comment on above: Performed By: #### C BC, DIFF (MANUAL) #### [address] [place] [address] Basophils/100 WBC (Bld) 1 % Normal 0-2 [facility] Comment on above: Performed By: #### C BC, DIFF (MANUAL) #### [address] [place] [address] Eosinophils/100 WBC (Bld) 4 % Normal 0-8 [facility] Comment on above: Performed By: #### C BC, DIFF (MANUAL) #### [address] [place] [address] Lymphocytes/100 WBC (Bld) 20 % Normal 16-48 [facility] Comment on above: Performed By: #### C BC, DIFF (MANUAL) #### [address] [place] [address] Monocytes/100 WBC (Bld) 7 % Normal 3-9 [facility] Comment on above: Performed By: #### C BC, DIFF (MANUAL) #### [facility] [address] [facility] [place] [address] Neutrophils/100 WBC (Bld) 68 % Normal 42-80 [facility] Comment on above: Performed By: #### C BC, DIFF (MANUAL) #### [address] [place] [address] TOTAL CELLS COUNTED 100 #CELLS Normal [facility] Comment on above: Performed By: #### C BC, DIFF (MANUAL) #### [address] [place] [address] GLYCOHEMOGLOBIN (A1C)on EST AVG GLUCOSE 151 Normal [facility] Comment on above: Performed By: #### D IFF (MANUAL), CBC #### [address] [place] [address] HbA1c (Bld) [Mass fraction] 6.9 % Normal [facility] Comment on above: Result Comment: Inte rpretation of Hgb A1C results: <5.7% Normal 5.7% - 6.4% Prediabetes >6.4% Diabetes SAMPLES FROM PATIENTS WITH HEMOLYTIC ANEMIAS OR THE PRESENCE OF UNSTABLE HEMOGLOBINS LIKE HbSS OR HbSC WILL EXHIBIT DECREASED GLYCATED HGB DUE TO THE SHORTENED LIFE SPAN OF THE RED CELLS.RESULTS ARE NOT RELIABLE IN PATIENTS WITH CHRONIC BLOOD LOSS. Performed By: #### D IFF (MANUAL), CBC #### [address] [place] [address] IRONon 10-15-2023 Iron [Mass/Vol] 83 ug/dL Normal 50-170 [facility] Comment on above: Performed By: #### D IFF (MANUAL), CBC #### [address] [place] [address] LIPID PROFILE (FASTING)on CHOL/HDL RATIO 3.9 mg/dl Normal 3.7-5.6 [facility] Comment on above: Performed By: #### D IFF (MANUAL), CBC #### [address] [place] [address] Cholesterol [Mass/Vol] 160 mg/dL Normal 0-200 [facility] Comment on above: Performed By: #### D IFF (MANUAL), CBC #### [address] [place] [address] Cholesterol in HDL [Mass/Vol] 41 mg/dL Normal 40-60 [facility] Comment on above: Performed By: #### D IFF (MANUAL), CBC #### [facility] [address] [facility] [place] [address] Cholesterol in LDL [Mass/Vol] 65 mg/dL Normal 0-130 [facility] Comment on above: Performed By: #### D IFF (MANUAL), CBC #### [facility] [address] [facility] [place] [address] Triglyceride [Mass/Vol] 272 mg/dL High 0-150 [facility] Comment on above: Performed By: #### D IFF (MANUAL), CBC #### [facility] [address] [facility] [place] [address] VLDL CALCULATION 54 mg/dl Normal 5-40 [facility] Comment on above: Performed By: #### D IFF (MANUAL), CBC #### [facility] [address] [place] [address] MICROALBUMIN (RANDOM)on Creatinine (U) [Mass/Vol] 36.8 mg/dL Normal [facility] Comment on above: Result Comment: NO R EFERENCE RANGES AVAILABLE FOR RANDOM URINE SPECIMENS. Performed By: #### G LY #### [facility] [address] [facility] [place] [address] MICROALB/CREA RATIO 4103.3 mg/g Normal 0-30 [facility] Comment on above: Performed By: #### G LY #### [facility] [address] [facility] [place] [address] MICROALBUMIN MG/L 1510.0 mg/L Normal [facility] Comment on above: Performed By: #### G LY #### [facility] [address] [facility] [place] [address] VITAMIN B 12on 10-15-2023 Cobalamin (Vitamin B12) [Mass/Vol] 1337 pg/mL High 254-1320 [facility] Comment on above: Performed By: #### D IFF (MANUAL), CBC #### [facility] [address] [facility] [place] [address] Appearance urOrdered By: Balaji Virgen on 08-30-2023 Appearance (U) Cloudy [facility] Automated leukocyte clumps c ount in urine sediment (number/area)Ordered By: Alexis Virgen on 08-30-2023 Leukocyte clumps Auto (Urine sed) [#/Area] Moderate /HPF None Seen [facility] Automated urine white blood cell countOrdered By: Alexis Virgen on 08-30-2023 WBC Auto (U) [#/Vol] >100 /HPF None Seen [facility] Bacteria [Presence] in Urine sediment by Light microscopyOrdered By: Alexis Virgen on 08-30-2023 Bacteria LM Ql (Urine sed) 1+ /HPF None Seen [facility] Complete urinalysis with ref lita to cultureOrdered By: Alexis Virgen on 08-30-2023 Urinalysis complete W Reflex Culture panel (U) Reflexed to culture [facility] Comment on above: A Urine Culture has been added to this specimen. Detection in urine of either or both bilirubin and urobilinogenOrdered By: Alexis Virgen on 08-30-2023 Bilirubin+Urobilinogen Ql (U) Negative Negative [facility] Glucose [Mass/volume] in Uri ne by Automated test stripOrdered By: Alexis Virgen on 08-30-2023 Glucose Auto test strip (U) [Mass/Vol] Negative Negative [facility] Microscopic examination of u rineOrdered By: Alexis Virgen on 08-30-2023 Microscopic observation LM Nom (Urine sed) Yes [facility] Mucus [Presence] in Urine by AutomatedOrdered By: Alexis Virgen on 08-30-2023 Mucus Auto Ql (U) Small /HPF None Seen [facility] RBC LM Ql (Urine sed)Ordered By: Alexis Virgen on 08-30-2023 RBC Ql (U) 6-10 /HPF None Seen [facility] Specific gravity of UrineOrd ered By: Alexis Virgen on 08-30-2023 Specific gravity (U) [Rel density] 1.013 1.001-1.03 5 [facility] Transitional cells detection in urine sediment by light microscopyOrdered By: Alexis Virgen on 08-30-2023 Transitional cells LM Ql (Urine sed) Many /HPF None Seen [facility] Urine blood detectionOrdered By: Alexis Virgen on 08-30-2023 RBC Ql (U) Negative Negative [facility] Urine colorOrdered By: Tobin Virgen on 08-30-2023 Color (U) Yellow [facility] Urine culture routineOrdered By: Alexis Virgen on 08-30-2023 Bacteria identified Cx Nom (U) Enterobacter cloacae [facility] Bacteria identified Cx Nom (U) Mixed Urogenital Rey [facility] Urine ketones detectionOrder ed By: Alexis Virgen on 08-30-2023 Ketones Ql (U) Negative Negative [facility] Urine leukocytes detection b y microscopyOrdered By: Alexis Virgen on 08-30-2023 WBC Visual Ql (U) Large Negative [facility] Urine nitrate detectionOrder ed By: Alexis Virgen on 08-30-2023 Nitrate Ql (U) Negative Negative [facility] Urine pHOrdered By: Alexis Virgen on 08-30-2023 pH (U) 5.0 [pH] 4.6-8.0 [facility] Urine protein detection by a utomated test stripOrdered By: Alexis Virgen on 08-30-2023 Protein Auto test strip Ql (U) 100 mg/dL Negative [facility] Urobilinogen Test strip (U) [Mass/Vol]Ordered By: Alexis Virgen on 08-30-2023 Urobilinogen (U) [Mass/Vol] Negative Negative [facility] ABDOMEN-SINGLE AP VIEWon ABDOMEN-SINGLE AP VIEW DEBBIE HAYES Female [id number] Ordering physician: Alexis Virgen LOC:RAD [id number] Attending physician: Alexis Virgen [id number] DOS: 06/21/23 Acc#: [id number] Exam/Proc: ABDOMEN-SINGLE AP VIEW Dept: RADIOLOGY EXAMINATION: ONE SUPINE XRAY VIEW(S) OF THE ABDOMEN 06/21/2023 1:33 pm COMPARISON: CT November 27, 2022 HISTORY: ORDERING SYSTEM PROVIDED HISTORY: TECHNOLOGIST PROVIDED HISTORY: Reason for Exam: KIDNEY STONE FINDINGS: No definite urinary tract calcification is identified. Phlebolith is evident at the left pelvis. Degenerative changes noted in the spine. Gas pattern is normal. No other contributory finding. IMPRESSION: No definite urinary tract calcifications seen. Electronically signed By Alexis Lloyd MD 06/23/2023 9:42:01 AM EST Workstation ID : [id number] REPORT SIGNATURE ON FILE Electronically Signed Date/Time: 06/23/23941 Dictated Date/time: 06/23/23940 CC: Normal [facility] CBC with AUTO DIFFon 023 BAS0 % 0.90 % Normal 0-2 [facility] Comment on above: Performed By: #### G LY #### [address] [address] Basophils (Bld) [#/Vol] 0.1 10*3/uL Normal 0-0.1 [facility] Comment on above: Performed By: #### G LY #### [address] [address] Eosinophils (Bld) [#/Vol] 0.2 10*3/uL Normal 0.0-1.80 [facility] Comment on above: Performed By: #### G LY #### [address] [address] Eosinophils/100 WBC (Bld) 1.8 % Normal 0-8 [facility] Comment on above: Performed By: #### G LY #### [address] [address] GRAN # 6.9 K/uL Normal 2.2-9.1 [facility] Comment on above: Performed By: #### G LY #### [address] [address] GRAN % 70.7 % Normal 42-80 [facility] Comment on above: Performed By: #### G LY #### [address] [address] Hematocrit (Bld) [Volume fraction] 35.9 % Low 37.0-47.0 [facility] Comment on above: Performed By: #### G LY #### [address] [address] Hemoglobin (Bld) [Mass/Vol] 11.0 g/dL Low 12.0-16. 0 [facility] Comment on above: Performed By: #### G LY #### [facility] [address] [facility] [place] [address] Lymphocytes (Bld) [#/Vol] 1.9 10*3/uL Normal 1.0-4.0 [facility] Comment on above: Performed By: #### G LY #### [facility] [address] [facility] [place] [address] Lymphocytes/100 WBC (Bld) 19.3 % Normal 16-48 [facility] Comment on above: Performed By: #### G LY #### [facility] [address] [facility] [place] [address] MCV (RBC) [Entitic vol] 66.1 fL Low 80-97 [facility] Comment on above: Performed By: #### G LY #### [facility] [address] [facility] [place] [address] MEAN CORPUSCULAR HGB 20.2 pg Low 26.0-32.0 [facility] Comment on above: Performed By: #### G LY #### [facility] [address] [facility] [place] [address] MEAN CORPUSCULAR HGB CONC 30.6 g/dL Low 31.0-36.0 [facility] Comment on above: Performed By: #### G LY #### [facility] [address] [facility] [place] [address] MONO DISTRIB WIDTH Not performed Normal 0-20 [facility] Comment on above: Performed By: #### G LY #### [facility] [address] [facility] [place] [address] Monocytes (Bld) [#/Vol] 0.7 10*3/uL Normal 0.1-1.7 [facility] Comment on above: Performed By: #### G LY #### [facility] [address] [facility] [place] [address] Monocytes/100 WBC (Bld) 7.3 % Normal 3-9 [facility] Comment on above: Performed By: #### G LY #### [facility] [address] [place] [address] Platelet mean volume (Bld) [Entitic vol] 8.0 fL Normal 6.6-10.5 [facility] Comment on above: Performed By: #### G LY #### [facility] [address] [facility] [place] [address] Platelets (Bld) [#/Vol] 313 10*3/uL Normal 140-450 [facility] Comment on above: Performed By: #### G LY #### [facility] [address] [facility] [place] [address] RBC (Bld) [#/Vol] 5.42 10*6/uL Normal 4.20-5.50 [facility] Comment on above: Performed By: #### G LY #### [address] [place] [address] RED CELL DISTRI WIDTH 16.6 % High 11.0-15.5 [facility] Comment on above: Performed By: #### G LY #### [facility] [address] [facility] [place] [address] WBC (Bld) [#/Vol] 9.8 10*3/uL Normal 4.0-11.0 [facility] Comment on above: Performed By: #### G LY #### [address] [place] [address] DIFFERENTIALon 04-19-2023 POLYCHROMASIA SLIGHT [facility] Comment on above: Performed By: #### G LY #### [address] [place] [address] TEAR DROP CELLS FEW [facility] Comment on above: Performed By: #### G LY #### [facility] [address] [facility] [place] [address] Anisocytosis Ql (Bld) SLIGHT Normal [facility] Comment on above: Performed By: #### G LY #### [facility] [address] [facility] [place] [address] Eosinophils/100 WBC (Bld) 1 % Normal 0-8 [facility] Comment on above: Performed By: #### G LY #### [address] [place] [address] HYPOCHROMIA MOD [facility] Comment on above: Performed By: #### G LY #### [facility] [address] [facility] [place] [address] IMMATURE GRANS NONE SEEN [facility] Comment on above: Performed By: #### G LY #### [address] [place] [address] Lymphocytes/100 WBC (Bld) 24 % Normal 16-48 [facility] Comment on above: Performed By: #### G LY #### [facility] [address] [facility] [place] [address] MICROCYTOSIS MOD Normal [facility] Comment on above: Performed By: #### G LY #### [facility] [address] [facility] [place] [address] Monocytes/100 WBC (Bld) 7 % Normal 3-9 [facility] Comment on above: Performed By: #### G LY #### [facility] [address] [facility] [place] [address] Neutrophils/100 WBC (Bld) 68 % Normal 42-80 [facility] Comment on above: Performed By: #### G LY #### [facility] [address] [facility] [place] [address] OVALO/ELLIPTOCYTES FEW Normal [facility] Comment on above: Performed By: #### G LY #### [facility] [address] [facility] [place] [address] PLATELET ESTIMATE NORMAL Normal [facility] Comment on above: Performed By: #### G LY #### [facility] [address] [facility] [place] [address] TOTAL CELLS COUNTED 100 #CELLS Normal [facility] Comment on above: Performed By: #### G LY #### [facility] [address] [facility] [place] [address] FITon 03-30-2023 Lower GI hemoglobin IA Ql (Stl) Negative Normal Negative [facility] ([place] Comment on above: Performed By: #### F IT #### [facility] [address] [place] [address] BASIC METABOLIC PANELon 07-0 Anion gap [Moles/Vol] 11.6 mmol/L Normal 11-23 [facility] Comment on above: Performed By: #### C BC, DIFF (MANUAL) #### [facility] [address] [facility] [place] [address] Calcium [Mass/Vol] 9.4 mg/dL Normal 8.5-10.1 [facility] Comment on above: Performed By: #### C BC, DIFF (MANUAL) #### [facility] [address] [facility] [place] [address] Chloride [Moles/Vol] 115 mmol/L High 98-107 [facility] Comment on above: Performed By: #### C BC, DIFF (MANUAL) #### [address] [place] [address] CO2 [Moles/Vol] 21.0 mmol/L Normal 21-32 [facility] Comment on above: Performed By: #### C BC, DIFF (MANUAL) #### [address] [place] [address] Creatinine [Mass/Vol] 1.30 mg/dL High 0.55-1.02 [facility] Comment on above: Performed By: #### C BC, DIFF (MANUAL) #### [address] [place] [address] GFR AM 52.3 mL/min [facility] Comment on above: Result Comment: THE NORMAL LEVEL OF GFR VARIES ACCORDING TO AGE, SEX, AND BODY SIZE. A GFR LEVEL OF LESS THAN 60 ML/MIN REPRESENTS LOSS OF THE ADULT LEVEL OF NORMAL KIDNEY FUNCTION. Performed By: #### C BC, DIFF (MANUAL) #### [address] [place] [address] GFR/1.73 sq M.predicted MDRD (S/P/Bld) [Vol rate/Area] 43.2 mL/min/{1.73_m2} Normal [facility] Comment on above: Performed By: #### C BC, DIFF (MANUAL) #### [address] [place] [address] Glucose [Mass/Vol] 138 mg/dL High 70-100 [facility] Comment on above: Performed By: #### C BC, DIFF (MANUAL) #### [address] [place] [address] Potassium [Moles/Vol] 5.4 mmol/L High 3.5-5.1 [facility] Comment on above: Performed By: #### C BC, DIFF (MANUAL) #### [address] [place] [address] Sodium [Moles/Vol] 142 mmol/L Normal 136-145 [facility] Comment on above: Performed By: #### C BC, DIFF (MANUAL) #### [address] [place] [address] Urea nitrogen [Mass/Vol] 29.0 mg/dL High 7-18 [facility] Comment on above: Performed By: #### C BC, DIFF (MANUAL) #### [address] [place] [address] CBC with AUTO DIFFon 03-16-2 023 BAS0 % 1.10 % Normal 0-2 [facility] Comment on above: Performed By: #### C BC, DIFF (MANUAL) #### [address] [place] [address] Basophils (Bld) [#/Vol] 0.1 10*3/uL Normal 0-0.1 [facility] Comment on above: Performed By: #### C BC, DIFF (MANUAL) #### [address] [place] [address] Eosinophils (Bld) [#/Vol] 0.2 10*3/uL Normal 0.0-1.80 [facility] Comment on above: Performed By: #### C BC, DIFF (MANUAL) #### [address] [place] [address] Eosinophils/100 WBC (Bld) 3.1 % Normal 0-8 [facility] Comment on above: Performed By: #### C BC, DIFF (MANUAL) #### [address] [place] [address] GRAN # 4.4 K/uL Normal 2.2-9.1 [facility] Comment on above: Performed By: #### C BC, DIFF (MANUAL) #### [address] [place] [address] GRAN % 64.2 % Normal 42-80 [facility] Comment on above: Performed By: #### C BC, DIFF (MANUAL) #### [address] [place] [address] Hematocrit (Bld) [Volume fraction] 33.7 % Low 37.0-47.0 [facility] Comment on above: Performed By: #### C BC, DIFF (MANUAL) #### [address] [place] [address] Hemoglobin (Bld) [Mass/Vol] 10.1 g/dL Low 12.0-16. 0 [facility] Comment on above: Performed By: #### C BC, DIFF (MANUAL) #### [address] [place] [address] Lymphocytes (Bld) [#/Vol] 1.5 10*3/uL Normal 1.0-4.0 [facility] Comment on above: Performed By: #### C BC, DIFF (MANUAL) #### [facility] [address] [facility] [place] [address] Lymphocytes/100 WBC (Bld) 22.0 % Normal 16-48 [facility] Comment on above: Performed By: #### C BC, DIFF (MANUAL) #### [facility] [address] [facility] [place] [address] MCV (RBC) [Entitic vol] 67.6 fL Low 80-97 [facility] Comment on above: Performed By: #### C BC, DIFF (MANUAL) #### [address] [place] [address] MEAN CORPUSCULAR HGB 20.3 pg Low 26.0-32.0 [facility] Comment on above: Performed By: #### C BC, DIFF (MANUAL) #### [address] [place] [address] MEAN CORPUSCULAR HGB CONC 30.1 g/dL Low 31.0-36.0 [facility] Comment on above: Performed By: #### C BC, DIFF (MANUAL) #### [address] [place] [address] MONO DISTRIB WIDTH Not performed Normal 0-20 [facility] Comment on above: Performed By: #### C BC, DIFF (MANUAL) #### [address] [place] [address] Monocytes (Bld) [#/Vol] 0.7 10*3/uL Normal 0.1-1.7 [facility] Comment on above: Performed By: #### C BC, DIFF (MANUAL) #### [address] [place] [address] Monocytes/100 WBC (Bld) 9.6 % High 3-9 [facility] Comment on above: Performed By: #### C BC, DIFF (MANUAL) #### [address] [place] [address] Platelet mean volume (Bld) [Entitic vol] 8.5 fL Normal 6.6-10.5 [facility] Comment on above: Performed By: #### C BC, DIFF (MANUAL) #### [address] [place] [address] Platelets (Bld) [#/Vol] 295 10*3/uL Normal 140-450 [facility] Comment on above: Performed By: #### C BC, DIFF (MANUAL) #### [address] [place] [address] RBC (Bld) [#/Vol] 4.99 10*6/uL Normal 4.20-5.50 [facility] Comment on above: Performed By: #### C BC, DIFF (MANUAL) #### [address] [place] [address] RED CELL DISTRI WIDTH 17.2 % High 11.0-15.5 [facility] Comment on above: Performed By: #### C BC, DIFF (MANUAL) #### [address] [place] [address] WBC (Bld) [#/Vol] 6.8 10*3/uL Normal 4.0-11.0 [facility] Comment on above: Performed By: #### C BC, DIFF (MANUAL) #### [address] [address] DIFFERENTIALon 03-16-2023 IMMATURE GRANS NONE SEEN [facility] Comment on above: Performed By: #### C BC, DIFF (MANUAL) #### [address] [place] [address] POIKILOCYTOSIS SLIGHT [facility] Comment on above: Performed By: #### C BC, DIFF (MANUAL) #### [address] [place] [address] POLYCHROMASIA SLIGHT [facility] Comment on above: Performed By: #### C BC, DIFF (MANUAL) #### [address] [address] TEAR DROP CELLS FEW [facility] Comment on above: Performed By: #### C BC, DIFF (MANUAL) #### [address] [address] Anisocytosis Ql (Bld) MOD Normal [facility] Comment on above: Performed By: #### C BC, DIFF (MANUAL) #### [address] [address] Eosinophils/100 WBC (Bld) 5 % Normal 0-8 [facility] Comment on above: Performed By: #### C BC, DIFF (MANUAL) #### [address] [place] [address] HYPOCHROMIA SLIGHT Normal [facility] Comment on above: Performed By: #### C BC, DIFF (MANUAL) #### [address] [place] [address] Lymphocytes/100 WBC (Bld) 34 % Normal 16-48 [facility] Comment on above: Performed By: #### C BC, DIFF (MANUAL) #### [address] [place] [address] MICROCYTOSIS MOD Normal [facility] Comment on above: Performed By: #### C BC, DIFF (MANUAL) #### [address] [place] [address] Monocytes/100 WBC (Bld) 4 % Normal 3-9 [facility] Comment on above: Performed By: #### C BC, DIFF (MANUAL) #### [address] [place] [address] Neutrophils/100 WBC (Bld) 57 % Normal 42-80 [facility] Comment on above: Performed By: #### C BC, DIFF (MANUAL) #### [address] [place] [address] OVALO/ELLIPTOCYTES FEW Normal [facility] Comment on above: Performed By: #### C BC, DIFF (MANUAL) #### [address] [place] [address] TOTAL CELLS COUNTED 100 #CELLS Normal [facility] Comment on above: Performed By: #### C BC, DIFF (MANUAL) #### [address] [place] [address] CBC with AUTO DIFFon 023 BAS0 % 1.10 % Normal 0-2 [facility] Comment on above: Performed By: #### C BC, DIFF (MANUAL) #### [address] [place] [address] Basophils (Bld) [#/Vol] 0.1 10*3/uL Normal 0-0.1 [facility] Comment on above: Performed By: #### C BC, DIFF (MANUAL) #### [address] [place] [address] Eosinophils (Bld) [#/Vol] 0.2 10*3/uL Normal 0.0-1.80 [facility] Comment on above: Performed By: #### C BC, DIFF (MANUAL) #### [address] [place] [address] Eosinophils/100 WBC (Bld) 2.8 % Normal 0-8 [facility] Comment on above: Performed By: #### C BC, DIFF (MANUAL) #### [address] [place] [address] GRAN # 4.5 K/uL Normal 2.2-9.1 [facility] Comment on above: Performed By: #### C BC, DIFF (MANUAL) #### [address] [place] [address] GRAN % 66.6 % Normal 42-80 [facility] Comment on above: Performed By: #### C BC, DIFF (MANUAL) #### [address] [address] Hematocrit (Bld) [Volume fraction] 33.4 % Low 37.0-47.0 [facility] Comment on above: Performed By: #### C BC, DIFF (MANUAL) #### [address] [address] Hemoglobin (Bld) [Mass/Vol] 10.2 g/dL Low 12.0-16. 0 [facility] Comment on above: Performed By: #### C BC, DIFF (MANUAL) #### [address] [address] Lymphocytes (Bld) [#/Vol] 1.4 10*3/uL Normal 1.0-4.0 [facility] Comment on above: Performed By: #### C BC, DIFF (MANUAL) #### [address] [address] Lymphocytes/100 WBC (Bld) 21.2 % Normal 16-48 [facility] Comment on above: Performed By: #### C BC, DIFF (MANUAL) #### [address] [address] MCV (RBC) [Entitic vol] 67.6 fL Low 80-97 [facility] Comment on above: Performed By: #### C BC, DIFF (MANUAL) #### [address] [address] MEAN CORPUSCULAR HGB 20.5 pg Low 26.0-32.0 [facility] Comment on above: Performed By: #### C BC, DIFF (MANUAL) #### [facility] [address] [facility] [place] [address] MEAN CORPUSCULAR HGB CONC 30.4 g/dL Low 31.0-36.0 [facility] Comment on above: Performed By: #### C BC, DIFF (MANUAL) #### [address] [place] [address] MONO DISTRIB WIDTH Not performed Normal 0-20 [facility] Comment on above: Performed By: #### C BC, DIFF (MANUAL) #### [address] [place] [address] Monocytes (Bld) [#/Vol] 0.6 10*3/uL Normal 0.1-1.7 [facility] Comment on above: Performed By: #### C BC, DIFF (MANUAL) #### [address] [place] [address] Monocytes/100 WBC (Bld) 8.3 % Normal 3-9 [facility] Comment on above: Performed By: #### C BC, DIFF (MANUAL) #### [address] [place] [address] Platelet mean volume (Bld) [Entitic vol] 8.0 fL Normal 6.6-10.5 [facility] Comment on above: Performed By: #### C BC, DIFF (MANUAL) #### [address] [place] [address] Platelets (Bld) [#/Vol] 505 10*3/uL High 140-450 [facility] Comment on above: Performed By: #### C BC, DIFF (MANUAL) #### [address] [place] [address] RBC (Bld) [#/Vol] 4.95 10*6/uL Normal 4.20-5.50 [facility] Comment on above: Performed By: #### C BC, DIFF (MANUAL) #### [facility] [address] [facility] [place] [address] RED CELL DISTRI WIDTH 17.0 % High 11.0-15.5 [facility] Comment on above: Performed By: #### C BC, DIFF (MANUAL) #### [address] [place] [address] WBC (Bld) [#/Vol] 6.7 10*3/uL Normal 4.0-11.0 [facility] Comment on above: Performed By: #### C BC, DIFF (MANUAL) #### [facility] [address] [facility] [place] [address] COMPREHENSIVE METABOLIC PANE Jl 02-26-2023 Albumin [Mass/Vol] 4.4 g/dL Normal 3.4-5.0 [facility] Comment on above: Performed By: #### C BC, DIFF (MANUAL) #### [address] [place] [address] Albumin/Globulin [Mass ratio] 1.1 {ratio} Normal 1.1-1.8 [facility] Comment on above: Performed By: #### C BC, DIFF (MANUAL) #### [facility] [address] [facility] [place] [address] ALP [Catalytic activity/Vol] 76 U/L Normal 45-117 [facility] Comment on above: Performed By: #### C BC, DIFF (MANUAL) #### [address] [place] [address] ALT [Catalytic activity/Vol] 31 U/L Normal 12-78 [facility] Comment on above: Performed By: #### C BC, DIFF (MANUAL) #### [facility] [address] [facility] [place] [address] Anion gap [Moles/Vol] 9.7 mmol/L Low 11-23 [facility] Comment on above: Performed By: #### C BC, DIFF (MANUAL) #### [address] [place] [address] AST [Catalytic activity/Vol] 25 U/L Normal 15-37 [facility] Comment on above: Performed By: #### C BC, DIFF (MANUAL) #### [facility] [address] [facility] [place] [address] Bilirubin [Mass/Vol] 0.4 mg/dL Normal 0.2-1.0 [facility] Comment on above: Performed By: #### C BC, DIFF (MANUAL) #### [facility] [address] [facility] [place] [address] Calcium [Mass/Vol] 9.6 mg/dL Normal 8.5-10.1 [facility] Comment on above: Performed By: #### C BC, DIFF (MANUAL) #### [facility] [address] [facility] [place] [address] Chloride [Moles/Vol] 112 mmol/L High 98-107 [facility] Comment on above: Performed By: #### C BC, DIFF (MANUAL) #### [facility] [address] [facility] [place] [address] CO2 [Moles/Vol] 22.0 mmol/L Normal 21-32 [facility] Comment on above: Performed By: #### C BC, DIFF (MANUAL) #### [address] [place] [address] Creatinine [Mass/Vol] 1.20 mg/dL High 0.55-1.02 [facility] Comment on above: Performed By: #### C BC, DIFF (MANUAL) #### [address] [place] [address] GFR AM 58.6 mL/min [facility] Comment on above: Result Comment: THE NORMAL LEVEL OF GFR VARIES ACCORDING TO AGE, SEX, AND BODY SIZE. A GFR LEVEL OF LESS THAN 60 ML/MIN REPRESENTS LOSS OF THE ADULT LEVEL OF NORMAL KIDNEY FUNCTION. Performed By: #### C BC, DIFF (MANUAL) #### [address] [place] [address] GFR/1.73 sq M.predicted MDRD (S/P/Bld) [Vol rate/Area] 48.4 mL/min/{1.73_m2} [facility] Comment on above: Performed By: #### C BC, DIFF (MANUAL) #### [address] [place] [address] Globulin (S) [Mass/Vol] 4.0 g/dL Normal 2.5-4.6 [facility] Comment on above: Performed By: #### C BC, DIFF (MANUAL) #### [address] [place] [address] Glucose [Mass/Vol] 137 mg/dL High 70-100 [facility] Comment on above: Performed By: #### C BC, DIFF (MANUAL) #### [address] [place] [address] Potassium [Moles/Vol] 4.8 mmol/L Normal 3.5-5.1 [facility] Comment on above: Performed By: #### C BC, DIFF (MANUAL) #### [facility] [address] [facility] [place] [address] Protein [Mass/Vol] 8.5 g/dL High 6.0-8.3 [facility] Comment on above: Performed By: #### C BC, DIFF (MANUAL) #### [address] [place] [address] Sodium [Moles/Vol] 139 mmol/L Normal 136-145 [facility] Comment on above: Performed By: #### C BC, DIFF (MANUAL) #### [address] [place] [address] Urea nitrogen [Mass/Vol] 22.0 mg/dL High 7-18 [facility] Comment on above: Performed By: #### C BC, DIFF (MANUAL) #### [address] [place] [address] DIFFERENTIALon 02-26-2023 POIKILOCYTOSIS SLIGHT [facility] Comment on above: Performed By: #### C BC, DIFF (MANUAL) #### [address] [place] [address] OVALO/ELLIPTOCYTES FEW Normal [facility] Comment on above: Performed By: #### C BC, DIFF (MANUAL) #### [address] [place] [address] POLYCHROMASIA SLIGHT [facility] Comment on above: Performed By: #### C BC, DIFF (MANUAL) #### [address] [place] [address] IMMATURE GRANS NONE SEEN [facility] Comment on above: Performed By: #### C BC, DIFF (MANUAL) #### [address] [place] [address] LARGE PLATELETS FEW [facility] Comment on above: Performed By: #### C BC, DIFF (MANUAL) #### [address] [place] [address] MICROCYTOSIS MOD/MKD [facility] Comment on above: Performed By: #### C BC, DIFF (MANUAL) #### [address] [place] [address] PLATELET ESTIMATE SLIGHT INCREASE Normal [facility] Comment on above: Performed By: #### C BC, DIFF (MANUAL) #### [facility] [address] [facility] [place] [address] Anisocytosis Ql (Bld) SLIGHT Normal [facility] Comment on above: Performed By: #### C BC, DIFF (MANUAL) #### [facility] [address] [facility] [place] [address] Eosinophils/100 WBC (Bld) 3 % Normal 0-8 [facility] [facility] Comment on above: Performed By: #### C BC, DIFF (MANUAL) #### [address] [place] [address] HYPOCHROMIA MOD Normal [facility] Comment on above: Performed By: #### C BC, DIFF (MANUAL) #### [address] [place] [address] Lymphocytes/100 WBC (Bld) 22 % Normal 16-48 [facility] Comment on above: Performed By: #### C BC, DIFF (MANUAL) #### [address] [place] [address] Monocytes/100 WBC (Bld) 7 % Normal 3-9 [facility] Comment on above: Performed By: #### C BC, DIFF (MANUAL) #### [address] [place] [address] Neutrophils/100 WBC (Bld) 68 % Normal 42-80 [facility] Comment on above: Performed By: #### C BC, DIFF (MANUAL) #### [address] [place] [address] TOTAL CELLS COUNTED 100 #CELLS Normal [facility] Comment on above: Performed By: #### C BC, DIFF (MANUAL) #### [address] [place] [address] GLYCOHEMOGLOBIN (A1C)on 02-08 EST AVG GLUCOSE 134 [facility] Comment on above: Performed By: #### C BC, DIFF (MANUAL) #### [address] [place] [address] HbA1c (Bld) [Mass fraction] 6.3 % [facility] Comment on above: Result Comment: Inte rpretation of Hgb A1C results: <5.7% Normal 5.7% - 6.4% Prediabetes >6.4% Diabetes SAMPLES FROM PATIENTS WITH HEMOLYTIC ANEMIAS OR THE PRESENCE OF UNSTABLE HEMOGLOBINS LIKE HbSS OR HbSC WILL EXHIBIT DECREASED GLYCATED HGB DUE TO THE SHORTENED LIFE SPAN OF THE RED CELLS.RESULTS ARE NOT RELIABLE IN PATIENTS WITH CHRONIC BLOOD LOSS. Performed By: #### C BC, DIFF (MANUAL) #### [facility] [address] [facility] [place] [address] LIPID PROFILE (FASTING)on CHOL/HDL RATIO 3.1 mg/dl Normal 3.7-5.6 [facility] Comment on above: Performed By: #### C BC, DIFF (MANUAL) #### [facility] [address] [facility] [place] [address] Cholesterol [Mass/Vol] 132 mg/dL Normal 0-200 [facility] Comment on above: Performed By: #### C BC, DIFF (MANUAL) #### [facility] [address] [facility] [place] [address] Cholesterol in HDL [Mass/Vol] 42 mg/dL Normal 40-60 [facility] Comment on above: Performed By: #### C BC, DIFF (MANUAL) #### [address] [place] [address] Cholesterol in LDL [Mass/Vol] 43 mg/dL Normal 0-130 [facility] Comment on above: Performed By: #### C BC, DIFF (MANUAL) #### [facility] [address] [facility] [place] [address] Triglyceride [Mass/Vol] 231 mg/dL High 0-150 [facility] Comment on above: Performed By: #### C BC, DIFF (MANUAL) #### [address] [place] [address] VLDL CALCULATION 46 mg/dl Normal 5-40 [facility] Comment on above: Performed By: #### C BC, DIFF (MANUAL) #### [address] [place] [address] VIT D 25 OHon 02-26-2023 VIT D 25 OH 33.4 ng/mL Normal 30-100 [facility] Comment on above: Result Comment: Inte rpretation of VitD results: Adult: <20 ng/mL Deficient 20 - <30 ng/mL Insufficiency 30 - 100 ng/mL Sufficiency Pediatric: <15 ng/mL Deficient 15 - <20 ng/mL Insufficiency 20 - 100 ng/mL Sufficiency Performed By: #### C BC, DIFF (MANUAL) #### [facility] [address] [facility] [place] [address] VITAMIN B 12on 02-26-2023 Cobalamin (Vitamin B12) [Mass/Vol] 925 pg/mL Normal 254-1320 [facility] Comment on above: Performed By: #### C BC, DIFF (MANUAL) #### [facility] [address] [facility] [place] [address] LOWER EXT DVT LEFTon 023 LOWER EXT DVT LEFT DEBBIE HAYES Female [id number] Ordering physician: Troy Estrada V. LOC:[facility] [id number] Attending physician: Troy Estrada V. 1950 72 DOS: 02/23/23 Acc#: [id number] Exam/Proc: LOWER EXT DVT LEFT Dept: ULTRASOUND EXAMINATION: DUPLEX ULTRASOUND OF THE LEFT LOWER EXTREMITY FOR DVT02/23/2023 10:46 am DVT LOWER LEFT TECHNIQUE: Duplex ultrasound using B-mode/grossman scaled imaging and Doppler spectral analysis and color flow was obtained of the deep venous structures of the left lower extremity. COMPARISON: None HISTORY: ORDERING SYSTEM PROVIDED HISTORY: TECHNOLOGIST PROVIDED HISTORY: Reason for Exam: I80.3 Swelling and edema. FINDINGS: The deep veins of the left lower extremity appeared normal, and were normally compressible. Normal Doppler signal was received, showing phasic flow and augmentation. No abnormal filling defects are identified. There are no previous studies available for comparison. Permanent ultrasound records were stored in PACS. IMPRESSION: No evidence of deep venous thrombosis in the lower extremity. Electronically signed By Alexis Gutierrez MD 02/23/2023 10:49:24 AM EST Workstation ID : [id number] REPORT SIGNATURE ON FILE Electronically Signed Date/Time: 02/23/23 1049 Dictated Date/time: 02/23/231047 CC: Normal [facility] CBC with AUTO DIFFon 023 BAS0 % 0.40 % Normal 0-2 [facility] Comment on above: Performed By: #### C BC, DIFF (MANUAL) #### [address] [place] [address] Basophils (Bld) [#/Vol] 0.1 10*3/uL Normal 0-0.1 [facility] Comment on above: Performed By: #### C BC, DIFF (MANUAL) #### [address] [place] [address] Eosinophils (Bld) [#/Vol] 0.2 10*3/uL Normal 0.0-1.80 [facility] Comment on above: Performed By: #### C BC, DIFF (MANUAL) #### [address] [place] [address] Eosinophils/100 WBC (Bld) 1.6 % Normal 0-8 [facility] Comment on above: Performed By: #### C BC, DIFF (MANUAL) #### [address] [place] [address] GRAN # 11.6 K/uL High 2.2-9.1 [facility] Comment on above: Performed By: #### C BC, DIFF (MANUAL) #### [address] [place] [address] GRAN % 73.5 % Normal 42-80 [facility] Comment on above: Performed By: #### C BC, DIFF (MANUAL) #### [address] [place] [address] Hematocrit (Bld) [Volume fraction] 32.0 % Low 37.0-47.0 [facility] Comment on above: Performed By: #### C BC, DIFF (MANUAL) #### [address] [place] [address] Hemoglobin (Bld) [Mass/Vol] 9.6 g/dL Low 12.0-16. 0 [facility] Comment on above: Performed By: #### C BC, DIFF (MANUAL) #### [address] [place] [address] Lymphocytes (Bld) [#/Vol] 2.2 10*3/uL Normal 1.0-4.0 [facility] Comment on above: Performed By: #### C BC, DIFF (MANUAL) #### [address] [address] Lymphocytes/100 WBC (Bld) 14.0 % Low 16-48 [facility] Comment on above: Performed By: #### C BC, DIFF (MANUAL) #### [facility] [address] [facility] [place] [address] MCV (RBC) [Entitic vol] 67.6 fL Low 80-97 [facility] Comment on above: Performed By: #### C BC, DIFF (MANUAL) #### [facility] [address] [facility] [place] [address] MEAN CORPUSCULAR HGB 20.4 pg Low 26.0-32.0 [facility] Comment on above: Performed By: #### C BC, DIFF (MANUAL) #### [facility] [address] [facility] [place] [address] MEAN CORPUSCULAR HGB CONC 30.2 g/dL Low 31.0-36.0 [facility] Comment on above: Performed By: #### C BC, DIFF (MANUAL) #### [address] [place] [address] MONO DISTRIB WIDTH Not performed Normal 0-20 [facility] Comment on above: Performed By: #### C BC, DIFF (MANUAL) #### [facility] [address] [facility] [place] [address] Monocytes (Bld) [#/Vol] 1.7 10*3/uL Normal 0.1-1.7 [facility] Comment on above: Performed By: #### C BC, DIFF (MANUAL) #### [facility] [address] [facility] [place] [address] Monocytes/100 WBC (Bld) 10.5 % High 3-9 [facility] Comment on above: Performed By: #### C BC, DIFF (MANUAL) #### [facility] [address] [facility] [place] [address] Platelet mean volume (Bld) [Entitic vol] 8.3 fL Normal 6.6-10.5 [facility] Comment on above: Performed By: #### C BC, DIFF (MANUAL) #### [facility] [address] [facility] [place] [address] Platelets (Bld) [#/Vol] 415 10*3/uL Normal 140-450 [facility] Comment on above: Performed By: #### C BC, DIFF (MANUAL) #### [facility] [address] [facility] [place] [address] RBC (Bld) [#/Vol] 4.73 10*6/uL Normal 4.20-5.50 [facility] Comment on above: Performed By: #### C BC, DIFF (MANUAL) #### [facility] [address] [place] [address] RED CELL DISTRI WIDTH 16.3 % High 11.0-15.5 [facility] Comment on above: Performed By: #### C BC, DIFF (MANUAL) #### [address] [address] WBC (Bld) [#/Vol] 15.8 10*3/uL High 4.0-11.0 [facility] Comment on above: Performed By: #### C BC, DIFF (MANUAL) #### [address] [address] COMPREHENSIVE METABOLIC PANE Jl 01-31-2023 Albumin [Mass/Vol] 3.8 g/dL Normal 3.4-5.0 [facility] Comment on above: Performed By: #### G LY #### [address] [place] [address] Albumin/Globulin [Mass ratio] 1.1 {ratio} Normal 1.1-1.8 [facility] Comment on above: Performed By: #### G LY #### [facility] [address] [facility] [place] [address] ALP [Catalytic activity/Vol] 69 U/L Normal 45-117 [facility] Comment on above: Performed By: #### G LY #### [address] [address] ALT [Catalytic activity/Vol] 62 U/L Normal 12-78 [facility] Comment on above: Performed By: #### G LY #### [facility] [address] [facility] [place] [address] Anion gap [Moles/Vol] 8.4 mmol/L Low 11-23 [facility] Comment on above: Performed By: #### G LY #### [address] [place] [address] AST [Catalytic activity/Vol] 52 U/L High 15-37 [facility] Comment on above: Performed By: #### G LY #### [facility] [address] [place] [address] Bilirubin [Mass/Vol] 0.8 mg/dL Normal 0.2-1.0 [facility] Comment on above: Performed By: #### G LY #### [facility] [address] [facility] [place] [address] Calcium [Mass/Vol] 10.5 mg/dL High 8.5-10.1 [facility] Comment on above: Performed By: #### G LY #### [facility] [address] [place] [address] Chloride [Moles/Vol] 108 mmol/L High 98-107 [facility] Comment on above: Performed By: #### G LY #### [facility] [address] [place] [address] CO2 [Moles/Vol] 26.0 mmol/L Normal 21-32 [facility] Comment on above: Performed By: #### G LY #### [facility] [address] [place] [address] Creatinine [Mass/Vol] 1.50 mg/dL High 0.55-1.02 [facility] Comment on above: Performed By: #### G LY #### [address] [place] [address] GFR AM 43.6 mL/min [facility] Comment on above: Result Comment: THE NORMAL LEVEL OF GFR VARIES ACCORDING TO AGE, SEX, AND BODY SIZE. A GFR LEVEL OF LESS THAN 60 ML/MIN REPRESENTS LOSS OF THE ADULT LEVEL OF NORMAL KIDNEY FUNCTION. Performed By: #### G LY #### [address] [address] GFR/1.73 sq M.predicted MDRD (S/P/Bld) [Vol rate/Area] 36.0 mL/min/{1.73_m2} [facility] Comment on above: Performed By: #### G LY #### [facility] [address] [place] [address] Globulin (S) [Mass/Vol] 3.5 g/dL Normal 2.5-4.6 [facility] Comment on above: Performed By: #### G LY #### [facility] [address] [place] [address] Glucose [Mass/Vol] 117 mg/dL High 70-100 [facility] Comment on above: Performed By: #### G LY #### [facility] [address] [facility] [place] [address] Potassium [Moles/Vol] 4.6 mmol/L Normal 3.5-5.1 [facility] Comment on above: Performed By: #### G LY #### [facility] [address] [facility] [place] [address] Protein [Mass/Vol] 7.3 g/dL Normal 6.0-8.3 [facility] Comment on above: Performed By: #### G LY #### [facility] [address] [facility] [place] [address] Sodium [Moles/Vol] 137 mmol/L Normal 136-145 [facility] Comment on above: Performed By: #### G LY #### [facility] [address] [facility] [place] [address] Urea nitrogen [Mass/Vol] 42.0 mg/dL High 7-18 [facility] Comment on above: Performed By: #### G LY #### [address] [place] [address] DIFFERENTIALon 01-31-2023 Anisocytosis Ql (Bld) SLIGHT Normal [facility] Comment on above: Performed By: #### C BC, DIFF (MANUAL) #### [address] [place] [address] HYPOCHROMIA MOD [facility] Comment on above: Performed By: #### C BC, DIFF (MANUAL) #### [address] [place] [address] MICROCYTOSIS MOD [facility] Comment on above: Performed By: #### C BC, DIFF (MANUAL) #### [address] [place] [address] Basophilic stippling LM Ql (Bld) SLIGHT [facility] Comment on above: Performed By: #### C BC, DIFF (MANUAL) #### [facility] [address] [facility] [place] [address] Eosinophils/100 WBC (Bld) 3 % Normal 0-8 [facility] Comment on above: Performed By: #### C BC, DIFF (MANUAL) #### [address] [place] [address] IMMATURE GRANS NONE SEEN [facility] Comment on above: Performed By: #### C BC, DIFF (MANUAL) #### [facility] [address] [facility] [place] [address] Lymphocytes/100 WBC (Bld) 15 % Low 16-48 [facility] Comment on above: Performed By: #### C BC, DIFF (MANUAL) #### [facility] [address] [facility] [place] [address] Monocytes/100 WBC (Bld) 8 % Normal 3-9 [facility] Comment on above: Performed By: #### C BC, DIFF (MANUAL) #### [facility] [address] [facility] [place] [address] Neutrophils/100 WBC (Bld) 74 % Normal 42-80 [facility] Comment on above: Performed By: #### C BC, DIFF (MANUAL) #### [facility] [address] [facility] [place] [address] PLATELET ESTIMATE NORMAL Normal [facility] Comment on above: Performed By: #### C BC, DIFF (MANUAL) #### [address] [place] [address] POLYCHROMASIA SLIGHT Normal [facility] Comment on above: Performed By: #### C BC, DIFF (MANUAL) #### [address] [place] [address] TOTAL CELLS COUNTED 100 #CELLS Normal [facility] Comment on above: Performed By: #### C BC, DIFF (MANUAL) #### [address] [place] [address] HGB HCTon 01-24-2023 Hematocrit (Bld) [Volume fraction] 31.0 % Low 37.0-47.0 [facility] Comment on above: Performed By: #### C BC, DIFF (MANUAL) #### [address] [place] [address] Hemoglobin (Bld) [Mass/Vol] 9.5 g/dL Low 12.0-16. 0 [facility] Comment on above: Performed By: #### C BC, DIFF (MANUAL) #### [facility] [address] [facility] [place] [address] Laboratory studies (set)on 0 01-24-2023 Glucose [Mass/Vol] 217 mg/dL High [facility] Work Phone: Hematocrit (Bld) [Volume fraction] 31.0 % Low 37.0-47.0 [facility] Work Phone: Comment on above: Delta: 33.8 on 01/09 Hemoglobin (Bld) [Mass/Vol] 9.5 g/dL Low 12.0-16. 0 [facility] Work Phone: Comment on above: Delta: 10.5 on 01/09 [place] 01-23-2023 [facility] [id number] Attending provider: TOI CHANDRA [id number] Troy Estrada V. 1950 72 DOS: Dr Burrell Medical Consultation - Date of Service Date of Service: 01/23/23 - History of Present Illness History of Present Illness: 72 years old female underwent left knee arthroplasty. Patient was supposed to be discharged home however she became hypoxic and now admitted for observation. Patient denies any major complaint prior to surgery such as nausea vomiting diarrhea constipation abdominal pain or chest pain. Past medical history include hypertension, type 2 diabetes, chronic kidney disease, hyperlipidemia, chronic anemia, depression and anxiety and panic attacks Social history former smoker, no heavy alcohol, no drugs Family history noncontributory - Review of Systems Review of Systems: A twelve point review of systems was performed, is negative, except as stated above. - Past Medical/Surgical History General History: Hypertension, Diabetes (Y. NIDDM), Kidney Stones, Anxiety Denies: CAD, Myocardial Infarction, Congestive Heart Failure, Asthma, COPD, C Seizures, Depression Cardiovascular: Yes: Hypertension, Hypercholesterolemia ( ) No: CAD, CHF, [place], Angina, Arrhythmia, Coronary Stent, Heart Murmur, Deep Veinrombosis Central Nervous System: Yes: Peripheral Neuropathy (LEFT FOOT/LT ARM) No: CVA, Seizures, TIA Gastrointestinal: Yes: GERD, Irritable bowel syndrome No: Crohn's disease Hematology/Oncology: Yes: Anemia (IRON DEFICIENCY) Psychological: Yes: Anxiety, Panic Attack No: Depression, Dementia Pulmonary: No: Asthma, COPD, Pulmonary Embolism, Tuberculosis, Home Oxygen Use Rheumatologic: No: Fibromyalgia, Rheumatoid Arthritis Renal/Genitourinary: Yes: Chronic renal insufficiency, Kidney Stones, Frequent/Recurring UTI No: Dialysis Endocrine: Yes: Diabetes (Y. NIDDM), Osteopenia No: Hyperthyroidism, Hypothyroidism Dermatology: No: MRSA Surgical History: Yes: Appendectomy, Cataract Removal (bilat), Total Knee Replacement (Right), Other (Exp lap; T A; Left menisectomy; colonoscopy) - Psychosocial History Smoking Status: Former Smoker Hx Alcohol Use: No Drugs: None - Medications Home Medications: Home Orders AmLODIPine Besylate [Norvasc] 10 mg PO DAILY@199912/29/16 [History] Icosapent Ethyl [Vascepa] 2 gm PO BID 06/11/19 [History] MetFORMIN [Glucophage] 500 mg PO BID W/MEALS 06/11/19 [History] Trimethoprim [Trimpex] 100 mg PO DAILY 07/12/19 [History] Acetaminophen [Tylenol 8 Hour Arthritis] 650 mg PO PRN PRN 09/29/22 [History] Amitriptyline HCl [Elavil 25Mg] 25 mg PO HS 09/29/22 [History] Ascorbic Acid [Vitamin C] 500 mg PO BID 09/29/22 [History] Aspirin [Aspirin 81] 81 mg PO DAILY 09/29/22 [History] Cholecalciferol [Vitamin D3] 1,000 unit PO DAILY 09/29/22 [History] Cranberry (Vaccinium Macrocarp [Cranberry] 2 cap PO BID 09/29/22 [History] Cyanocobalamin [Energy B12] 1,000 mcg PO DAILY 09/29/22 [History] Estradiol Vaginal [Estradiol] 0.1 mg VA MOWEFR 09/29/22 [History] FLUoxetine HCL [PROzac] 20 mg PO DAILY 09/29/22 [History] Famotidine [Pepcid] 20 mg PO HS 09/29/22 [History] Fenofibrate 160 mg PO DAILY 09/29/22 [History] Ferrous Sulfate [Ferrous Sulfate *] 325 mg PO DAILY 09/29/22 [History] Gabapentin 600 mg PO 4 X DAY 09/29/22 [History] HydroCHLOROthiazide [Hydrochlorothiazide] 12.5 mg PO QODAY 09/29/22 [History] HydroCHLOROthiazide [Hydrochlorothiazide] 25 mg PO QODAY 09/29/22 [History] Lactobacillus [Probiotic] 2 cap PO DAILY 09/29/22 [History] Losartan Potassium 100 mg PO DAILY@199909/29/22 [History] Magnesium Oxide [Mag-0X] 400 mg PO DAILY 09/29/22 [History] Multivitamin [Multivitamin *] 1 cap PO DAILY 09/29/22 [History] Rosuvastatin Calcium [Crestor] 40 mg PO DAILY 09/29/22 [History] Calcium-Magnesium W/ Vitamin D [Citracal Calcium+D Slow R] 2 tab PO BID 01/02/23 [History] Aspirin [Aspirin 325 mg *] 325 mg PO BID #28 tab 01/23/23 [Rx] Dexamethasone 6 mg PO DAILY #4 tab 01/23/23 [Rx] HYDROcodone/APAP 5MG/325MG [HYDROCODONE/APAP 5 mg/325 mg] 1 - 2 tab PO Q4-6H PRN PRN 7 Days #40 tab 01/23/23 [Rx] LORazepam [Ativan] 2.5 mg PO TID PRN 01/23/23 [History] Meloxicam [Mobic] 7.5 mg PO BID #28 tab 01/23/23 [Rx] - Allergies Allergies/Adverse Reactions: Allergy/AdvReac Type Severity Reaction Status Date / Time Aspirin Allergy Severe Hives Verified 09/29/22 13:51 Clindamycin Allergy Severe Other Verified 09/29/22 13:51 Codeine Allergy Severe Hives Verified 09/29/22 13:51 Latex Allergy Severe Other Verified 09/29/22 13:51 Lisinopril Allergy Severe Other Verified 09/29/22 13:51 Penicillins Allergy Severe Hives Verified 09/29/22 13:51 Ciprofloxacin Allergy Intermediate Other Verified 09/29/22 13:51 Erythromycin Allergy Intermediate Hives Verified 09/29/22 13:51 Oxytetracycline Allergy Intermediate Hives Verified 09/29/22 13:51 [From Terramycin Ointment] Polymyxin B Allergy Intermediate Hives V (more content not included)... [facility] KNEE-LEFT 1 OR 2 VIEWSon KNEE-LEFT 1 OR 2 VIEWS DEBBIE HAYES Female [id number] Ordering physician: Troy Estrada V. LOC:[facility] [id number] Attending physician: Troy Estrada V. 1950 72 DOS: 01/23/23 Acc#: [id number] Exam/Proc: KNEE-LEFT 1 OR 2 VIEWS Dept: RADIOLOGY EXAMINATION: Exam Title:TWO XRAY VIEWS OF THE LEFT KNEE Completed Time: 01/23/2023 12:37 pm Procedure Description:KNEE 1 or 2 VIEWS LEFT COMPARISON: No direct comparison available. HISTORY: ORDERING SYSTEM PROVIDED HISTORY: TECHNOLOGIST PROVIDED HISTORY: Reason for Exam: Post op FINDINGS: Total left knee arthroplasty. No evidence for hardware complication. Normal alignment. Anterior soft tissue swelling and joint effusion. Mild osseous demineralization. No acute fracture. IMPRESSION: [] 1. Operative change. Normal alignment. Electronically signed By Luca Isaacs DO 01/23/2023 1:10:08 PM EST Workstation ID : [id number] REPORT SIGNATURE ON FILE Electronically Signed Date/Time: 01/23/23 1310 Dictated Date/time: 01/23/23 1309 CC: [facility] MR OPon 01-23-2023 MR OP Patient name: DEBBIE HAYES MR#: [id number] Location: [facility] Acc#: [id number] Admit Date: 01/23/23 : 1950 Age: 72 Sex: F Dictated By: Troy Estrada MD Signing Physician: DICTATED BY: Troy Estrada M.D. SIGNING PHYSICIAN: DATE OF SERVICE: 01/23/2023 ATTENDING SURGEON: Troy Estrada MD DECORATING INSPECTOR: Clifford Armendariz PA-C PREOPERATIVE DIAGNOSIS: Left knee degenerative joint disease. POSTOPERATIVE DIAGNOSIS: Left knee degenerative joint disease. PROCEDURE: Left robotically assisted total knee arthroplasty. INDICATION: This is a 72-year-old female with [id number] arthritis in medial compartment of her knee. Failed nonoperative treatment. Has tricompartmental changes though. Presenting for elective total knee arthroplasty. Already had the other knee replaced. Risks, benefits, and potential complications reviewed with her. Informed consent was obtained. DESCRIPTION OF PROCEDURE: The patient was taken to the operating room and placed in supine position. Given general anesthetic. Nonsterile proximal thigh tourniquet was placed. Left lower extremity was prepped and draped in usual sterile fashion. Leg was exsanguinated. Tourniquet was inflated to 300 mmHg. Total tourniquet time of the case approximately 80 minutes. Anterior midline incision was made on the knee with a medial parapatellar arthrotomy. The patella was able to be everted. Soft tissue was cleared in the anterior aspect of the distal femur for placing the femoral pins. The tibial pins were placed through stab incisions on the skin and the proximal medial aspect of the tibia. The digital arrays for the [employer] robotic system from [employer] were attached to the pins. Prompts were then followed for mapping out the extremity. Soft tissue release was done medially. Painted the distal femur and the proximal tibia. Stress views were documented. Adjustments were then made on the computer screen for balancing and sizing. The robotic rafi was then used to bur the distal femoral resection. Punch was used to make the holes from a 5-in-1 cutting block. The size 5 cutting block was placed and verified. It was pinned into place and the sequential cuts were made. The robotic handpiece was used to also then float the tibial cutting blocks which was pinned into place. Tibial resection was made. Verified that resection also with the robotic hand piece. Remnants of menisci were excised. Tibia sized to a 3. The punch was used on the tibia after pinning it into place. Trial components were placed. Posterior stabilized cuts were made on the femur. Final trialing was done. Balanced out beautifully. Final trialing we had a 9 in, but I did not complete a full medial soft tissue release and did plan on and did accomplish getting a 10 in there. After trialing the digital arrays, pins were removed. The patella was resurfaced to the free saw cut on the underside. A 32 mm diameter patella was used. The 3 pegs were drilled for that. Caliper was used to check the thickness. Capsule was injected with diluted Marcaine with epi and Exparel. Pulsatile irrigation was used throughout the procedure to prepare for cementing. The Irrisept chlorhexidine irrigation was also used at very stages of the procedure. Antibiotic cement was used to cement in the size 3 tibial tray, followed by thesize 5 Oxinium femoral component. This is the JII knee system from [employer]. Temporary 11 spacer was placed while the cement hardened. The patella cemented into place also. Excess cement was removed from the wound both before and after hardening. After final inspection for cement debris, a permanent 10 poly was locked into place. Final irrigation was done. The extensor mechanism was reapproximated with interrupted #1 Vicryl sutures. Reinforced with running #2 Quill suture, 2-0 Stratafix in the subcu and Monocryl on the skin. Acticoat and JENNIFER wound VAC dressings were applied. Awoken from anesthesia and taken to recovery room in satisfactory condition. No complications. PA was integral in performance of the procedure, participated in all aspects including helping with exposure, helped remove bone fragments and excess cement, facilitated implantation, and participated in the closure. ROXY/RAHUL @ 11:22 @ 21:44 # [id number] Troy Estrada M.D. Electronically Signed Date/Time: 01/30/23745 Electronically Signed Date/Time: 01/30/23745 [facility] 01-23-2023 PD.BIB FOSTERMA Ingrid Female [id number] [facility]ing [id number] Attending physician: Troy Estrada V. 1950 72 DOS: Anesthesia Assessment - Procedure NPO since: 1999 THEN SIP OF H20 WITH PILL AT 0700 PreProcedure Diagnosis: OSTEOARTHRITIS OF KNEE Surgeon: anel Procedure to be Performed: LEFT TOTAL KNEE ARTHROPLASTY WITH ROBOTIC ASSIST - Anesthesia History Hx Anesthesia Reactions: No Risk Factors-PostOp Nausea/Vomiting: Female - Surgical History Name of Surgery/Procedure: EXP. LAP WITH APPY; T A A CHILD; LEFT KNEE SCOPE W/ MENISECTOMY; RIGHT TKA; COLONOSCOPY. bilat cataracts; LT DUPYTRENS' CONTRACTURE RELEASE; - Cardiovascular History Hx Cardiac Disorders: Yes Hx [place]: No Hx Angina: No Hx Peripheral Vascular Disease: No Hx Congestive Heart Failure: No Hx Cardiomyopathy: No Hx Deep Vein Thrombosis: No Hx Cardiac Surgery: No Hx Angioplasty: No Hx Coronary Stent: No Hx Cardiac Catherization: No Hx Pacemaker/Implantable Defibrillator: No Hx Anticoagulant Therapy: No Hx Stress Test: Yes ('12 - nl per pt) Hx Irregular Heartbeat: No Hx Hypertension: Yes Hx Hypotension: No - Endocrine/ History Hx Endocrine Disorders: Yes (NIDDM) Hx Diabetes: Yes Hx Hyperthyroidism: No Hx Hypothyroidism: No Hx Genitourinary: Yes (stones) Hx Renal Disease: No ( ) Hx Hypercholesterolemia: Yes ( ) Body Mass Index (BMI): 31.2 - Respiratory History Hx Respiratory Disorders: No Hx Chronic Obstructive Pulmonary Disease (COPD): No Hx Asthma: No Hx Emphysema: No Hx Tuberculosis: No Hx Pulmonary Embolism: No Hx Sleep Apnea: No - Stop Bang Assessment Do you snore loudly?: Yes Do you often feel tired, fatigued, or sleepy during the dayt: Yes Do you have or are you being treated for high blood pressure: Yes Are you obese/overweight-BMI more than 35kg?: No Is your neck circumference greater than 16 inches?: Yes Are you a male?: No Are you over 50 years old?: Yes Has anyone observed you stop breathing during your sleep?: No Stop Bang Score: 5 - GI Medical History Hx Gastrointestinal Disorders: Yes Hx Hepatitis: No Hx Gastrointestinal Bleed: No Hx GERD: Yes (controlled) Hx Diverticulitis: No Hx Crohn's Disease: No - Musculoskelatal Disorders Hx Musculoskeletal Disorders: Yes (OSTEOPENIA) Hx Arthritis: Yes Hx Rheumatoid Arthritis: No Hx Back Pain: No Hx Fibromyalgia: No - Neurological Disorders Hx Neurological Disorders: Yes Hx Cerebrovascular Accident: No Hx Transient Ischemic Attacks (TIA): No Hx Dementia: No Hx Alzheimer's Disease: No Hx Parkinson's Disease: No Hx Seizures: No Hx Multiple Sclerosis: No Hx Cerebral Palsy: No Hx Peripheral Neuropathy: Yes (LEFT FOOT/LT ARM) Hx Migraines: No - Psych Medical History Hx Psychiatric Problems: Yes Hx Depression: No Hx Anxiety: Yes - Heme Medical History Hx Blood Disorders: Yes Hx Anemia: Yes (IRON DEFICIENCY) - Other Medical History Hx Hospitalization: Yes (covid 2020) Hx Cancer: No Hx Blood Transfusions: No Hx Blood Transfusion Reaction: No Smoking Status: Former Smoker Hx Alcohol Use: No Hx Street Drug Use: None Recent URI: No - Assessment Heart Sounds: S1 S2 Breath Sounds: Clear Airway Maintained: Yes Pain Score: 0 Temperature (celsius): 36.1 C Pulse Rate: 86 Respiratory Rate: 16 O2 Sat by Pulse Oximetry: 96 Blood Pressure: 129/67 Height: 1.63 m Weight (kg): 82.6 kg Labs Reviewed: Yes (FBS - 125) - Airway MAL: 2 TMD: Greater than 3 Condition of Teeth: Chipped Teeth, Missing Teeth, Decayed Teeth ROM neck: Full - Anesthesia Plan of Care ASA Class: ASA 3 Anesthesia Type: GALMA VAP Risk Factors: Age >70 VAP: If any of the above risk factors are selected Hi-Lo Endotracheal Tubes will be considered and preoperative oral care will be completed. Type of Block Anesthesia: Adductor Canal Post Op Pain Control: PNB - Anesthesia Notes Anesthesia Notes: Yes Anesthesia Consult: Complete Active Medications: Bupivacaine HCl (Or-Bupivacaine 0.5% Pf 30 Ml Vial) 30 ml LOCAL PRN PRN PRN Reason: SURGERY Stop: 01/28/23 06:59 Bupivacaine HCl/Epinephrine Bitart (Or-Bupivacaine 0.5 % Epinephrine 1:[id number] 30 Ml Vial) 30 ml LOCAL PRN PRN PRN Reason: SURGERY Stop: 01/28/23 06:59 Dexamethasone Sodium Phosphate (Or-Dexamethasone 4 Mg/1 Ml 5 Ml Vial) 10 mg IV PUSH PRN PRN PRN Reason: SURGERY Stop: 01/28/23 06:59 Polymyxin B Sulfate 0.5 mil. (units/ Gentamicin Sulfate) 3,000 mls @ 3,000 mls/hr IRR .Q1H PRN PRN Reason: PRN Stop: 01/28/23 06:59 Sodium Chloride (0.9% Nacl) 3,000 mls @ 3,000 mls/hr IRR .Q1H PRN PRN Reason: SURGERY Stop: 01/28/23 06:59 Sodium Chloride (0.9% Nacl) 1,000 mls @ 10 mls/hr IV CONTINUOUS IOANA Stop: 01/28/23 05:59 Last Admin: 01/23/23 08:05 Dose: 10 mls/hr Sodium Chloride 47.2 ml/Bupivacaine Li (more content not included)... Normal [facility] POST.ANon 01-23-2023 POST.AN DEBBIE HAYES Female [id number] Ordering physician: ADM IN [facility] [id number] Attending physician: Troy Estrada V. 1950 72 DOS: Pt noted to have hypoventilation. She will drop her Pox to the low 80's on RA. She will quickly return to the mid 90's with 2L NC O2. She gets dyspneic speaking. She also complains that her right eye is being stabbed. She keeps rubbing it. The vision is intact and the eye is mobile. There is not obvious trauma. we gave her some saline drops but the symptoms did not resolve. She is allergic to the polymixin in the ophthalmic ointment so we did not treat. She is instructed to use saline gtt in her eye a few times a day. If it persists more than three days she should follow up with ophthalmology. Anesthesia Post Op Assessment - Post Procedure Vital Signs Blood Pressure: 129/67 Pulse Rate: 80 Respiratory Rate: 16 Temperature (celsius): 37.0 C Pulse Ox Saturation: 93 O2 Sat by Pulse Oximetry: 96 - Post Anesthesia Patient Orientation: Person, Place, Time Consciousness on discharge: Fully awake Post Op Nausea/Vomiting: No Pain Controlled: Yes Circulation on Discharge: BP +/- 20% of pre-anesthesia level Bay Score: 9 No Complications: Yes Cardiopulmonary Status Stable: Yes Active Vomiting: No Postoperative Hydration: Euvolemic 01/23/23 1306 Dictated By: Jann Guaman MD Electronically Signed Date/Time: 01/23/23 1306 Normal [facility] BASIC METABOLIC PANELon Anion gap [Moles/Vol] 11.8 mmol/L Normal 08-02 [facility] Comment on above: Performed By: #### D IFF (MANUAL), CBC #### [address] [address] Calcium [Mass/Vol] 10.0 mg/dL Normal 8.5-10.1 [facility] Comment on above: Performed By: #### D IFF (MANUAL), CBC #### [facility] [address] [facility] [place] [address] Chloride [Moles/Vol] 108 mmol/L High 98-107 [facility] Comment on above: Performed By: #### D IFF (MANUAL), CBC #### [address] [place] [address] CO2 [Moles/Vol] 24.0 mmol/L Normal 21-32 [facility] Comment on above: Performed By: #### D IFF (MANUAL), CBC #### [address] [place] [address] Creatinine [Mass/Vol] 1.30 mg/dL High 0.55-1.02 [facility] Comment on above: Performed By: #### D IFF (MANUAL), CBC #### [address] [place] [address] GFR AM 52.8 mL/min [facility] Comment on above: Result Comment: THE NORMAL LEVEL OF GFR VARIES ACCORDING TO AGE, SEX, AND BODY SIZE. A GFR LEVEL OF LESS THAN 60 ML/MIN REPRESENTS LOSS OF THE ADULT LEVEL OF NORMAL KIDNEY FUNCTION. Performed By: #### D IFF (MANUAL), CBC #### [address] [place] [address] GFR/1.73 sq M.predicted MDRD (S/P/Bld) [Vol rate/Area] 43.7 mL/min/{1.73_m2} [facility] Comment on above: Performed By: #### D IFF (MANUAL), CBC #### [address] [place] [address] Glucose [Mass/Vol] 150 mg/dL High 70-100 [facility] Comment on above: Performed By: #### D IFF (MANUAL), CBC #### [address] [place] [address] Potassium [Moles/Vol] 4.8 mmol/L Normal 3.5-5.1 [facility] Comment on above: Performed By: #### D IFF (MANUAL), CBC #### [address] [place] [address] Sodium [Moles/Vol] 139 mmol/L Normal 136-145 [facility] Comment on above: Performed By: #### D IFF (MANUAL), CBC #### [address] [address] Urea nitrogen [Mass/Vol] 37.0 mg/dL High 7-18 [facility] Comment on above: Performed By: #### D IFF (MANUAL), CBC #### [address] [place] [address] CBC with AUTO DIFFon 02- 023 BAS0 % 0.70 % Normal 0-2 [facility] Comment on above: Performed By: #### D IFF (MANUAL), CBC #### [address] [place] [address] Basophils (Bld) [#/Vol] 0.1 10*3/uL Normal 0-0.1 [facility] Comment on above: Performed By: #### D IFF (MANUAL), CBC #### [address] [address] Eosinophils (Bld) [#/Vol] 0.2 10*3/uL Normal 0.0-1.80 [facility] Comment on above: Performed By: #### D IFF (MANUAL), CBC #### [address] [address] Eosinophils/100 WBC (Bld) 2.7 % Normal 0-8 [facility] Comment on above: Performed By: #### D IFF (MANUAL), CBC #### [address] [address] GRAN # 5.1 K/uL Normal 2.2-9.1 [facility] Comment on above: Performed By: #### D IFF (MANUAL), CBC #### [address] [address] GRAN % 62.2 % Normal 42-80 [facility] Comment on above: Performed By: #### D IFF (MANUAL), CBC #### [address] [address] Hematocrit (Bld) [Volume fraction] 33.8 % Low 37.0-47.0 [facility] Comment on above: Performed By: #### D IFF (MANUAL), CBC #### [address] [place] [address] Hemoglobin (Bld) [Mass/Vol] 10.5 g/dL Low 12.0-16. 0 [facility] Comment on above: Performed By: #### D IFF (MANUAL), CBC #### [facility] [address] [place] [address] Lymphocytes (Bld) [#/Vol] 2.1 10*3/uL Normal 1.0-4.0 [facility] Comment on above: Performed By: #### D IFF (MANUAL), CBC #### [address] [place] [address] Lymphocytes/100 WBC (Bld) 25.4 % Normal 16-48 [facility] Comment on above: Performed By: #### D IFF (MANUAL), CBC #### [address] [address] MCV (RBC) [Entitic vol] 67.4 fL Low 80-97 [facility] Comment on above: Performed By: #### D IFF (MANUAL), CBC #### [address] [place] [address] MEAN CORPUSCULAR HGB 21.0 pg Low 26.0-32.0 [facility] Comment on above: Performed By: #### D IFF (MANUAL), CBC #### [address] [place] [address] MEAN CORPUSCULAR HGB CONC 31.2 g/dL Normal 31.0-36.0 [facility] Comment on above: Performed By: #### D IFF (MANUAL), CBC #### [address] [place] [address] MONO DISTRIB WIDTH Not performed Normal 0-20 [facility] Comment on above: Performed By: #### D IFF (MANUAL), CBC #### [address] [place] [address] Monocytes (Bld) [#/Vol] 0.7 10*3/uL Normal 0.1-1.7 [facility] Comment on above: Performed By: #### D IFF (MANUAL), CBC #### [address] [address] Monocytes/100 WBC (Bld) 9.0 % Normal 3-9 [facility] Comment on above: Performed By: #### D IFF (MANUAL), CBC #### [facility] [address] [facility] [place] [address] Platelet mean volume (Bld) [Entitic vol] 8.2 fL Normal 6.6-10.5 [facility] Comment on above: Performed By: #### D IFF (MANUAL), CBC #### [facility] [address] [facility] [place] [address] Platelets (Bld) [#/Vol] 302 10*3/uL Normal 140-450 [facility] Comment on above: Performed By: #### D IFF (MANUAL), CBC #### [address] [place] [address] RBC (Bld) [#/Vol] 5.01 10*6/uL Normal 4.20-5.50 [facility] Comment on above: Performed By: #### D IFF (MANUAL), CBC #### [address] [place] [address] RED CELL DISTRI WIDTH 16.5 % High 11.0-15.5 [facility] Comment on above: Performed By: #### D IFF (MANUAL), CBC #### [address] [place] [address] WBC (Bld) [#/Vol] 8.1 10*3/uL Normal 4.0-11.0 [facility] Comment on above: Performed By: #### D IFF (MANUAL), CBC #### [address] [place] [address] DIFFERENTIALon 01-09-2023 IMMATURE GRANS NONE SEEN Normal [facility] Comment on above: Performed By: #### D IFF (MANUAL), CBC #### [address] [place] [address] MICROCYTOSIS MOD/MKD Normal [facility] Comment on above: Performed By: #### D IFF (MANUAL), CBC #### [address] [place] [address] PLATELET ESTIMATE NORMAL Normal [facility] Comment on above: Performed By: #### D IFF (MANUAL), CBC #### [address] [place] [address] POIKILOCYTOSIS MOD Normal [facility] Comment on above: Performed By: #### D IFF (MANUAL), CBC #### [facility] [address] [facility] [place] [address] HYPOCHROMIA MOD [facility] Comment on above: Performed By: #### D IFF (MANUAL), CBC #### [facility] [address] [facility] [place] [address] OVALO/ELLIPTOCYTES FEW Normal [facility] Comment on above: Performed By: #### D IFF (MANUAL), CBC #### [facility] [address] [facility] [place] [address] POLYCHROMASIA MOD [facility] Comment on above: Performed By: #### D IFF (MANUAL), CBC #### [facility] [address] [facility] [place] [address] TEAR DROP CELLS FEW [facility] Comment on above: Performed By: #### D IFF (MANUAL), CBC #### [facility] [address] [facility] [place] [address] Anisocytosis Ql (Bld) MOD Normal [facility] Comment on above: Performed By: #### D IFF (MANUAL), CBC #### [facility] [address] [facility] [place] [address] Basophils/100 WBC (Bld) 1 % Normal 0-2 [facility] Comment on above: Performed By: #### D IFF (MANUAL), CBC #### [facility] [address] [facility] [place] [address] Eosinophils/100 WBC (Bld) 5 % Normal 0-8 [facility] Comment on above: Performed By: #### D IFF (MANUAL), CBC #### [facility] [address] [facility] [place] [address] Lymphocytes/100 WBC (Bld) 21 % Normal 16-48 [facility] Comment on above: Performed By: #### D IFF (MANUAL), CBC #### [facility] [address] [facility] [place] [address] Monocytes/100 WBC (Bld) 7 % Normal 3-9 [facility] Comment on above: Performed By: #### D IFF (MANUAL), CBC #### [facility] [address] [facility] [place] [address] Neutrophils/100 WBC (Bld) 66 % Normal 42-80 [facility] Comment on above: Performed By: #### D IFF (MANUAL), CBC #### [facility] [address] [facility] [place] [address] TOTAL CELLS COUNTED 100 #CELLS Normal [facility] Comment on above: Performed By: #### D IFF (MANUAL), CBC #### [facility] [address] [place] [address] Laboratory studies (set)on 0 01-09-2023 Anion gap [Moles/Vol] 11.8 mmol/L 11-23 [facility] Work Phone: Anisocytosis Ql (Bld) [facility] Work Phone: Appearance (U) CLEAR [facility] Work Phone: Basophils (Bld) [#/Vol] 0.1 10*3/uL 0-0.1 [facility] Work Phone: Basophils/100 WBC (Bld) 1 % 0-2 [facility] Work Phone: Basophils/100 WBC (Bld) 0.70 % 0-2 [facility] Work Phone: Bilirubin Ql (U) NEGATIVE [facility] Work Phone: Calcium [Mass/Vol] 10.0 mg/dL 8.5-10.1 [facility] Work Phone: Chloride [Moles/Vol] 108 mmol/L High 98-107 Rubén ance [facility] Work Phone: CO2 [Moles/Vol] 24.0 mmol/L 21-32 [facility] Work Phone: Color (U) [facility] Work Phone: Creatinine [Mass/Vol] 1.30 mg/dL High 0.55-1.02 [facility] Work Phone: Dacrocytes LM Ql (Bld) [facility] Work Phone: Differential Total Cells Counted 100 #CELLS [facility] Work Phone: Elliptocytes LM Ql (Bld) [facility] Work Phone: Eosinophils (Bld) [#/Vol] 0.2 10*3/uL 0.0-1.80 [facility] Work Phone: [phone] Eosinophils/100 WBC (Bld) 5 % 0-8 [facility] Work Phone: [phone] Eosinophils/100 WBC (Bld) 2.7 % 0-8 [facility] Work Phone: [phone] Erythrocyte distribution width (RBC) [Ratio] 16.5 % High 11.0-15.5 [facility] Work Phone: GFR/1.73 sq M.predicted among non-blacks MDRD (S/P/Bld) [Vol rate/Area] 43.7 mL/min/{1.73_m2} [facility] Work Phone: [phone] GFR/1.73 sq M.predicted MDRD (S/P/Bld) [Vol rate/Area] 52.8 mL/min/{1.73_m2} [facility] Work Phone: Comment on above: THE NORMAL LEVEL OF GFR VARIES ACCORDING TO AGE, SEX, AND BODY SIZE. A GFR LEVEL OF LESS THAN 60 ML/MIN REPRESENTS LOSS OF THE ADULT LEVEL OF NORMAL KIDNEY FUNCTION. Glucose [Mass/Vol] 150 mg/dL High 70-100 [facility] Work Phone: [phone] Glucose Ql (U) NEGATIVE [facility] Work Phone: [phone] Granulocytes (Bld) [#/Vol] 5.1 10*3/uL 2.2-9.1 [facility] Work Phone: Granulocytes/100 WBC (Bld) 62.2 % 42-80 [facility] Work Phone: Hemoglobin Ql (U) NEGATIVE [facility] Work Phone: Hypochromia Ql (Bld) [facility] Work Phone: [phone] Immature Granulocytes [facility] Work Phone: Ketones Ql (U) NEGATIVE [facility] Work Phone: Leukocyte esterase Test strip Ql (U) NEGATIVE [facility] Work Phone: Lymphocytes (Bld) [#/Vol] 2.1 10*3/uL 1.0-4.0 [facility] Work Phone: Lymphocytes Auto (Unsp spec) [#/Vol] 21 % 16-48 [facility] Work Phone: Lymphocytes/100 WBC (Bld) 25.4 % 16-48 [facility] Work Phone: MCH (RBC) [Entitic mass] 21.0 pg Low 26.0-32.0 [facility] Work Phone: MCHC (RBC) [Mass/Vol] 31.2 g/dL 31.0-36.0 [facility] Work Phone: MCV (RBC) [Entitic vol] 67.4 fL Low 80-97 [facility] Work Phone: Microcytosis [facility] Work Phone: Monocyte distribution width Auto (Bld) [Entitic vol] 0-20 [facility] Work Phone: Monocytes (Bld) [#/Vol] 0.7 10*3/uL 0.1-1.7 [facility] Work Phone: Monocytes/100 WBC (Bld) 7 % 3-9 [facility] Work Phone: Monocytes/100 WBC (Bld) 9.0 % 3-9 [facility] Work Phone: Nitrite Ql (U) NEGATIVE [facility] Work Phone: pH (U) 6.0 [pH] 5.0-9.0 [facility] Work Phone: Platelet mean volume (Bld) [Entitic vol] 8.2 fL 6.6-10.5 [facility] Work Phone: Platelets (Bld) [#/Vol] 302 10*3/uL 140-450 [facility] Work Phone: Platelets LM Ql (Bld) [facility] Work Phone: [phone] Poikilocytosis LM Ql (Bld) [facility] Work Phone: Polychromasia LM Ql (Bld) [facility] Work Phone: Potassium [Moles/Vol] 4.8 mmol/L 3.5-5.1 [facility] Work Phone: [phone] Protein Ql (U) High NEGATIVE [facility] Work Phone: RBC (Bld) [#/Vol] 5.01 10*6/uL 4.20-5.50 [facility] Work Phone: RBC LM.HPF (Urine sed) [#/Area] 0-2 [facility] Work Phone: RBC morphology finding Nom (Bld) [facility] Work Phone: Segmented neutrophils/100 WBC (Bld) 66 % 42-80 [facility] Work Phone: [phone] Sodium [Moles/Vol] 139 mmol/L 136-145 [facility] Work Phone: Specific gravity (U) [Rel density] 1.015 1.003-1.03 5 [facility] Work Phone: Urea nitrogen [Mass/Vol] 37.0 mg/dL High 7-18 [facility] Work Phone: [phone] Urine Bacteria <1+ [facility] Work Phone: Urine Squamous Epithelial Cells NONE-MANY [facility] Work Phone: Urine WBC 0-3 [facility] Work Phone: Urobilinogen Ql (U) 0.2 E.U./dL <=1.0 Rub[facility] Work Phone: WBC (Bld) [#/Vol] 8.1 10*3/uL 4.0-11.0 [facility] Work Phone: [phone] URINALYSIS W/ C S IF INDICAT EDon 01-09-2023 Appearance (U) Clear Normal CLEAR [facility] Comment on above: Order Comment: CLEAN CATCHCLEANCATCH Performed By: #### G LY #### [facility] [address] [facility] [place] [address] Color (U) Lt. Yellow Normal [facility] Comment on above: Order Comment: CLEAN CATCHCLEANCATCH Performed By: #### G LY #### [facility] [address] [facility] [place] [address] Hemoglobin Ql (U) Negative Normal NEGATIVE [facility] Comment on above: Order Comment: CLEAN CATCHCLEANCATCH Performed By: #### G LY #### [facility] [address] [facility] [place] [address] pH (U) 6.0 [pH] Normal 5.0-9.0 [facility] Comment on above: Order Comment: CLEAN CATCHCLEANCATCH Performed By: #### G LY #### [address] [place] [address] URINE BILIRUBIN - DIPSTICK Negative Normal NEGATIVE [facility] Comment on above: Order Comment: CLEAN CATCHCLEANCATCH Performed By: #### G LY #### [address] [place] [address] URINE GLUCOSE - DIPSTICK Negative Normal NEGATIVE [facility] Comment on above: Order Comment: CLEAN CATCHCLEANCATCH Performed By: #### G LY #### [address] [place] [address] URINE KETONE Negative Normal NEGATIVE [facility] Comment on above: Order Comment: CLEAN CATCHCLEANCATCH Performed By: #### G LY #### [address] [place] [address] URINE LEUK ESTERASE Negative Normal NEGATIVE [facility] Comment on above: Order Comment: CLEAN CATCHCLEANCATCH Performed By: #### G LY #### [address] [place] [address] URINE NITRITE - DIPSTICK Negative Normal NEGATIVE [facility] Comment on above: Order Comment: CLEAN CATCHCLEANCATCH Performed By: #### G LY #### [address] [place] [address] URINE PROTEIN - DIPSTICK 2+ Abnormal NEGATIVE [facility] Comment on above: Order Comment: CLEAN CATCHCLEANCATCH Performed By: #### G LY #### [address] [address] URINE SPEC GRAVITY, DIPSTICK 1.015 Normal 1.003-1.03 5 [facility] Comment on above: Order Comment: CLEAN CATCHCLEANCATCH Performed By: #### G LY #### [facility] [address] [facility] [place] [address] URINE UROBILINOGEN - DIPSTICK 0.2 E.U./dL Normal <=1.0 [facility] Comment on above: Order Comment: CLEAN CATCHCLEANCATCH Performed By: #### G LY #### [facility] [address] [facility] [place] [address] URINE MICROSCOPICon 01-10-20 23 UR SQUAM EPITH MANY Normal NONE-MANY [facility] Comment on above: Performed By: #### G LY #### [facility] [address] [facility] [place] [address] URINE BACTERIA FEW Normal <1+ [facility] Comment on above: Performed By: #### G LY #### [facility] [address] [facility] [place] [address] URINE RBC NONE SEEN Normal 0-2 [facility] Comment on above: Performed By: #### G LY #### [facility] [address] [facility] [place] [address] URINE WBC 0-3 Normal 0-3 [facility] Comment on above: Performed By: #### G LY #### [facility] [address] [facility] [place] [address] ABDOMEN/PELVIS W/O CONTRASTo n 11-29-2022 ABDOMEN/PELVIS W/O CONTRAST ONESIMO HAYES M Female [id number] Ordering physician: Juliet Juarez LOC:CAT [id number] Attending physician: Juliet Juarez [id number] DOS: 11/27/22 Acc#: [id number] Exam/Proc: ABDOMEN/PELVIS W/O CONTRAST Dept: COMPUTED TOMOGRAPHY EXAMINATION: CT OF THE ABDOMEN AND PELVIS WITHOUT CONTRAST11/27/2022 2:[address] ABDOMEN/PELVIS WITHOUT CONTRAST TECHNIQUE: CT of the abdomen and pelvis was performed without the administration of intravenous contrast. Multiplanar reformatted images are provided for review. Automated exposure control, iterative reconstruction, and/or weight based adjustment of the mA/kV was utilized to reduce the radiation dose to as low as reasonably achievable. COMPARISON: None HISTORY: ORDERING SYSTEM PROVIDED HISTORY: TECHNOLOGIST PROVIDED HISTORY: Reason for Exam: flank pain, Nephrolithiasis FINDINGS: There are no lower thoracic findings. Liver: Normal size and density. No mass or biliary dilatation. Stable benign low-density lesion in the right lobe superiorly is noted. Gallbladder: Physiologically distended and otherwise unremarkable in appearance. Common duct: Not dilated. Pancreas: No mass, inflammation, calcification or adjacent fluid collection. Stomach and duodenum: No mass or wall thickening. Spleen: No mass and is normal in size. Right Kidney: No hydronephrosis, solid mass or visible stone. There is a stable 4 cm cyst. Left Kidney: No hydronephrosis, solid mass or visible stone. Adrenal glands: Normal The large and small bowel loops are unremarkable in appearance except for diverticulosis with no visible diverticulitis. Retroperitoneum: No lymphadenopathy or hematoma. Aorta: No aneurysm. Urinary bladder: Normal Uterus is unremarkable. Mesentery: No mass or inflammatory change. No ascites or free air. No abdominal wall masses or external hernias There are no suspicious bone lesions. IMPRESSION: No visible nephrolithiasis or obstructive uropathy. 4 cm right renal cyst which is stable. Electronically signed By Alexis Gutierrez MD 11/29/2022 4:15:49 PM EST Workstation ID : [id number] REPORT SIGNATURE ON FILE Electronically Signed Date/Time: 11/29/22 1615 Dictated Date/time: 11/29/22 1611 CC: Normal [facility] VIT D 25 OHon 11-22-2022 VIT D 25 OH 38.7 ng/mL Normal 30-100 [facility] Comment on above: Result Comment: Inte rpretation of VitD results: Adult: <20 ng/mL Deficient 20 - <30 ng/mL Insufficiency 30 - 100 ng/mL Sufficiency Pediatric: <15 ng/mL Deficient 15 - <20 ng/mL Insufficiency 20 - 100 ng/mL Sufficiency Performed By: #### C BC, DIFF (MANUAL) #### [address] [address] CBC with AUTO DIFFon 03-14-2 023 BAS0 % 0.80 % Normal 0-2 [facility] Comment on above: Performed By: #### D IFF (MANUAL), CBC #### [facility] [address] [facility] [place] [address] Basophils (Bld) [#/Vol] 0.1 10*3/uL Normal 0-0.1 [facility] Comment on above: Performed By: #### D IFF (MANUAL), CBC #### [address] [place] [address] Eosinophils (Bld) [#/Vol] 0.1 10*3/uL Normal 0.0-1.80 [facility] Comment on above: Performed By: #### D IFF (MANUAL), CBC #### [address] [address] Eosinophils/100 WBC (Bld) 1.9 % Normal 0-8 [facility] Comment on above: Performed By: #### D IFF (MANUAL), CBC #### [address] [address] GRAN # 5.4 K/uL Normal 2.2-9.1 [facility] Comment on above: Performed By: #### D IFF (MANUAL), CBC #### [address] [place] [address] GRAN % 67.9 % Normal 42-80 [facility] Comment on above: Performed By: #### D IFF (MANUAL), CBC #### [address] [address] Hematocrit (Bld) [Volume fraction] 34.8 % Low 37.0-47.0 [facility] Comment on above: Performed By: #### D IFF (MANUAL), CBC #### [address] [address] Hemoglobin (Bld) [Mass/Vol] 10.8 g/dL Low 12.0-16. 0 [facility] Comment on above: Performed By: #### D IFF (MANUAL), CBC #### [address] [address] Lymphocytes (Bld) [#/Vol] 1.7 10*3/uL Normal 1.0-4.0 [facility] Comment on above: Performed By: #### D IFF (MANUAL), CBC #### [facility] [address] [facility] [place] [address] Lymphocytes/100 WBC (Bld) 22.0 % Normal 16-48 [facility] Comment on above: Performed By: #### D IFF (MANUAL), CBC #### [facility] [address] [facility] [place] [address] MCV (RBC) [Entitic vol] 67.2 fL Low 80-97 [facility] Comment on above: Performed By: #### D IFF (MANUAL), CBC #### [facility] [address] [facility] [place] [address] MEAN CORPUSCULAR HGB 20.8 pg Low 26.0-32.0 [facility] Comment on above: Performed By: #### D IFF (MANUAL), CBC #### [facility] [address] [facility] [place] [address] MEAN CORPUSCULAR HGB CONC 31.0 g/dL Normal 31.0-36.0 [facility] Comment on above: Performed By: #### D IFF (MANUAL), CBC #### [address] [place] [address] MONO DISTRIB WIDTH Not performed Normal 0-20 [facility] Comment on above: Performed By: #### D IFF (MANUAL), CBC #### [address] [place] [address] Monocytes (Bld) [#/Vol] 0.6 10*3/uL Normal 0.1-1.7 [facility] Comment on above: Performed By: #### D IFF (MANUAL), CBC #### [address] [place] [address] Monocytes/100 WBC (Bld) 7.4 % Normal 3-9 [facility] Comment on above: Performed By: #### D IFF (MANUAL), CBC #### [facility] [address] [facility] [place] [address] Platelet mean volume (Bld) [Entitic vol] 8.2 fL Normal 6.6-10.5 [facility] Comment on above: Performed By: #### D IFF (MANUAL), CBC #### [address] [place] [address] Platelets (Bld) [#/Vol] 388 10*3/uL Normal 140-450 [facility] Comment on above: Performed By: #### D IFF (MANUAL), CBC #### [facility] [address] [facility] [place] [address] RBC (Bld) [#/Vol] 5.18 10*6/uL Normal 4.20-5.50 [facility] Comment on above: Performed By: #### D IFF (MANUAL), CBC #### [address] [place] [address] RED CELL DISTRI WIDTH 16.6 % High 11.0-15.5 [facility] Comment on above: Performed By: #### D IFF (MANUAL), CBC #### [address] [place] [address] WBC (Bld) [#/Vol] 7.9 10*3/uL Normal 4.0-11.0 [facility] Comment on above: Performed By: #### D IFF (MANUAL), CBC #### [address] [address] COMPREHENSIVE METABOLIC PANE Jl 11-21-2022 Albumin [Mass/Vol] 4.5 g/dL Normal 3.4-5.0 [facility] Comment on above: Performed By: #### G LY #### [facility] [address] [facility] [place] [address] Albumin/Globulin [Mass ratio] 1.3 {ratio} Normal 1.1-1.8 [facility] Comment on above: Performed By: #### G LY #### [facility] [address] [facility] [place] [address] ALP [Catalytic activity/Vol] 55 U/L Normal 45-117 [facility] Comment on above: Performed By: #### G LY #### [facility] [address] [facility] [place] [address] ALT [Catalytic activity/Vol] 42 U/L Normal 12-78 [facility] Comment on above: Performed By: #### G LY #### [facility] [address] [facility] [place] [address] Anion gap [Moles/Vol] 10.5 mmol/L Low 11-23 [facility] Comment on above: Performed By: #### G LY #### [address] [place] [address] AST [Catalytic activity/Vol] 41 U/L High 15-37 [facility] Comment on above: Performed By: #### G LY #### [facility] [address] [facility] [place] [address] Bilirubin [Mass/Vol] 0.5 mg/dL Normal 0.2-1.0 [facility] Comment on above: Performed By: #### G LY #### [facility] [address] [facility] [place] [address] Calcium [Mass/Vol] 10.2 mg/dL High 8.5-10.1 [facility] Comment on above: Performed By: #### G LY #### [facility] [address] [facility] [place] [address] Chloride [Moles/Vol] 110 mmol/L High 98-107 [facility] Comment on above: Performed By: #### G LY #### [address] [place] [address] CO2 [Moles/Vol] 22.0 mmol/L Normal 21-32 [facility] Comment on above: Performed By: #### G LY #### [facility] [address] [facility] [place] [address] Creatinine [Mass/Vol] 1.20 mg/dL High 0.55-1.02 [facility] Comment on above: Performed By: #### G LY #### [address] [place] [address] GFR AM 56.4 mL/min [facility] Comment on above: Result Comment: THE NORMAL LEVEL OF GFR VARIES ACCORDING TO AGE, SEX, AND BODY SIZE. A GFR LEVEL OF LESS THAN 60 ML/MIN REPRESENTS LOSS OF THE ADULT LEVEL OF NORMAL KIDNEY FUNCTION. Performed By: #### G LY #### [facility] [address] [facility] [place] [address] GFR/1.73 sq M.predicted MDRD (S/P/Bld) [Vol rate/Area] 46.6 mL/min/{1.73_m2} [facility] Comment on above: Performed By: #### G LY #### [address] [place] [address] Globulin (S) [Mass/Vol] 3.3 g/dL Normal 2.5-4.6 [facility] Comment on above: Performed By: #### G LY #### [facility] [address] [facility] [place] [address] Glucose [Mass/Vol] 123 mg/dL High 70-100 [facility] Comment on above: Performed By: #### G LY #### [facility] [address] [facility] [place] [address] Potassium [Moles/Vol] 5.8 mmol/L High 3.5-5.1 [facility] Comment on above: Performed By: #### G LY #### [facility] [address] [facility] [place] [address] Protein [Mass/Vol] 7.8 g/dL Normal 6.0-8.3 [facility] Comment on above: Performed By: #### G LY #### [facility] [address] [facility] [place] [address] Sodium [Moles/Vol] 137 mmol/L Normal 136-145 [facility] Comment on above: Performed By: #### G LY #### [address] [place] [address] Urea nitrogen [Mass/Vol] 25.0 mg/dL High 7-18 [facility] Comment on above: Performed By: #### G LY #### [address] [place] [address] DIFFERENTIALon 11-21-2022 IMMATURE GRANS NONE SEEN Normal [facility] Comment on above: Performed By: #### D IFF (MANUAL), CBC #### [address] [place] [address] PLATELET ESTIMATE NORMAL Normal [facility] Comment on above: Performed By: #### D IFF (MANUAL), CBC #### [address] [place] [address] OVALO/ELLIPTOCYTES FEW Normal [facility] Comment on above: Performed By: #### D IFF (MANUAL), CBC #### [address] [place] [address] TEAR DROP CELLS FEW Normal [facility] Comment on above: Performed By: #### D IFF (MANUAL), CBC #### [facility] [address] [facility] [place] [address] Anisocytosis Ql (Bld) SLIGHT Normal [facility] Comment on above: Performed By: #### D IFF (MANUAL), CBC #### [facility] [address] [facility] [place] [address] Lymphocytes/100 WBC (Bld) 29 % Normal 16-48 [facility] Comment on above: Performed By: #### D IFF (MANUAL), CBC #### [facility] [address] [facility] [place] [address] Monocytes/100 WBC (Bld) 3 % Normal 3-9 [facility] Comment on above: Performed By: #### D IFF (MANUAL), CBC #### [facility] [address] [facility] [place] [address] Neutrophils/100 WBC (Bld) 68 % Normal 42-80 [facility] Comment on above: Performed By: #### D IFF (MANUAL), CBC #### [address] [place] [address] TOTAL CELLS COUNTED 100 #CELLS Normal [facility] Comment on above: Performed By: #### D IFF (MANUAL), CBC #### [address] [place] [address] GLYCOHEMOGLOBIN (A1C)on 11-08 EST AVG GLUCOSE 151 Normal [facility] Comment on above: Performed By: #### G LY #### [address] [place] [address] HbA1c (Bld) [Mass fraction] 6.9 % Normal [facility] Comment on above: Result Comment: Inte rpretation of Hgb A1C results: <5.7% Normal 5.7% - 6.4% Prediabetes >6.4% Diabetes SAMPLES FROM PATIENTS WITH HEMOLYTIC ANEMIAS OR THE PRESENCE OF UNSTABLE HEMOGLOBINS LIKE HbSS OR HbSC WILL EXHIBIT DECREASED GLYCATED HGB DUE TO THE SHORTENED LIFE SPAN OF THE RED CELLS.RESULTS ARE NOT RELIABLE IN PATIENTS WITH CHRONIC BLOOD LOSS. Performed By: #### G LY #### [facility] [address] [facility] [place] [address] LIPID PROFILE (FASTING)on CHOL/HDL RATIO 3.7 mg/dl Normal 3.7-5.6 [facility] Comment on above: Performed By: #### G LY #### [facility] [address] [facility] [place] [address] Cholesterol [Mass/Vol] 117 mg/dL Normal 0-200 [facility] Comment on above: Performed By: #### G LY #### [facility] [address] [facility] [place] [address] Cholesterol in HDL [Mass/Vol] 31 mg/dL Normal 40-60 [facility] Comment on above: Performed By: #### G LY #### [facility] [address] [facility] [place] [address] Cholesterol in LDL [Mass/Vol] 33 mg/dL Normal 0-130 [facility] Comment on above: Performed By: #### G LY #### [facility] [address] [facility] [place] [address] Triglyceride [Mass/Vol] 263 mg/dL High 0-150 [facility] Comment on above: Performed By: #### G LY #### [facility] [address] [facility] [place] [address] VLDL CALCULATION 53 mg/dl Normal 5-40 [facility] Comment on above: Performed By: #### G LY #### [facility] [address] [facility] [place] [address] Laboratory studies (set)on 0 11-21-2022 25-Hydroxy Vitamin D Total 38.7 ng/mL 30-100 [facility] Work Phone: Comment on above: Interpretation of Vi tD results: Adult: <20 ng/mL Deficient 20 - <30 ng/mL Insufficiency 30 - 100 ng/mL Sufficiency Pediatric: <15 ng/mL Deficient 15 - <20 ng/mL Insufficiency 20 - 100 ng/mL Sufficiency Albumin [Mass/Vol] 4.5 g/dL 3.4-5.0 [facility] Work Phone: Albumin/Globulin [Mass ratio] 1.3 {ratio} 1.1-1.8 [facility] Work Phone: ALP [Catalytic activity/Vol] 55 U/L 45-117 [facility] Work Phone: ALT [Catalytic activity/Vol] 42 U/L 12-78 [facility] Work Phone: AST [Catalytic activity/Vol] 41 U/L High 15-37 [facility] Work Phone: Bilirubin [Mass/Vol] 0.5 mg/dL 0.2-1.0 [facility] Work Phone: Cholesterol [Mass/Vol] 117 mg/dL 0-200 [facility] Work Phone: [phone] Cholesterol in HDL [Mass/Vol] 31 mg/dL 40-60 [facility] Work Phone: [phone] Cholesterol in LDL [Mass/Vol] 33 mg/dL 0-130 [facility] Work Phone: [phone] Cholesterol in VLDL [Mass/Vol] 53 mg/dL 5-40 [facility] Work Phone: [phone] Cholesterol/HDL Ratio 3.7 mg/dl 3.7-5.6 [facility] Work Phone: Creatinine (U) [Mass/Vol] 56.4 mg/dL [facility] Work Phone: Comment on above: NO REFERENCE RANGES AVAILABLE FOR RANDOM URINE SPECIMENS. Estimated Average Glucose 151 [facility] Work Phone: Globulin (S) [Mass/Vol] 3.3 g/dL 2.5-4.6 [facility] Work Phone: [phone] HbA1c (Bld) [Mass fraction] 6.9 % [facility] Work Phone: Comment on above: Interpretation of Hg b A1C results: <5.7% Normal 5.7% - 6.4% Prediabetes >6.4% Diabetes SAMPLES FROM PATIENTS WITH HEMOLYTIC ANEMIAS OR THE PRESENCE OF UNSTABLE HEMOGLOBINS LIKE HbSS OR HbSC WILL EXHIBIT DECREASED GLYCATED HGB DUE TO THE SHORTENED LIFE SPAN OF THE RED CELLS.RESULTS ARE NOT RELIABLE IN PATIENTS WITH CHRONIC BLOOD LOSS. Iron [Mass/Vol] 90 ug/dL 50-170 [facility] Work Phone: Percent Iron Saturation 18.3 % Low 20-55 [facility] Work Phone: [phone] Protein [Mass/Vol] 7.8 g/dL 6.0-8.3 [facility] Work Phone: Total Iron Binding Capacity 491 ug/dL High 250-450 [facility] Work Phone: [phone] Triglyceride [Mass/Vol] 263 mg/dL High 0-150 [facility] Work Phone: Urine Microalbumin mg/L 766.0 mg/L [facility] Work Phone: Comment on above: NO REFERENCE RANGES AVAILABLE FOR RANDOM URINE SPECIMENS. Urine Microalbumin/Creatinine Ratio 1358.2 mg/g 0-30 [facility] Work Phone: MICROALBUMIN (RANDOM)on 11-08 Creatinine (U) [Mass/Vol] 56.4 mg/dL Normal [facility] Comment on above: Result Comment: NO R EFERENCE RANGES AVAILABLE FOR RANDOM URINE SPECIMENS. Performed By: #### C BC, DIFF (MANUAL) #### [address] [address] MICROALB/CREA RATIO 1358.2 mg/g Normal 0-30 [facility] Comment on above: Performed By: #### C BC, DIFF (MANUAL) #### [address] [address] MICROALBUMIN MG/L 766.0 mg/L Normal [facility] Comment on above: Result Comment: NO R EFERENCE RANGES AVAILABLE FOR RANDOM URINE SPECIMENS. Performed By: #### C BC, DIFF (MANUAL) #### [address] [address] TIBCon 11-21-2022 % IRON SATURATION 18.3 % Low 20-55 [facility] Comment on above: Performed By: #### G LY #### [facility] [address] [place] [address] Iron [Mass/Vol] 90 ug/dL Normal 50-170 [facility] Comment on above: Performed By: #### G LY #### [address] [address] TOTAL IRON BINDING CAPACITY 491 ug/dL High 250-450 [facility] Comment on above: Performed By: #### G LY #### [facility] [address] [place] [address] ABDOMEN-SINGLE AP VIEWon ABDOMEN-SINGLE AP VIEW DEBBIE HAYES Female [id number] Ordering physician: Juliet Juarez LOC:RAD [id number] Attending physician: Juliet Juarez [id number] DOS: 11/02/22 Acc#: [id number] Exam/Proc: ABDOMEN-SINGLE AP VIEW Dept: RADIOLOGY EXAMINATION: ONE SUPINE XRAY VIEW(S) OF THE ABDOMEN11/02/2022 2:31 pm ABDOMEN 1 VIEW/KUB EXAM DESCRIPTION: COMPARISON: Abdomen, March 30, 2022 HISTORY: ORDERING SYSTEM PROVIDED HISTORY: TECHNOLOGIST PROVIDED HISTORY: Reason for Exam: hematuria history of kidney stones FINDINGS: 2 supine views of the abdomen and pelvis were obtained. Bowel gas pattern is nonobstructed without dilatation, air-fluid level, or free air. No pathologic calcifications are seen. Moderate stool burden. The osseous structures are unremarkable. IMPRESSION: Nonspecific nonobstructed bowel gas pattern. Electronically signed By Troy Frost MD 11/05/2022 8:45:45 PM [facility] Workstation ID : [id number] REPORT SIGNATURE ON FILE Electronically Signed Date/Time: 11/05/222044 Dictated Date/time: 11/05/222044 CC: Normal [facility] URINALYSIS W/ C S IF INDICAT EDon 11-02-2022 Appearance (U) Clear Normal CLEAR [facility] Comment on above: Performed By: #### D IFF (MANUAL), CBC #### [address] [address] Color (U) Lt. Yellow Normal [facility] Comment on above: Performed By: #### D IFF (MANUAL), CBC #### [address] [address] Hemoglobin Ql (U) 3+ Abnormal NEGATIVE [facility] Comment on above: Performed By: #### D IFF (MANUAL), CBC #### [address] [address] pH (U) 5.5 [pH] Normal 5.0-9.0 [facility] Comment on above: Performed By: #### D IFF (MANUAL), CBC #### [facility] [address] [place] [address] URINE BILIRUBIN - DIPSTICK Negative Normal NEGATIVE [facility] Comment on above: Performed By: #### D IFF (MANUAL), CBC #### [address] [place] [address] URINE GLUCOSE - DIPSTICK Negative Normal NEGATIVE [facility] Comment on above: Performed By: #### D IFF (MANUAL), CBC #### [address] [place] [address] URINE KETONE Negative Normal NEGATIVE [facility] Comment on above: Performed By: #### D IFF (MANUAL), CBC #### [address] [place] [address] URINE LEUK ESTERASE Negative Normal NEGATIVE [facility] Comment on above: Performed By: #### D IFF (MANUAL), CBC #### [address] [place] [address] URINE NITRITE - DIPSTICK Negative Normal NEGATIVE [facility] Comment on above: Performed By: #### D IFF (MANUAL), CBC #### [address] [place] [address] URINE PROTEIN - DIPSTICK 2+ Abnormal NEGATIVE [facility] Comment on above: Performed By: #### D IFF (MANUAL), CBC #### [address] [place] [address] URINE SPEC GRAVITY, DIPSTICK 1.015 Normal 1.003-1.03 5 [facility] Comment on above: Performed By: #### D IFF (MANUAL), CBC #### [address] [place] [address] URINE UROBILINOGEN - DIPSTICK 0.2 E.U./dL Normal <=1.0 [facility] Comment on above: Performed By: #### D IFF (MANUAL), CBC #### [address] [place] [address] URINE MICROSCOPICon 02-23-20 23 UR SQUAM EPITH FEW Normal NONE-MANY [facility] Comment on above: Performed By: #### D IFF (MANUAL), CBC #### [address] [address] URINE BACTERIA FEW Normal <1+ [facility] Comment on above: Performed By: #### D IFF (MANUAL), CBC #### [address] [place] [address] URINE RBC 40-50 Normal 0-2 [facility] Comment on above: Performed By: #### D IFF (MANUAL), CBC #### [facility] [address] [place] [address] URINE WBC NONE SEEN Normal 0-3 [facility] Comment on above: Performed By: #### D IFF (MANUAL), CBC #### [facility] [address] [place] [address] Microbiology studies (set)on 10-04-2022 Klebsiella Pneumoniae [facility] Work Phone: Mixed Gram Positive Organisms [facility] Work Phone: Laboratory studies (set)on 0 10-02-2022 Natriuretic peptide B (Bld) [Mass/Vol] 81 pg/mL 0-124 [facility] Work Phone: Troponin 5.6 pg/mL 0-53.7 [facility] Work Phone: Comment on above: Troponin Reference R uzma: Male: 0-78.5 pg/mL (ng/L) Female: 0-53.7 pg/mL (ng/L) Note: The new high sensitivity Troponin units are in pg/mL (ng/L) Band form neutrophils/100 WBC (Bld) 1 % 0-10 [facility] Work Phone: Basophilic stippling LM Ql (Bld) [facility] Work Phone: Laboratory studies (set)on 10-23-2021 Cobalamin (Vitamin B12) [Mass/Vol] 586 pg/mL [id number] [facility] Work Phone: Urine Microalbumin/Creatinine Ratio 1888.9 mg/g High 0-30 [facility] Work Phone: Laboratory studies (set)on 0 06-06-2022 Peripheral Blood Smear [facility] Work Phone: Comment on above: Hypochromic/microcyt ic anemia may be due to any of the followin. Iron deficiency. 2. Thalassemia 3. Other hemoglobinopathies like Hgb C disease & trait; hemoglobin E disease & trait; hemoglobin Melina syndromes. 4. Anemia of chronic disease or infection. 5. Hereditary sideroblastic anemia. --- 06/07/22 1246 --- PERIPH previously reported as: SEE COMMENT PREVIOUSLY DIAGNOSED MICROCYTOSIS PERIPHERAL SMEAR Magnesium [Mass/Vol] 2.0 mg/dL 1.8-2.4 [facility] Work Phone: Toxic granules LM Ql (Bld) [facility] Work Phone: Microbiology studies (set)on 05-11-2022 Klebsiella Pneumoniae [facility] Work Phone: Mixed Gram Positive Organisms [facility] Work Phone: Laboratory studies (set)on 0 05-09-2022 Appearance (U) CLEAR [facility] Work Phone: Bilirubin Ql (U) NEGATIVE [facility] Work Phone: Color (U) [facility] Work Phone: Glucose Ql (U) NEGATIVE [facility] Work Phone: Hemoglobin Ql (U) High NEGATIVE [facility] Work Phone: Ketones Ql (U) NEGATIVE [facility] Work Phone: Leukocyte esterase Test strip Ql (U) High NEGATIVE [facility] Work Phone: Nitrite Ql (U) NEGATIVE [facility] Work Phone: Protein Ql (U) High NEGATIVE [facility] Work Phone: Urine Bacteria <1+ [facility] Work Phone: Urine WBC 0-3 [facility] Work Phone: Urobilinogen Ql (U) 0.2 E.U./dL <=1.0 [facility] Work Phone: Microbiology studies (set)on 02-10-2022 Klebsiella Pneumoniae [facility] Work Phone: Mixed Gram Positive Organisms [facility] Work Phone: Vital Signs Date Time Vital Sign Value Performing Clinician Facility 06-29-2025 11:41-0400 Body height 162.6 cm Ivon Johnson DPM Work Phone: [facility] 06-29-2025 11:41-0400 Body mass index (BMI) [Ratio] 29.7 kg/m2 Ivon Groner DPM Work Phone: [facility] 06-29-2025 11:41-0400 Body temperature 98.01 [degF] Ivon Johnson DPM Work Phone: [facility] 06-29-2025 11:41-0400 Body weight 78.47 kg Ivon Puganer DPM Work Phone: [facility] 05-25-2025 13:12-0400 Body height 162.56 cm [facility] 05-25-2025 13:12-0400 Body mass index (BMI) [Ratio] 31.6 kg/m2 [facility] 05-25-2025 13:12-0400 Body weight 83.51 kg [facility] 05-25-2025 13:12-0400 Diastolic blood pressure 75 mm[Hg] [facility] 05-25-2025 13:12-0400 Heart rate 76 /min [facility] 05-25-2025 13:12-0400 SaO2% (BldA) [Mass fraction] 90 % [facility] 05-25-2025 13:12-0400 Systolic blood pressure 144 mm[Hg] [facility] 04-27-2025 11:36-0400 Body height 162.6 cm Ivon Johnson DPM Work Phone: [facility] 04-27-2025 11:36-0400 Body mass index (BMI) [Ratio] 29.7 kg/m2 Ivon Puganer DPM Work Phone: [facility] 04-27-2025 11:36-0400 Body temperature 98.2 [degF] Ivon Johnson DPM Work Phone: [facility] 04-27-2025 11:36-0400 Body weight 78.47 kg Ivon Johnson MARTA Work Phone: [facility] 02-18-2025 11:32-0400 Body height 162.[address] Alexis Virgen MD Work Phone: [facility] 02-18-2025 11:32-0400 Body mass index (BMI) [Ratio] 31.9 kg/m2 Dr. Alexis Virgen MD Work Phone: [facility] 02-18-2025 11:32-0400 Body weight 84.[address] Alexis Virgen MD Work Phone: [facility] 02-18-2025 11:32-0400 Diastolic blood pressure 71 mm[Hg] Dr. Alexis Virgen MD Work Phone: [facility] 02-18-2025 11:32-0400 Heart rate 83 /min Dr. Alexis Virgen MD Work Phone: [facility] 02-18-2025 11:32-0400 SaO2% (BldA) [Mass fraction] 93 % Dr. Aelxis Virgen MD Work Phone: [facility] 02-18-2025 11:32-0400 Systolic blood pressure 125 mm[Hg] Dr. Alexis Virgen MD Work Phone: [facility] 01-14-2025 14:02-0400 Body temperature 98.91 [degF] Krislyn Aberegg PA Work Phone: [facility] 01-14-2025 14:02-0400 Body weight 83.7 kg Krislyn Aberegg PA Work Phone: [facility] 01-14-2025 14:02-0400 Diastolic blood pressure 78 mm[Hg] Krislyn Aberegg PA Work Phone: [facility] 01-14-2025 14:02-0400 Heart rate 67 /min Krislyn Aberegg PA Work Phone: [facility] 01-14-2025 14:02-0400 Respiratory rate 18 /min Krislyn Aberegg PA Work Phone: [facility] 01-14-2025 14:02-0400 SaO2% (BldA) [Mass fraction] 97 % Krislyn Aberegg PA Work Phone: [facility] 01-14-2025 14:02-0400 Systolic blood pressure 118 mm[Hg] Krislyn Aberegg PA Work Phone: [facility] 12-10-2024 10:46-0400 Body height 162.6 cm Ivon Puganer DPM Work Phone: [facility] 12-10-2024 10:46-0400 Body mass index (BMI) [Ratio] 29.7 kg/m2 Ivon Puganer DPM Work Phone: [facility] 12-10-2024 10:46-0400 Body temperature 97.7 [degF] Ivon Johnson DPM Work Phone: [facility] 12-10-2024 10:46-0400 Body weight 78.47 kg Ivon Johnson DPM Work Phone: [facility] 12-04-2024 10:27-0400 Body height 162.56 cm JULIET FORAKER Work Phone: [facility] 12-04-2024 10:27-0400 Body mass index (BMI) [Ratio] 31.4 kg/m2 JULIET FORAKER Work Phone: [facility] 12-04-2024 10:27-0400 Body weight 83.23 kg JULIET FORAKER Work Phone: [facility] 11-19-2024 11:36-0400 Body height 162.56 cm JLUIET FORAKER Work Phone: [facility] 11-19-2024 11:36-0400 Body mass index (BMI) [Ratio] 30.9 kg/m2 JULIET FORAKER Work Phone: [facility] 11-19-2024 11:36-0400 Body weight 81.64 kg JULIETTOMASZ JUAREZ Work Phone: [facility] 11-19-2024 11:36-0400 Diastolic blood pressure 66 mm[Hg] JULIETTOMASZ JUAREZ Work Phone: [facility] 11-19-2024 11:36-0400 Heart rate 82 /min JULIETTOMASZ JUAREZ Work Phone: [facility] 11-19-2024 11:36-0400 SaO2% (BldA) [Mass fraction] 92 % JULIETTOMASZ JUAREZ Work Phone: [facility] 11-19-2024 11:36-0400 Systolic blood pressure 116 mm[Hg] JULIETTOMASZ JUAREZ Work Phone: [facility] 11-08-2024 13:37-0500 Body temperature 99.1 [degF] [facility] BOAT JOINER HELPER.[employer]EN BUILDING ARCHITECT Work Phone: [facility] 11-08-2024 13:37-0500 Body weight 82.8 kg [facility] BOAT JOINER HELPER.GREEN BUILDING ARCHITECT Work Phone: [facility] 11-08-2024 13:37-0500 Diastolic blood pressure 78 mm[Hg] [facility]rry [facility] BOAT JOINER HELPER.GREEN BUILDING ARCHITECT Work Phone: [facility] 11-08-2024 13:37-0500 Heart rate 89 /min [facility] BOAT JOINER HELPER.GREEN BUILDING ARCHITECT Work Phone: [facility] 11-08-2024 13:37-0500 Respiratory rate 16 /min Henrry [facility] BOAT JOINER HELPER.GREEN BUILDING ARCHITECT Work Phone: [facility] 11-08-2024 13:37-0500 SaO2% (BldA) [Mass fraction] 92 % [facility] BOAT JOINER HELPER.GREEN BUILDING ARCHITECT Work Phone: [facility] 11-08-2024 13:37-0500 Systolic blood pressure 145 mm[Hg] Henrry [facility] BOAT JOINER HELPER.GREEN BUILDING ARCHITECT Work Phone: [facility] 10-08-2024 09:39-0500 Body height 162.6 cm Ivon Johnson DPM Work Phone: [facility] 10-08-2024 09:39-0500 Body mass index (BMI) [Ratio] 29.7 kg/m2 Ivon Johnson DPM Work Phone: [facility] 10-08-2024 09:39-0500 Body temperature 98.6 [degF] Ivon Johnson DPM Work Phone: [facility] 10-08-2024 09:39-0500 Body weight 78.47 kg Ivon Johnson DPM Work Phone: [facility] 09-11-2024 13:42-0500 Body mass index (BMI) [Ratio] 30.6 kg/m2 JULIET PREET Work Phone: [facility] 09-11-2024 13:42-0500 Body weight 80.85 kg JULIET PREET Work Phone: [facility] 09-11-2024 13:42-0500 Diastolic blood pressure 72 mm[Hg] JULIET FORLEX Work Phone: [facility] 09-11-2024 13:42-0500 Heart rate 102 /min JULIET FORLEX Work Phone: [facility] 09-11-2024 13:42-0500 SaO2% (BldA) [Mass fraction] 95 % JULIET PREET Work Phone: [facility] 09-11-2024 13:42-0500 Systolic blood pressure 147 mm[Hg] JULIET PREET Work Phone: [facility] 07-17-2024 10:34-0500 Body temperature 100.2 [degF] Eduardo Grimes MD Work Phone: [facility] 07-17-2024 10:34-0500 Body weight 81 kg Eduardo Grimes MD Work Phone: [facility] 07-17-2024 10:34-0500 Diastolic blood pressure 56 mm[Hg] Eduardo Grimes MD Work Phone: [facility] 07-17-2024 10:34-0500 Heart rate 90 /min Eduardo Grimes MD Work Phone: [facility] 07-17-2024 10:34-0500 Respiratory rate 19 /min Eduardo Grimes MD Work Phone: [facility] 07-17-2024 10:34-0500 SaO2% (BldA) [Mass fraction] 92 % Eduardo Grimes MD Work Phone: [facility] 07-17-2024 10:34-0500 Systolic blood pressure 116 mm[Hg] Eduardo Grimes MD Work Phone: [facility] 07-16-2024 12:02-0500 Body temperature 100.6 [degF] Jordan Moomaw BOAT JOINER HELPER.GREEN BUILDING ARCHITECT Work Phone: [facility] 07-16-2024 12:02-0500 Body weight 81.5 kg Jordan Moomaw BOAT JOINER HELPER.GREEN BUILDING ARCHITECT Work Phone: [facility] 07-16-2024 12:02-0500 Diastolic blood pressure 80 mm[Hg] Jordan Moomaw BOAT JOINER HELPER.GREEN BUILDING ARCHITECT Work Phone: [facility] 07-16-2024 12:02-0500 Heart rate 96 /min Jordan Moomaw BOAT JOINER HELPER.GREEN BUILDING ARCHITECT Work Phone: [facility] 07-16-2024 12:02-0500 Respiratory rate 16 /min Jordan Moomaw BOAT JOINER HELPER.GREEN BUILDING ARCHITECT Work Phone: [facility] 07-16-2024 12:02-0500 SaO2% (BldA) [Mass fraction] 94 % Jordan Moomaw BOAT JOINER HELPER.GREEN BUILDING ARCHITECT Work Phone: [facility] 07-16-2024 12:02-0500 Systolic blood pressure 134 mm[Hg] Jordan Moomaw BOAT JOINER HELPER.GREEN BUILDING ARCHITECT Work Phone: [facility] 06-04-2024 10:09-0400 Body height 162.6 cm Ivon Johnson DPM Work Phone: [facility] 06-04-2024 10:09-0400 Body mass index (BMI) [Ratio] 29.7 kg/m2 Ivon Johnson DPM Work Phone: [facility] 06-04-2024 10:09-0400 Body temperature 97.7 [degF] Ivon Johnson DPM Work Phone: [facility] 06-04-2024 10:09-0400 Body weight 78.47 kg Ivon Johnson DPM Work Phone: [facility] 02-09-2024 14:58-0400 Body temperature 98.2 [degF] Henrry [facility] BOAT JOINER HELPER.GREEN BUILDING ARCHITECT Work Phone: [facility] 02-09-2024 14:58-0400 Body weight 81.1 kg [facility] BOAT JOINER HELPER.GREEN BUILDING ARCHITECT Work Phone: [facility] 02-09-2024 14:58-0400 Diastolic blood pressure 86 mm[Hg] Henrry [place] BOAT JOINER HELPER.GREEN BUILDING ARCHITECT Work Phone: [facility] 02-09-2024 14:58-0400 Heart rate 99 /min [facility] BOAT JOINER HELPER.GREEN BUILDING ARCHITECT Work Phone: [facility] 02-09-2024 14:58-0400 Respiratory rate 18 /min [facility] BOAT JOINER HELPER.GREEN BUILDING ARCHITECT Work Phone: [facility] 02-09-2024 14:58-0400 SaO2% (BldA) [Mass fraction] 96 % Henrry [facility] BOAT JOINER HELPER.GREEN BUILDING ARCHITECT Work Phone: [facility] 02-09-2024 14:58-0400 Systolic blood pressure 160 mm[Hg] Henrry [place] BOAT JOINER HELPER.GREEN BUILDING ARCHITECT Work Phone: [facility] 01-24-2023 13:51-0400 SaO2% (BldA) [Mass fraction] 96 % Keny Fernandes [facility] 01-24-2023 13:17-0400 Body temperature 97.8 [degF] Keny Fernandes [facility] 01-24-2023 13:17-0400 Diastolic blood pressure 71 mm[Hg] Keny Fernandes [facility] 01-24-2023 13:17-0400 Heart rate 102 /min Keny Fernandes [facility] 01-24-2023 13:17-0400 Respiratory rate 18 /min Keny Fernandes [facility] 01-24-2023 13:17-0400 Systolic blood pressure 152 mm[Hg] Keny Fernandes [facility] 01-23-2023 17:57-0400 Body height 162.56 cm Keny Fernandes [facility] 01-23-2023 17:57-0400 Body weight 85 Keny Fernandes [facility] Encounters Encounter Date Encounter Type Care Provider Facility Start: 07-13-2025 End: 07-13-2025 ambulatory KENY FERNANDES Facility:[facility] Start: 06-29-2025 End: 06-29-2025 Bamboo flowsheet Ivon Johnson DPM Work Phone: [facility] Start: 06-29-2025 End: 06-29-2025 Bamboo flowsheet Ivon Johnson DPM Work Phone: [facility] Start: 06-29-2025 End: 06-29-2025 Patient encounter procedure Ivon Johnson DPM Work Phone: [facility] Comment on above: Onychomycosis (Prima ry Dx); Pain in toe of left foot; Pain in toe of right foot Start: 06-29-2025 End: 06-29-2025 ambulatory IVON JOHNSON Not Available Start: 06-19-2025 End: 06-19-2025 Patient encounter procedure Elisa GUERRA -[facility] Work Phone: Start: 06-19-2025 End: 06-19-[address] Keny Fernandes MD Work Phone: -[facility] Start: 06-15-2025 End: 06-15-2025 Patient encounter procedure Dixie Fletcher HEALTHCARE MARKETER-C -Ultrasound [facility] Work Phone: Start: 06-15-2025 End: 06-15-2025 ambulatory Keny Fernandes Facility:[facility] Start: 06-08-2025 End: 06-08-2025 ambulatory KENY FERNANDES -Laboratory Start: 06-08-2025 End: 06-08-2025 Patient encounter procedure Dixie Fletcher HEALTHCARE MARKETER-C -Laboratory Work Phone: Start: 06-08-2025 End: 06-08-2025 ambulatory Keny Fernandes Facility:[facility] Start: 05-25-2025 End: 05-25-2025 Patient encounter procedure Doreen Hooker HEALTHCARE MARKETER-C -[facility] Work Phone: Start: 05-25-2025 End: 05-25-2025 ambulatory KENY FERNANDES -[facility] Start: 05-12-2025 End: 05-12-2025 Patient encounter procedure Alexis Virgen MD -Lab - Dr. Virgen Start: 05-12-2025 End: 05-12-2025 ambulatory Keny Fernandes Work Phone: -Lab - Dr. Virgen Start: 05-08-2025 End: 05-08-2025 Patient encounter procedure Alexis Virgen MD -[facility] Start: 05-08-2025 End: 05-08-2025 ambulatory Keny Fernandes Work Phone: -[facility] Start: 04-27-2025 End: 04-27-2025 Bamboo flowsheet Ivon Johnson DPM Work Phone: [facility] Start: 04-27-2025 End: 04-27-2025 Bamboo flowsheet Ivon Nickerson Elizabeth DPM Work Phone: [facility] Start: 04-27-2025 End: 04-27-2025 Patient encounter procedure Ivon Nickerson Elizabeth DPM Work Phone: [facility] Comment on above: Onychomycosis (Prima ry Dx); Pain in toe of left foot; Pain in toe of right foot; Diabetic polyneuropathy associated with type 2 diabetes mellitus (HCC) Start: 04-27-2025 End: 04-27-2025 ambulatory IVON JOHNSON Not Available Start: 03-19-2025 End: 03-19-2025 Patient encounter procedure Dixie Fletcher HEALTHCARE MARKETER-C -[facility] Work Phone: Start: 03-19-2025 End: 03-19-2025 ambulatory KENY FERNANDES -[facility] Start: 02-18-2025 End: 02-18-2025 Patient encounter procedure Doreen Hooker HEALTHCARE MARKETER-C -[facility] Work Phone: Start: 02-18-2025 End: 02-18-[address] Alexis Virgen MD Work Phone: [facility] Work Phone: Start: 02-16-2025 End: 02-16-2025 Bamboo flowsheet Ivon Johnson DPM Work Phone: [facility] Start: 02-16-2025 End: 02-16-2025 Bamboo flowsheet Ivon Liya Elizabeth DPM Work Phone: [facility] Start: 02-16-2025 End: 02-16-2025 Patient encounter procedure Ivon Liya Elizabeth DPM Work Phone: [facility] Comment on above: Onychomycosis (Prima ry Dx); Pain in toe of left foot; Pain in toe of right foot; Diabetic polyneuropathy associated with type 2 diabetes mellitus (CMS/HCC) Start: 02-16-2025 End: 02-16-2025 ambulatory IVON JOHNSON Not Available Start: 01-16-2025 End: 01-18-2025 Follow-up encounter Delfino GUERRA Work Phone: [facility] Comment on above: Results Start: 01-14-2025 End: 01-14-2025 Patient encounter procedure Delfino GUERRA Work Phone: [facility] Comment on above: Urinary frequency (P rimary Dx) Start: 01-14-2025 End: 01-14-2025 ambulatory [facility] Facility:[facility] Start: 12-29-2024 ambulatory [facility] Facility :[facility] Start: 12-29-2024 End: 12-29-2024 Patient encounter procedure Isauro Davis DO -[facility] Work Phone: Start: 12-29-2024 End: 12-29-2024 ambulatory Isauro Davis Facility:[facility] Start: 12-17-2024 End: 12-17-2024 Patient encounter procedure Isauro Davis DO -[facility] Work Phone: Start: 12-17-2024 End: 12-17-2024 ambulatory No Primary Care Physician [facility] Work Phone: Start: 12-17-2024 End: 12-17-2024 ambulatory Isauro Davis Facility:[facility] Start: 12-10-2024 End: 12-10-2024 Bamboo flowsheet Ivon Johnson DPM Work Phone: [facility] Start: 12-10-2024 End: 12-10-2024 Bamboo flowsheet Ivon Johnson DPM Work Phone: [facility] Start: 12-10-2024 End: 12-10-2024 Patient encounter procedure Ivon Johnson DPM Work Phone: [facility] Comment on above: Onychomycosis (Prima ry Dx); Pain in toe of left foot; Pain in toe of right foot; Diabetic polyneuropathy associated with type 2 diabetes mellitus ([facility]/HCC) Start: 12-10-2024 End: 12-10-2024 ambulatory IVON JOHNSON Not Available Start: 12-08-2024 End: 12-08-2024 ambulatory JULIET JUAREZ Work Phone: [facility] Work Phone: Start: 12-08-2024 End: 12-08-2024 Patient encounter procedure Doreen Hooker HEALTHCARE MARKETER-C -Ultrasound, [facility] Work Phone: Start: 12-08-2024 End: 12-08-2024 ambulatory Doreen Morro Facility:[facility] Start: 12-04-2024 End: 12-04-2024 Patient encounter procedure Doreen Hooker HEALTHCARE MARKETER-C -[facility] Work Phone: Start: 12-04-2024 End: 12-04-2024 ambulatory Doreen Morro Facility:[facility] Start: 11-24-2024 End: 11-24-2024 ambulatory JULIET JUAREZ Work Phone: [facility] Work Phone: Start: 11-24-2024 End: 11-24-2024 Patient encounter procedure Doreen Hooker HEALTHCARE MARKETER-C -Laboratory Work Phone: Start: 11-24-2024 End: 11-24-2024 ambulatory Doreen Morro Facility:[facility] Start: 11-19-2024 End: 11-19-2024 Patient encounter procedure Doreen Hooker HEALTHCARE MARKETER-C -[facility] Work Phone: Start: 11-19-2024 End: 11-19-2024 ambulatory Doreen Morro Facility:[facility] Start: 11-14-2024 End: 11-14-2024 ambulatory JULIETTOMASZ JUAREZ Work Phone: [facility] Work Phone: Start: 11-14-2024 End: 11-14-[address] Alexis Virgen MD -Cat Scan, [facility] Work Phone: Start: 11-14-2024 End: 11-14-2024 ambulatory Alexis Virgen Facility:[facility] Start: 11-11-2024 End: 01-11-2025 Follow-up encounter Sherrill Brown APRN.GREEN BUILDING ARCHITECT Work Phone: [facility] Start: 11-08-2024 End: 11-08-2024 [facility] Start: 11-08-2024 End: 11-08-2024 Office outpatient visit 25 minutes Henrry Wadsworth APRN.GREEN BUILDING ARCHITECT Work Phone: [facility] Comment on above: Screening for genito urinary condition (Primary Dx) Start: 10-08-2024 End: 10-08-2024 Bamboo flowsheet Ivon Johnson DPM Work Phone: [facility] Start: 10-08-2024 End: 10-08-2024 Bamboo flowsheet Ivon Johnson DPM Work Phone: [facility] Start: 10-08-2024 End: 10-08-2024 Patient encounter procedure Ivon Johnson DPM Work Phone: [facility] Comment on above: Onychomycosis (Prima ry Dx); Pain in toe of left foot; Pain in toe of right foot; Diabetic polyneuropathy associated with type 2 diabetes mellitus ([facility]/HCC) Start: 10-08-2024 End: 10-08-2024 ambulatory IVON JOHNSON Not Available Start: 09-11-2024 End: 09-11-2024 Patient encounter procedure Doreen Hooker HEALTHCARE MARKETER-C -[facility] Work Phone: Start: 09-11-2024 End: 09-11-2024 ambulatory Doreen Hooker Facility:[facility] Start: 08-21-2024 End: 08-21-2024 Patient encounter procedure JULIET NATALIELEX Work Phone: -Cat Minnie [facility] Work Phone: Start: 08-21-2024 End: 08-21-2024 ambulatory RADHA CAIALCON Facility:[facility] Start: 08-18-2024 End: 08-18-2024 Patient encounter procedure Keny Fernandes Work Phone: [facility]-Dr. Virgen Start: 08-18-2024 End: 08-18-2024 ambulatory Keny Fernandes Work Phone: [facility] Work Phone: Start: 08-06-2024 End: 08-06-2024 Bamboo flowsheet Ivon Nickerson Elizabeth DPM Work Phone: [facility] Start: 08-06-2024 End: 08-06-2024 Bamboo flowsheet Ivon Johnson DPM Work Phone: [facility] Start: 08-06-2024 End: 08-06-2024 ambulatory IVON Liya ELIZABETH Not Available Start: 08-06-2024 End: 08-06-2024 Patient encounter procedure Ivon Pugasofiya DPM Work Phone: [facility] Comment on above: Onychomycosis (Prima ry Dx); Pain in toe of left foot; Pain in toe of right foot; Diabetic polyneuropathy associated with type 2 diabetes mellitus ([facility]) Start: 07-28-2024 End: 07-28-2024 ambulatory No Primary Care Physician Facility:[facility] Start: 07-17-2024 End: 07-17-2024 Telephone encounter Eduardo Grimes MD Work Phone: [facility] Comment on above: Results (COVID+) Start: 07-17-2024 End: 07-17-2024 Subsequent hospital visit by physician [facility] Work Phone: Radiology Comment on above: Acute COVID-19 [U07. 1] Start: 07-17-2024 End: 07-17-2024 ambulatory KENY FERNANDES Facility:[facility] Start: 07-17-2024 End: 07-17-2024 Office outpatient visit 25 minutes Eduardo Grimes MD Work Phone: [facility] Comment on above: Acute COVID-19 (Prim nory Dx); Acute cough Start: 07-16-2024 End: 07-16-2024 Patient encounter procedure Jordan Chester AISSATOU.GREEN BUILDING ARCHITECT Work Phone: [facility] Comment on above: Sore throat (Primary Dx) Start: 06-04-2024 End: 06-04-2024 Bamboo flowsheet Ivon Pugasofiya DPM Work Phone: [facility] Start: 06-04-2024 End: 06-04-2024 Bamboo flowsheet Ivon Johnson DPM Work Phone: [facility] Start: 06-04-2024 End: 06-04-2024 Patient encounter procedure Ivon Johnson DPM Work Phone: [facility] Comment on above: Diabetic polyneuropa thy associated with type 2 diabetes mellitus ([facility]/HCC) (Primary Dx); Onychomycosis; Pain in toe of left foot; Pain in toe of right foot Start: 02-12-2024 Telephone encounter Zoraida Crane APRN.GREEN BUILDING ARCHITECT Work Phone: [facility] Comment on above: Results Start: 02-09-2024 End: 02-09-2024 Office outpatient new 20 minutes Henrry Wadsworth APRN.GREEN BUILDING ARCHITECT Work Phone: [facility] Comment on above: Urinary frequency (P rimary Dx) Start: 02-09-2024 Telephone encounter Zoraida Crane APRN.GREEN BUILDING ARCHITECT Work Phone: [facility] Comment on above: Erroneous encounter- disregard Start: 01-01-2024 End: 01-01-2024 ambulatory [facility] Work Phone: Start: 01-01-2024 End: 01-01-2024 Patient encounter procedure [facility] Work Phone: Start: 10-15-2023 End: 10-15-2023 ambulatory Keny Fernandes Work Phone: [facility] Work Phone: Start: 10-15-2023 End: 10-15-2023 Patient encounter procedure Keny Fernandes Work Phone: [facility] Start: 08-30-2023 End: 08-30-2023 Patient encounter procedure Keny Fernandes Work Phone: [facility] Start: 06-21-2023 ambulatory Alexis Virgen Fac ility:[facility] Start: 04-19-2023 ambulatory Keny Fernandes Facilit y:[facility] Start: 04-13-2023 End: 04-14-2023 ambulatory Jason Armendariz Facility:[facility] Start: 03-26-[address] KENY OMALLEY MD Facility:A Start: 03-16-2023 ambulatory Keny Fernandes Facilit y:[facility] Start: 02-26-2023 ambulatory Guzman Kellogg Facilit y:[facility] Start: 02-23-2023 ambulatory Troy Holt Mungo Facility :[facility] Start: 01-31-2023 ambulatory Keny Luanne Fernandes Facilit y:[facility] Start: 01-23-2023 End: 01-24-2023 ambulatory Troy V. Mungo Facility:[facility] Start: 01-23-2023 End: 01-24-2023 Evaluation and management of inpatient Keny Fernandes [facility] Start: 01-09-2023 ambulatory Angie Spichiger Facili ty:[facility] Start: 01-09-2023 ambulatory Angie Spichiger Facili ty:[facility] Start: 01-09-2023 Encounter for preprocedural laboratory examination Angie Spiehger [facility] Start: 01-09-2023 Patient encounter procedure Keny Fernandes [facility] Start: 11-27-2022 ambulatory Juliet Juarez Facility :[facility] Start: 11-27-2022 Patient encounter procedure Keny Fernandes [facility] Start: 11-21-2022 ambulatory Guzman Alcantar y:[facility] Start: 11-21-2022 Patient encounter procedure Keny Kuentz [facility] Start: 11-02-2022 ambulatory Juliet Juarez Facility :[facility] Start: 11-02-2022 Patient encounter procedure Keny Kuentz [facility] Start: 10-17-2022 ambulatory Troy Jonathon Estrada Facility :[facility] Start: 10-02-2022 Patient encounter procedure Keny Kuentz [facility] Start: 09-19-2022 Patient encounter procedure Keny Kuentz [facility] Start: 08-22-2022 Patient encounter procedure Keny Kuentz [facility] Start: 07-05-2022 Patient encounter procedure Keny Kuentz [facility] Start: 06-27-2022 Patient encounter procedure Keny Kuentz [facility] Start: 06-06-2022 Patient encounter procedure Keny Kuentz [facility] Start: 05-23-2022 Patient encounter procedure Keny Kuentz [facility] Start: 05-09-2022 Patient encounter procedure Keny Kuentz [facility] Start: 03-30-2022 Patient encounter procedure Keny Kuentz [facility] Start: 03-09-2022 Patient encounter procedure Keny Fernandes [facility] Start: 03-07-2022 Patient encounter procedure Keny Fernandes [facility] Start: 02-08-2022 Patient encounter procedure Keny Fernandes [facility] Procedures Date Procedure Procedure Detail Performing Clinician Start: 06-15-2025 Ultrasound elastogra phy of liver KENY FERNANDES Start: 05-12-2025 Urine culture Keny omalley Work Phone: Start: 05-12-2025 Urnls dip stick/tabl et reagent auto microscopy Keny Fernandes Work Phone: Start: 01-14-2025 Urnls dip stick/tabl et rgnt auto w/o microscopy Florida Arroyo [employer]AT JOINER HELPER.[employer] BUILDING ARCHITECT Work Phone: Start: 12-29-2024 Ultrasonography of t hyroid and parathyroid Dr. Alexis Viregn MD Work Phone: Start: 12-29-2024 Ultrasound elastogra phy of liver Dr. Alexis Virgen MD Work Phone: Start: 12-17-[address] Stefanie Virgen MD Work Phone: Comment on above: The atypical pANCA p attern has been observed in asignificant percentage of patients with ulcerative colitis,primary sclerosing cholangitis and autoimmune hepatitis. Start: 12-17-2024 Antibody to centrome re measurement Dr. Alexis Virgen MD Work Phone: Comment on above: Previous reported re sult: TNP AIEdited by: MADI on 12/18/24:1308 AMENDED REPORT 12/18/24 1308 ANTI-CENT B previously reported as: Test not performed Start: 12-17-2024 Antibody to extracta ble nuclear antigen measurement Dr. Alexis Virgen MD Work Phone: Comment on above: Previous reported re sult: TNP AIEdited by: INFCE on 12/18/24:1308 AMENDED REPORT 12/18/24 1308 LOPEZ Ab previously reported as: Test not performed Start: 12-17-2024 Antibody to KLAUDIA-[address] Alexis Virgen MD Work Phone: Comment on above: Previous reported re sult: TNP AIEdited by: INFCE on 12/18/24:1308 AMENDED REPORT 12/18/24 1308 ANTI-KLAUDIA previously reported as: Test not performed Start: 12-17-2024 Antibody to lupus La protein measurement Dr. Alexis Virgen MD Work Phone: Comment on above: Previous reported re sult: TNP AIEdited by: INFCE on 12/18/24:1308 AMENDED REPORT 12/18/24 1308 Anti-SS-B previously reported as: Test not performed Start: 12-17-2024 Antibody to SS-A measurement Dr. Alexis Virgen MD Work Phone: Comment on above: Previous reported re sult: TNP AIEdited by: INFCE on 12/18/24:1308 AMENDED REPORT 12/18/24 1308 Anti-SS-A previously reported as: Test not performed Start: 12-17-[address] Alexis Virgen MD Work Phone: Comment on above: Previous reported re sult: TNP AIEdited by: INFCE on 12/18/24:1308 AMENDED REPORT 12/18/24 1308 ANTICHROMATIN previously reported as: Test not performed Start: 12-17-[address] Alexis Virgen MD Work Phone: Comment on above: Performed at: [address] [id number] Director: Davide Damon PhD, Phone: [phone] at: [facility] [id number] Director: Annelise Segura MD, Phone: [phone] Start: 12-17-2024 Endomysial antibody IgA level Dr. Alexis Virgen MD Work Phone: Start: 12-17-2024 Gliadin antibody, Ig A measurement Dr. Alexis Virgen MD Work Phone: Comment on above: Negative 0 - 19 Weak Positive 20 - 30 Moderate to Strong Positive >30 Start: 12-17-2024 Gliadin antibody, Ig G measurement Dr. Alexis Virgen MD Work Phone: Comment on above: Negative 0 - 19 Weak Positive 20 - 30 Moderate to Strong Positive >30 Start: 12-17-2024 Hepatitis A virus an tibody, IgM type Dr. Alexis Virgen MD Work Phone: Comment on above: A negative anti-HAV IgM result suggests no recent orcurrent HAV infection. Start: 12-17-2024 Hepatitis B core ant ibody measurement, IgM type Dr. Alexis Virgen MD Work Phone: Start: 12-17-2024 Hepatitis C antibody measurement Dr. Alexis Virgen MD Work Phone: Start: 12-17-[address] M measurement Dr. Alexis Virgen MD Work Phone: Start: 12-17-2024 SOFTWARE DESIGN ANALYST antibody measurement Dr. Alexis Virgen MD Work Phone: Comment on above: Previous reported re sult: TNP AIEdited by: MADI on 12/18/24:1308 AMENDED REPORT 12/18/24 1308 SOFTWARE DESIGN ANALYST Ab previously reported as: Test not performed Start: 12-08-2024 US scan of thyroid BENITEZ MUSA Work Phone: Start: 11-24-2024 Urine microalbumin/creatinine ratio measurement Dr. Alexis Virgen MD Work Phone: Start: 11-24-2024 Vitamin D, 25-hydrox y measurement Dr. Alexis Virgen MD Work Phone: Comment on above: Vitamin D StatusDefi ciency: <20 ng/mL (50nmol/L)Insufficiency: 20-30 ng/mL (50-75 nmol/L)Sufficiency: 30-100 ng/mL (75-250 nmol/L)Toxicity: >100 ng/mL (>250 nmol/L) Start: 11-14-2024 Creatinine blood DrStefanie Virgen MD Work Phone: Start: 11-14-2024 Computed tomography of abdomen and pelvis with contrast JULIET JUAREZ Work Phone: Start: 11-08-2024 Urnls dip stick/tabl et rgnt auto w/o microscopy Michelle Luz [employer]AT JOINER HELPER.[employer] BUILD[employer] ARCHITECT Work Phone: Start: 08-21-2024 CT of chest JULIET BURNETT Work Phone: Start: 07-17-2024 Radiologic exam ches t 2 views Eduardo Grimes MD Work Phone: Start: 07-16-2024 STREP A MOLECULAR (POC) Jordan Chester [employer]AT JOINER HELPER.[employer] BUILDING ARCHITECT Work Phone: Start: 02-09-2024 Urnls dip stick/tabl et rgnt auto w/o microscopy Zoraida Crane BOAT JOINER HELPER.[employer] BUILDING ARCHITECT Work Phone: Start: 08-30-2023 Urine culture Keny arcez Work Phone: Start: 01-23-2023 Oxygen SDS Indu Marquezl en Start: 01-23-2023 Thermometer SDS Indu benoit Start: 01-23-2023 Vital Signs SDS Indu benoit Start: 01-23-2023 X-ray of left knee Rah Fernandes Start: 01-23-2023 IV Push (Initial) PACU Ramu Tito Start: 01-23-2023 Oxygen PACU Ramu Guanakito son Start: 01-23-2023 Thermometer PACU Ramu rice Start: 01-23-2023 Vital Signs PACU Ramu rice Start: 01-23-2023 Total replacement of left knee joint Troy Holt Start: 01-09-2023 Microscopic urinalysis Keny Fernandes Start: 11-27-2022 CT of abdomen and pe lvis without contrast Kenyshannan Fernandes Start: 11-02-2022 Plain X-ray abdomen Damari ne Eloyentz Start: 10-02-2022 Lumbar puncture usin g fluoroscopic guidance Kenyshannan Fernandes Start: 05-09-2022 CT of abdomen and pe lvis without contrast Kenyshannan Fernandes Start: 05-09-2022 Lumbar puncture usin g fluoroscopic guidance Keny Fernandes Start: 03-30-2022 Plain X-ray abdomen Damari roberta Fernandes Start: 03-09-2022 Plain X-ray abdomen Damari ne Eloyentlyndon Start: 03-07-2022 X-ray of right knee Damari ne Eloyentz Start: 03-07-2022 X-ray of skull Kenyshannan solomon Start: 02-08-2022 Lumbar puncture usin g fluoroscopic guidance Keny Fernandes Plan of Treatment Date Care Activity Detail Author Start: 03-07-2032 Urine microalbumin profile DTa P,Tdap,Td Vaccine (2 - Td or Tdap) [facility] Start: 07-17-2027 Diabetes Screening Diabetes Screenin g [facility] Start: 08-31-2025 End: 08-31-2025 Patient encounter procedure 08/31/2025 11:30 AM EST Office Visit [facility] [address] [place] [id number] Ivon Johnson W, DPM [address], [place] [address] [facility] Start: 06-29-2025 End: 06-29-2025 Patient encounter procedure 06/29/2025 11:45 AM EDT Office Visit [facility] [address] [place] [address] Ivon Johnson, DPM [address] [facility] [place] [address] Arrived [facility] Comment on above: Arrived Start: 05-12-2025 End: 05-12-2025 Patient encounter procedure Departed Clinical -Lab - Dr. Virgen Start: 05-12-2025 Urine culture Urine Culture [facility] Start: 05-11-2025 Influenza vaccination N [facility] Start: 04-27-2025 End: 04-27-2025 Patient encounter procedure 04/27/2025 11:45 AM EDT Office Visit [facility] [address] [place] [address] Ivon Johnson, DPM [address] [facility] [place] [address] Arrived [facility] Comment on above: Arrived Start: 04-20-2025 End: 04-20-2025 Patient encounter procedure 04/20/2025 11:00 AM EDT Office Visit [facility] [address] [place] [address] Ivon Johnson, DPM [address] [facility] [place] [address] [facility] Start: 02-16-2025 End: 02-16-2025 Patient encounter procedure [facility] Comment on above: Arrived Start: 12-17-2024 Acute hepatitis 2000 panel - Serum [facility] Start: 12-17-2024 Ceruloplasmin [Mass/volume] in Serum or Plasma [facility] Start: 12-17-2024 Immunoglobulin measurement [facility] Start: 12-17-2024 Laboratory test [facility] Start: 12-17-2024 Smooth muscle Ab [Presence] in Serum [facility] Start: 12-17-2024 [facility] Start: 12-10-2024 End: 12-10-2024 Patient encounter procedure [facility] Comment on above: Arrived Start: 10-08-2024 End: 10-08-2024 Patient encounter procedure [facility] Comment on above: Arrived Start: 09-11-2024 Patient referral [facility] Work Phone: Start: 09-10-2024 Advance Directive Discussion Advance Directive Discussion [facility] Start: 08-18-2024 Bacteria identified in Urine by Culture [facility] Start: 08-06-2024 End: 08-06-2024 Patient encounter procedure 08/06/2024 9:45 AM EST Office Visit [facility] [address] [place] [address] Ivon Johnson W, DPM [address] [place], [place] [id number] [facility] Start: 05-11-2024 Covid-19 Vaccine ( season) Covid-19 Vaccine ( season) [facility] Start: 05-11-2024 Influenza vaccination [facility] Start: 09-10-2023 Advance Directive Discussion Advance Directive Discussion [facility] Start: 09-10-2023 Behavioral Health Screening Behavioral Health Screening [facility] Start: 2023 RSV Vaccine (1 - 1-d ose 75+ series) RSV Vaccine (1 - 1-dose 75+ series) [facility] Start: 05-11-2023 Covid-19 Vaccine ( season) Covid-19 Vaccine ( season) [facility] Start: 01-23-2023 US GUIDANCE (HUMPHREYS) US GUIDANCE (BR IGGS) [facility] Start: 01-15-2014 Shingrix Vaccine (2 of 3) Orellana grix Vaccine (2 of 3) [facility] Start: 2013 Screening for osteoporosis Bone Dens ity Screening [facility] Start: 2008 RSV Vaccine (1 - 1-d ose 60+ series) RSV Vaccine (1 - 1-dose 60+ series) [facility] Start: 1993 Diabetes Screening Diabetes Screenin g [facility] Start: 1993 Lipid panel Lipid Screening [facility] Start: 1993 Screening for malign ant neoplasm of colon [facility] Start: 1966 Anxiety Screening Anxiety Screening [facility] Start: 1966 Depression Screening Depression Scre ening [facility] Start: 1966 Hepatitis C screening Hepatitis C Sc reening [facility] Start: 1948 Screening for malign ant neoplasm of colon [facility] Bacteria identified in Urine by Culture URINE CULTURE Microbiology Routine Urinary frequency 02/09/2024 3:41 PM EDT [facility] Work Phone: Bacteria identified in Urine by Culture BACTERIAL CULTURE, URINE Microbiology Routine Screening for genitourinary condition Ordered: 11/08/2024 [facility] Work Phone: Comment on above: Ordered: 11/08/2024 Bacteria identified in Urine by Culture BACTERIAL CULTURE, URINE Microbiology Routine Urinary frequency 01/14/2025 2:56 PM EDT [facility] Work Phone: COVID & INFLUENZA A/ B & RSV PCR, ROUTINE COVID & INFLUENZA A/B & RSV PCR, ROUTINE Microbiology Routine Sore throat Ordered: 07/16/2024 [facility] Work Phone: Comment on above: Ordered: 07/16/2024 Gliadin peptide IgA Ab [Units/volume] in Serum [facility] Gliadin peptide IgG Ab [Units/volume] in Serum [facility] Hepatic function panel [facility] Hepatitis A virus Ig M Ab [Presence] in Serum [facility] Hepatitis B core ant ibody measurement, IgM type [facility] Hepatitis B surface antigen measurement [facility] Hepatitis C antibody measurement [facility] IgA [Mass/volume] in Serum or Plasma [facility] IgE [Units/volume] i n Serum or Plasma [facility] IgG [Mass/volume] in Serum or Plasma [facility] IgM [Mass/volume] in Serum or Plasma [facility] Lipid 1996 panel - S major or Plasma [facility] Liver stiffness by US.transient elastography [facility] Liver stiffness by US.transient elastography [facility] Measurement of immunoglobulin A in serum specimen [facility] Neutrophil cytoplasm ic Ab.classic [Units/volume] in Serum [facility] P-ANCA measurement [facility] Patient Education DI for Knee Replacement [facility] Patient referral [facility] Work Phone: Tissue transglutamin ase IgA Ab [Units/volume] in Serum [facility] US Thyroid gland [facility] Immunizations Immunization Date Immunization Notes Care Provider Fa cility 06-06-2022 Influenza, Seasonal, Quadrivalent, Adjuvanted Ivon Puganer DPM Work Phone: [facility] 06-06-2022 Pneumococcal Conjuga te PCV 20 Ivon Johnson DPM Work Phone: [facility] 06-06-2022 influenza virus vacc ine, unspecified formulation Zoraida Crane APRN.GREEN BUILDING ARCHITECT Work Phone: [facility] 05-23-2022 SARS-COV-2 (COVID-19 ) vaccine, mRNA, spike protein, LNP, bivalent, PF Ivon Puganer DPM Work Phone: [facility] 03-07-2022 tetanus toxoid, redu yohan diphtheria toxoid, and acellular pertussis vaccine, adsorbed Ivon Grosofiya DPM Work Phone: [facility] 02-13-2022 Moderna SARS-CoV-2 Vaccination Ivon Johnson DPM Work Phone: [facility] 09-29-2021 Moderna SARS-CoV-2 Vaccination Ivon Grosofiya DPM Work Phone: [facility] 06-14-2021 Influenza, Seasonal, Quadrivalent, Adjuvanted Ivon Groner DPM Work Phone: [facility] 11-14-2020 Moderna SARS-CoV-2 Vaccination Ivon Groner DPM Work Phone: [facility] 11-05-2020 Moderna SARS-CoV-2 Vaccination Ivon Groner DPM Work Phone: [facility] 07-26-2020 influenza, injectabl e, quadrivalent, contains preservative Ivon Groner DPM Work Phone: [facility] 09-24-2019 influenza, injectabl e, quadrivalent, contains preservative Ivon Groner DPM Work Phone: [facility] 06-27-2019 influenza, injectabl e, quadrivalent, preservative free Ivon Groner DPM Work Phone: [facility] 09-10-2017 influenza, high dose seasonal, preservative-free Ivon Groner DPM Work Phone: [facility] 07-18-2017 influenza, injectabl e, quadrivalent, preservative free Ivon Groner DPM Work Phone: [facility] 11-20-2013 zoster vaccine, live Ivon Groner DPM Work Phone: [facility] Payers Date Payer Category Payer Unknown [id number] 2023 Medicare [facility] MEDICARE ADVANTAGE [facility] MEDICARE ADVANTAGE [id number] 2023-Present [address] [place] [address] [id number] 2023 Medicare (Managed Care) 1.2. [id number] 2023 Medicare [id number] 2022 Self-pay 2022 Unknown [id number] 1950 Unknown [id number] 2.16.840.1.310549.3.579. 2.627 1948 Unknown [id number] 2.16.840.1.901321.3.579. 2.1259 1948 Unknown [id number] 2.16.840.1.079215.3.579. 2.1259 1948 Unknown [id number] 2.16.840.1.365893.3.579. 2.1259 1948 Unknown [id number] 2.16.840.1.961028.3.579. 2.1259 1948 Unknown [id number] 2.16.840.1.241844.3.579. 2.1259 1948 Unknown [id number] 2.16.840.1.313386.3.579. 2.1259 Unknown [id number] 2.16.840.1.785405.3.579. 2.630 Unknown [id number] 2.16.840.1.468808.3.579. 2.630 Unknown [id number] 2.16.840.1.685832.3.579. 2.630 Unknown [id number] 2.16.840.1.221935.3.579. 2.630 Unknown [id number] 2.16.840.1.874617.3.579. 2.630 Unknown [id number] 2.16.840.1.624030.3.579. 2.630 Unknown [id number] 2.16.840.1.311837.3.579. 2.630 Unknown [id number] 2.16.840.1.424890.3.579. 2.630 Unknown [id number] 2.16.840.1.041624.3.579. 2.630 Unknown [id number] 2.16.840.1.074592.3.579. 2.630 Unknown [id number] 2.16.840.1.424300.3.579. 2.630 Unknown [id number] 2.16.840.1.232732.3.579. 2.630 Unknown [id number] 2.16.840.1.123120.3.579. 2.630 Unknown [id number] 2.16.840.1.194758.3.579. 2.630 Unknown [id number] 2.16.840.1.998690.3.579. 2.630 Unknown [id number] 2.16.840.1.994677.3.579. 2.630 Unknown [id number] 2.16.840.1.271333.3.579. 2.921 Unknown [id number] 2.16.840.1.339438.3.579. 2.921 Unknown [id number] 2.16.840.1.066951.3.579. 2.921 Unknown [id number] 2.16.840.1.314643.3.579. 2.462 Unknown [id number] 2.16840.1.138407.3.579. 2.462 Unknown [id number] 2.16840.1.659213.3.579. 2.462 Unknown [id number] 2.840.1.347333.3.579. 2.462 Unknown [id number] 2.16840.1.614272.3.579. 2.462 Unknown [id number] 2.16840.1.408502.3.579. 2.462 Unknown [id number] 2.840.1.046481.3.579. 2.462 Unknown [id number] 2.16840.1.583268.3.579. 2.462 Unknown [id number] 2.16840.1.736981.3.579. 2.462 Unknown [id number] 2.16840.1.176076.3.579. 2.462 Unknown [id number] 2.16840.1.157345.3.579. 2.462 Unknown [id number] 2.16840.1.187312.3.579. 2.462 Unknown [id number] 2.16.840.1.475730.3.579. 2.462 Unknown [id number] 2.16840.1.009966.3.579. 2.462 Unknown [id number] 2.16.840.1.765170.3.579. 2.462 Unknown [id number] 2.16.840.1.174946.3.579. 2.462 Unknown [id number] 2.16.840.1.504018.3.579. 2.462 Unknown [id number] 2.16.840.1.044720.3.579. 2.462 Social History Date Type Detail Facility Unknown if ever smoked [facility] Start: 1950 Sex Assigned At Female S [facility] Tobacco smoking stat [facility] Tobacco smoking consumption unknown [facility] Work Phone: Start: 1950 Sex Assigned At Not on file [facility] Start: 07-17-2024 End: 04-27-2025 Gender identity Not on file [facility] Start: 07-17-2024 End: 03-19-2025 Tobacco smoking status WYIS Ex-smoker [facility] History of tobacco use Current smoker [facility] History of tobacco use Cigarette Smoker [facility] History of tobacco use Passive smoker [facility] Start: 07-17-2024 End: 10-08-2024 Tobacco use and exposure Smokeless tobacco non-user [facility] Start: 07-17-2024 End: 04-27-2025 History of Social function [facility] Start: 06-04-2024 End: 06-29-2025 Alcoholic beverage intake Ex-drinker (finding) [facility] Start: 04-25-2023 Tobacco Comment Last smoked : 1-5 ye ars [facility] Start: 05-11-2023 Alcohol Comment Caffeine intak e : 3-4 cups per day [facility] Start: 08-18-2024 End: 12-23-2024 Sex Female (finding) [facility] Start: 11-22-2022 Sex Female [facility] Medical Equipment Procedure Code Equipment Code Equipment Origin al Text Equipment Identifier Dates Blood Sugar Diagnostic (Accu-Chek Lucrecia Plus Test Strp) strip Start: 09-15-2024 Lancets (Accu-Ch ek Softclix Lancets) misc Start: 09-17-2024 Lancets misc Start: 09-15-2024 Blood Sugar Diagnostic (Accu-Chek Lucrecia Plus Test Strp) strip Start: 09-15-2024 End: 09-15-2024 Blood Sugar Diagnostic (Accu-Chek Lucrecia Plus Test Strp) strip Start: 09-15-2024 Lancets (Accu-Ch ek Softclix Lancets) misc Start: 09-17-2024 Lancets misc Start: 09-15-2024 Blood Sugar Diagnostic (Accu-Chek Lucrecia Plus Test Strp) strip Start: 09-15-2024 End: 09-15-2024 Start: 10-25-2024 Blood Sugar Diagnostic (Accu-Chek Lucrecia Plus Test Strp) strip Start: 09-15-2024 Lancets (Accu-Ch ek Softclix Lancets) misc Start: 09-17-2024 Lancets misc Start: 09-15-2024 Blood Sugar Diagnostic (Accu-Chek Lucrecia Plus Test Strp) strip Start: 09-15-2024 End: 09-15-2024 Blood Sugar Diagnostic (Accu-Chek Lucrecia Plus Test Strp) strip Start: 09-15-2024 Lancets (Accu-Ch ek Softclix Lancets) misc Start: 09-17-2024 Lancets misc Start: 09-15-2024 Blood Sugar Diagnostic (Accu-Chek Lucrecia Plus Test Strp) strip Start: 09-15-2024 End: 09-15-2024 Blood Sugar Diagnostic (Accu-Chek Lucrecia Plus Test Strp) strip Start: 09-15-2024 Lancets (Accu-Ch ek Softclix Lancets) misc Start: 09-17-2024 Lancets misc Start: 09-15-2024 Blood Sugar Diagnostic (Accu-Chek Lucrecia Plus Test Strp) strip Start: 09-15-2024 End: 09-15-2024 Blood Sugar Diagnostic (Accu-Chek Lucrecia Plus Test Strp) strip Start: 09-15-2024 Lancets (Accu-Ch ek Softclix Lancets) misc Start: 09-17-2024 Lancets misc Start: 09-15-2024 Blood Sugar Diagnostic (Accu-Chek Lucrecia Plus Test Strp) strip Start: 09-15-2024 End: 09-15-2024 Blood Sugar Diagnostic (Accu-Chek Lucrecia Plus Test Strp) strip Start: 09-15-2024 Lancets (Accu-Ch ek Softclix Lancets) misc Start: 09-17-2024 Lancets misc Start: 09-15-2024 Blood Sugar Diagnostic (Accu-Chek Lucrecia Plus Test Strp) strip Start: 09-15-2024 End: 09-15-2024 Blood Sugar Diagnostic (Accu-Chek Lucrecia Plus Test Strp) strip Start: 09-15-2024 Lancets (Accu-Ch ek Softclix Lancets) misc Start: 09-17-2024 Lancets misc Start: 09-15-2024 Blood Sugar Diagnostic (Accu-Chek Lucrecia Plus Test Strp) strip Start: 09-15-2024 End: 09-15-2024 Blood Sugar Diagnostic (Accu-Chek Lucrecia Plus Test Strp) strip Start: 09-15-2024 Lancets (Accu-Ch ek Softclix Lancets) misc Start: 09-17-2024 Lancets misc Start: 09-15-2024 Blood Sugar Diagnostic (Accu-Chek Lucrecia Plus Test Strp) strip Start: 09-15-2024 End: 09-15-2024 Clinical Notes 02-09-2024 to 07-13-2025 Ivon Johnson DPM - 06/29/2025 11:45 AM EDTTjewel Johnson DPM - 04/27/2025 11:45 AM EDT Note Date & Type Note Facility 07-13-2025 Note HNO ID: [id number] Author: ZORAIDA CRANE APRN.[employer]ILD[employer] ARCHITECT Service: ? Author Type: Nurse Practitioner Type: Progress Notes Filed: 07/13/2025 13:07 Note Text: URGENT CARE JAY Hayes is a 75 year old female presenting with urinary frequency and urgency. Patient reports history of frequent UTI's and a history of kidney stones. Patient reports her symptoms feel more like a UTI. Pertinent negatives include no fever, chills, fatigue, no abdominal pain or distention, no dysuria, enuresis, difficulty urinating or flank pain. Patient reports she has a upcoming appointment with a Kidney specialist. Review of Systems Constitutional: Negative for chills and fever. Gastrointestinal: Negative for abdominal distention, abdominal pain, constipation and diarrhea. Genitourinary: Positive for frequency and urgency. Negative for decreased urine volume, difficulty urinating, dysuria, enuresis, flank pain (x1 episode resolved), hematuria, pelvic pain, vaginal bleeding and vaginal discharge. Neurological: Negative for dizziness, light-headedness and headaches. Objective BP 142/76 Pulse 83 Temp 36.7 ?C (98.1 ?F) Resp 20 Wt 82.4 kg (181 lb 10.5 oz) SpO2 94% Physical Exam Constitutional: General: She is awake. Cardiovascular: Rate and Rhythm: Normal rate and regular rhythm. Heart sounds: Normal heart sounds, S1 normal and S2 normal. Pulmonary: Breath sounds: Normal breath sounds. No decreased breath sounds or wheezing. Abdominal: General: Abdomen is flat. Bowel sounds are normal. Palpations: Abdomen is soft. Tenderness: There is no abdominal tenderness. There is no right CVA tenderness, left CVA tenderness, guarding or rebound. Skin: General: Skin is warm. Capillary Refill: Capillary refill takes less than 2 seconds. Neurological: Mental Status: She is alert and oriented to person, place, and time. Psychiatric: Mood and Affect: Mood normal. Speech: Speech normal. {ASSESSMENT/PLAN: 1. Urinary frequency - ICD9: 788.41, ICD10: R35.0 recurrent - UA positive - Send urine for culture - Begin treatment with Cefdinir for 7 days - Patient education for prevention given - Supportive care with plenty of fluids, rest, and analgesia prn. - Follow up in 3-5 days if symptoms persist or worsen. - Educated to complete full course of antibiotics - Educated to follow up with PCP for further management of care Patient usually takes cefdinir prescribed by urology for her UTI as this works well for her she tolerates well. - UA DIP, URINE (POC) URINE POC GLUCOSE UA (POCT) Negative 07/13/2025 BILIRUBIN UA (POCT) Negative 07/13/2025 KETONE UA (POCT) Negative 07/13/2025 SPECIFIC GRAVITY UA (POCT) 1.015 07/13/2025 HEMOGLOBIN/BLOOD UA (POCT) Negative 07/13/2025 PH UA (POCT) 6.5 07/13/2025 PROTEIN UA (POCT) >=300 07/13/2025 UROBILINOGEN UA (POCT) 0.2 07/13/2025 NITRITE UA (POCT) Negative 07/13/2025 LEUKOCYTES UA (POCT) Trace 07/13/2025 COLOR UA (POCT) Yellow 07/13/2025 CLARITY UA (POCT) Clear 07/13/2025 - BACTERIAL CULTURE, URINE - CEFDINIR 300 MG CAPSULE Disposition The patient was discharged. OTC Medications were advised: Ibuprofen or Acetaminophen Discussed medication dosage, usage, goals of therapy, and side effects. Return to [facility], call primary care provider, or go to the emergency department for problems, worsening, increased or new symptoms, etc. Red flag symptoms discussed with the patient and when to go to ER. Patient verbalized understanding to plan of care. Berry Gupta HEALTHCARE MARKETER student TEACHING PROVIDER (Physician/PA/BOAT JOINER HELPER) NOTE OF PERSONAL INVOLVEMENT IN CARE: I have personally seen and examined the patient and performed the medical decision-making components. I have reviewed the Advanced Practice Registered Nurse (BOAT JOINER HELPER) Student's documentation and verified the findings in the note as written. Any additions or changes are noted in bold/italics. Signature: Zoraida Crane Date: 07/13/2025 Time: 1:07 PM [facility] 06-29-2025 History of Present illness Narrative Subjective Patient ID: Debbie Hayes is a 75 y.o. female who presents for diabetic nail care (Pcp Dom /A1c 5.6/Right foot 1st digit callous pain). Current Medications Current Medications[1] Allergies Iodinated contrast media, Aspirin, Cephalexin, Ciprofloxacin, Clindamycin, Codeine, Erythromycin, Erythromycin base, Nitrofurantoin, Nitrofurantoin macrocrystal, Penicillins, Phenylephrine, Sulfa antibiotics, Tetracycline, and Latex Medical Histories Medical History[2] Surgical Histories Surgical History[3] Hospitalizations Family History Family History[4] Objective Foot Exam Toenails x10 elongated, thick, discolored and painful; no open ulcers or exudate Protective sensation diminished Assessment/Plan Problem List Items Addressed This Visit Musculoskeletal Onychomycosis - Primary Pain in toe of left foot Pain in toe of right foot NIDDM All nails were debrided. This was performed using a nail nipper and power burring. Margins were curetted of mycotic debris. Power burring employed to round the nails and smooth all rough edges. Web spaces and skin inspected, hygiene discussed. Relief from nail discomfort obtained with debridement. Patient educated regarding good foot hygiene and the need to inspect feet daily. Reappoint in 9 weeks or sooner. [1] Current Outpatient Medications: Accu-Chek Lucrecia Plus test strip, , Disp: , Rfl: Accu-Chek Softclix Lancets lancets, , Disp: , Rfl: acyclovir (Zovirax) 400 MG tablet, , Disp: , Rfl: albuterol HFA 90 mcg/act inhaler, , Disp: , Rfl: amitriptyline (Elavil) 25 MG tablet, , Disp: , Rfl: amLODIPine (Norvasc) 10 MG tablet, , Disp: , Rfl: aspirin 81 MG EC tablet, Take 81 mg by mouth Daily, Disp: , Rfl: benzonatate (Tessalon) 100 MG capsule, , Disp: , Rfl: carbidopa-levodopa (Sinemet) 25-100 MG tablet, , Disp: , Rfl: cefdinir (Omnicef) 300 MG capsule, , Disp: , Rfl: Cyanocobalamin (Vitamin B12) 1000 MCG tablet controlled-release, 1 (one) time each day at the same time, Disp: , Rfl: diclofenac (Voltaren) 75 MG EC tablet, , Disp: , Rfl: dicyclomine (Bentyl) 10 MG capsule, , Disp: , Rfl: ergocalciferol (Vitamin D-2) 1.25 MG (12168 UT) capsule, , Disp: , Rfl: estradiol (Estrace) 0.1 MG/GM vaginal cream, , Disp: , Rfl: estradiol (Vivelle-DOT) 0.1 MG/24HR, , Disp: , Rfl: ezetimibe (Zetia) 10 MG tablet, , Disp: , Rfl: famotidine (Pepcid) 20 MG tablet, , Disp: , Rfl: fenofibrate (Triglide) 160 MG tablet, , Disp: , Rfl: ferrous sulfate 325 (65 Fe) MG tablet, 1 (one) time each day at the same time, Disp: , Rfl: FLUoxetine (PROzac) 20 MG capsule, , Disp: , Rfl: gabapentin (Neurontin) 300 MG capsule, , Disp: , Rfl: glimepiride (Amaryl) 4 MG tablet, , Disp: , Rfl: hydroCHLOROthiazide (Microzide) 12.5 MG capsule, , Disp: , Rfl: HYDROcodone-acetaminophen ([place]) 5-325 MG tablet, , Disp: , Rfl: hyoscyamine (Levsin) 0.125 MG SL tablet, , Disp: , Rfl: ibuprofen (Advil) 200 MG tablet, every 8 (eight) hours, Disp: , Rfl: Icosapent Ethyl (Vascepa) 1 g capsule, , Disp: , Rfl: levoFLOXacin (Levaquin) 500 MG tablet, , Disp: , Rfl: loratadine (Claritin) 10 MG tablet, , Disp: , Rfl: LORazepam (Ativan) 1 MG tablet, , Disp: , Rfl: losartan (Cozaar) 100 MG tablet, , Disp: , Rfl: meloxicam (Mobic) 7.5 MG tablet, , Disp: , Rfl: Multiple Vitamin (Multi Vitamin) tablet, 1 (one) time each day at the same time, Disp: , Rfl: nitrofurantoin, macrocrystal-monohydrate, (Macrobid) 100 MG capsule, , Disp: , Rfl: omeprazole (PriLOSEC) [address] capsule, , Disp: , Rfl: pantoprazole (ProtoNix) 40 MG EC tablet, , Disp: , Rfl: Paxlovid, 150/100, 10 x 150 MG & 10 x 100MG tablet therapy pack, , Disp: , Rfl: Rezdiffra 80 MG tablet, , Disp: , Rfl: rOPINIRole (Requip) 1 MG tablet, , Disp: , Rfl: rosuvastatin (Crestor) 40 MG tablet, , Disp: , Rfl: simvastatin (Zocor) 40 MG tablet, , Disp: , Rfl: sucralfate (Carafate) 1 g tablet, , Disp: , Rfl: traMADol (Ultram) 50 MG tablet, , Disp: , Rfl: triamcinolone (Kenalog) 0.1 % cream, , Disp: , Rfl: trimethoprim (Trimpex) 100 MG tablet, , Disp: , Rfl: Trulicity 0.75 MG/0.5ML solution auto-injector, , Disp: , Rfl: valsartan (Diovan) 80 MG tablet, , Disp: , Rfl: [2] Past Medical History: Diagnosis Date Allergies Anxiety disorder due to general medical condition with panic attack Cataract Diabetes mellitus, type 2 (HCC) Heart burn Hemangioma of skin and subcutaneous tissue 05/11/2023 Hyperlipidemia Hypertension Iron deficiency Kidney stones Neuropathy Pain Proteinuria 05/11/2023 Pruritic disorder 05/11/2023 Seizures (HCC) Type 2 diabetes mellitus with diabetic polyneuropathy, without long-term current use of insulin (HCC) 05/11/2023 UTI (urinary tract infection) [3] Past Surgical History: Procedure Laterality Date APPENDECTOMY CATARACT EXTRACTION Left MENISCECTOMY Left UT TONSILLECTOMY & ADENOIDECTOMY <AGE 10 TOTAL KNEE ARTHROPLASTY Right [4] Family History Problem Relation Name Age of Onset Hypertension Mother Hyperlipidemia Mother Diabetes Father Heart disease Father documented in this encounter [facility] 06-19-2025 Progress note [facility] 04-27-2025 History of Present illness Narrative Formatting of this note is different fro m the original. Subjective Patient ID: Debbie Hayes is a 74 y.o. female who presents for diabetic nail care (Pcp /A1c 5). Current Medications Current Outpatient Medications: Accu-Chek Lucrecia Plus test strip, , Disp: , Rfl: Accu-Chek Softclix Lancets lancets, , Disp: , Rfl: acyclovir (Zovirax) 400 MG tablet, , Disp: , Rfl: albuterol HFA 90 mcg/act inhaler, , Disp: , Rfl: amitriptyline (Elavil) 25 MG tablet, , Disp: , Rfl: amLODIPine (Norvasc) 10 MG tablet, , Disp: , Rfl: aspirin 81 MG EC tablet, Take 81 mg by mouth Daily, Disp: , Rfl: benzonatate (Tessalon) 100 MG capsule, , Disp: , Rfl: carbidopa-levodopa (Sinemet) 25-100 MG tablet, , Disp: , Rfl: cefdinir (Omnicef) 300 MG capsule, , Disp: , Rfl: Cyanocobalamin (Vitamin B12) 1000 MCG tablet controlled-release, 1 (one) time each day at the same time, Disp: , Rfl: diclofenac (Voltaren) 75 MG EC tablet, , Disp: , Rfl: dicyclomine (Bentyl) 10 MG capsule, , Disp: , Rfl: ergocalciferol (Vitamin D-2) 1.25 MG (57966 UT) capsule, , Disp: , Rfl: estradiol (Estrace) 0.1 MG/GM vaginal cream, , Disp: , Rfl: estradiol (Vivelle-DOT) 0.1 MG/24HR, , Disp: , Rfl: ezetimibe (Zetia) 10 MG tablet, , Disp: , Rfl: famotidine (Pepcid) 20 MG tablet, , Disp: , Rfl: fenofibrate (Triglide) 160 MG tablet, , Disp: , Rfl: ferrous sulfate 325 (65 Fe) MG tablet, 1 (one) time each day at the same time, Disp: , Rfl: FLUoxetine (PROzac) 20 MG capsule, , Disp: , Rfl: gabapentin (Neurontin) 300 MG capsule, , Disp: , Rfl: glimepiride (Amaryl) 4 MG tablet, , Disp: , Rfl: hydroCHLOROthiazide (Microzide) 12.5 MG capsule, , Disp: , Rfl: HYDROcodone-acetaminophen ([place]) 5-325 MG tablet, , Disp: , Rfl: hyoscyamine (Levsin) 0.125 MG SL tablet, , Disp: , Rfl: ibuprofen (Advil) 200 MG tablet, every 8 (eight) hours, Disp: , Rfl: Icosapent Ethyl (Vascepa) 1 g capsule, , Disp: , Rfl: levoFLOXacin (Levaquin) 500 MG tablet, , Disp: , Rfl: loratadine (Claritin) 10 MG tablet, , Disp: , Rfl: LORazepam (Ativan) 1 MG tablet, , Disp: , Rfl: losartan (Cozaar) 100 MG tablet, , Disp: , Rfl: meloxicam (Mobic) 7.5 MG tablet, , Disp: , Rfl: Multiple Vitamin (Multi Vitamin) tablet, 1 (one) time each day at the same time, Disp: , Rfl: nitrofurantoin, macrocrystal-monohydrate, (Macrobid) 100 MG capsule, , Disp: , Rfl: omeprazole (PriLOSEC) [address] capsule, , Disp: , Rfl: Paxlovid, 150/100, 10 x 150 MG & 10 x 100MG tablet therapy pack, , Disp: , Rfl: Rezdiffra 80 MG tablet, , Disp: , Rfl: rOPINIRole (Requip) 1 MG tablet, , Disp: , Rfl: rosuvastatin (Crestor) 40 MG tablet, , Disp: , Rfl: simvastatin (Zocor) 40 MG tablet, , Disp: , Rfl: sucralfate (Carafate) 1 g tablet, , Disp: , Rfl: traMADol (Ultram) 50 MG tablet, , Disp: , Rfl: triamcinolone (Kenalog) 0.1 % cream, , Disp: , Rfl: trimethoprim (Trimpex) 100 MG tablet, , Disp: , Rfl: Trulicity 0.75 MG/0.5ML solution auto-injector, , Disp: , Rfl: valsartan (Diovan) 80 MG tablet, , Disp: , Rfl: Allergies Iodinated contrast media, Aspirin, Cephalexin, Ciprofloxacin, Clindamycin, Codeine, Erythromycin, Erythromycin base, Nitrofurantoin, Nitrofurantoin macrocrystal, Penicillins, Phenylephrine, Sulfa antibiotics, Tetracycline, and Latex Medical Histories Past Medical History: Diagnosis Date Allergies Anxiety disorder due to general medical condition with panic attack Cataract Diabetes mellitus, type 2 ([facility]) Heart burn Hemangioma of skin and subcutaneous tissue 05/11/2023 Hyperlipidemia Hypertension Iron deficiency Kidney stones Neuropathy Pain Proteinuria 05/11/2023 Pruritic disorder 05/11/2023 Seizures ([facility]) Type 2 diabetes mellitus with diabetic polyneuropathy, without long-term current use of insulin ([facility]) 05/11/2023 UTI (urinary tract infection) Surgical Histories Past Surgical History: Procedure Laterality Date APPENDECTOMY CATARACT EXTRACTION Left MENISCECTOMY Left UT TONSILLECTOMY & ADENOIDECTOMY <AGE 10 TOTAL KNEE ARTHROPLASTY Right Hospitalizations Family History Family History Problem Relation Name Age of Onset Hypertension Mother Hyperlipidemia Mother Diabetes Father Heart disease Father Objective Foot Exam Toenails x10 elongated, thick, discolored and painful; no open ulcers or exudate Protective sensation diminished Assessment/Plan Problem List Items Addressed This Visit Musculoskeletal Onychomycosis - Primary Pain in toe of left foot Pain in toe of right foot NIDDM All nails were debrided. This was performed using a nail nipper and power burring. Margins were curetted of mycotic debris. Power burring employed to round the nails and smooth all rough edges. Web spaces and skin inspected, hygiene discussed. Relief from nail discomfort obtained with debridement. Patient educated regarding good foot hygiene and the need to inspect feet daily. Reappoint in 9 weeks or sooner. documented in this encounter [facility] 03-19-2025 Evaluation note Diagnosis Onset Date Resolution Hyperlipidemia chronic March 19, 2025 10:23am NAFLD (nonalcoholic fatty liver disease) chronic March 19, 2025 10:23am CKD (chronic kidney disease) stage 3, GFR 30-59 ml/min chronic May 25, 2025 1:08pm HTN (hypertension) chronic 2024 1:08pm Hyperlipidemia chronic May 25, 2025 1:08pm Microalbuminuria chronic 2024 1:08pm NAFLD (nonalcoholic fatty liver disease) chronic May 25, 2025 1:08pm Obesity chronic May 1:08pm Type 2 diabetes mellitus chronic May 25, 2025 1:08pm Heartburn acute June 19, 2025 9:57am History of IBS acute June 192024 9:57am NAFLD (nonalcoholic fatty liver disease) chronic June 19 9:57am [facility] Work Phone: 1(652) 113-695806-11-2025 Evaluation note* Diagnosis Onset Date Resolution Status Admit Date CKD (chronic kidney disease) stage 3, GFR 30-59 ml/min chronic February 082024 11:28am HTN (hypertension) chronic February 082024 11:28am Hyperlipidemia chronic February 18, 2025 11:28am Microalbuminuria chronic February 11:28am NAFLD (nonalcoholic fatty li hermelinda disease) chronic February 18, 2025 11:28am Obesity chronic February 18 11:28am Type 2 diabetes mellitus chronic February 18, 2025 11:28am Hyperlipidemia chronic March 19, 2025 10:23am NAFLD (nonalcoholic fatty li hermelinda disease) chronic March 19, 2025 10:23am [facility] Work Phone: [phone]) 248-697406-11-2025 Evaluation note* Diagnosis Onset Date Resolution Status Admit Date CKD (chronic kidney disease) stage 3, GFR 30-59 ml/min chronic February 082024 11:28am HTN (hypertension) chronic February 082024 11:28am Hyperlipidemia chronic February 18, 2025 11:28am Microalbuminuria chronic February 11:28am NAFLD (nonalcoholic fatty li hermelinda disease) chronic February 18, 2025 11:28am Obesity chronic February 18 11:28am Type 2 diabetes mellitus chronic February 18, 2025 11:28am Hyperlipidemia chronic March 19, 2025 10:23am NAFLD (nonalcoholic fatty li hermelinda disease) chronic March 19, 2025 10:23am CKD (chronic kidney disease) stage 3, GFR 30-59 ml/min chronic 2024 1:08pm HTN (hypertension) chronic 2024 1:08pm Hyperlipidemia chronic May 25, 2025 1:08pm Microalbuminuria chronic 2024 1:08pm NAFLD (nonalcoholic fatty li hermelinda disease) chronic May 25, 2025 1:08pm Obesity chronic May 1:08pm Type 2 diabetes mellitus chronic May 25, 2025 1:08pm [facility] Work Phone: 1(766) 918-148306-11-2025 [facility] [address] [place] [address]. 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 Accompanied by: Is patient in pain?: Yes (Low Back/Flank) Pain scale (1-10): 3 Allergies clindamycin Allergy (Verified 02/18/25 11:39) Rash codeine Allergy (Verified 02/18/25 11:39) Other erythromycin base Allergy (Verified 02/18/25 11:39) Rash Iodinated Contrast Media (IVP dye) Allergy (Verified 02/18/25 11:39) Nausea/Vom/Diarrhea latex Allergy (Verified 02/18/25 11:39) Hives oxytetracycline (From Terramycin) Allergy (Verified 02/18/25 11:39) Rash Penicillins Allergy (Verified 02/18/25 11:39) Rash Sulfa (Sulfonamide Antibiotics) Allergy (Verified 02/18/25 11:39) Rash Medications ?Medication ?Instructions ?Recorded ?Confirmed ?Type amitriptyline 25 mg tablet 25 mg PO QHS 04/03/2402/18 History amlodipine 10 mg tablet 10 mg PO DAILY 04/03/2402/08 History ascorbic acid (vitamin C) 500 mg 500 mg PO DAILY 04/0302/18/25 History tablet aspirin 81 mg tablet,delayed 81 mg PO DAILY 04/03/24 0 02/18/25 History release (Adult Low Dose Aspirin) calcium citrate 250 mg PO DAILY 04/03/2408/04 History cranberry extract 500 mg capsule 500 mg PO DAILY 04/0302/18/25 History cyanocobalamin (vitamin B-12) 500 500 mcg PO DAILY 02/18/25 History mcg tablet estradiol 0.01% (0.1 mg/gram) 1 g vaginal 3XW 04/03/24 02/18/25 History vaginal cream famotidine 20 mg tablet 20 mg PO BID 04/03/24 History fenofibrate 160 mg tablet 160 mg PO DAILY 04/03/2408/04 History ferrous sulfate 325 mg (65 mg 325 mg PO DAILY 04/03/24 02/18/25 History iron) tablet (Feosol) fluoxetine 20 mg capsule 20 mg PO DAILY 04/03/2402/08 History gabapentin 300 mg capsule 600 mg PO .QID 04/03/2402/08 History garlic 500 mg capsule 500 mg PO DAILY 04/03/2408/04 History hydrochlorothiazide 12.5 mg capsule 25 mg PO DAILY 02/18/25 History icosapent ethyl 1 gram capsule 2 g PO BID 04/03/2408/04 History lactobacillus combination no.9 4 4,000 mmu cells PO DA MAGALY 04/03/24 02/18/25 History billion cell capsule (Adult 50 Plus Probiotic) lorazepam 1 mg tablet 1.5 mg PO TID PRN anxiety 02/18/25 History losartan 100 mg tablet 100 mg PO DAILY 04/03/2408/04 History magnesium gluconate 500 mg tablet 500 mg PO DAILY 03/1102/18/25 History multivitamin 1 tab PO DAILY 04/03/2402/08 History prednisolone acetate 1 % eye 1 drp ophthalmic (eye) TI D 04/03/24 02/18/25 History drops,suspension rosuvastatin 40 mg tablet 40 mg PO DAILY 04/03/2402/08 History tamsulosin 0.4 mg capsule 0.4 mg PO DAILY 04/03/2408/04 History trimethoprim 100 mg tablet 100 mg PO DAILY 04/03/24 History metformin 1,000 mg tablet 500 mg PO BID 09/11/2402/18 History blood sugar diagnostic (Accu-Chek #100 ea 09/15/2408/04 Rx Lucrecia Plus test strips) lancets 09/15/24 02/18/25 History lancets (Accu-Chek Softclix #100 ea 09/17/24 02/18/25 Rx Lancets) dulaglutide 0.75 mg/0.5 mL 0.75 mg (0.5 mL) subcut QWE EK #2 mL 01/02/25 02/18/25 Rx subcutaneous pen injector (Trulicity) cholecalciferol (vitamin D3) 25 50 mcg PO QDAY 5 02/18/25 History mcg (1,000 unit) capsule Have you fallen in the past year?: No PFSH Medical History Wears glasses Loose, teeth Wears partial dentures Panic attack Discoloration of skin Ambulates with cane Arthritis Kidney stones Low iron Anemia Fatty liver Easy bruising Restless legs History of IBS Heartburn Former smoker Hoarseness Chronic cough History of edema History of stress test UTI (urinary tract infection) GERD (gastroesophageal reflux disease) History of kidney stones History of trigger finger Anxiety Type 2 diabetes mellitus Hyperlipidemia HTN (hypertension) Personal history of colonic polyps Surgical History History of total bilateral knee replacement (TKR) Hx of appendectomy History of tonsillectomy and adenoidectomy Hx of colonoscopy Social History household members: spouse current occupational status: retired Smoking Status: Former smoker alcohol intake: never substance use type: does not use HPI HPI Chief Complaint: f/u diabetes Details: DEBBIE HAYES, is a 74 F who presents to the office today for evaluation and management of diabetes. A1C today is 6.8%, increased from 11/19/24 at 6.3%. She has gained 6 lbs since that time. Currently taking Trulicity 0.75 mg qweek- tolerating well. Metformin was discontinued at initial appt d/t CKD. Trulicity is costly to her. She has applied for patient assistance program; however, she has not heard outcome. BP is controlled. Continue amlodipine 10 mg once daily, HCTZ 25 mg once daily, and losartan 100 mg once daily. She has CKD and microalbuminuria. She takes a daily statin, fenofibrate, and Vascepa. She recently saw GI for elevated liver enzymes. Ultrasound showed fatty liver disease. Labs are up to date. Denies any acute concerns. ROS Const Constitutional: No fatigue or weakness Eyes Eyes: Positive for other (lumps to neck) Cardio Cardiology: No chest pain at rest, chest pain with exertion or shortness of breath Musc Musculoskeletal: No numbness Neuro Neurology: No weakness or numbness Skin Skin: No wounds Endo Endocrine: No fatigue Exam Const General: cooperative, healthy appearing, comfortable and no acute distress Nutritional Appearance: obese Orientation: alert, awake and oriented x3 HENMT Head: normal to inspection Ears: hearing grossly normal bilaterally Nose: external nose normal Face and sinus: normal facial exam Eyes General: appearance normal, both eyes and all related structures Alignment and Position: alignment normal Sclera: sclerae normal Neck Neck: normal visual inspection Chest Chest palpation & inspection: normal inspection of the chest Resp Effort & Inspection: normal respiratory effort, able to speak in complete sentences, symmetric chest movement, normal respiratory pattern, no audible wheezes and no cough Auscultation: Bilateral: Clear to Auscultation Cardio Rate: regular rate Rhythm: regular rhythm Heart Sounds: S1 normal and S2 normal GI Inspection: obesity Musc Cervical Spine: normal cervical lordosis Thoracic/Lumbar Spine: thoracic and lumbar spine normal to inspection Skin General: no rashes or lesions noted Lesions: no lesions Rashes: no rashes Trauma: no lacerations or abrasions Wounds: no wounds Neuro General: patient alert, patient awake and patient oriented x3 Cognition: normal cognition Speech: speech normal Gait: normal gait Extrem General: normal to inspection and pedal edema Psych Appearance: grossly normal Mental Status: mental status grossly normal Mood: congruent mood Affect: normal affect Speech and Movement: speech and movement normal Attitude: cooperative Thought Process: normal Thought Content: normal Judgment: judgment good Results POC A1C POC A1C 6.8 % Last Edit by Mary Kay Rosario on 02/18/25 11:45 Clinical Quality Measures Falls Risk Screening/Assistive Devices Have you fallen in the past year?: No Assessment and Plan Assessment and Plan (1) Type 2 diabetes mellitus: Status: Chronic Qualifiers: Diabetes mellitus watermaster insulin use: without senior living use Diabetesmellitus complication status: with kidney complications Diabetes mellitus complication detail: with chronic kidney disease Chronic kidney disease stage: stage 3 (moderate) Chronic kidney disease stage 3 subtype: stage 3b (GFR 30-44) Qualified Code(s): E11.22 - Type 2 diabetes mellitus with diabetic chronic kidney disease; N18.32 - Chronic kidney disease, stage 3b Plan: Chronic- controlled. Longitudinal care provided. G2211. I reviewed with the patient the risk of developing and worsening of diabetes complications including retinopathy, neuropathy, nephropathy, heart attack, stroke, amputation, and sudden . Diabetes education provided. A1C at goal: <7.5%. Continue Trulicity 0.75 mg qweek. Will not increase dose at this time. Avoid processed carbohydrates. Recommend weight loss. Reviewed most recent labs. Follow up in 3 months. (2) HTN (hypertension): Status: Chronic Qualifiers: Hypertension type: unspecified Qualified Code(s): I10 - Essential (primary) hypertension Plan: Chronic- controlled. Continue amlodipine 10 mg once daily. Continue HCTZ 25 mg once daily. Continue losartan 100 mg once daily. Avoid dietary sodium. Will continue to monitor. (3) CKD (chronic kidney disease) stage 3, GFR 30-59 ml/min: Status: Chronic Qualifiers: Chronic kidney disease stage 3 subtype: stage 3b (GFR 30-44) Qualified Code(s): N18.32 - Chronic kidney disease, stage 3b Plan: Chronic- stable. Maintain glycemic control. Maintain BP control. Continue GLP1. Continue ARB. Assure adequate hydration. Avoid NSAIDs. Will continue to monitor in routine labs. (4) Microalbuminuria: Status: Chronic Plan: Chronic- stable. Plan same as #3. (5) Hyperlipidemia: Status: Chronic Qualifiers: Hyperlipidemia type: unspecified Qualified Code(s): E78.5 - Hyperlipidemia, unspecified Plan: Chronic- borderline control d/t elevated triglycerides. Increase vegetable intake. Choose lean cuts of meat. Avoid processed carbohydrates. Continue rosuvastatin 40 mg once daily. Continue fenofibrate 160 mg once daily. Continue Vascepa 2 gm BID. Will continue to monitor in routine labs. (6) NAFLD (nonalcoholic fatty liver disease): Status: Chronic Plan: Chronic- stable. Plan same as above. Emphasized importance of dietary changes. Defer to GI. (7) Obesity: Status: Chronic Qualifiers: Obesity type: due to excess calories Obesity classification: adult class 1 (BMI 30 - 34.9) Serious obesity comorbidity presence: with serious comorbidity Body mass index: BMI 30.0-30.9 Qualified Code(s): E66.811 - Obesity, class 1; E66.09 - Other obesity due to excess calories; Z68.30 - Body mass index [BMI] 30.0- 30.9, adult Plan: Chronic- worsening. Encouraged a diet that contains high quality carbohydrates rich in fiber. I have spent [32] minutes today reviewing labs, records and history. Time includes coordinating care, interpretation of tests, discussion with patient's other health care providers via telephone. This also includes time I spent with the patient for exam, treatment plan and education as well as documenting clinical information. Orders: Orders POC A1C Today E11.22 - Type 2 diabetes mellitus with diabetic chronic kidney disease, N18.32 - Chronic kidney disease, stage 3b Plan Details Follow Up: 3 Months Coding Level of Care Code Off vis,est,level 4 Extra Time Spent Extra Time Spent Extra Time Spent: G2211 Diagnoses Type 2 diabetes mellitus with stage 3b chronic kidney disease, without long-term current use of insulin E11.22; N18.32 Diabetes mellitus senior living insulin use: without senior living use Diabetes mellitus complication status: with kidney complications Diabetes mellitus complication detail: with chronic kidney disease Chronic kidney disease stage: stage 3 (moderate) Chronic kidney disease stage 3 subtype: stage 3b (GFR 30-44) Hypertension, unspecified type I10 Hypertension type: unspecified Stage 3b chronic kidney disease N18.32 Chronic kidney disease stage 3 subtype: stage 3b (GFR 30-44) Microalbuminuria R80.9 Hyperlipidemia, unspecified hyperlipidemia type E78.5 Hyperlipidemia type: unspecified NAFLD (nonalcoholic fatty liver disease) K76.0 Class 1 obesity due to excess calories with serious comorbidity and body mass index (BMI) of 30.0 to 30.9 in adult E66.811; E66.09; Z68.30 Obesity type: due to excess calories Obesity classification: adult class 1 (BMI 30 - 34.9) Serious obesity comorbidity presence: with serious comorbidity Body mass index: BMI 30.0-30.9 Additional Codes Extra Time Spent - Extra Time Spent: G2211 (G2211) 02/18/25 1253 n HEALTHCARE MARKETER-C> Date _ Doreen Hooker HEALTHCARE MARKETER-C Cosigner Signature: Date (if applicable) CC: ~ [facility]06-11-2025 Progress note Author Doreen Hooker [facility] Note Date/Time February 18, 2025 12:5 3pm [facility] [address] [place] [address] OFFICE VISIT Date of Service: 02/18/25 MR#: [id number] Acct: [id number] Name: DEBBIE HAYES Rep #: [id number] : 1950 Provider: KELLEE Hooker Age/Sex: 74/F Location: [facility] Status: Signed Intake Vital Signs 11/19/24 11:36 12/04/24 10:27 02/18/25 11:32 Height 5 ft 4 in 5 ft 4 in 5 ft 4 in Weight: 186 lb BMI 31.9 BP 125/71 H Blood Pressure Location Lt brachial Position Sitting Pulse 83 Pulse Source Monitor Pulse Oximetry (%) 93 Oxygen Delivery Method room air Intake Visit Reasons: 3 M FU Chief Complaint: f/u diabetes [employer] Required: No Accompanied by: Is patient in pain?: Yes (Low Back/Flank) Pain scale (1-10): 3 Allergies clindamycin Allergy (Verified 02/18/25 11:39) Rash codeine Allergy (Verified 02/18/25 11:39) Other erythromycin base Allergy (Verified 02/18/25 11:39) Rash Iodinated Contrast Media (IVP dye) Allergy (Verified 02/18/25 11:39) Nausea/Vom/Diarrhea latex Allergy (Verified 02/18/25 11:39) Hives oxytetracycline (From Terramycin) Allergy (Verified 02/18/25 11:39) Rash Penicillins Allergy (Verified 02/18/25 11:39) Rash Sulfa (Sulfonamide Antibiotics) Allergy (Verified 02/18/25 11:39) Rash Medications ?Medication ?Instructions ?Recorded ?Confirmed ?Type amitriptyline 25 mg tablet 25 mg PO QHS 04/03/2402/18 History amlodipine 10 mg tablet 10 mg PO DAILY 04/03/2402/08 History ascorbic acid (vitamin C) 500 mg 500 mg PO DAILY 04/0302/18/25 History tablet aspirin 81 mg tablet,delayed 81 mg PO DAILY 04/03/24 0 02/18/25 History release (Adult Low Dose Aspirin) calcium citrate 250 mg PO DAILY 04/03/2408/04 History cranberry extract 500 mg capsule 500 mg PO DAILY 04/0302/18/25 History cyanocobalamin (vitamin B-12) 500 500 mcg PO DAILY 02/18/25 History mcg tablet estradiol 0.01% (0.1 mg/gram) 1 g vaginal 3XW 04/03/24 02/18/25 History vaginal cream famotidine 20 mg tablet 20 mg PO BID 04/03/24 History fenofibrate 160 mg tablet 160 mg PO DAILY 04/03/2408/04 History ferrous sulfate 325 mg (65 mg 325 mg PO DAILY 04/03/24 02/18/25 History iron) tablet (Feosol) fluoxetine 20 mg capsule 20 mg PO DAILY 04/03/2402/08 History gabapentin 300 mg capsule 600 mg PO .QID 04/03/2402/08 History garlic 500 mg capsule 500 mg PO DAILY 04/03/2408/04 History hydrochlorothiazide 12.5 mg capsule 25 mg PO DAILY 02/18/25 History icosapent ethyl 1 gram capsule 2 g PO BID 04/03/2408/04 History lactobacillus combination no.9 4 4,000 mmu cells PO DA MAGALY 04/03/24 02/18/25 History billion cell capsule (Adult 50 Plus Probiotic) lorazepam 1 mg tablet 1.5 mg PO TID PRN anxiety 02/18/25 History losartan 100 mg tablet 100 mg PO DAILY 04/03/2408/04 History magnesium gluconate 500 mg tablet 500 mg PO DAILY 03/1102/18/25 History multivitamin 1 tab PO DAILY 04/03/2402/08 History prednisolone acetate 1 % eye 1 drp ophthalmic (eye) TI D 04/03/24 02/18/25 History drops,suspension rosuvastatin 40 mg tablet 40 mg PO DAILY 04/03/2402/08 History tamsulosin 0.4 mg capsule 0.4 mg PO DAILY 04/03/2408/04 History trimethoprim 100 mg tablet 100 mg PO DAILY 04/03/24 History metformin 1,000 mg tablet 500 mg PO BID 09/11/2402/18 History blood sugar diagnostic (Accu-Chek #100 ea 09/15/2408/04 Rx Lucrecia Plus test strips) lancets 09/15/24 02/18/25 History lancets (Accu-Chek Softclix #100 ea 09/17/24 02/18/25 Rx Lancets) dulaglutide 0.75 mg/0.5 mL 0.75 mg (0.5 mL) subcut QWE EK #2 mL 01/02/25 02/18/25 Rx subcutaneous pen injector (Trulicity) cholecalciferol (vitamin D3) 25 50 mcg PO QDAY 5 02/18/25 History mcg (1,000 unit) capsule Have you fallen in the past year?: No PFSH Medical History Wears glasses Loose, teeth Wears partial dentures Panic attack Discoloration of skin Ambulates with cane Arthritis Kidney stones Low iron Anemia Fatty liver Easy bruising Restless legs History of IBS Heartburn Former smoker Hoarseness Chronic cough History of edema History of stress test UTI (urinary tract infection) GERD (gastroesophageal reflux disease) History of kidney stones History of trigger finger Anxiety Type 2 diabetes mellitus Hyperlipidemia HTN (hypertension) Personal history of colonic polyps Surgical History History of total bilateral knee replacement (TKR) Hx of appendectomy History of tonsillectomy and adenoidectomy Hx of colonoscopy Social History household members: spouse current occupational status: retired Smoking Status: Former smoker alcohol intake: never substance use type: does not use HPI HPI Chief Complaint: f/u diabetes Details: DEBBIE HAYES, is a 74 F who presents to the office today for evaluation and management of diabetes. A1C today is 6.8%, increased from 11/19/24 at 6.3%. She has gained 6 lbs since that time. Currently taking Trulicity 0.75 mg qweek- tolerating well. Metformin was discontinued at initial appt d/t CKD. Trulicity is costly to her. She has applied for patient assistance program; however, she has not heard outcome. BP is controlled. Continue amlodipine 10 mg once daily, HCTZ 25 mg once daily, and losartan 100 mg once daily. She has CKD and microalbuminuria. She takes a daily statin, fenofibrate, and Vascepa. She recently saw GI for elevated liver enzymes. Ultrasound showed fatty liver disease. Labs are up to date. Denies any acute concerns. ROS Const Constitutional: No fatigue or weakness Eyes Eyes: Positive for other (lumps to neck) Cardio Cardiology: No chest pain at rest, chest pain with exertion or shortness of breath Musc Musculoskeletal: No numbness Neuro Neurology: No weakness or numbness Skin Skin: No wounds Endo Endocrine: No fatigue Exam Const General: cooperative, healthy appearing, comfortable and no acute distress Nutritional Appearance: obese Orientation: alert, awake and oriented x3 HENMT Head: normal to inspection Ears: hearing grossly normal bilaterally Nose: external nose normal Face and sinus: normal facial exam Eyes General: appearance normal, both eyes and all related structures Alignment and Position: alignment normal Sclera: sclerae normal Neck Neck: normal visual inspection Chest Chest palpation & inspection: normal inspection of the chest Resp Effort & Inspection: normal respiratory effort, able to speak in complete sentences, symmetric chest movement, normal respiratory pattern, no audible wheezes and no cough Auscultation: Bilateral: Clear to Auscultation Cardio Rate: regular rate Rhythm: regular rhythm Heart Sounds: S1 normal and S2 normal GI Inspection: obesity Musc Cervical Spine: normal cervical lordosis Thoracic/Lumbar Spine: thoracic and lumbar spine normal to inspection Skin General: no rashes or lesions noted Lesions: no lesions Rashes: no rashes Trauma: no lacerations or abrasions Wounds: no wounds Neuro General: patient alert, patient awake and patient oriented x3 Cognition: normal cognition Speech: speech normal Gait: normal gait Extrem General: normal to inspection and pedal edema Psych Appearance: grossly normal Mental Status: mental status grossly normal Mood: congruent mood Affect: normal affect Speech and Movement: speech and movement normal Attitude: cooperative Thought Process: normal Thought Content: normal Judgment: judgment good Results POC A1C POC A1C 6.8 % Last Edit by Mary Kay Rosario on 02/18/25 11:45 Clinical Quality Measures Falls Risk Screening/Assistive Devices Have you fallen in the past year?: No Assessment and Plan Assessment and Plan (1) Type 2 diabetes mellitus: Status: Chronic Qualifiers: Diabetes mellitus senior living insulin use: without watermaster use Diabetesmellitus complication status: with kidney complications Diabetes mellitus complication detail: with chronic kidney disease Chronic kidney disease stage: stage 3 (moderate) Chronic kidney disease stage 3 subtype: stage 3b (GFR 30-44) Qualified Code(s): E11.22 - Type 2 diabetes mellitus with diabetic chronic kidney disease; N18.32 - Chronic kidney disease, stage 3b Plan: Chronic- controlled. Longitudinal care provided. G2211. I reviewed with the patient the risk of developing and worsening of diabetes complications including retinopathy, neuropathy, nephropathy, heart attack, stroke, amputation, and sudden . Diabetes education provided. A1C at goal: <7.5%. Continue Trulicity 0.75 mg qweek. Will not increase dose at this time. Avoid processed carbohydrates. Recommend weight loss. Reviewed most recent labs. Follow up in 3 months. (2) HTN (hypertension): Status: Chronic Qualifiers: Hypertension type: unspecified Qualified Code(s): I10 - Essential (primary) hypertension Plan: Chronic- controlled. Continue amlodipine 10 mg once daily. Continue HCTZ 25 mg once daily. Continue losartan 100 mg once daily. Avoid dietary sodium. Will continue to monitor. (3) CKD (chronic kidney disease) stage 3, GFR 30-59 ml/min: Status: Chronic Qualifiers: Chronic kidney disease stage 3 subtype: stage 3b (GFR 30-44) Qualified Code(s): N18.32 - Chronic kidney disease, stage 3b Plan: Chronic- stable. Maintain glycemic control. Maintain BP control. Continue GLP1. Continue ARB. Assure adequate hydration. Avoid NSAIDs. Will continue to monitor in routine labs. (4) Microalbuminuria: Status: Chronic Plan: Chronic- stable. Plan same as #3. (5) Hyperlipidemia: Status: Chronic Qualifiers: Hyperlipidemia type: unspecified Qualified Code(s): E78.5 - Hyperlipidemia, unspecified Plan: Chronic- borderline control d/t elevated triglycerides. Increase vegetable intake. Choose lean cuts of meat. Avoid processed carbohydrates. Continue rosuvastatin 40 mg once daily. Continue fenofibrate 160 mg once daily. Continue Vascepa 2 gm BID. Will continue to monitor in routine labs. (6) NAFLD (nonalcoholic fatty liver disease): Status: Chronic Plan: Chronic- stable. Plan same as above. Emphasized importance of dietary changes. Defer to GI. (7) Obesity: Status: Chronic Qualifiers: Obesity type: due to excess calories Obesity classification: adult class 1 (BMI 30 - 34.9) Serious obesity comorbidity presence: with serious comorbidity Body mass index: BMI 30.0-30.9 Qualified Code(s): E66.811 - Obesity, class 1; E66.09 - Other obesity due to excess calories; Z68.30 - Body mass index [BMI] 30.0-30.9, adult Plan: Chronic- worsening. Encouraged a diet that contains high quality carbohydrates rich in fiber. I have spent [32] minutes today reviewing labs, records and history. Time includes coordinating care, interpretation of tests, discussion with patient's other health care providers via telephone. This also includes time I spent with the patient for exam, treatment plan and education as well as documenting clinical information. Orders: Orders POC A1C Today E11.22 - Type 2 diabetes mellitus with diabetic chronic kidney disease, N18.32 - Chronic kidney disease, stage 3b Plan Details Follow Up: 3 Months Coding Level of Care Code Off vis,est,level 4 Extra Time Spent Extra Time Spent Extra Time Spent: G221 Diagnoses Type 2 diabetes mellitus with stage 3b chronic kidney disease, without long-term current use of insulin E11.22; N18.32 Diabetes mellitus senior living insulin use: without watermaster use Diabetes mellitus complication status: with kidney complications Diabetes mellitus complication detail: with chronic kidney disease Chronic kidney disease stage: stage 3 (moderate) Chronic kidney disease stage 3 subtype: stage 3b (GFR 30-44) Hypertension, unspecified type I10 Hypertension type: unspecified Stage 3b chronic kidney disease N18.32 Chronic kidney disease stage 3 subtype: stage 3b (GFR 30-44) Microalbuminuria R80.9 Hyperlipidemia, unspecified hyperlipidemia type E78.5 Hyperlipidemia type: unspecified NAFLD (nonalcoholic fatty liver disease) K76.0 Class 1 obesity due to excess calories with serious comorbidity and body mass index (BMI) of 30.0 to 30.9 in adult E66.811; E66.09; Z68.30 Obesity type: due to excess calories Obesity classification: adult class 1 (BMI 30 - 34.9) Serious obesity comorbidity presence: with serious comorbidity Body mass index: BMI 30.0-30.9 Additional Codes Extra Time Spent - Extra Time Spent: G2211 (G2211) 02/18/25 1250 <Electronically signed by Doreen GOODSON> Date _ Doreen Hooker HEALTHCARE MARKETER-C Cosigner Signature: Date (if applicable) CC: ~ [facility] Work Phone: [phone] History of Present illness Narrative* Ivon Johnson, MARTA - 02/16/2025 10:45 AM EDT Subjective Patient ID: Debbie Hayes is a 74 y.o. female who presents for painful toenails. Current Medications Current Outpatient Medications: Accu-Chek Lucrecia Plus test strip, , Disp: , Rfl: Accu-Chek Softclix Lancets lancets, , Disp: , Rfl: acyclovir (Zovirax) 400 MG tablet, acyclovir 400 mg tablet, Disp: , Rfl: albuterol HFA 90 mcg/act inhaler, albuterol sulfate HFA 90 mcg/actuation aerosol inhaler, Disp: , Rfl: amitriptyline (Elavil) 25 MG tablet, amitriptyline 25 mg tablet, Disp: , Rfl: amLODIPine (Norvasc) 10 MG tablet, , Disp: , Rfl: aspirin 81 MG EC tablet, Take 81 mg by mouth in the morning., Disp: , Rfl: benzonatate (Tessalon) 100 MG capsule, take 1 capsule by mouth every 8 hours if needed for cough for 15 DAYS, Disp: , Rfl: carbidopa-levodopa (Sinemet) 25-100 MG tablet, , Disp: , Rfl: cefdinir (Omnicef) 300 MG capsule, , Disp: , Rfl: Cyanocobalamin (Vitamin B12) 1000 MCG tablet controlled-release, 1 (one) time each day at the same time., Disp: , Rfl: diclofenac (Voltaren) 75 MG EC tablet, diclofenac sodium 75 mg tablet,delayed release, Disp: , Rfl: dicyclomine (Bentyl) 10 MG capsule, Oral for 12, Disp: , Rfl: ergocalciferol (Vitamin D-2) 1.25 MG (23107 UT) capsule, ergocalciferol (vitamin D2) 1,250 mcg (50,000 unit) capsule, Disp: , Rfl: estradiol (Vivelle-DOT) 0.1 MG/24HR, 1 patch to skin Transdermal Two times a Week, Disp: , Rfl: ezetimibe (Zetia) 10 MG tablet, Zetia 10 mg tablet, Disp: , Rfl: famotidine (Pepcid) 20 MG tablet, famotidine 20 mg tablet, Disp: , Rfl: fenofibrate (Triglide) 160 MG tablet, , Disp: , Rfl: ferrous sulfate 325 (65 Fe) MG tablet, 1 (one) time each day at the same time., Disp: , Rfl: FLUoxetine (PROzac) 20 MG capsule, fluoxetine 20 mg capsule, Disp: , Rfl: gabapentin (Neurontin) 300 MG capsule, gabapentin 300 mg capsule, Disp: , Rfl: glimepiride (Amaryl) 4 MG tablet, glimepiride 4 mg tablet, Disp: , Rfl: hydroCHLOROthiazide (Microzide) 12.5 MG capsule, hydrochlorothiazide 12.5 mg capsule, Disp: , Rfl: HYDROcodone-acetaminophen ([place]) 5-325 MG tablet, , Disp: , Rfl: hyoscyamine (Levsin) 0.125 MG SL tablet, hyoscyamine 0.125 mg sublingual tablet, Disp: , Rfl: ibuprofen (Advil) 200 MG tablet, every 8 (eight) hours., Disp: , Rfl: Icosapent Ethyl (Vascepa) 1 g capsule, Vascepa 1 gram capsule, Disp: , Rfl: levoFLOXacin (Levaquin) 500 MG tablet, levofloxacin 500 mg tablet, Disp: , Rfl: loratadine (Claritin) 10 MG tablet, loratadine 10 mg tablet, Disp: , Rfl: LORazepam (Ativan) 1 MG tablet, lorazepam 1 mg tablet, Disp: , Rfl: losartan (Cozaar) 100 MG tablet, losartan 100 mg tablet, Disp: , Rfl: meloxicam (Mobic) 7.5 MG tablet, , Disp: , Rfl: Multiple Vitamin (Multi Vitamin) tablet, 1 (one) time each day at the same time., Disp: , Rfl: nitrofurantoin, macrocrystal-monohydrate, (Macrobid) 100 MG capsule, nitrofurantoin monohydrate/macrocrystals 100 mg capsule, Disp: , Rfl: omeprazole (PriLOSEC) [address] capsule, omeprazole 40 mg capsule,delayed release, Disp: , Rfl: Paxlovid, 150/100, 10 x 150 MG & 10 x 100MG tablet therapy pack, take 1 NIRMATRELVIR tablet with 1 RITONAVIR tablet by mouth twice a day for 5 days, Disp: , Rfl: rOPINIRole (Requip) 1 MG tablet, ropinirole 1 mg tablet, Disp: , Rfl: rosuvastatin (Crestor) 40 MG tablet, , Disp: , Rfl: simvastatin (Zocor) 40 MG tablet, simvastatin 40 mg tablet, Disp: , Rfl: sucralfate (Carafate) 1 g tablet, sucralfate 1 gram tablet, Disp: , Rfl: traMADol (Ultram) 50 MG tablet, tramadol 50 mg tablet, Disp: , Rfl: triamcinolone (Kenalog) 0.1 % cream, APPLY A THIN LAYER TO THE AFFECTED AREA(S) BY TOPICAL ROUTE 1-2 TIMES PER DAY, Disp: , Rfl: trimethoprim (Trimpex) 100 MG tablet, , Disp: , Rfl: Trulicity 0.75 MG/0.5ML solution auto-injector, , Disp: , Rfl: valsartan (Diovan) 80 MG tablet, Diovan 80 mg tablet, Disp: , Rfl: Allergies Iodinated contrast media, Aspirin, Cephalexin, Ciprofloxacin, Clindamycin, Codeine, Erythromycin, Erythromycin base, Nitrofurantoin, Nitrofurantoin macrocrystal, Penicillins, Phenylephrine, Sulfa antibiotics, Tetracycline, and Latex Medical Histories Past Medical History: Diagnosis Date Allergies Anxiety disorder due to general medical condition with panic attack ([facility]) Cataract Diabetes mellitus, type 2 ([facility]) Heart burn Hemangioma of skin and subcutaneous tissue 05/11/2023 Hyperlipidemia ([facility]) Hypertension ([facility]) Iron deficiency Kidney stones Neuropathy Pain Proteinuria 05/11/2023 Pruritic disorder 05/11/2023 Seizures ([facility]) Type 2 diabetes mellitus with diabetic polyneuropathy, without long-term current use of insulin ([facility]) 05/11/2023 UTI (urinary tract infection) Surgical Histories Past Surgical History: Procedure Laterality Date APPENDECTOMY CATARACT EXTRACTION Left MENISCECTOMY Left UT TONSILLECTOMY & ADENOIDECTOMY <AGE 10 TOTAL KNEE ARTHROPLASTY Right Hospitalizations Family History Family History Problem Relation Name Age of Onset Hypertension Mother Hyperlipidemia Mother Diabetes Father Heart disease Father Objective Foot Exam Toenails x10 elongated, thick, discolored and painful; no open ulcers or exudate Protective sensation diminished Assessment/Plan Problem List Items Addressed This Visit Musculoskeletal Onychomycosis - Primary Pain in toe of left foot Pain in toe of right foot NIDDM All nails were debrided. This was performed using a nail nipper and power burring. Margins were curetted of mycotic debris. Power burring employed to round the nails and smooth all rough edges. Web spaces and skin inspected, hygiene discussed. Relief from nail discomfort obtained with debridement. P atient educated regarding good foot hygiene and the need to inspect feet daily. Reappoint in 9 weeks or sooner. documented in this encounterCox [id number] Telephone encounter Note* Telephone Encounter - Lydia Laughlin MA - 01/18/2025 2:54 PM EDT Left detailed message on a secured voicemail. Lydia Laughlin MA [facility]05-11-2025 Miscellaneous Notes* Telephone Encounter - Lydia Laughlin MA - 01/18/2025 2:54 PM EDT Left detailed message on a secured voicemail. Lydia Laughlin MA * Telephone Encounter - [place] Mckenzie [facility] - 01/16/2025 10:36 AM EDT TC to patient with no answer. Left VM to return call. ALLIE Leon * Telephone Encounter - Delfino Moran PA - 01/16/2025 10:20 AM EDT Please contact patient let her know she does have a UTI. She is on the appropriate antibiotic. Continue as prescribed and follow-up with PCP for persistent symptoms [facility] Telephone encounter Note * Telephone Encounter - [place] Mckenzie [facility] - 01/16/2025 10:36 AM EDT TC to patient with no answer. Left VM to return call. ALLIE Leon [facility]05-09-[facility] Telephone encounter Note* Telephone Encounter - Delfino Moran PA - 01/16/2025 10:20 AM EDT Please contact patient let her know she does have a UTI. She is on the appropriate antibiotic. Continue as prescribed and follow-up with PCP for persistent symptoms [facility]05-[facility] NoteHNO ID: [id number] Author: DELFINO MORAN PA Service: ? Author Type: Physician Director Of Design Type: Progress Notes Filed: 01/14/2025 14:24 Note Text: JAY Hayes is a 74 year old female. [...] swabs (BD SINGLE USE SWABS REGULAR) PEG 7135-Vsliyxteqhe-Amp C (MOVIPREP) 100-7.5-2.691 gram phenazopyridine (PYRIDIUM) 100 [...] less likely for the following reason(s): HANDP (more content not included)...[facility]05-07-2025 History of Present illness Narrative* Delfino Moran PA - 01/14/2025 2:09 PM EDT [facility] Michael Hayes is a 74 year old female. [...] swabs (BD SINGLE USE SWABS REGULAR) PEG 1887-Grbrhzggbcu-Qvw C (MOVIPREP) 100-7.5-2.691 gram phenazopyridine (PYRIDIUM) 100 [...] Objective BP 118/78 Pulse 67 Temp 37.2 C (98.9 F) (Tympanic) Resp 18 Wt 83.7 kg (184 [...] likely for the following reason(s): suggested by H&P - Pyelonephritis is less likely for the following reason(s): H&P not suggestive - Acute surgical abdomen is less likely for the following reason(s): H&P not suggestive Disposition The patient was discharged. Procedures [facility] History of Present illness Narrative* Ivon Johnson DPM - 12/10/2024 10:45 AM EDT Subjective Patient ID: Debbie Hayes is a 74 y.o. female who presents for diabetic nail care (Pcp Dom /A1c 6.7). Current Medications Current Outpatient Medications: Accu-Chek Lucrecia Plus test strip, , Disp: , Rfl: Accu-Chek Softclix Lancets lancets, , Disp: , Rfl: acyclovir (Zovirax) 400 MG tablet, acyclovir 400 mg tablet, Disp: , Rfl: albuterol HFA 90 mcg/act inhaler, albuterol sulfate HFA 90 mcg/actuation aerosol inhaler, Disp: , Rfl: amitriptyline (Elavil) 25 MG tablet, amitriptyline 25 mg tablet, Disp: , Rfl: amLODIPine (Norvasc) 10 MG tablet, , Disp: , Rfl: aspirin 81 MG EC tablet, Take 81 mg by mouth in the morning., Disp: , Rfl: benzonatate (Tessalon) 100 MG capsule, take 1 capsule by mouth every 8 hours if needed for cough for 15 DAYS, Disp: , Rfl: carbidopa-levodopa (Sinemet) 25-100 MG tablet, , Disp: , Rfl: cefdinir (Omnicef) 300 MG capsule, , Disp: , Rfl: Cyanocobalamin (Vitamin B12) 1000 MCG tablet controlled-release, 1 (one) time each day at the same time., Disp: , Rfl: diclofenac (Voltaren) 75 MG EC tablet, diclofenac sodium 75 mg tablet,delayed release, Disp: , Rfl: dicyclomine (Bentyl) 10 MG capsule, Oral for 12, Disp: , Rfl: ergocalciferol (Vitamin D-2) 1.25 MG (40429 UT) capsule, ergocalciferol (vitamin D2) 1,250 mcg (50,000 unit) capsule, Disp: , Rfl: estradiol (Vivelle-DOT) 0.1 MG/24HR, 1 patch to skin Transdermal Two times a Week, Disp: , Rfl: ezetimibe (Zetia) 10 MG tablet, Zetia 10 mg tablet, Disp: , Rfl: famotidine (Pepcid) 20 MG tablet, famotidine 20 mg tablet, Disp: , Rfl: fenofibrate (Triglide) 160 MG tablet, , Disp: , Rfl: ferrous sulfate 325 (65 Fe) MG tablet, 1 (one) time each day at the same time., Disp: , Rfl: FLUoxetine (PROzac) 20 MG capsule, fluoxetine 20 mg capsule, Disp: , Rfl: gabapentin (Neurontin) 300 MG capsule, gabapentin 300 mg capsule, Disp: , Rfl: glimepiride (Amaryl) 4 MG tablet, glimepiride 4 mg tablet, Disp: , Rfl: hydroCHLOROthiazide (Microzide) 12.5 MG capsule, hydrochlorothiazide 12.5 mg capsule, Disp: , Rfl: HYDROcodone-acetaminophen ([place]) 5-325 MG tablet, , Disp: , Rfl: hyoscyamine (Levsin) 0.125 MG SL tablet, hyoscyamine 0.125 mg sublingual tablet, Disp: , Rfl: ibuprofen (Advil) 200 MG tablet, every 8 (eight) hours., Disp: , Rfl: Icosapent Ethyl (Vascepa) 1 g capsule, Vascepa 1 gram capsule, Disp: , Rfl: levoFLOXacin (Levaquin) 500 MG tablet, levofloxacin 500 mg tablet, Disp: , Rfl: loratadine (Claritin) 10 MG tablet, loratadine 10 mg tablet, Disp: , Rfl: LORazepam (Ativan) 1 MG tablet, lorazepam 1 mg tablet, Disp: , Rfl: losartan (Cozaar) 100 MG tablet, losartan 100 mg tablet, Disp: , Rfl: meloxicam (Mobic) 7.5 MG tablet, , Disp: , Rfl: Multiple Vitamin (Multi Vitamin) tablet, 1 (one) time each day at the same time., Disp: , Rfl: nitrofurantoin, macrocrystal-monohydrate, (Macrobid) 100 MG capsule, nitrofurantoin monohydrate/macrocrystals 100 mg capsule, Disp: , Rfl: omeprazole (PriLOSEC) [address] capsule, omeprazole 40 mg capsule,delayed release, Disp: , Rfl: Paxlovid, 150/100, 10 x 150 MG & 10 x 100MG tablet therapy pack, take 1 NIRMATRELVIR tablet with 1 RITONAVIR tablet by mouth twice a day for 5 days, Disp: , Rfl: rOPINIRole (Requip) 1 MG tablet, ropinirole 1 mg tablet, Disp: , Rfl: rosuvastatin (Crestor) 40 MG tablet, , Disp: , Rfl: simvastatin (Zocor) 40 MG tablet, simvastatin 40 mg tablet, Disp: , Rfl: sucralfate (Carafate) 1 g tablet, sucralfate 1 gram tablet, Disp: , Rfl: traMADol (Ultram) 50 MG tablet, tramadol 50 mg tablet, Disp: , Rfl: triamcinolone (Kenalog) 0.1 % cream, APPLY A THIN LAYER TO THE AFFECTED AREA(S) BY TOPICAL ROUTE 1-2 TIMES PER DAY, Disp: , Rfl: trimethoprim (Trimpex) 100 MG tablet, , Disp: , Rfl: Trulicity 0.75 MG/0.5ML solution auto-injector, , Disp: , Rfl: valsartan (Diovan) 80 MG tablet, Diovan 80 mg tablet, Disp: , Rfl: Allergies Iodinated contrast media, Aspirin, Cephalexin, Ciprofloxacin, Clindamycin, Codeine, Erythromycin, Erythromycin base, Nitrofurantoin, Nitrofurantoin macrocrystal, Penicillins, Phenylephrine, Sulfa antibiotics, Tetracycline, and Latex Medical Histories Past Medical History: Diagnosis Date Allergies Anxiety disorder due to general medical condition with panic attack ([facility]) Cataract Diabetes mellitus, type 2 ([facility]) Heart burn Hemangioma of skin and subcutaneous tissue 05/11/2023 Hyperlipidemia ([facility]) Hypertension ([facility]) Iron deficiency Kidney stones Neuropathy Pain Proteinuria 05/11/2023 Pruritic disorder 05/11/2023 Seizures ([facility]) Type 2 diabetes mellitus with diabetic polyneuropathy, without long-term current use of insulin ([facility]) 05/11/2023 UTI (urinary tract infection) Surgical Histories Past Surgical History: Procedure Laterality Date APPENDECTOMY CATARACT EXTRACTION Left MENISCECTOMY Left UT TONSILLECTOMY & ADENOIDECTOMY <AGE 10 TOTAL KNEE ARTHROPLASTY Right Hospitalizations Family History Family History Problem Relation Name Age of Onset Hypertension Mother Hyperlipidemia Mother Diabetes Father Heart disease Father Objective Foot Exam Toenails x10 elongated, thick, discolored and painful; no open ulcers or exudate Protective sensation diminished Assessment/Plan Problem List Items Addressed This Visit Musculoskeletal Onychomycosis - Primary Pain in toe of left foot Pain in toe of right foot NIDDM All nails were debrided. This was performed using a nail nipper and power burring. Margins were curetted of mycotic debris. Power burring employed to round the nails and smooth all rough edges. Web spaces and skin inspected, hygiene discussed. Relief from nail discomfort obtained with debridement. P atient educated regarding good foot hygiene and the need to inspect feet daily. Reappoint in 9 weeks or sooner. documented in this [facility]04-02-2025 Radiology Diagnostic study note [facility] [address] [place], [place] [address] Thyroid MR#: [id number] Acct: [id number] Name: DEBBIE HAYES Rep #: [id number] : 1950 F 74 From: Thelma Byrnes MD PCP: Keny Fernandes MD Status: REG CLI Study:Thyroid Date of Exam: 12/08/24 Exam# [id number] Ordering Dr: Doreen Hooker [employer] PROCEDURE: THYROID (USTHY), 12/08/2024 REASON FOR EXAM: ENLARGED THYROID, NONTOXIC GOITER, UNSPECIFIED TECHNIQUE: Grayscale and color Doppler imaging of the thyroid was performed. COMPARISON: None FINDINGS: Right lobe measures 5.0 x 1.2 x 1.6cm. Essentially homogeneous background echotexture. No abnormal vascularity. Nodules as below: *Upper pole, 5 x 4 x 4 mm, solid very hypoechoic versus cystic with low-level internal echoes, bestconsidered TI-RADS 4. *Additional tiny probable cyst. Left lobe measures 4.1 x 1.4 x 1.2 cm. Essentially homogeneous background echotexture. No abnormal vascularity. Tiny probable cyst. No solid or mostly solid nodules are identified. Isthmus measures 3 mm in thickness. Other: A lymph node lateral to the RIGHT lobe measures 11 x 9 x 5 mm with preserved fatty hilum. US/Thyroid IMPRESSION: 1. Assessment is TI-RADS 4. No nodules currently meet criteria for FNA or follow-up. 2. Normal size gland with essentially unremarkable background echotexture. No abnormal vascularity. 3. Morphologically normal nonenlarged RIGHT cervical node, nonspecific and potentially reactive. Management recommendations for TI-RADS 4 findings: FNA if = 1.5 cm; Follow if = 1 cm at 1, 2, 3, and 5 years. Recommendations per ACR Thyroid Imaging, Reporting and Data System (TI-RADS): White Paper of the ACR TI-RADS Committee, 2017 ([email or web address]) Reading Location: [id number] CC: KELLEE Hooker; Keny Fernandes MD ~ Managing Consultant Clinical Professor: Signed [facility]03-12-2025 Evaluation note* Diagnosis Onset Date Resolution Status Admit Date CKD (chronic kidney disease) stage 3, GFR 30-59 ml/min chronic November 19, 2024 11:35am HTN (hypertension) chronic November 19, 2024 11:35am Hyperlipidemia chronic November 11:35am Microalbuminuria chronic November 192024 11:35am Obesity chronic November 19 11:35am Recurrent UTI chronic November 19, 2024 11:35am Type 2 diabetes mellitus chronic November 19, 2024 11:35am Enlarged thyroid acute December 042024 10:10am Lymphadenopathy acute November 10:10am NAFLD (nonalcoholic fatty li hermelinda disease) chronic December 17, 2024 9:37am CKD (chronic kidney disease) stage 3, GFR 30-59 ml/min chronic February 082024 11:28am HTN (hypertension) chronic February 082024 11:28am Hyperlipidemia chronic February 18, 2025 11:28am Microalbuminuria chronic February 11:28am NAFLD (nonalcoholic fatty li hermelinda disease) chronic February 18, 2025 11:28am Obesity chronic February 18 11:28am Type 2 diabetes mellitus chronic February 18, 2025 11:28am [facility] Work Phone: 1(440) 416-998003-07-2025 Radiology Diagnostic study note [facility] [address] [place] [address] CT Abd/Pelvis W/WO Contrast MR#: [id number] Acct: [id number] Name: DEBBIE HAYES Rep #: [id number] : 1950 F 74 From: Thelma Byrnes MD PCP: KENY FERNANDES Status: REG CLI Study:CT Abd/Pelvis W/WO Contrast Date of Exa m: 11/14/24 Exam# [id number] Ordering Dr: Alexis Virgen MD PROCEDURE: CT ABD/PELVIS W/WO CONTRAST REASON FOR EXAM: HEMANGIOMA TECHNIQUE: CT abdomen and pelvis was performed prior to and following the administration ofIV contrast. Multiplanar reformats were generated. IV CONTRAST: 99 mL Isovue-300 COMPARISON: None FINDINGS: Mild/moderate motion limitation through the lung bases and upper abdomen. Note the exam is limited by the lack of a true late arterial phase of postcontrast imaging, with opacification of the hepatic veins on initial postcontrast images. This limits evaluation for late arterial phase enhancement. Lung bases: Atelectasis/scarring. Coronary atherosclerosis and/or stents hiatalhernia containing mostly fat. Small amount of fluid within the distal thoracic esophagus suggesting gastroesophageal reflux. Borderline mild cardiomegaly atherosclerosis. Liver: Steatosis. Hepatomegaly. 2.2 x 1.8 cm largely macroscopic fat containing subcapsular lesion in segment VII demonstrates no appreciable enhancement allowing for motion in the region. There is a central nodular component demonstrating soft tissue attenuation measuring 0.6 x 0.9 cm along the anterior aspect, again without definite enhancement allowing for small size and motion. Spleen: Unremarkable. Gallbladder: Unremarkable. Pancreas: Fatty infiltration of the pancreatic head/uncinate process.. Adrenals: Unremarkable. Kidneys: Cysts and additional tiny hypodensities too small to characterize, likely cysts. Bowel: Small periampullary duodenal and more distal duodenal diverticuli. Colonic diverticulosis.. Appendix is reportedly surgically absent. Lymph nodes: Unremarkable. Vasculature: Atherosclerosis.. Peritoneum: Unremarkable. Bladder: Underdistended and suboptimally evaluated, grossly unremarkable. Reproductive Organs: Small calcified uterine presumed fibroid.. Body Wall: Unremarkable. Bones: Demineralization. Multilevel spondylosis. Thoracolumbar dextroscoliosis. CT/CT Abd/Pelvis W/WO Contrast IMPRESSION: 1. 2.2 cm fat containing hepatic lesion remains indeterminate by CT. In the absence of a known history of fat producing neoplasm such as liposarcoma elsewhere to suggest metastasis, the differential for fat containing hepatic lesions includes several relatively rare entities such as an angiomyolipoma, lipoma, and perhaps an unusually prominent pseudolipoma of the Hakeem capsule although this is considered unlikely. Fat containing HCC also remains within the differential although there are no clear enhancing components identified allowing for limitations. For this reason, clinical follow-upis warranted, including at a minimum close imaging follow-up to ensure stability. Comparison against any available outside imaging may also be helpful to evaluate stability. 2. Hepatomegaly and diffuse hepatic steatosis. Correlate for clinical and laboratory evidence of chronic liver disease. 3. Additional description as above. Reading Location: [facility] CC: KENY FERNANDES; Dr. Alxeis Virgen MD ~ Managing Consultant Clinical Professor: Signed [facility]03-01-2025 NoteHNO ID: [id number] Author: HENRRY WADSWORTH APRN.GREEN BUILDING ARCHITECT Service: ? Author Type: Nurse Practitioner Type: [...] mouth. trimethoprim (PROLOPRIM) 100 mg tablet PEG 8825-Ibxqyyqaeds-Qpi C (MOVIPREP) 100-7.5-2.691 gram promethazine (PHENERGAN) 25 [...] in the past with the use of sec (more content not included)...[facility]03-01-2025 History of Present illness Narrative* Daronarelisrubio HenrryAISSATOU mejia.GREEN BUILDING ARCHITECT - 11/08/2024 1:57 PM EST Subjective HPI Nontoxic-appearing female presents urgent care [...] mouth. trimethoprim (PROLOPRIM) 100 mg tablet PEG 2218-Pkescezsnch-Byn C (MOVIPREP) 100-7.5-2.691 gram promethazine (PHENERGAN) 25 [...] Never BP 145/78 Pulse 89 Temp 37.3 C (99.1 F) Resp 16 Wt 82.8 kg (182 lb [...] hearing noted. No drainage, swelling or tenderness. Tympanicmembrane is not perforated, erythematous or bulging. Mouth/Throat: [...] is stable for discharge. Plan of care wasdiscussed with patient. Patient verbalizes understanding and agrees to plan of care. This note was g enerated using Contemporary Analysis software. It may contain errors in wording, punctuation, or spelling. Henrry Wadsworth APRN.GREEN BUILDING ARCHITECT documented [facility] History of Present illness Narrative* Ivon Johnson DPM - 10/08/2024 9:45 AM EST Subjective Patient ID: Debbie Hayes is a 74 y.o. female who presents for DM Foot Care (Pt. Is being seen today for Diabetic nail and foot care.The patient denies any pain or any other complaints at this visit today.[id number]-[id number],PCP-July 2024.). Current Medications Current Outpatient Medications: acyclovir (Zovirax) 400 MG tablet, acyclovir 400 mg tablet, Disp: , Rfl: albuterol HFA 90 mcg/act inhaler, albuterol sulfate HFA 90 mcg/actuation aerosol inhaler, Disp: , Rfl: amitriptyline (Elavil) 25 MG tablet, amitriptyline 25 mg tablet, Disp: , Rfl: amLODIPine (Norvasc) 10 MG tablet, , Disp: , Rfl: aspirin 81 MG EC tablet, Take 81 mg by mouth in the morning., Disp: , Rfl: Cyanocobalamin (Vitamin B12) 1000 MCG tablet controlled-release, 1 (one) time each day at the same time., Disp: , Rfl: diclofenac (Voltaren) 75 MG EC tablet, diclofenac sodium 75 mg tablet,delayed release, Disp: , Rfl: dicyclomine (Bentyl) 10 MG capsule, Oral for 12, Disp: , Rfl: ergocalciferol (Vitamin D-2) 1.25 MG (11492 UT) capsule, ergocalciferol (vitamin D2) 1,250 mcg (50,000 unit) capsule, Disp: , Rfl: estradiol (Vivelle-DOT) 0.1 MG/24HR, 1 patch to skin Transdermal Two times a Week, Disp: , Rfl: ezetimibe (Zetia) 10 MG tablet, Zetia 10 mg tablet, Disp: , Rfl: famotidine (Pepcid) 20 MG tablet, famotidine 20 mg tablet, Disp: , Rfl: fenofibrate (Triglide) 160 MG tablet, , Disp: , Rfl: ferrous sulfate 325 (65 Fe) MG tablet, 1 (one) time each day at the same time., Disp: , Rfl: FLUoxetine (PROzac) 20 MG capsule, fluoxetine 20 mg capsule, Disp: , Rfl: gabapentin (Neurontin) 300 MG capsule, gabapentin 300 mg capsule, Disp: , Rfl: glimepiride (Amaryl) 4 MG tablet, glimepiride 4 mg tablet, Disp: , Rfl: hydroCHLOROthiazide (Microzide) 12.5 MG capsule, hydrochlorothiazide 12.5 mg capsule, Disp: , Rfl: HYDROcodone-acetaminophen ([place]) 5-325 MG tablet, , Disp: , Rfl: hyoscyamine (Levsin) 0.125 MG SL tablet, hyoscyamine 0.125 mg sublingual tablet, Disp: , Rfl: ibuprofen (Advil) 200 MG tablet, every 8 (eight) hours., Disp: , Rfl: Icosapent Ethyl (Vascepa) 1 g capsule, Vascepa 1 gram capsule, Disp: , Rfl: levoFLOXacin (Levaquin) 500 MG tablet, levofloxacin 500 mg tablet, Disp: , Rfl: loratadine (Claritin) 10 MG tablet, loratadine 10 mg tablet, Disp: , Rfl: LORazepam (Ativan) 1 MG tablet, lorazepam 1 mg tablet, Disp: , Rfl: losartan (Cozaar) 100 MG tablet, losartan 100 mg tablet, Disp: , Rfl: meloxicam (Mobic) 7.5 MG tablet, , Disp: , Rfl: metFORMIN (Glucophage) 500 MG tablet, metformin 500 mg tablet, Disp: , Rfl: Multiple Vitamin (Multi Vitamin) tablet, 1 (one) time each day at the same time., Disp: , Rfl: nitrofurantoin, macrocrystal-monohydrate, (Macrobid) 100 MG capsule, nitrofurantoin monohydrate/macrocrystals 100 mg capsule, Disp: , Rfl: omeprazole (PriLOSEC) [address] capsule, omeprazole 40 mg capsule,delayed release, Disp: , Rfl: rOPINIRole (Requip) 1 MG tablet, ropinirole 1 mg tablet, Disp: , Rfl: simvastatin (Zocor) 40 MG tablet, simvastatin 40 mg tablet, Disp: , Rfl: sucralfate (Carafate) 1 g tablet, sucralfate 1 gram tablet, Disp: , Rfl: traMADol (Ultram) 50 MG tablet, tramadol 50 mg tablet, Disp: , Rfl: valsartan (Diovan) 80 MG tablet, Diovan 80 mg tablet, Disp: , Rfl: Allergies Iodinated contrast media, Aspirin, Cephalexin, Ciprofloxacin, Clindamycin, Codeine, Erythromycin, Erythromycin base, Nitrofurantoin, Nitrofurantoin macrocrystal, Penicillins, Phenylephrine, Sulfa antibiotics, Tetracycline, and Latex Medical Histories Past Medical History: Diagnosis Date Allergies Anxiety disorder due to general medical condition with panic attack ([facility]) Cataract Diabetes mellitus, type 2 ([facility]) Heart burn Hemangioma of skin and subcutaneous tissue 05/11/2023 Hyperlipidemia ([facility]) Hypertension ([facility]) Iron deficiency Kidney stones Neuropathy Pain Proteinuria 05/11/2023 Pruritic disorder 05/11/2023 Seizures ([facility]) Type 2 diabetes mellitus with diabetic polyneuropathy, without long-term current use of insulin ([facility]) 05/11/2023 UTI (urinary tract infection) Surgical Histories Past Surgical History: Procedure Laterality Date APPENDECTOMY CATARACT EXTRACTION Left MENISCECTOMY Left UT TONSILLECTOMY & ADENOIDECTOMY <AGE 10 TOTAL KNEE ARTHROPLASTY Right Hospitalizations Family History Family History Problem Relation Name Age of Onset Hypertension Mother Hyperlipidemia Mother Diabetes Father Heart disease Father Objective Foot Exam Toenails x10 elongated, thick, discolored and painful; no open ulcers or exudate Protective sensation diminished Assessment/Plan Problem List Items Addressed This Visit Musculoskeletal Onychomycosis - Primary Pain in toe of left foot Pain in toe of right foot NIDDM All nails were debrided. This was performed using a nail nipper and power burring. Margins were curetted of mycotic debris. Power burring employed to round the nails and smooth all rough edges. Web spaces and skin inspected, hygiene discussed. Relief from nail discomfort obtained with debridement. P atient educated regarding good foot hygiene and the need to inspect feet daily. Reappoint in 9 weeks or sooner. documented in this encounterCox [id number] Evaluation note* Diagnosis Onset Date Resolution Status Admit Date CKD (chronic kidney disease) stage 3, GFR 30-59 ml/min chronic 2024 1:36pm HTN (hypertension) chronic 2024 1:36pm Hyperlipidemia chronic September 1:36pm Microalbuminuria chronic September 11, 2024 1:36pm Obesity chronic September 11, 2 025 1:36pm Recurrent UTI chronic September 1:36pm Type 2 diabetes mellitus September 11, 2024 1:36pm CKD (chronic kidney disease) stage 3, GFR 30-59 ml/min chronic November 19, 2024 11:35am HTN (hypertension) chronic November 19, 2024 11:35am Hyperlipidemia chronic November 11:35am Microalbuminuria chronic November 192024 11:35am Obesity chronic November 19 11:35am Recurrent UTI chronic November 19, 2024 11:35am Type 2 diabetes mellitus chronic November 19, 2024 11:35am [facility] Work Phone: 1(866) 189-270201-02-2025 Evaluation note* Diagnosis Onset Date Resolution Status Admit Date CKD (chronic kidney disease) stage 3, GFR 30-59 ml/min chronic 2024 1:36pm HTN (hypertension) chronic 2024 1:36pm Hyperlipidemia chronic September 1:36pm Microalbuminuria September 11, 2024 1:36pm Obesity chronic September 11, 2 025 1:36pm Recurrent UTI chronic September 1:36pm Type 2 diabetes mellitus September 11, 2024 1:36pm CKD (chronic kidney disease) stage 3, GFR 30-59 ml/min November 19, 2024 11:35am HTN (hypertension) November 19, 2024 11:35am Hyperlipidemia november 11:35am Microalbuminuria chronic November 192024 11:35am Obesity chronic November 19 11:35am Recurrent UTI November 19, 2024 11:35am Type 2 diabetes mellitus November 19, 2024 11:35am Enlarged thyroid acute December 042024 10:10am Lymphadenopathy acute November 10:10am [facility] Work Phone: 1(791) 458-824701-02-2025 Evaluation note* Diagnosis Onset Date Resolution Status Admit Date CKD (chronic kidney disease) stage 3, GFR 30-59 ml/min 2024 1:36pm HTN (hypertension) 2024 1:36pm Hyperlipidemia september 1:36pm Microalbuminuria chronic September 11, 2024 1:36pm Obesity chronic September 11, 2 025 1:36pm Recurrent UTI september 1:36pm Type 2 diabetes mellitus September 11, 2024 1:36pm CKD (chronic kidney disease) stage 3, GFR 30-59 ml/min chronic November 19, 2024 11:35am HTN (hypertension) chronic November 19, 2024 11:35am Hyperlipidemia november 11:35am Microalbuminuria chronic November 192024 11:35am Obesity chronic November 19 11:35am Recurrent UTI November 19, 2024 11:35am Type 2 diabetes mellitus chronic November 19, 2024 11:35am Enlarged thyroid acute December 042024 10:10am Lymphadenopathy acute November 10:10am NAFLD (nonalcoholic fatty li hermelinda disease) acute December 17, 2024 9:37am [facility] Work Phone: [phone]) 318-589811-27-2024 History of Present illness Narrative* Ivon Liya Elizabeth, DPM - 08/06/2024 9:45 AM EST Subjective Patient ID: Debbie Hayes is a 74 y.o. female who presents for painful toenails Current Medications Current Outpatient Medications: acyclovir (Zovirax) 400 MG tablet, acyclovir 400 mg tablet, Disp: , Rfl: albuterol HFA 90 mcg/act inhaler, albuterol sulfate HFA 90 mcg/actuation aerosol inhaler, Disp: , Rfl: amitriptyline (Elavil) 25 MG tablet, amitriptyline 25 mg tablet, Disp: , Rfl: amLODIPine (Norvasc) 10 MG tablet, , Disp: , Rfl: aspirin 81 MG EC tablet, Take 81 mg by mouth in the morning., Disp: , Rfl: Cyanocobalamin (Vitamin B12) 1000 MCG tablet controlled-release, 1 (one) time each day at the same time., Disp: , Rfl: diclofenac (Voltaren) 75 MG EC tablet, diclofenac sodium 75 mg tablet,delayed release, Disp: , Rfl: dicyclomine (Bentyl) 10 MG capsule, Oral for 12, Disp: , Rfl: ergocalciferol (Vitamin D-2) 1.25 MG (27984 UT) capsule, ergocalciferol (vitamin D2) 1,250 mcg (50,000 unit) capsule, Disp: , Rfl: estradiol (Vivelle-DOT) 0.1 MG/24HR, 1 patch to skin Transdermal Two times a Week, Disp: , Rfl: ezetimibe (Zetia) 10 MG tablet, Zetia 10 mg tablet, Disp: , Rfl: famotidine (Pepcid) 20 MG tablet, famotidine 20 mg tablet, Disp: , Rfl: fenofibrate (Triglide) 160 MG tablet, , Disp: , Rfl: ferrous sulfate 325 (65 Fe) MG tablet, 1 (one) time each day at the same time., Disp: , Rfl: FLUoxetine (PROzac) 20 MG capsule, fluoxetine 20 mg capsule, Disp: , Rfl: gabapentin (Neurontin) 300 MG capsule, gabapentin 300 mg capsule, Disp: , Rfl: glimepiride (Amaryl) 4 MG tablet, glimepiride 4 mg tablet, Disp: , Rfl: hydroCHLOROthiazide (Microzide) 12.5 MG capsule, hydrochlorothiazide 12.5 mg capsule, Disp: , Rfl: HYDROcodone-acetaminophen ([place]) 5-325 MG tablet, , Disp: , Rfl: hyoscyamine (Levsin) 0.125 MG SL tablet, hyoscyamine 0.125 mg sublingual tablet, Disp: , Rfl: ibuprofen (Advil) 200 MG tablet, every 8 (eight) hours., Disp: , Rfl: Icosapent Ethyl (Vascepa) 1 g capsule, Vascepa 1 gram capsule, Disp: , Rfl: levoFLOXacin (Levaquin) 500 MG tablet, levofloxacin 500 mg tablet, Disp: , Rfl: loratadine (Claritin) 10 MG tablet, loratadine 10 mg tablet, Disp: , Rfl: LORazepam (Ativan) 1 MG tablet, lorazepam 1 mg tablet, Disp: , Rfl: losartan (Cozaar) 100 MG tablet, losartan 100 mg tablet, Disp: , Rfl: meloxicam (Mobic) 7.5 MG tablet, , Disp: , Rfl: metFORMIN (Glucophage) 500 MG tablet, metformin 500 mg tablet, Disp: , Rfl: Multiple Vitamin (Multi Vitamin) tablet, 1 (one) time each day at the same time., Disp: , Rfl: nitrofurantoin, macrocrystal-monohydrate, (Macrobid) 100 MG capsule, nitrofurantoin monohydrate/macrocrystals 100 mg capsule, Disp: , Rfl: omeprazole (PriLOSEC) [address] capsule, omeprazole 40 mg capsule,delayed release, Disp: , Rfl: rOPINIRole (Requip) 1 MG tablet, ropinirole 1 mg tablet, Disp: , Rfl: simvastatin (Zocor) 40 MG tablet, simvastatin 40 mg tablet, Disp: , Rfl: sucralfate (Carafate) 1 g tablet, sucralfate 1 gram tablet, Disp: , Rfl: traMADol (Ultram) 50 MG tablet, tramadol 50 mg tablet, Disp: , Rfl: valsartan (Diovan) 80 MG tablet, Diovan 80 mg tablet, Disp: , Rfl: Allergies Iodinated contrast media, Aspirin, Cephalexin, Ciprofloxacin, Clindamycin, Codeine, Erythromycin, Erythromycin base, Nitrofurantoin, Nitrofurantoin macrocrystal, Penicillins, Phenylephrine, Sulfa antibiotics, Tetracycline, and Latex Medical Histories Past Medical History: Diagnosis Date Allergies Anxiety disorder due to general medical condition with panic attack ([facility]) Cataract Diabetes mellitus, type 2 ([facility]) Heart burn Hemangioma of skin and subcutaneous tissue 05/11/2023 Hyperlipidemia ([facility]) Hypertension ([facility]) Iron deficiency Kidney stones Neuropathy Pain Proteinuria 05/11/2023 Pruritic disorder 05/11/2023 Seizures ([facility]) Type 2 diabetes mellitus with diabetic polyneuropathy, without long-term current use of insulin ([facility]) 05/11/2023 UTI (urinary tract infection) Surgical Histories Past Surgical History: Procedure Laterality Date APPENDECTOMY CATARACT EXTRACTION Left MENISCECTOMY Left UT TONSILLECTOMY & ADENOIDECTOMY <AGE 10 TOTAL KNEE ARTHROPLASTY Right Hospitalizations Family History Family History Problem Relation Name Age of Onset Hypertension Mother Hyperlipidemia Mother Diabetes Father Heart disease Father Objective Foot Exam Foot Exam Toenails x10 elongated, thick, discolored and painful; no open ulcers or exudate Protective sensation diminished Assessment/Plan Problem List Items Addressed This Visit Musculoskeletal Onychomycosis - Primary Pain in toe of left foot Pain in toe of right foot NIDDM All nails were debrided. This was performed using a nail nipper and power burring. Margins were curetted of mycotic debris. Power burring employed to round the nails and smooth all rough edges. Web spaces and skin inspected, hygiene discussed. Relief from nail discomfort obtained with debridement. P atient educated regarding good foot hygiene and the need to inspect feet daily. Reappoint in 9 weeks or sooner. documented in this encounterCox [id number] History of Present illness Narrative* Micah Delvalle RT(R) - 07/17/2024 11:20 AM EST Radiology Service Progress Note PATIENT NAME: Debbie Hayes DATE OF SERVICE: July 17, 2024 TIME: 11:20 AM PATIENT IDENTITY VERIFICATION COMPLETED USING TWO (2) IDENTIFIERS: Name and Date of confirmedby patient verbally. FALL SCREENING: Has the patient had 2 falls in the last year or 1 fall with injury or currently using an Ambulatory Assistive Device (Walker, Cane, Wheelchair, Crutches, etc.)? Yes, Patient High Riskfor Falls What interventions were put in place to prevent falls during this visit? Offered Assistance with Transfers/Clothing and Instructed Patient to Remain Seated (Not on Exam Table) Until Exam PATIENT GENDER DATA: Female. status: : No status: NO. PATIENT RELEVANT IMPLANT DATA REVIEWED: Not Applicable PATIENT PRESENTS WITH AN IMPLANTABLE OR ATTACHED SAFETY EQUIPMENT TESTER: No RADIOLOGY DEPARTMENT: General X-ray: Exam(s) Completed: Chest X-Ray PERIPHERAL IV DATA: Not applicable SIGNED BY: CHARLOTTE Prieto) July 17, 2024 11:20 AM documented in this encounterFisher[facility]11-07-[facility]24 NoteHNO ID: [id number] Author: MICAH DELVALLE RT (R) Service: Radiology Author Type: Technologist Type: Progress Notes Filed: 07/17/2024 11:28 Note Text: Radiology Service Progress Note PATIENT NAME: Debbie Hayes DATE OF SERVICE: July 17, 2024 [...] PATIENT PRESENTS WITH AN IMPLANTABLE OR ATTACHED SAFETY EQUIPMENT TESTER: No RADIOLOGY DEPARTMENT: General X-ray: Exam(s) Completed: Chest X-Ray PERIPHERAL IV DATA: Not applicable SIGNED BY: CHARLOTTE Prieto) July 17, 2024 11:20 [facility]11-07-2024 NoteHNO ID: [id number] Author: EDUARDO GRIMES MD Service: ? Author Type: Physician Type: [...] swabs (BD SINGLE USE SWABS REGULAR) PEG 0204-Ezkqenpujdf-Lsa C (MOVIPREP) 100-7.5-2.691 gram phenazopyridine (PYRIDIUM) 100 [...] increasing chest pain, or worsening lethargy. Eduardo Grimes [facility]11-07-2024 History of Present illness Narrative* Eduardo Grimes MD - 07/17/2024 11:00 AM EST Patient presents with: Cough: Positive, wanting medicine HPI: Feeling sick starting 2 days ago. She was seen yesterday and tested positive for COVID. She returnstoday for antiviral consult. Positive symptoms: Cough, some [...] swabs (BD SINGLE USE SWABS REGULAR) PEG 7982-Rngscnohvna-Wsp C (MOVIPREP) 100-7.5-2.691 gram phenazopyridine (PYRIDIUM) 100 [...] VITALS: BP 116/56 Pulse 90 Temp 37.9 C (100.2 F) Resp 19 Wt 81 kg (178 lb 9.2 oz) SpO2 92% PHYSICAL EXAM: GEN: mildly ill appearing HEENT: PERRL, EOMI, conjunctiva clear Sinuses: non-tender frontal sinus, non-tender maxillary sinuses Neck: supple, no thyromegaly, no lymphadenopathy HEART: regular rate and rhythm, no murmurs LUNGS: bilateral crackles, no increased WOB Latest Ref Rng 07/17/2024 eGFR >=60 mL/min/1.73m 31 (L) ASSESSMENT/PLAN: 1. Acute COVID-19 - [...] increasing chest pain, or worsening lethargy. Eduardo Grimes MD documented in this encounterFisher-[facility]11-07-2024 Miscellaneous Notes* Telephone Encounter - Angel Puentes MA - 07/17/2024 7:44 AM EST Patient notified of information and instructions as listed below. Patient [facility]-19 management at some point today. Angel Puentes MA * Telephone Encounter - Eduardo Grimes MD - 07/17/2024 7:13 AM EST COVID test was positive. Stay home until [...] the dose and if medication interactions exist. documented in this encounterFisher[facility]11-07-2024 Telephone encounter Note * Telephone Encounter - Angel Puentes MA - 07/17/2024 7:44 AM EST Patient notified of information and instructions as listed below. Patient [facility] further Covid-19 management at some point today. Angel Puentes MA [facility]11-07-[facility] Telephone encounter Note* Telephone Encounter - Eduardo Grimes MD - 07/17/2024 7:13 AM EST COVID test was positive. Stay home until [...] the dose and if medication interactions exist. [facility] Work Phone: 1(974) 765-385711-06-2024 Instructions* Patient Instructions* Jordan Chester APRN.CLARISSE - 07/16/2024 12:15 PM EST Your strep test was negative today. You [...] going to the ER for further evaluation. documented in this encounterFisher-[facility]11-06-2024 History of Present illness Narrative* Jordan Chester APRN.CNP - 07/16/2024 12:05 PM EST This note was created using Saqina. Subjective Debbie Hayes is a 74 year old female. HPI Pt awoke yesterday with a sore throat, right ear pain, and a low grade fever. Pt took Tylenol [id number] today. Review of Systems Constitutional: Positive for fever. Respiratory: Positive for cough. Gastrointestinal: Negative for nausea and vomiting. Objective BP 134/80 Pulse 96 Temp (!) 38.1 C (100.6 F) Resp 16 Wt 81.5 kg (179 lb [...] - STREP A MOLECULAR (POC) - COVID & INFLUENZA A/B & RSV PCR, ROUTINE Jordan Chester APRN.CLARISSE documented in this encounterFisher[facility]09-25-2024 History of Present illness Narrative* Ivon Johnson DPM - 06/04/2024 10:00 AM EDT Subjective Patient ID: Debbie Hayes is a 73 y.o. female who presents for Diabetic Shoes (Diabetic shoe fruit or nut picker/Dr. Goyo osorio size 9xw/3 heat moldable inserts) and diabetic nail care (Pcp Dom /Blood sugar AM 124). Current Medications Current Outpatient Medications: acyclovir (Zovirax) 400 MG tablet, acyclovir 400 mg tablet, Disp: , Rfl: albuterol HFA 90 mcg/act inhaler, albuterol sulfate HFA 90 mcg/actuation aerosol inhaler, Disp: , Rfl: amitriptyline (Elavil) 25 MG tablet, amitriptyline 25 mg tablet, Disp: , Rfl: amLODIPine (Norvasc) 10 MG tablet, , Disp: , Rfl: aspirin 81 MG EC tablet, Take 81 mg by mouth in the morning., Disp: , Rfl: Cyanocobalamin (Vitamin B12) 1000 MCG tablet controlled-release, 1 (one) time each day at the same time., Disp: , Rfl: diclofenac (Voltaren) 75 MG EC tablet, diclofenac sodium 75 mg tablet,delayed release, Disp: , Rfl: dicyclomine (Bentyl) 10 MG capsule, Oral for 12, Disp: , Rfl: ergocalciferol (Vitamin D-2) 1.25 MG (61717 UT) capsule, ergocalciferol (vitamin D2) 1,250 mcg (50,000 unit) capsule, Disp: , Rfl: estradiol (Vivelle-DOT) 0.1 MG/24HR, 1 patch to skin Transdermal Two times a Week, Disp: , Rfl: ezetimibe (Zetia) 10 MG tablet, Zetia 10 mg tablet, Disp: , Rfl: famotidine (Pepcid) 20 MG tablet, famotidine 20 mg tablet, Disp: , Rfl: fenofibrate (Triglide) 160 MG tablet, , Disp: , Rfl: ferrous sulfate 325 (65 Fe) MG tablet, 1 (one) time each day at the same time., Disp: , Rfl: FLUoxetine (PROzac) 20 MG capsule, fluoxetine 20 mg capsule, Disp: , Rfl: gabapentin (Neurontin) 300 MG capsule, gabapentin 300 mg capsule, Disp: , Rfl: glimepiride (Amaryl) 4 MG tablet, glimepiride 4 mg tablet, Disp: , Rfl: hydroCHLOROthiazide (Microzide) 12.5 MG capsule, hydrochlorothiazide 12.5 mg capsule, Disp: , Rfl: HYDROcodone-acetaminophen ([place]) 5-325 MG tablet, , Disp: , Rfl: hyoscyamine (Levsin) 0.125 MG SL tablet, hyoscyamine 0.125 mg sublingual tablet, Disp: , Rfl: ibuprofen (Advil) 200 MG tablet, every 8 (eight) hours., Disp: , Rfl: Icosapent Ethyl (Vascepa) 1 g capsule, Vascepa 1 gram capsule, Disp: , Rfl: levoFLOXacin (Levaquin) 500 MG tablet, levofloxacin 500 mg tablet, Disp: , Rfl: loratadine (Claritin) 10 MG tablet, loratadine 10 mg tablet, Disp: , Rfl: LORazepam (Ativan) 1 MG tablet, lorazepam 1 mg tablet, Disp: , Rfl: losartan (Cozaar) 100 MG tablet, losartan 100 mg tablet, Disp: , Rfl: meloxicam (Mobic) 7.5 MG tablet, , Disp: , Rfl: metFORMIN (Glucophage) 500 MG tablet, metformin 500 mg tablet, Disp: , Rfl: Multiple Vitamin (Multi Vitamin) tablet, 1 (one) time each day at the same time., Disp: , Rfl: nitrofurantoin, macrocrystal-monohydrate, (Macrobid) 100 MG capsule, nitrofurantoin monohydrate/macrocrystals 100 mg capsule, Disp: , Rfl: omeprazole (PriLOSEC) [address] capsule, omeprazole 40 mg capsule,delayed release, Disp: , Rfl: rOPINIRole (Requip) 1 MG tablet, ropinirole 1 mg tablet, Disp: , Rfl: simvastatin (Zocor) 40 MG tablet, simvastatin 40 mg tablet, Disp: , Rfl: sucralfate (Carafate) 1 g tablet, sucralfate 1 gram tablet, Disp: , Rfl: traMADol (Ultram) 50 MG tablet, tramadol 50 mg tablet, Disp: , Rfl: valsartan (Diovan) 80 MG tablet, Diovan 80 mg tablet, Disp: , Rfl: Allergies Iodinated contrast media, Aspirin, Cephalexin, Ciprofloxacin, Clindamycin, Codeine, Erythromycin, Erythromycin base, Nitrofurantoin, Nitrofurantoin macrocrystal, Penicillins, Phenylephrine, Sulfa antibiotics, Tetracycline, and Latex Medical Histories Past Medical History: Diagnosis Date Allergies Anxiety disorder due to general medical condition with panic attack ([facility]) Cataract Diabetes mellitus, type 2 ([facility] Heart burn Hemangioma of skin and subcutaneous tissue 05/11/2023 Hyperlipidemia ([facility]) Hypertension ([facility]) Iron deficiency Kidney stones Neuropathy Pain Proteinuria 05/11/2023 Pruritic disorder 05/11/2023 Seizures ([facility]) Type 2 diabetes mellitus with diabetic polyneuropathy, without long-term current use of insulin ([facility]) 05/11/2023 UTI (urinary tract infection) Surgical Histories Past Surgical History: Procedure Laterality Date APPENDECTOMY CATARACT EXTRACTION Left MENISCECTOMY Left UT TONSILLECTOMY & ADENOIDECTOMY <AGE 10 TOTAL KNEE ARTHROPLASTY Right Hospitalizations Family History Family History Problem Relation Name Age of Onset Hypertension Mother Hyperlipidemia Mother Diabetes Father Heart disease Father Objective Foot Exam Foot Exam Toenails x10 elongated, thick, discolored and painful; no open ulcers or exudate Protective sensation diminished Assessment/Plan Problem List Items Addressed This Visit Musculoskeletal Onychomycosis - Primary Pain in toe of left foot Pain in toe of right foot NIDDM All nails were debrided. This was performed using a nail nipper and power burring. Margins were curetted of mycotic debris. Power burring employed to round the nails and smooth all rough edges. Web spaces and skin inspected, hygiene discussed. Relief from nail discomfort obtained with debridement. P atient educated regarding good foot hygiene and the need to inspect feet daily. Reappoint in 9 weeks or sooner. One pair of custom fit extra-depth diabetic shoes with three pairs of heat molded Insoles were dispensed. There is certification from the physician managing the patients diabetes.Three pairs of heat molded inserts were taken from stock, which had been ordered from the supplier. These inserts have PDAC approval. All inserts were heated and molded with a 250 degree F heat gun ,and the patient was appropriately protected from heat so as to assure the inserts were in full contact with the plantar aspect of the feet in accordance with the TSPD policy. Good fit of the shoes and insoles was confirmed at the time of dispensation. The diabetic shoes and insoles are medically necessary and within thestandard of care for this patients diagnosis. Their purpose is to allow extra depth and to accommodate the patient;s anatomy and to prevent ulceration, irritation, or other complications associated with the patients medical history. The diabetic shoes fit well when sized to the patient's feet. The patient was evaluated by the physician while wearing the diabetic shoes and insoles and the fit was found to be satisfactory. The patient was instructed to watch for areas of rubbing, irritation, blister formation, or any other signs of abnormal pressure. If this occurs, the patient is to contact the office immediately. All three pairs of insoles were heat-molded in the office to fit the patient. All items were dispensed in good condition. These items were dispensed' for prevention of foot ulceration and prevention of amputation. This diabetic patient was felt to be at risk of ulceration due to the factors listed on the original prescription for the shoes. Patient signed dispensation form, read and signed return policy, signed and received warranty information, was given the current Durable Medical Equipment Supplier Guidelines and Complaint Resolution. Patient is to return for follow-upand evaluation of the diabetic shoes. [id number] documented in this encounterCox [id number] Telephone encounter Note* Telephone Encounter - Angel Puentes MA - 02/12/2024 4:54 PM EDT Patient notified of results, verbalized understanding of instructions given. Angel Puentes MA [facility]06-04-2024 Miscellaneous Notes* Telephone Encounter - Angel Puentes MA - 02/12/2024 4:54 PM EDT Patient notified of results, verbalized understanding of instructions given. Angel Puentes MA * Telephone Encounter - Zoraida Crane APRN.CNP - 02/12/2024 4:37 PM EDT Please call and let patient know she is on the correct antibiotic according to urine culture. If symptoms do not improve patient should follow-up with primary care thank you documented in this encounterFisher[facility]06-04-2024 Telephone encounter Note * Telephone Encounter - Zoraida Crane APRN.CNP - 02/12/2024 4:37 PM EDT Please call and let patient know she is on the correct antibiotic according to urine culture. If symptoms do not improve patient should follow-up with primary care thank you [facility]06-01-[facility] History of Present illness Narrative* Henrry Wadsworth APRN.CNP - 02/09/2024 3:02 PM EDT Subjective HPI Nontoxic-appearing female presents urgent care accompanied by . Chief complaint burning frequency urgency. Presents today to ensure he does not have a UTI. History of UTIs. History of kidney stones. Currently is asymptomatic. Denies any OTC medication use. Denies any fever body aches chills productive cough chest pain shortness of breath pleuritic pain hemoptysis nausea vomiting abdominal pain or rashes.. Past medical history prescription medication use and allergies reviewed. .Patient presents with: Urinary Problem: Burning and frequently x1 day No past medical history on file. No past surgical history on file. ALLERGIES Cleocin [Clindamycin], Codeine, Erythromycin, Latex, Penicillins, and Sulfa (Sulfonamide Antibiotics) MEDICATIONS No prescriptions on file. No family history on file. BP 160/86 Pulse 99 Temp 36.8 C (98.2 F) Resp 18 Wt 81.1 kg (178 lb 12.7 oz) SpO2 96% Review of Systems Constitutional: Negative for chills, fever and malaise/fatigue. HENT: Negative for congestion, ear discharge, ear pain, sinus pain and sore throat. Eyes: Negative for blurred vision, pain, discharge and redness. Respiratory: Negative for cough, hemoptysis, sputum production, shortness of breath, wheezing and stridor. Cardiovascular: Negative for chest pain. Gastrointestinal: Negative for abdominal pain, diarrhea, nausea and vomiting. Genitourinary: Positive for dysuria, frequency and urgency. Negative for flank pain and hematuria. Musculoskeletal: Negative for myalgias. Skin: Negative for itching and rash. Neurological: Negative for dizziness and headaches. Objective Physical Exam Vitals and nursing note reviewed. Constitutional: General: She is not in acute distress. Appearance: She is not toxic-appearing or diaphoretic. HENT: Head: Normocephalic. Jaw: No trismus. Right Ear: Hearing normal. No decreased hearing noted. No drainage, swelling or tenderness. Tympanic membrane is not perforated, erythematous or bulging. Left Ear: Hearing normal. No decreased hearing noted. No drainage, swelling or tenderness. Tympanicmembrane is not perforated, erythematous or bulging. Nose: Nose normal. Mouth/Throat: Pharynx: Uvula midline. No uvula swelling. Tonsils: No tonsillar abscesses. Eyes: Pupils: Pupils are equal, round, and reactive to light. Cardiovascular: Rate and Rhythm: Normal rate and [...] and McBurney's sign. Musculoskeletal: General: No tenderness. Cervical back: Normal range of motion. Lymphadenopathy: Head: Right side of head: No submental, submandibular, tonsillar, preauricular, posterior auricular or occipital adenopathy. Left side of head: No submental, submandibular, tonsillar, preauricular, posterior auricular or occipital adenopathy. Cervical: Right cervical: No superficial or posterior cervical adenopathy. Left cervical: No superficial or posterior cervical adenopathy. Skin: General: Skin is warm and dry. Findings: No rash. Neurological: General: No focal deficit present. Mental Status: She is alert and oriented to person, place, and time. ASSESSMENT/PLAN: 1. Urinary frequency - ICD9: 788.41, ICD10: R35.0 - UA DIP, URINE (POC) - URINE CULTURE Urine dip positive for protein and blood. Will not treat with antibiotics at this time. Will send for urine culture. Treat accordingly culture results. If abdominal pain returns to be seen in the ED to rule out renal calculi. Patient was educated on supportive therapies. Encouraged to follow-up with PCP for repeat urine dipdue to blood. Patient was instructed to immediately proceed to emergency room for any new, worsening, or symptoms lasting longer than anticipated. The patient's clinical presentation is otherwise unremarkable at this time. Based on exam and clinical finding, the patient is stable for discharge. Plan of care was discussed with patient. Patient verbalizes understanding and agrees to plan of care. This note was generated using Contemporary [employer] software. It may contain errors in wording, punctuation, or spelling. Henrry Wadsworth APRN.CLARISSE documented in this encounterSelect [facility] noteNo assessment information availableAultman Alliance Community Hospital Work Phone: evaluation note* Diagnosis Urinary frequency- Primary documented in this encounter [facility] note* Diagnosis Sore throat- Primary Acute pharyngitis documented in this encounter [facility] note* Diagnosis Acute COVID-19- Primary Acute cough Acute COVID-19 Acute cough documented in this encounter [facility] note* Diagnosis Acute COVID-19 Acute cough documented in this encounter [facility] Inc note* Diagnosis Onychomycosis- Primary Dermatophytosis of nail Pain in toe of left foot Pain in soft tissues of limb Pain in toe of right foot Pain in soft tissues of limb Diabetic polyneuropathy associated with type 2 diabetes mellitus (CMS/HCC) documented in this encounter [facility] Healthcare[facility] note* Diagnosis Diabetic polyneuropathy associated with type 2 diabetes mellitus (CMS/HCC)- Primary Onychomycosis Dermatophytosis of nail Pain in toe of left foot Pain in soft tissues of limb Pain in toe of right foot Pain in soft tissues of limb documented in this encounter [facility] HealthcareEvaluation note* Diagnosis Onychomycosis- Primary Dermatophytosis of nail Pain in toe of left foot Pain in soft tissues of limb Pain in toe of right foot Pain in soft tissues of limb Diabetic polyneuropathy associated with type 2 diabetes mellitus (CMS/HCC) documented in this encounter [facility] HealthcareEvaluation note* Diagnosis Screening for genitourinary condition- Primary Screening for other and unspecified genitourinary condition [facility] On[facility]osis- Primary Dermatophytosis of nail Pain in toe of left foot Pain in soft tissues of limb Pain in toe of right foot Pain in soft tissues of limb Diabetic polyneuropathy associated with type 2 diabetes mellitus (CMS/HCC) documented in this encounter [facility] note* Diagnosis Urinary frequency- Primary [facility] Onych[facility]osis- Primary Dermatophytosis of nail Pain in toe of left foot Pain in soft tissues of limb Pain in toe of right foot Pain in soft tissues of limb Diabetic polyneuropathy associated with type 2 diabetes mellitus (CMS/HCC) documented in this encounter [facility]* Diagnosis Onychomycosis- Primary Dermatophytosis of nail Pain in toe of left foot Pain in soft tissues of limb Pain in toe of right foot Pain in soft tissues of limb Diabetic polyneuropathy associated with type 2 diabetes mellitus (HCC) documented in this encounter [facility] note* Diagnosis Onychomycosis- Primary Dermatophytosis of nail Pain in toe of left foot Pain in soft tissues of limb Pain in toe of right foot Pain in soft tissues of limb documented in this encounter [facility] Discharge instructions* Query Response Comment Date/Time Was patient education provided Yes 01/24/2023 16:29 Additional Discharge Instructions See Dr Estrada's Knee Form. Weight Bearing as Tolerated [facility] for SN/PT Office [phone] Instruction/Education Provided DI for Kn ee Replacement [facility] Progress note Author Elisa Walsh [facility] Note Date/Time June 19, 2025 1 0:30am [facility] [address] [place] [address] OFFICE VISIT Date of Service: 06/19/25 MR#: [id number] Acct: [id number] Name: DEBBIE HAYES Rep #: [id number] : 1950 Provider: MARI Menendez Age/Sex: 75/F Location: [facility] Status: Signed Intake Vital Signs 02/18/25 11:32 05/25/25 13:12 Height 5 ft 4 in 5 ft 4 in Intake Visit Reasons: Test Result 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 Accompanied by: Is patient in pain?: No Allergies clindamycin Allergy (Verified 06/19/25 10:04) Rash codeine Allergy (Verified 06/19/25 10:04) Other erythromycin base Allergy (Verified 06/19/25 10:04) Rash Iodinated Contrast Media (IVP dye) Allergy (Verified 06/19/25 10:04) Nausea/Vom/Diarrhea latex Allergy (Verified 06/19/25 10:04) Hives oxytetracycline (From Terramycin) Allergy (Verified 06/19/25 10:04) Rash Penicillins Allergy (Verified 06/19/25 10:04) Rash Sulfa (Sulfonamide Antibiotics) Allergy (Verified 06/19/25 10:04) Rash Medications ?Medication ?Instructions ?Recorded ?Confirmed ?Type amitriptyline 25 mg tablet 25 mg PO QHS 04/03/2406/19 History amlodipine 10 mg tablet 10 mg PO DAILY 04/03/2406/10 History ascorbic acid (vitamin C) 500 mg 500 mg PO DAILY 04/0306/19/25 History tablet aspirin 81 mg tablet,delayed 81 mg PO DAILY 04/03/24 1 History release (Adult Low Dose Aspirin) calcium citrate 250 mg PO DAILY 04/03/2407/04 History cranberry extract 500 mg capsule 500 mg PO DAILY 04/0306/19/25 History cyanocobalamin (vitamin B-12) 500 500 mcg PO DAILY 06/19/25 History mcg tablet estradiol 0.01% (0.1 mg/gram) 1 g vaginal 3XW 04/03/24 06/19/25 History vaginal cream famotidine 20 mg tablet 20 mg PO BID 04/03/24 History fenofibrate 160 mg tablet 160 mg PO DAILY 04/03/2407/04 History ferrous sulfate 325 mg (65 mg 325 mg PO DAILY 04/03/24 06/19/25 History iron) tablet (Feosol) gabapentin 300 mg capsule 600 mg PO .QID 04/03/2406/10 History garlic 500 mg capsule 500 mg PO DAILY 04/03/2407/04 History hydrochlorothiazide 12.5 mg capsule 25 mg PO DAILY 06/19/25 History icosapent ethyl 1 gram capsule 2 g PO BID 04/03/2407/04 History lactobacillus combination no.9 4 4,000 mmu cells PO DA MAGALY 04/03/24 06/19/25 History billion cell capsule (Adult 50 Plus Probiotic) lorazepam 1 mg tablet 1.5 mg PO TID PRN anxiety 06/19/25 History losartan 100 mg tablet 100 mg PO DAILY 04/03/2407/04 History magnesium gluconate 500 mg tablet 500 mg PO DAILY 03/1106/19/25 History multivitamin 1 tab PO DAILY 04/03/2406/10 History prednisolone acetate 1 % eye 1 drp ophthalmic (eye) TI D 04/03/24 06/19/25 History drops,suspension tamsulosin 0.4 mg capsule 0.4 mg PO DAILY 04/03/2407/04 History trimethoprim 100 mg tablet 100 mg PO DAILY 04/03/24 History blood sugar diagnostic (Accu-Chek #100 ea 09/15/2407/04 Rx Lucrecia Plus test strips) lancets 09/15/24 06/19/25 History lancets (Accu-Chek Softclix #100 ea 09/17/24 06/19/25 Rx Lancets) cholecalciferol (vitamin D3) 25 50 mcg PO QDAY 02/18/2 5 06/19/25 History mcg (1,000 unit) capsule fluoxetine 20 mg capsule 20 mg PO DAILY 03/19/2506/10 History semaglutide 0.25 mg or 0.5 mg (2 0.25 mg subcut QWEEK 03/19/25 06/19/25 History mg/1.5 mL) subcutaneous pen injector (Ozempic) rosuvastatin 20 mg tablet 40 mg PO QHS 05/25/25 History resmetirom 80 mg tablet (Rezdiffra) 80 mg PO QDAY #90 tabs 06/09/25 06/19/25 Rx pantoprazole 40 mg tablet,delayed 40 mg PO QDAY #30 ta bs 06/19/25 06/19/25 Rx release Have you fallen in the past year?: No Nurse's Note: Elastography results faxed to Dr. Fernandes's office. [facility] Medical History (Updated 06/19/25 @ 10:28 by MARI Menendez) Wears glasses Loose, teeth Wears partial dentures Panic attack Discoloration of skin Ambulates with cane Arthritis Kidney stones Low iron Anemia Fatty liver Easy bruising Restless legs History of IBS Heartburn Former smoker Hoarseness Chronic cough History of edema History of stress test UTI (urinary tract infection) GERD (gastroesophageal reflux disease) History of kidney stones History of trigger finger Anxiety Type 2 diabetes mellitus Hyperlipidemia HTN (hypertension) Personal history of colonic polyps Surgical History History of total bilateral knee replacement (TKR) Hx of appendectomy History of tonsillectomy and adenoidectomy Hx of colonoscopy Social History household members: spouse current occupational status: retired Smoking Status: Former smoker alcohol intake: never substance use type: does not use HPI HPI Chief Complaint: Fatty liver Details: DEBBIE HAYES, is a 75 F who presents to the office today for follow-up. 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 Patient with elevated LFTs and fatty liver on imaging without history of alcohol use. 4.9.25 Biochemical: ESR/CRP/PT/INR-wnl, AST-57and ALT-64 are increasing, ALP-55 normal, Immunology and acute Hepatitis panel negative 12.29.24 [facility] US w/Elastography hepatomegaly-22.7cm, diffusely echogenic suggesting fatty infiltration, focal fatty sparing adjacent of the gallbladder lumen; 9 kPa, IQR 18%. There is a 2.3 cm 2.4 cm x 2.8 cm echogenic nodule in theright lobe of the liver suggestive of hemangioma. CBD 6.4mm. Last office visit 03/19/2025 for right sided abdominal pain. Recommended Rezdiffra. Consider reducing rosuvastatin at 3-month follow-up. Liver elastography 06/15/2025:NO TO MILD HEPATIC FIBROSIS Fatty infiltration of the liver. Stable echogenic nodule in the right lobe of the liver suggestive of hemangioma OV 06/19/2025 patient doing well. She continues with REzdiffra and semaglutide. She is eating a Mediterranean diet pretty strictly. Patient does have intermittent epigastric pain however this is relieved with Jayla-[place]. She takes famotidine daily. Patient also with soft bowel movements in the morning and feeling the need to have more bowel movements throughout the day. She started a fiber supplement but only taking half the dose. This has been helpful. ROS Const Constitutional: Positive for fatigue and headache(s); No fever(s) or weight change ENT ENT: Positive for headache(s); No difficulty swallowing Gastro GI: Positive for change in bowel habits, diarrhea and other (indigestion); No abdominal pain, belching, bloating, change in stool character, coffee ground emesis, constipation, cramping, heartburn, difficulty swallowing, feeling full early, excessive flatus, incontinent of stools, Vomiting blood/hematemesis, Blood in stool, loose stools, Black,tarry stools, nausea/dyspepsia, pain with swallowing or vomiting Musc Musculoskeletal: Positive for back pain and Arthritis; No joint pain Skin Skin: No yellowing of the eye or itchy eyes Neuro Neurology: Positive for headache(s) Psych Psychiatric: Positive for anxiety and No depression Endo Endocrine: Positive for fatigue; No weight change Aller/Imm Allergy/Immunologic: No itchy eyes Karel/Lymp Hematologic/Lymphatic: Positive for easy bruising; No easy bleeding Exam Const General: cooperative, healthy appearing and comfortable Orientation: alert [facility] Head: normal to inspection Ears: hearing grossly normal bilaterally Eyes General: appearance normal, both eyes and all related structures Neck Neck: normal visual inspection Chest Chest palpation & inspection: normal inspection of the chest Resp Effort & Inspection: normal respiratory effort Cardio Rate: regular rate Rhythm: regular rhythm GI Inspection: normal to inspection Auscultation: normal bowel sounds Palpation: soft and nontender Assessment and Plan Assessment and Plan (1) NAFLD (nonalcoholic fatty liver disease): Status: Chronic Plan: Debbie is a 75-year-old female patient here today for follow-up regarding her fatty liver. Patient was diagnosed with fatty liver after incidental finding onCT abdomen pelvis. She underwent liver elastography in December 2024 which showed a stiffness of 9K PA. Chronic liver disease workup was unremarkable for hepatitis, celiac or autoimmune disease. Patient was started on Rezdiffra and has been taking it daily. Patient also on Ozempic for control of her diabetes. Repeat liver elastography 10.6.25 showing a K PA of 5.9. This is significantly improved from prior. Recommended continuing Rezdiffra for at least 6 more months. I advise she talk with her primary care provider about decreasing her rosuvastatin to 20 mg daily. It is recommended that while being on Rezdiffra rosuvastatin should be no higher than 20 mg daily as it can increase statin exposure and higher the risk of adverse effects. Will repeat liver elastographyin 1 year. Patient also having soft stools in the morning. Throughout the day she feels the urge to go but is unable to go. She did start a fiber supplement but has only been taking half. She did notice benefit with this. I advise she take thefull dose and have adequate water intake. She has infrequent indigestion for which she takes Jayla-[place] and famotidine daily. I have switched her to pantoprazole 40 mg daily and she will discontinue famotidine. - Continue Rezdiffra - Discuss decreasing rosuvastatin to 20 mg with PCP - Repeat liver elastography in 1 year - Increase fiber intake and adequate oral hydration - Start pantoprazole and discontinue famotidine - Follow-up in 6 months (2) Heartburn: Status: Acute (3) History of IBS: Status: Acute Medications: New pantoprazole 40 mg PO QDAY 30 tabs 2RF Coding Level of Care Code Off vis,est,level 4 Diagnoses NAFLD (nonalcoholic fatty liver disease) K76.0 Heartburn R12 History of IBS Z87.19 Clinical Quality Measures Falls Risk Screening/Assistive Devices Have you fallen in the past year?: No 06/19/25 1034 <Electronically signed by Elisa GUERRA> Date _ Elisa GUERRA Cosigner Signature: Date (if applicable) CC: ~ [facility] Work Phone: Reason for referral (narrative)No reason for referral information availableK[facility] Work Phone: Advance Directives No Advanced Directives Records Found Advance Directive Response Recorded Date/ Time Declaration for Mental Health Treatment No January 23, 2023 6:05pm Chief Complaint and Reason for Visit Encounter Admit Date Chief Complaint Reason for V isit Discharged Inpatient January 23, 2023 3:33pm OSTEOAR THRITIS OF KNEE, HYPOXIA Chief Complaint LABS, XRAY CT Chief Complaint Admit Date NICOTINE DEPENDENCE August 21, 2024 12:34pm Diabetes September 11, 2024 1: 36pm Hemangioma November 14, 2024 8:18 am 10 Wk FU November 19, 2024 11: 35am Reason for Visit Admit Date CKD (chronic kidney disease) stage 3, GF R 30-59 ml/min September 11, 2024 1:36pm HTN (hypertension) September 11, 2024 1: 36pm Hyperlipidemia September 11, 2024 1: 36pm Microalbuminuria September 11, 2024 1: 36pm Obesity September 11, 2024 1: 36pm Recurrent UTI September 11, 2024 1: 36pm Type 2 diabetes mellitus September 11 1:36pm CKD (chronic kidney disease) stage 3, GF R 30-59 ml/min November 19, 2024 11:35am HTN (hypertension) November 19, 2024 11: 35am Hyperlipidemia November 19, 2024 11: 35am Microalbuminuria November 19, 2024 11: 35am Obesity November 19, 2024 11: 35am Recurrent UTI November 19, 2024 11: 35am Type 2 diabetes mellitus November 19 11:35am Chief Complaint Admit Date NICOTINE DEPENDENCE August 21, 2024 12:34pm Diabetes September 11, 2024 1: 36pm Hemangioma November 14, 2024 8:18 am 10 Wk FU November 19, 2024 11: 35am Neck Assessment December 04, 2024 10: 10am ENLARGED THYROID December 08, 2024 3:5 2pm Reason for Visit Admit Date CKD (chronic kidney disease) stage 3, GF R 30-59 ml/min September 11, 2024 1:36pm HTN (hypertension) September 11, 2024 1: 36pm Hyperlipidemia September 11, 2024 1: 36pm Microalbuminuria September 11, 2024 1: 36pm Obesity September 11, 2024 1: 36pm Recurrent UTI September 11, 2024 1: 36pm Type 2 diabetes mellitus September 11 1:36pm CKD (chronic kidney disease) stage 3, GF R 30-59 ml/min November 19, 2024 11:35am HTN (hypertension) November 19, 2024 11: 35am Hyperlipidemia November 19, 2024 11: 35am Microalbuminuria November 19, 2024 11: 35am Obesity November 19, 2024 11: 35am Recurrent UTI November 19, 2024 11: 35am Type 2 diabetes mellitus November 19 11:35am Enlarged thyroid December 04, 2024 10: 10am Lymphadenopathy December 04, 2024 10: 10am Chief Complaint Admit Date Diabetes September 11, 2024 1: 36pm Hemangioma November 14, 2024 8:18 am 10 Wk FU November 19, 2024 11: 35am Neck Assessment December 04, 2024 10: 10am ENLARGED THYROID December 08, 2024 3:5 2pm New patient December 17, 2024 9:37 am Reason for Visit Admit Date CKD (chronic kidney disease) stage 3, GF R 30-59 ml/min September 11, 2024 1:36pm HTN (hypertension) September 11, 2024 1: 36pm Hyperlipidemia September 11, 2024 1: 36pm Microalbuminuria September 11, 2024 1: 36pm Obesity September 11, 2024 1: 36pm Recurrent UTI September 11, 2024 1: 36pm Type 2 diabetes mellitus September 11 1:36pm CKD (chronic kidney disease) stage 3, GF R 30-59 ml/min November 19, 2024 11:35am HTN (hypertension) November 19, 2024 11: 35am Hyperlipidemia November 19, 2024 11: 35am Microalbuminuria November 19, 2024 11: 35am Obesity November 19, 2024 11: 35am Recurrent UTI November 19, 2024 11: 35am Type 2 diabetes mellitus November 19 11:35am Enlarged thyroid December 04, 2024 10: 10am Lymphadenopathy December 04, 2024 10: 10am NAFLD (nonalcoholic fatty liver disease) December 17, 2024 9:37am Chief Complaint Admit Date Hemangioma November 14, 2024 8:18 am 10 Wk FU November 19, 2024 11: 35am Neck Assessment December 04, 2024 10: 10am ENLARGED THYROID December 08, 2024 3:5 2pm New patient December 17, 2024 9:37 am FATTY LIVER December 29, 2024 7:0 6am 3 M FU February 18, 2025 11:2 8am Reason for Visit Admit Date CKD (chronic kidney disease) stage 3, GF R 30-59 ml/min November 19, 2024 11:35am HTN (hypertension) November 19, 2024 11: 35am Hyperlipidemia November 19, 2024 11: 35am Microalbuminuria November 19, 2024 11: 35am Obesity November 19, 2024 11: 35am Recurrent UTI November 19, 2024 11: 35am Type 2 diabetes mellitus November 19 11:35am Enlarged thyroid December 04, 2024 10: 10am Lymphadenopathy December 04, 2024 10: 10am NAFLD (nonalcoholic fatty liver disease) December 17, 2024 9:37am CKD (chronic kidney disease) stage 3, GF R 30-59 ml/min February 18, 2025 11:28am HTN (hypertension) February 18, 2025 11:2 8am Hyperlipidemia February 18, 2025 11:2 8am Microalbuminuria February 18, 2025 11:2 8am NAFLD (nonalcoholic fatty liver disease) February 18, 2025 11:28am Obesity February 18, 2025 11:2 8am Type 2 diabetes mellitus February 18, 2025 11:28am Chief Complaint Admit Date 10 Wk FU November 19, 2024 11: 35am Neck Assessment December 04, 2024 10: 10am ENLARGED THYROID December 08, 2024 3:5 2pm New patient December 17, 2024 9:37 am FATTY LIVER December 29, 2024 7:0 6am 3 M FU February 18, 2025 11:2 8am 3 M FU March 19, 2025 10:2 3am Chief Complaint Admit Date KUB May 08, 2025 11 :18am Chief Complaint Admit Date 3 M FU February 18, 2025 11:2 8am 3 M FU March 19, 2025 10:2 3am 3 M FU May 25, 2025 1:08pm Reason for Visit Admit Date CKD (chronic kidney disease) stage 3, GF R 30-59 ml/min February 18, 2025 11:28am HTN (hypertension) February 18, 2025 11:2 8am Hyperlipidemia February 18, 2025 11:2 8am Microalbuminuria February 18, 2025 11:2 8am NAFLD (nonalcoholic fatty liver disease) February 18, 2025 11:28am Obesity February 18, 2025 11:2 8am Type 2 diabetes mellitus February 18, 2025 11:28am Hyperlipidemia March 19, 2025 10:2 3am NAFLD (nonalcoholic fatty liver disease) March 19, 2025 10:23am Chief Complaint Admit Date 3 M FU February 18, 2025 11:2 8am 3 M FU March 19, 2025 10:2 3am 3 M FU May 25, 2025 1:08pm INT LABS June 08, 2025 9:46am follow up June 15, 2025 7: 29am Reason for Visit Admit Date CKD (chronic kidney disease) stage 3, GF R 30-59 ml/min February 18, 2025 11:28am HTN (hypertension) February 18, 2025 11:2 8am Hyperlipidemia February 18, 2025 11:2 8am Microalbuminuria February 18, 2025 11:2 8am NAFLD (nonalcoholic fatty liver disease) February 18, 2025 11:28am Obesity February 18, 2025 11:2 8am Type 2 diabetes mellitus February 18, 2025 11:28am Hyperlipidemia March 19, 2025 10:2 3am NAFLD (nonalcoholic fatty liver disease) March 19, 2025 10:23am CKD (chronic kidney disease) stage 3, GF R 30-59 ml/min May 25, 2025 1:08pm HTN (hypertension) May 25, 2025 1:08pm Hyperlipidemia May 25, 2025 1:08pm Microalbuminuria May 25, 2025 1:08pm NAFLD (nonalcoholic fatty liver disease) May 25, 2025 1:08pm Obesity May 25, 2025 1:08pm Type 2 diabetes mellitus May 25, 2025 1:08pm Chief Complaint Admit Date 3 M FU March 19, 2025 10:2 3am 3 M FU May 25, 2025 1:08pm INT LABS June 08, 2025 9:46am follow up June 15, 2025 7: 29am Test Result June 19, 2025 9 :57am Reason for Visit Admit Date Hyperlipidemia March 19, 2025 10:2 3am NAFLD (nonalcoholic fatty liver disease) March 19, 2025 10:23am CKD (chronic kidney disease) stage 3, GF R 30-59 ml/min May 25, 2025 1:08pm HTN (hypertension) May 25, 2025 1:08pm Hyperlipidemia May 25, 2025 1:08pm Microalbuminuria May 25, 2025 1:08pm NAFLD (nonalcoholic fatty liver disease) May 25, 2025 1:08pm Obesity May 25, 2025 1:08pm Type 2 diabetes mellitus May 25, 2025 1:08pm Heartburn June 19, 2025 9 :57am History of IBS June 19, 2025 9 :57am NAFLD (nonalcoholic fatty liver disease) June 19, 2025 9:57am Summary Purpose Family History No Family History Records FoundNo Family History Records FoundNo Family History Records FoundNo Family History Records FoundNo Family History Records FoundNo Family History Records Found Additional Source Comments INFORMATION SOURCE (unrecogn ized section and content) DATE CREATED AUTHOR 03/30/2023 [facility] ([place]) DATE CREATED AUTHOR AUTHOR'S ORGANIZ ATION 10/16/2023 [facility] DATE CREATED AUTHOR AUTHOR'S ORGANIZ ATION 05/24/2025 [facility] ([place]) DATE CREATED AUTHOR AUTHOR'S ORGANIZ ATION 06/30/2025 [facility] DATE CREATED AUTHOR AUTHOR'S ORGANIZ ATION 07/07/2025 [facility] DATE CREATED AUTHOR AUTHOR'S ORGANIZ ATION 07/16/2025 [facility] Care Teams (unrecognized sec tion and content) Team Status: Active Member Role Status Dates Keny Fernandes Primary Care Provider Active Team Status: Inactive Member Role Status Dates Keny Fernandes Primary Care Provider Active Start: August 30, 2023 End: August 30, 2023 Alexis Virgen MD Attending Provider Active Start: August 30, 2023 End: August 30, 2023 Julio Cesar Grewal MD Attending Provider Active Sta rt: August 30, 2023 Team Status: Inactive Member Role Status Dates Keny Fernandes Primary Care Provider Active Start: October 15, 2023 End: October 15, 2023 Alexis Virgen MD Attending Provider Active Start: October 15, 2023 End: October 15, 2023 Team Status: Active Member Role Status Dates KENY FERNANDES Primary Care Provider Active Team Status: Inactive Member Role Status Dates DOM SIMPSON Primary Care Provide r, Attending Provider, Referring Provider Active Administration Intern Relationship Specialty Start Date End Date Keny Fernandes MD [address] [place] [address] [id number] PCP - General Family Medicine 02/09/24 Administration Intern Relationship Specialty Start Date End Date Keny Fernandes MD [address] [place] [address] [id number] PCP - General Family Medicine 02/09/24 Administration Intern Relationship Specialty Start Date End Date Keny Fernandes MD [address] [phone] PCP - General Family Medicine 02/09/24 Administration Intern Relationship Specialty Start Date End Date Keny Fernandes MD [address] [place] [address] [id number] PCP - General Family Medicine 02/09/24 Administration Intern Relationship Specialty Start Date End Date Keny Fernandes MD [address] [place] [address] [place] [address] PCP - General Family Medicine 02/09/24 Administration Intern Relationship Specialty Start Date End Date Keny Fernandes MD [address] [place] [address] [place] [address] PCP - General Family Medicine 02/09/24 Administration Intern Relationship Specialty Start Date End Date Keny Fernandes MD [address] [place] [address] [place] [address] PCP - General Family Medicine 02/09/24 Administration Intern Relationship Specialty Start Date End Date Keny Fernandes MD [address] [place] [address] [place] [phone] PCP - General Family Medicine 02/06/23 Administration Intern Relationship Specialty Start Date End Date Keny Fernandes MD [address] [place] [address], [place] [phone] PCP - General Family Medicine 02/06/23 Team Status: Inactive Member Role Status Dates Keny Fernandes Primary Care Provider Active Start: August 18, 2024 End: August 18, 2024 Alexis Virgen MD Attending Provider Active Start: August 18, 2024 End: August 18, 2024 Administration Intern Relationship Specialty Start Date End Date Keny Fernandes MD [address] [place] [address], [place] [phone] PCP - General Family Medicine 02/06/23 Administration Intern Relationship Specialty Start Date End Date Keny Fernandes MD [address] [facility] [address] [place] [address] PCP - General Family Medicine 02/06/23 Administration Intern Relationship Specialty Start Date End Date Keny Fernandes MD [address] [place] [address] PCP - General Family Medicine 02/09/24 Team Status: Active Member Role Status Dates Dr. Keny Fernandes MD Primary Care Provider Active Team Status: Inactive Member Role Status Dates PREET BHAKTA Attending Provider Active Start: August 21, 2024 End: August 21, 2024 PREET BHAKTA Referring Provider Active Start: August 21, 2024 End: August 21, 2024 FRANDY SIMPSON Primary Care Provider Active Start: August 21, 2024 End: August 21, 2024 Team Status: Inactive Member Role Status Dates No Primary Care Physician Referring Provider Active Start: September 11, 2024 End: September 11, 2024 KELLEE Cornejo Attending Provider Active Start: September 11, 2024 End: September 11, 2024 FRANDY SIMPSON Primary Care Provider Active Start: September 11, 2024 End: September 11, 2024 Team Status: Inactive Member Role Status Dates Dr. Alexis Vrigen MD Attending Provider Active Start: November 14, 2024 End: November 14, 2024 Dr. Alexis Virgen MD Referring Provider Active Start: November 14, 2024 End: November 14, 2024 DOM SIMPSON Primary Care Provider Active Start : November 14, 2024 End: November 14, 2024 Team Status: Inactive Member Role Status Dates KELLEE Cornejo Attending Provider Active Start: November 19, 2024 End: November 19, 2024 DOM SIMPSON Primary Care Provider Active Start : November 19, 2024 End: November 19, 2024 DOM SIMPSON Referring Provider Active Start: 2024 End: November 19, 2024 Team Status: Active Member Role Status Dates Dr. Keny Fernandes MD Primary Care Provider Active Start: November 24, 2024 KELLEE Cornejo Attending Provider Active Start: November 24, 2024 KELLEE Cornejo Referring Provider Active Start: November 24, 2024 Team Status: Inactive Member Role Status Dates Dr. Keny Fernandes MD Primary Care Provider Active Start: November 24, 2024 End: November 24, 2024 KELLEE Cornejo Attending Provider Active Start: November 24, 2024 End: November 24, 2024 KELLEE Cornejo Referring Provider Active Start: November 24, 2024 End: November 24, 2024 Administration Intern Relationship Specialty Start Date End Date Keny Fernandes MD [address] [facility] [address] [place] [phone] PCP - General Family Medicine 02/06/23 Administration Intern Relationship Specialty Start Date End Date Keny Fernandes MD [address] [facility] [address] [place] [phone] PCP - General Family Medicine 02/06/23 Team Status: Inactive Member Role Status Dates Dr. Keny Fernandes MD Primary Care Provider Active Start: December 04, 2024 End: December 04, 2024 Dr. Keny Fernandes MD Referring Provider Active Start: December 04, 2024 End: December 04, 2024 KELLEE Cornejo Attending Provider Active Start: December 04, 2024 End: December 04, 2024 Team Status: Inactive Member Role Status Dates Dr. Keny Fernandes MD Primary Care Provider Active Start: December 08, 2024 End: December 08, 2024 KELLEE Cornejo Attending Provider Active Start: December 08, 2024 End: December 08, 2024 KELLEE Cornejo Referring Provider Active Start: December 08, 2024 End: December 08, 2024 Team Status: Inactive Member Role Status Dates Dr. Keny Fernandes MD Primary Care Provider Active Start: December 17, 2024 End: December 17, 2024 Dr. Keny Fernandes MD Referring Provider Active Start: December 17, 2024 End: December 17, 2024 Dr. Isauro Davis DO Attending Provider Active Start: December 17, 2024 End: December 17, 2024 Team Status: Inactive Member Role Status Dates Dr. Keny Fernandes MD Primary Care Provider Active Start: December 17, 2024 End: December 17, 2024 Dr. Isauro Davis DO Attending Provider Active Start: December 17, 2024 End: December 17, 2024 Dr. Isauro Davis DO Referring Provider Active Start: December 17, 2024 End: December 17, 2024 Administration Intern Relationship Specialty Start Date End Date Keny Fernandes MD [address] [place] [address], [place] [address] PCP - General Family Medicine 02/09/24 Administration Intern Relationship Specialty Start Date End Date Keny Fernandes MD [address] [place] [address], [place] [phone] PCP - General Family Medicine 02/06/23 Team Status: Inactive Member Role Status Dates Dr. Keny Fernandes MD Primary Care Provider Active Start: December 29, 2024 End: December 29, 2024 Dr. Isauro Davis DO Attending Provider Active Start: December 29, 2024 End: December 29, 2024 Dr. Isauro Davis DO Referring Provider Active Start: December 29, 2024 End: December 29, 2024 Team Status: Inactive Member Role Status Dates KELLEE Cornejo Attending Provider Active Start: February 18, 2025 End: February 18, 2025 DOM SIMPSON Referring Provider Active Start: 2024 End: February 18, 2025 Dr. Keny Fernandes MD Primary Care Provider Active Start: February 18, 2025 End: February 18, 2025 Team Status: Active Member Role/Relationship Status Dates Dr. Keny Fernandes MD Primary Care Provider Active Team Status: Inactive Member Role/Relationship Status Dates KELLEE Cornejo Attending Provider Active Start: November 19, 2024 End: November 19, 2024 DOM SIMPSON Primary Care Provider Active Start : November 19, 2024 End: November 19, 2024 DOM SIMPSON Referring Provider Active Start: 2024 End: November 19, 2024 Team Status: Inactive Member Role/Relationship Status Dates Dr. Keny Fernandes MD Primary Care Provider Active Start: November 24, 2024 End: November 24, 2024 Doreen Hooker NP-C Attending Provider Active Start: November 24, 2024 End: November 24, 2024 Doreen Hooker NP-C Referring Provider Active Start: November 24, 2024 End: November 24, 2024 Team Status: Inactive Member Role/Relationship Status Dates Dr. Keny Fernandes MD Primary Care Provider Active Start: December 04, 2024 End: December 04, 2024 Dr. Keny Fernandes MD Referring Provider Active Start: December 04, 2024 End: December 04, 2024 Doreen Hooker NP-C Attending Provider Active Start: December 04, 2024 End: December 04, 2024 Team Status: Inactive Member Role/Relationship Status Dates Dr. Keny Fernandes MD Primary Care Provider Active Start: December 08, 2024 End: December 08, 2024 Doreen Hooker NP-C Attending Provider Active Start: December 08, 2024 End: December 08, 2024 KELLEE Cornejo Referring Provider Active Start: December 08, 2024 End: December 08, 2024 Team Status: Inactive Member Role/Relationship Status Dates Dr. Keny Fernandes MD Primary Care Provider Active Start: December 17, 2024 End: December 17, 2024 Dr. Keny Fernandes MD Referring Provider Active Start: December 17, 2024 End: December 17, 2024 Dr. Isauro Davis DO Attending Provider Active Start: December 17, 2024 End: December 17, 2024 Team Status: Inactive Member Role/Relationship Status Dates Dr. Keny Fernandes MD Primary Care Provider Active Start: December 17, 2024 End: December 17, 2024 Dr. Isauro Davis DO Attending Provider Active Start: December 17, 2024 End: December 17, 2024 Dr. Isauro Davis DO Referring Provider Active Start: December 17, 2024 End: December 17, 2024 Team Status: Inactive Member Role/Relationship Status Dates Dr. Keny Fernandes MD Primary Care Provider Active Start: December 29, 2024 End: December 29, 2024 Dr. Isauro Davis DO Attending Provider Active Start: December 29, 2024 End: December 29, 2024 Dr. Isauro Davis DO Referring Provider Active Start: December 29, 2024 End: December 29, 2024 Team Status: Inactive Member Role/Relationship Status Dates KELLEE Cornejo Attending Provider Active Start: February 18, 2025 End: February 18, 2025 DOM SIMPSON Referring Provider Active Start: 2024 End: February 18, 2025 Dr. Keny Fernandes MD Primary Care Provider Active Start: February 18, 2025 End: February 18, 2025 Team Status: Inactive Member Role/Relationship Status Dates Dr. Keny Fernandes MD Primary Care Provider Active Start: March 19, 2025 End: March 19, 2025 Dr. Keny Fernandes MD Referring Provider Active Start: March 19, 2025 End: March 19, 2025 KELLEE Rodarte Attending Provider Active S tart: March 19, 2025 End: March 19, 2025 Administration Intern Relationship Specialty Start Date End Date Keny Fernandes MD [address] [place] [phone] PCP - General Family Medicine 02/06/23 Team Status: Active Member Role/Relationship Status Dates Keny Fernandes Primary Care Physician Active Team Status: Inactive Member Role/Relationship Status Dates Keny Fernandes Primary Care Physician Active Start : May 08, 2025 End: May 08, 2025 Alexis Virgen MD Attending Physician Active Start: May 08, 2025 End: May 08, 2025 Rishi Ruth MD Attending Physician Active S tart: May 08, 2025 Team Status: Inactive Member Role/Relationship Status Dates Keny Fernandes Primary Care Physician Active Start : May 12, 2025 End: May 12, 2025 Alexis Virgen MD Attending Physician Active Start: May 12, 2025 End: May 12, 2025 Team Status: Inactive Member Role/Relationship Status Dates KELLEE Cornejo Attending Provider Active Start: February 18, 2025 End: February 18, 2025 DOM SIMPSON Referring Provider Active Start: 2024 End: February 18, 2025 Dr. Keny Fernandes MD Primary Care Provider Active Start: February 18, 2025 End: February 18, 2025 Team Status: Inactive Member Role/Relationship Status Dates Dr. Keny Fernandes MD Primary Care Provider Active Start: March 19, 2025 End: March 19, 2025 Dr. Keny Fernandes MD Referring Provider Active Start: March 19, 2025 End: March 19, 2025 KELLEE Rodarte Attending Provider Active S tart: March 19, 2025 End: March 19, 2025 Team Status: Inactive Member Role/Relationship Status Dates Dr. Keny Fernandes MD Primary Care Provider Active Start: May 25, 2025 End: May 25, 2025 Dr. Keny Fernandes MD Referring Provider Active Start: May 25, 2025 End: May 25, 2025 KELLEE Cornejo Attending Provider Active Start: May 25, 2025 End: May 25, 2025 Team Status: Active Member Role/Relationship Status Dates Dr. Keny Fernandes MD Primary care physician Active Team Status: Inactive Member Role/Relationship Status Dates KELLEE Cornejo Attending physician Active Start: February 18, 2025 End: February 18, 2025 DOM SIMPSON Referring Provider Active Start: 2024 End: February 18, 2025 Dr. Keny Fernandes MD Primary care physician Active Start: February 18, 2025 End: February 18, 2025 Team Status: Inactive Member Role/Relationship Status Dates Dr. Keny Fernandes MD Primary care physician Active Start: March 19, 2025 End: March 19, 2025 Dr. Keny Fernandes MD Referring Provider Active Start: March 19, 2025 End: March 19, 2025 KELLEE Rodarte Attending physician Active Start: March 19, 2025 End: March 19, 2025 Team Status: Inactive Member Role/Relationship Status Dates Dr. Keny Fernandes MD Primary care physician Active Start: May 25, 2025 End: May 25, 2025 Dr. Keny Fernandes MD Referring Provider Active Start: May 25, 2025 End: May 25, 2025 KELLEE Cornejo Attending physician Active Start: May 25, 2025 End: May 25, 2025 Team Status: Inactive Member Role/Relationship Status Dates Dr. Keny Fernandes MD Primary care physician Active Start: June 08, 2025 End: June 08, 2025 KELLEE Rodarte Attending physician Active Start: June 08, 2025 End: June 08, 2025 KELLEE Rodarte Referring Provider Active S tart: June 08, 2025 End: June 08, 2025 Team Status: Active Member Role/Relationship Status Dates Dr. Keny Fernandes MD Primary care physician Active Start: June 15, 2025 KELLEE Rodarte Attending physician Active Start: June 15, 2025 KELLEE Rodarte Referring Provider Active S tart: June 15, 2025 Administration Intern Relationship Specialty Start Date End Date Keny Fernandes MD [address] [place] [phone] PCP - General Family Medicine 02/06/23 Team Status: Inactive Member Role/Relationship Status Dates Dr. Keny Fernandes MD Primary care physician Active Start: March 19, 2025 End: March 19, 2025 Dr. Keny Fernandes MD Referring Provider Active Start: March 19, 2025 End: March 19, 2025 KELLEE Rodarte Attending physician Active Start: March 19, 2025 End: March 19, 2025 Team Status: Inactive Member Role/Relationship Status Dates Dr. Keny Fernandes MD Primary care physician Active Start: May 25, 2025 End: May 25, 2025 Dr. Keny Fernandes MD Referring Provider Active Start: May 25, 2025 End: May 25, 2025 KELLEE Cornejo Attending physician Active Start: May 25, 2025 End: May 25, 2025 Team Status: Inactive Member Role/Relationship Status Dates Dr. Keny Fernandes MD Primary care physician Active Start: June 08, 2025 End: June 08, 2025 KELLEE Rodarte Attending physician Active Start: June 08, 2025 End: June 08, 2025 KELLEE Rodarte Referring Provider Active S tart: June 08, 2025 End: June 08, 2025 Team Status: Inactive Member Role/Relationship Status Dates Dr. Keny Fernandes MD Primary care physician Active Start: June 15, 2025 End: June 15, 2025 KELLEE Rodarte Attending physician Active Start: June 15, 2025 End: June 15, 2025 KELLEE Rodarte Referring Provider Active S tart: June 15, 2025 End: June 15, 2025 Team Status: Inactive Member Role/Relationship Status Dates Dr. Keny Fernandes MD Primary care physician Active Start: June 19, 2025 End: June 19, 2025 Dr. Keny Fernandes MD Referring Provider Active Start: June 19, 2025 End: June 19, 2025 MARI Menendez Attending physician Active Start: June 19, 2025 End: June 19, 2025 Goals (unrecognized section and content) Goals may be documented in a n alternate sectionGoals may be documented in an alternate sectionGoals may be documented in an alternate sectionGoals may be documented in an alternate sectionGoals may be documented in an alternate sectionGoals may be documented in an alternate sectionGoals may be documented in an alternate sectionGoals may be documented in an alternate sectionGoals may be documented in an alternate sectionGoals may be documented in an alternate sectionGoals may be documented in an alternate sectionGoals may be documented in an alternate sectionGoals may be documented in an alternate sectionGoals may be documented in an alternate section Source Comments (unrecognize d section and content) In the event this informatio n is protected by the Federal Confidentiality of Alcohol and Drug Abuse Patient Records regulations: The Federal rules restrict any use of the information to criminally investigate or prosecute any alcohol or drug abuse patient.[facility] Center[facility] the event this information is protected by the Federal Confidentiality of Alcohol and Drug Abuse Patient Records regulations: The Federal rules restrict any use of the information to criminally investigate or prosecute any alcohol or drug abuse patient.[facility] Center[facility] the event this information is protected by the Federal Confidentiality of Alcohol and Drug Abuse Patient Records regulations: The Federal rules restrict any use of the information to criminally investigate or prosecute any alcohol or drug abuse patient.[facility] Center[facility] the event this information is protected by the Federal Confidentiality of Alcohol and Drug Abuse Patient Records regulations: The Federal rules restrict any use of the information to criminally investigate or prosecute any alcohol or drug abuse patient.[facility] Center[facility] the event this information is protected by the Federal Confidentiality of Alcohol and Drug Abuse Patient Records regulations: The Federal rules restrict any use of the information to criminally investigate or prosecute any alcohol or drug abuse patient.[facility] Center[facility] the event this information is protected by the Federal Confidentiality of Alcohol and Drug Abuse Patient Records regulations: The Federal rules restrict any use of the information to criminally investigate or prosecute any alcohol or drug abuse patient.[facility] Center[facility] the event this information is protected by the Federal Confidentiality of Alcohol and Drug Abuse Patient Records regulations: The Federal rules restrict any use of the information to criminally investigate or prosecute any alcohol or drug abuse patient.[facility] CenterIn the event this information is protected by the Federal Confidentiality of Alcohol and Drug Abuse Patient Records regulations: The Federal rules restrict any use of the information to criminally investigate or prosecute any alcohol or drug abuse patient.[facility] CenterIn the event this information is protected by the Federal Confidentiality of Alcohol and Drug Abuse Patient Records regulations: The Federal rules restrict any use of the information to criminally investigate or prosecute any alcohol or drug abuse patient.[facility] CenterIn the event this information is protected by the Federal Confidentiality of Alcohol and Drug Abuse Patient Records regulations: The Federal rules restrict any use of the information to criminally investigate or prosecute any alcohol or drug abuse patient.[facility] CenterIn the event this information is protected by the Federal Confidentiality of Alcohol and Drug Abuse Patient Records regulations: The Federal rules restrict any use of the information to criminally investigate or prosecute any alcohol or drug abuse patient.[facility] Reason for Visit (unrecogniz ed section and content) Reason Comments Erroneous encounter-disregard Reason Comments Urinary Problem Burning and frequent ly x1 day Reason Comments Results Reason Comments Sore Throat left ear pain and fe hermelinda x 1 day Reason Comments Results COVID+ Reason Comments Cough Positive, wanting me dicine Reason Comments Diabetic Shoes Diabetic shoe pick u pDr. C Morgan burgundy size 9xw3 heat moldable inserts diabetic nail care Pcp Dom lo od sugar AM 124 Reason Comments DM Foot Care Pt. Is being seen to day for Diabetic nail and foot care.The patient denies any pain or any other complaints at this visit today.[id number],PCP-July 2024. Reason Comments UTI Reason Comments diabetic nail care Pcp Dom 6.7 Reason Comments Urinary Frequency Frequency, urgency, low back pain x 1 day Reason Onset Date Comments Results 01/16/2025 Reason Comments diabetic nail care Pcp 5 Reason Comments diabetic nail care Pcp Dom 5.6Right foot 1st digit callous pain FOR RECORDS PERTAINING TO PATIENTS WHO ARE OR HAVE BEEN ENROLLED IN A CHEMICAL DEPENDENCY/SUBSTANCEABUSE PROGRAM, SOME INFORMATION MAY BE OMITTED. This clinical summary was aggregated from multiple sources. Caution should be exercised in using it in the provision of clinical care. This summary normalizes information from multiple sources, and as a consequence, information in this document may materially change the coding, format and clinical context of patient data. In addition, data may be omitted in some cases. CLINICAL DECISIONS SHOULD BE BASED ON THE PRIMARY CLINICAL RECORDS. [facility] [employer] [facility]. provides no warranty or guarantee of the accuracy or completeness of information in this document.
[2025-08-27 08:37] LABS: AST(SGOT) 44 U/L (<=31); Alanine Aminotransfer ALT/SGPT 49 U/L (<=34); Albumin, Serum 4.5 g/dL (3.4-4.8); Alkaline Phosphatase 57 U/L (35-104); Anion Gap 14 (5-15); BUN 36 mg/dL (4-19); BUN/Creat Ratio 27.1 RATIO (10-20); Calcium,Total 9.5 mg/dL (7.6-11.0); Carbon Dioxide 19.8 mmol/L (21.0-32.0); Chloride 108 mmol/L (98-108); Cholesterol 123 mg/dL (<=200); Globulin 2.8 g/dL (2.2-4.2); Glucose 147 mg/dL (70-99); Low Density Lipoprotein Calc. 52 mg/dL; Potassium 5.1 mmol/L (3.3-5.1); Triglycerides 206 mg/dL; Very Low Density Lipoprotein 41 mg/dL (5-40); cholesterol:hdl ratio screen 3.27
== END | disposition home or self-care (01) ==
PROVIDERS: PCP Family Medicine; Referring Provider Family Medicine; Visit Provider Family Medicine
DX: E78.2 Mixed hyperlipidemia (principal); K75.81 Nonalcoholic steatohepatitis (NASH)
CPT/HCPCS: 36415; 80053; 80061